=== PATIENT | male | born 1965 | race African-American/Black ===

== ENCOUNTER → 2016-12-05 | Outpatient (CLI) | payer SELFPAY ==
[2016-12-05 12:06] LABS: ALANINE AMINOTRANSFERASE 54 U/L (21-72); ALBUMIN 4.2 g/dL (3.5-5.0); ALKALINE PHOSPHATASE 104 U/L (38-126); ANION GAP 10 (5-19); ASPARTATE AMINO TRANSFERASE 28 U/L (17-59); BILIRUBIN,DIRECT 0.3 mg/dL (0.0-0.4); BILIRUBIN,TOTAL 1.6 mg/dL (0.2-1.3); BLOOD UREA NITROGEN 20 mg/dL (7-20); CALCIUM 9.5 mg/dL (8.4-10.2); CARBON DIOXIDE 25 mmol/L (22-30); CHLORIDE 103 mmol/L (98-107); CREATININE RESULT 0.97 mg/dL (0.52-1.25); GLUCOSE 170 mg/dL (75-110); POTASSIUM 4.6 mmol/L (3.6-5.0); SODIUM 138.4 mmol/L (137-145); TOTAL PROTEIN 7.2 g/dL (6.3-8.2)
== END ==
LOC: OD 10:39
PROVIDERS: ATTEND Internal Medicine
DX: E11.9 Type 2 diabetes mellitus without complications (principal)
CPT/HCPCS: 36415; 80053; 83036

== ENCOUNTER 2017-04-07 04:54 | Observation (INO) | payer SELFPAY ==
[2017-04-07] MEDS ORDERED: ASPIRIN 81 MG TABLET, CHEWABLE PO ONE ×2 (05:12→07:01)
--- NOTE | 2017-04-07 05:19 | ER Document Report ---
ED Medical Screen (RME) - General Chief Complaint: Shortness Of Breath Stated Complaint: SHORTNESS OF BREATH Notes: Patient is a 51-year-old male presents emergency department complaining of shortness of breath for the past 2-3 days. Admits to dyspnea on exertion and orthopnea. Patient does admit to a dry cough with occasional clear mucus. Admits to history of CHF. States that he does take spironolactone at home as well as potassium he also has Lasix at home to take as needed. Patient states that he took 2 tablets prior to arrival. He states that he feels his shortness of breath is related to his CHF. Denies any history of COPD, asthma. Denies any chest pain. PMH: HTN, HLD, DM, CHF PCP; [facility] TRAVEL OUTSIDE OF THE [place] IN LAST 30 DAYS: No - Related Data Allergies/Adverse Reactions: No Known Allergies Allergy (Verified 01/27/12 15:43) Past Medical History - Social History Chew tobacco use (# tins/day): No Frequency of alcohol use: None Drug Abuse: None - Past Medical History Cardiac Medical History: Reports: Hx Congestive Heart Failure, Hx Hypercholesterolemia, Hx Hypertension Endocrine Medical History: Reports: Hx Diabetes Mellitus Type 2 Renal/ Medical History: Denies: Hx Peritoneal Dialysis - Immunizations Hx Diphtheria, Pertussis, Tetanus Vaccination: No Physical Exam - Vital signs Vitals: Temp Pulse Resp BP Pulse Ox 98.4 F 128 H 26 H 149/97 H 88 L 04/07/17 04:59 04/07/17 04:59 04/07/17 04:59 04/07/17 04:59 04/07/17 04:59 - Notes Notes: PHYSICAL EXAM GENERAL: Alert, interacts well. NECK: Full range of motion. Supple. Trachea midline. LUNGS: Diminished at the bases bilaterally, no wheezes, rales, or rhonchi. No respiratory distress. HEART: Regular rate and rhythm. No murmurs, gallops, or rubs. ABDOMEN: Soft, nondistended, nontender. No guarding, rebound, or rigidity.. Bowel sounds present in all 4 quadrants. EXTREMITIES: Moves all 4 extremities spontaneously. No edema, radial and dorsalis pedis pulses 2/4 bilaterally. No cyanosis. NEUROLOGICAL: Alert and oriented x4. Normal speech. PSYCH: Normal affect, normal mood. SKIN: Warm, dry, normal turgor. No rashes or lesions noted. Course - Vital Signs Vital signs: Temp Pulse Resp BP Pulse Ox 98.4 F 128 H 26 H 149/97 H 88 L 04/07/17 04:59 04/07/17 04:59 04/07/17 04:59 04/07/17 04:59 04/07/17 04:59
--- NOTE | 2017-04-07 05:25 | EKG REPORT ---
SEVERITY:- ABNORMAL ECG - SINUS TACHYCARDIA LEFT ATRIAL ABNORMALITY LEFT BUNDLE BRANCH BLOCK : Confirmed by: Yahir Akbar 07-Apr-2017 05:24:18
[2017-04-07 05:46] LABS: ABSOLUTE BASOPHILS # (AUTO) 0.1 10^3/uL (0.0-0.2); ABSOLUTE EOSINOPHILS # (AUTO) 0.2 10^3/uL (0.0-0.6); ABSOLUTE LYMPHOCYTES (AUTO) 1.9 10^3/uL (0.5-4.7); ABSOLUTE MONOCYTES (AUTO) 0.9 10^3/uL (0.1-1.4); ABSOLUTE NEUT (AUTO) 7.7 10^3/uL (1.7-8.2); BASOPHILS % (AUTO) 0.8 % (0-2); EOSINOPHILS % (AUTO) 1.6 % (0-6); HEMATOCRIT 40.9 % (37.9-51.0); HEMOGLOBIN 13.6 g/dL (13.5-17.0); HGB HCT DIFFERENCE -0.1; LYMPHOCYTES % (AUTO) 17.8 % (13-45); MEAN CORPUSCULAR HEMOGLOBIN 30.8 pg (27.0-33.4); MEAN CORPUSCULAR HGB CONC 33.2 g/dL (32.0-36.0); MEAN CORPUSCULAR VOLUME 93 fl (80-97); RED BLOOD COUNT 4.42 10^6/uL (4.35-5.55); RED CELL DISTRIBUTION WIDTH 13.9 % (11.5-14.0); SEGMENTED NEUTROPHILS % (AUTO) 71.8 % (42-78); WHITE BLOOD COUNT 10.8 10^3/uL (4.0-10.5)
[2017-04-07 05:47] LABS: PROTHROMBIN TIME 13.6 SEC (11.4-15.4); VENOUS BLOOD BASE EXCESS -0.9 mmol/L; VENOUS BLOOD HCO3 23.4 mmol/L (20-32); VENOUS BLOOD PCO2 37.9 mmHg (35-63); VENOUS BLOOD PH 7.41 (7.30-7.42)
[2017-04-07 05:48] LABS: PARTIAL THROMBOPLASTIN TIME 30.2 SEC (23.5-35.8)
[2017-04-07 06:06] LABS: ALANINE AMINOTRANSFERASE 79 U/L (21-72); ALBUMIN 4.2 g/dL (3.5-5.0); ALKALINE PHOSPHATASE 102 U/L (38-126); ANION GAP 19 (5-19); ASPARTATE AMINO TRANSFERASE 36 U/L (17-59); BILIRUBIN,DIRECT 0.6 mg/dL (0.0-0.4); BILIRUBIN,TOTAL 2.2 mg/dL (0.2-1.3); BLOOD UREA NITROGEN 18 mg/dL (7-20); CALCIUM 9.5 mg/dL (8.4-10.2); CARBON DIOXIDE 18 mmol/L (22-30); CHLORIDE 106 mmol/L (98-107); CREATINE KINASE 751 U/L (55-170); CREATININE RESULT 1.02 mg/dL (0.52-1.25); GLUCOSE 321 mg/dL (75-110); MAGNESIUM 1.6 mg/dL (1.6-2.3); POTASSIUM 4.5 mmol/L (3.6-5.0); SODIUM 142.6 mmol/L (137-145); TOTAL PROTEIN 7.2 g/dL (6.3-8.2)
[2017-04-07 06:17] LABS: CREATINE KINASE MB 4.39 ng/mL (<4.55)
--- NOTE | 2017-04-07 06:19 | RADIOLOGY REPORT (SQ) ---
EXAM DESCRIPTION: CHEST SINGLE VIEW CLINICAL HISTORY: 51 years, Male, sob COMPARISON: None. FINDINGS: Small moderate patchiness of the right mid lung field associated with the right minor fissure. Adequate lung volumes. Normal cardiac silhouette size. Intact bony thorax. IMPRESSION: Small pneumonia pattern of the right mid hemithorax. 2011 [employer]- All Rights Reserved
[2017-04-07 06:23] LABS: TROPONIN I 0.067 ng/mL
[2017-04-07] MEDS ORDERED: METOPROLOL SUCCINATE 50 MG TAB.SR.24H PO ONE (07:02)
--- NOTE | 2017-04-07 07:03 | ER Document Report ---
ED General - General Chief Complaint: Shortness Of Breath Stated Complaint: SHORTNESS OF BREATH Time Seen by Provider: 04/07/17 06:19 TRAVEL OUTSIDE OF THE [place] 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 Last night he could not sleep lay down because of shortness of breath. He denies any chest pain left arm numbness tingling sensation nausea or vomiting. But felt like heart beating fast at times. Denies any fever chills or other constitutional symptoms. - Related Data Allergies/Adverse Reactions: No Known Allergies Allergy (Verified 01/27/12 15:43) Past Medical History - Social History Smoking Status: Never Smoker Chew tobacco use (# tins/day): No Frequency of alcohol use: None Drug Abuse: None Family History: Reviewed & Not Pertinent Patient has suicidal ideation: No Patient has homicidal ideation: No - Past Medical History Cardiac Medical History: Reports: Hx Congestive Heart Failure, Hx Hypercholesterolemia, Hx Hypertension Endocrine Medical History: Reports: Hx Diabetes Mellitus Type 2 Renal/ Medical History: Denies: Hx Peritoneal Dialysis - Immunizations Hx Diphtheria, Pertussis, Tetanus Vaccination: No Hx Pneumococcal Vaccination: 04/30/09 Review of Systems - Review of Systems Notes: REVIEW OF SYSTEMS: CONSTITUTIONAL : Denies fever, chills, or sweats. Denies recent illness. EENT: Denies eye, ear, throat, or mouth pain or symptoms. Denies nasal or sinus congestion or discharge. Denies throat, tongue, or mouth swelling or difficulty swallowing. CARDIOVASCULAR: Denies chest pain. Denies palpitations or racing or irregular heart beat. Denies ankle edema. RESPIRATORY: As per history of complaining GASTROINTESTINAL: Denies abdominal pain or distention. Denies nausea, vomiting , or diarrhea. Denies blood in vomitus, stools, or per rectum. Denies black, tarry stools. Denies constipation. GENITOURINARY: Denies difficulty urinating, painful urination, burning, frequency, blood in urine, or discharge. MUSCULOSKELETAL: Denies back or neck pain or stiffness. Denies joint pain or swelling. SKIN: Denies rash, lesions or sores. HEMATOLOGIC : Denies easy bruising or bleeding. LYMPHATIC: Denies swollen, enlarged glands. NEUROLOGICAL: Denies confusion or altered mental status. Denies passing out or loss of consciousness. Denies dizziness or lightheadedness. Denies headache. Denies weakness or paralysis or loss of use of either side. Denies problems with gait or speech. Denies sensory loss, numbness, or tingling. Denies seizures. PSYCHIATRIC: Denies anxiety or stress. Denies depression, suicidal ideation, or homicidal ideation. ALL OTHER SYSTEMS REVIEWED AND NEGATIVE. Dictation was performed using [employer] voice recognition software PHYSICAL EXAMINATION: GENERAL: Well-appearing, well-nourished and in no acute distress. Morbidly obese HEAD: Atraumatic, normocephalic. EYES: Pupils equal round and reactive to light, extraocular movements intact, sclera anicteric, conjunctiva are normal. ENT: Nares patent, oropharynx clear without exudates. Moist mucous membranes. NECK: Normal range of motion, supple without lymphadenopathy LUNGS: Bilaterally decreased breath sounds in the bases, and rales over the lower one third of the lung field. No other adventitial sounds heard. Percussion there is no dullness. HEART: Regular rate and rhythm without murmurs ABDOMEN: Soft, nontender, nondistended abdomen. No guarding, no rebound. No masses appreciated. Musculoskeletal: Normal range of motion, 1-2+ pitting or edema. No cyanosis. NEUROLOGICAL: Cranial nerves grossly intact. Normal speech, normal gait. Normal sensory, motor exams PSYCH: Normal mood, normal affect. SKIN: Warm, Dry, normal turgor, no rashes or lesions noted. Physical Exam - Vital signs Vitals: Temp Pulse Resp BP Pulse Ox 98.4 F 128 H 26 H 149/97 H 88 L 04/07/17 04:59 04/07/17 04:59 04/07/17 04:59 04/07/17 04:59 04/07/17 04:59 Course - Vital Signs Vital signs: Temp Pulse Resp BP Pulse Ox 98.4 F 128 H 20 149/97 H 95 04/07/17 04:59 04/07/17 04:59 04/07/17 06:00 04/07/17 04:59 04/07/17 06:00 - Laboratory Result Diagrams: 04/07/17 05:30 04/07/17 05:30 Laboratory results interpreted by me: 04/07/17 04/07/1704/07/17 05:30 05:30 05:30 WBC 10.8 H Carbon Dioxide 18 L Glucose 321 H Total Bilirubin 2.2 H Direct Bilirubin 0.6 H ALT 79 H Creatine Kinase 751 H NT-Pro-B Natriuret Pep 959 H - EKG Interpretation by Me EKG shows normal: Sinus rhythm - Sinus tach at rate of 117 bpm normal axis no acute ST elevation ST depression was noted. Nonspecific T-wave inversion in V6. Otherwise normal cardiogram
[2017-04-07] MEDS ORDERED: FUROSEMIDE INJ/PF 40 MG/4 ML SDV IV ONE (07:05)
[2017-04-07] MEDS ORDERED: ACETAMINOPHEN 325 MG TABLET PO PRN (12:27)
[2017-04-07] MEDS ORDERED: ENALAPRILAT DIHYDRATE INJ/PF 1.25 MG/1 ML SDV IV PRN (12:27)
[2017-04-07] MEDS ORDERED: MAGNESIUM HYDROXIDE SUSP 30 ML UDCUP PO PRN (12:27)
[2017-04-07] MEDS ORDERED: MAG HYDROX/AL HYDROX/SIMETH SUSP 30 ML UDCUP PO PRN (12:27)
[2017-04-07] MEDS ORDERED: ONDANSETRON 4 MG TAB.RAPDIS PO PRN (12:27)
[2017-04-07] MEDS ORDERED: DEXTROSE 50%-WATER 25 GM/50 ML DISP.SYRIN IV PRN ×2 (12:36)
[2017-04-07] MEDS ORDERED: GLUCAGON,HUMAN RECOMB 1 MG INJ IM PRN (12:36)
[2017-04-07] MEDS ORDERED: DEXTROSE 40% GEL 15 GM TUBE PO PRN ×2 (12:36)
[2017-04-07] MEDS ORDERED: AZITHROMYCIN 250 MG TABLET PO ONE (12:50)
[2017-04-07] MEDS ORDERED: IPRATROPIUM/ALBUTEROL 0.5-2.5 MG/3 ML AMPUL NEB PRN (12:53)
--- NOTE | 2017-04-07 12:59 | PDOC H&P ---
History of Present Illness Admission Date/PCP: 04/07/17 12:04 Patient complains of: Shortness of breath and productive cough History of Present Illness: JUANI PARTIDA is a 51 year old male with a past medical history significant for diabetes mellitus type 2, hypertension, hyperlipidemia, and congestive heart failure who presented to the emergency department today with a complaint of progressively worsening dyspnea. On arrival, the patient was found to be hypoxic at 85% on room air. Workup revealed leukocytosis at 10.8, a proBNP of 959, and a chest x-ray suggestive of mild pulmonary edema with possible right middle lobe developing pneumonia. He was provided IV Lasix and is now maintaining his oxygen saturations at greater than 92% while on room air and is comfortable lying supine and is fully conversational. The patient reports that his only blood pressure medication is spironolactone which he ran out of approximately 3 weeks ago. He is also admittedly noncompliant with his diabetic and cardiac diet. 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 He denies lower extremity edema or tenderness. He has noted worsening dyspnea and a productive cough for approximately 4-5 days. He denies fever, chills, body aches, chest pain, palpitations. He is referred to the hospitalist service for observational admission and management of his CHF exacerbation and pneumonia. Past Medical History Cardiac Medical History: Reports: Congestive Heart Failure, Hyperlipidema, Hypertension Pulmonary Medical History: Reports: None EENT Medical History: Reports: None Neurological Medical History: Reports: None Endocrine Medical History: Reports: Diabetes Mellitus Type 2 Renal/ Medical History: Reports: None Malignancy Medical History: Reports: None GI Medical History: Reports: None Musculoskeltal Medical History: Reports: None Skin Medical History: Reports: None Psychiatric Medical History: Reports: None Traumatic Medical History: Reports: None Hematology: Reports: None Infectious Medical History: Reports: None Past Surgical History Past Surgical History: Reports: None Social History Information Source: Patient, Relative Lives with: Spouse/Significant other Smoking Status: Never Smoker Frequency of Alcohol Use: None Hx Recreational Drug Use: No Hx Prescription Drug Abuse: No - Advance Directive Resuscitation Status: Full Code Family History Family History: Reviewed & Not Pertinent, DM, Hypertension Parental Family History Reviewed: Yes Children Family History Reviewed: Yes Sibling(s) Family History Reviewed.: Yes Medication/Allergy Allergies/Adverse Reactions: No Known Allergies Allergy (Verified 01/27/12 15:43) Review of Systems Constitutional: ABSENT: chills, fever(s), headache(s), weight gain, weight loss Eyes: ABSENT: visual disturbances Ears: ABSENT: hearing changes Nose, Mouth, and Throat: ABSENT: headache(s), sore throat Cardiovascular: PRESENT: dyspnea on exertion, orthropnea. ABSENT: chest pain, edema, palpitations Respiratory: PRESENT: cough, dyspnea, sputum. ABSENT: hemoptysis Gastrointestinal: ABSENT: abdominal pain, constipation, diarrhea, hematemesis, hematochezia, nausea, vomiting Genitourinary: ABSENT: dysuria, hematuria Musculoskeletal: ABSENT: joint swelling Integumentary: ABSENT: rash, wounds Neurological: ABSENT: abnormal gait, abnormal speech, confusion, dizziness, focal weakness, syncope Psychiatric: ABSENT: anxiety, depression, homidical ideation, suicidal ideation Endocrine: ABSENT: cold intolerance, heat intolerance, polydipsia, polyuria Hematologic/Lymphatic: ABSENT: easy bleeding, easy bruising Physical Exam Vital Signs: Temp Pulse Resp BP Pulse Ox 98.4 F 128 H 25 H 149/97 H 90 L 04/07/17 04:59 04/07/17 04:59 04/07/17 12:00 04/07/17 04:59 04/07/17 12:00 General appearance: PRESENT: no acute distress, obese, well-developed, well- nourished Head exam: PRESENT: atraumatic, normocephalic Eye exam: PRESENT: conjunctiva pink, EOMI, PERRLA. ABSENT: scleral icterus Ear exam: PRESENT: normal external ear exam Mouth exam: PRESENT: moist, tongue midline Neck exam: ABSENT: carotid bruit, JVD, lymphadenopathy, thyromegaly Respiratory exam: PRESENT: clear to auscultation eulalio, decreased breath sounds - Bibasilar, symmetrical, unlabored. ABSENT: rales, rhonchi, wheezes Cardiovascular exam: PRESENT: RRR, tachycardia. ABSENT: diastolic murmur, rubs , systolic murmur Pulses: PRESENT: normal dorsalis pedis pul Vascular exam: PRESENT: normal capillary refill GI/Abdominal exam: PRESENT: normal bowel sounds, soft. ABSENT: distended, guarding, mass, organolmegaly, rebound, tenderness Rectal exam: PRESENT: deferred Extremities exam: PRESENT: full ROM. ABSENT: calf tenderness, clubbing, pedal edema Neurological exam: PRESENT: alert, awake, oriented to person, oriented to place , oriented to time, oriented to situation, CN II-XII grossly intact. ABSENT: motor sensory deficit Psychiatric exam: PRESENT: appropriate affect, normal mood. ABSENT: homicidal ideation, suicidal ideation Skin exam: PRESENT: dry, intact, warm. ABSENT: cyanosis, rash Results Impressions: Chest X-Ray 04/07/17 05:12 IMPRESSION: Small pneumonia pattern of the right mid hemithorax. 2010 [employer] All Rights Reserved Assessment & Plan - Diagnosis (1) Pneumonia Qualifiers: Pneumonia type: due to unspecified organism Laterality: right Lung location: middle lobe of lung Qualified Code(s): J18.1 - Lobar pneumonia, unspecified organism Is this a current diagnosis for this admission?: Yes Plan: The patient presented with a complaint of dyspnea and a productive cough. He was initially found to be hypoxic at 85% on room air, which improved following Lasix and supplemental oxygen via nasal canula for a short period of time. He remains tachycardic in the low 100s. He is noted to have leukocytosis of 10.8. Chest xray reveals a small pneumonia pattern to the right mid hemithorax. He will be placed on Azithromycin. Blood cultures will be obtained for completeness, although, pt does not appear to be acutely ill. Duonebs as needed. Supplemental oxygen to keep O2 sats >92%. Incentive spirometry at bedside. (2) Congestive heart failure Qualifiers: Congestive heart failure type: systolic Congestive heart failure chronicity : acute Qualified Code(s): I50.21 - Acute systolic (congestive) heart failure Is this a current diagnosis for this admission?: Yes Plan: This is likely a result of having missed several weeks of his home diuretic. Further complicated by a developing pneumonia. The patient is improved following IV Lasix administered in the emergency department. We will continue gentle diuresis with daily furosemide. Continue metoprolol. Will obtain an echocardiogram. (3) Acute pulmonary edema Is this a current diagnosis for this admission?: Yes Plan: Secondary to acute CHF exacerbation. Plan as above. 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 His home medication regimen will be continued once reconciled. We will monitor her glucose with Accu-Cheks before meals at bedtime and provide Humalog for sliding scale coverage. Will ask the family educator and registered dietitian to meet with the patient. (5) HTN (hypertension) Is this a current diagnosis for this admission?: Yes Plan: Patient reports that he ran out of his heart medications proximally 3 weeks ago. He has been provided IV furosemide and metoprolol in the ED. We will continue metoprolol and continued diuresis with furosemide. We will resume his home medication regimen once reconciled. - Time Time Spent: 50 to 70 Minutes Anticipated discharge: Home Within: within 48 hours
[2017-04-07] MEDS ORDERED: ENOXAPARIN SODIUM INJ 40 MG/0.4 ML DISP.SYRIN SUBCUT ONE (14:00)
[2017-04-07] MEDS ORDERED: LEVOFLOXACIN 750 MG TABLET PO ONE (14:00)
[2017-04-07] MEDS ORDERED: INFLUENZA ADLT QUAD (36MOS+) 2017-18 VAC 0.5 ML SYR IM PRN (14:09)
[2017-04-07] MEDS ORDERED: INSULIN LISPRO 100 UNIT/ML 3 ML VIAL SUBCUT ONE (16:30)
[2017-04-07] MEDS: FUROSEMIDE INJ/PF 20 MG/2 ML SDV IV SCH (17:28)
[2017-04-07] MEDS ORDERED: FAMOTIDINE 20 MG TABLET PO SCH (22:00)
[2017-04-07] MEDS: INSULIN LISPRO 100 UNIT/ML 3 ML VIAL SUBCUT PRN (23:42)
[2017-04-08] MEDS: FUROSEMIDE INJ/PF 20 MG/2 ML SDV IV SCH (05:40)
[2017-04-08 06:31] LABS: ABSOLUTE BASOPHILS # (AUTO) 0.1 10^3/uL (0.0-0.2); ABSOLUTE EOSINOPHILS # (AUTO) 0.2 10^3/uL (0.0-0.6); ABSOLUTE LYMPHOCYTES (AUTO) 3.2 10^3/uL (0.5-4.7); ABSOLUTE MONOCYTES (AUTO) 1.2 10^3/uL (0.1-1.4); ABSOLUTE NEUT (AUTO) 6.6 10^3/uL (1.7-8.2); EOSINOPHILS % (AUTO) 1.7 % (0-6); HEMATOCRIT 39.4 % (37.9-51.0); HEMOGLOBIN 13.1 g/dL (13.5-17.0); HGB HCT DIFFERENCE -0.1; MEAN CORPUSCULAR HEMOGLOBIN 31.2 pg (27.0-33.4); MEAN CORPUSCULAR HGB CONC 33.2 g/dL (32.0-36.0); MEAN CORPUSCULAR VOLUME 94 fl (80-97); MONOCYTES % (AUTO) 10.7 % (3-13); RED CELL DISTRIBUTION WIDTH 13.8 % (11.5-14.0); SEGMENTED NEUTROPHILS % (AUTO) 58.6 % (42-78); WHITE BLOOD COUNT 11.3 10^3/uL (4.0-10.5)
[2017-04-08 06:56] LABS: ANION GAP 16 (5-19); BLOOD UREA NITROGEN 23 mg/dL (7-20); CALCIUM 9.6 mg/dL (8.4-10.2); CARBON DIOXIDE 22 mmol/L (22-30); CHLORIDE 100 mmol/L (98-107); CHOLESTEROL 194.53 mg/dL (0-200); CREATININE RESULT 1.05 mg/dL (0.52-1.25); Direct HDL 37 mg/dL (>40); GLUCOSE 316 mg/dL (75-110); POTASSIUM 4.4 mmol/L (3.6-5.0); SODIUM 137.9 mmol/L (137-145); TRIGLYCERIDES 136 mg/dL (<150)
[2017-04-08 07:06] LABS: DIRECT LDL 128 mg/dL (<100)
[2017-04-08] MEDS: INSULIN LISPRO 100 UNIT/ML 3 ML VIAL SUBCUT PRN (07:33)
[2017-04-08] MEDS ORDERED: AZITHROMYCIN 250 MG TABLET PO ONE (08:00)
[2017-04-08] MEDS ORDERED: METFORMIN HCL 500 MG TABLET PO SCH (08:00)
[2017-04-08 08:26] VITALS: BP 100/63
[2017-04-08] MEDS ORDERED: GLIMEPIRIDE 4 MG TABLET PO SCH (10:00)
[2017-04-08] MEDS ORDERED: LEVOFLOXACIN 750 MG TABLET PO SCH (10:00)
[2017-04-08] MEDS ORDERED: SPIRONOLACTONE 25 MG TABLET PO SCH (10:00)
[2017-04-08] MEDS ORDERED: ENOXAPARIN SODIUM INJ 40 MG/0.4 ML DISP.SYRIN SUBCUT SCH (10:00)
[2017-04-08] MEDS ORDERED: ASPIRIN 81 MG TABLET, ENT COATED PO SCH (10:00)
[2017-04-08] MEDS ORDERED: CARVEDILOL 3.125 MG TABLET PO SCH (10:00)
[2017-04-08] MEDS ORDERED: METOPROLOL SUCCINATE 50 MG TAB.SR.24H PO SCH (10:00)
[2017-04-08] MEDS ORDERED: OMEGA-3 ACID ETHYL ESTERS 1 GM CAPSULE PO SCH (10:00)
--- NOTE | 2017-04-08 14:12 | PDOC DISCHARGE SUMMARY ---
General - Admit/Disc Date/PCP Admission Date/Primary Care Provider: 04/07/17 12:04 Discharge Date: 04/08/17 - Discharge Diagnosis (1) Pneumonia Is this a current diagnosis for this admission?: Yes Summary: The patient presented with a complaint of dyspnea and a productive cough. He was initially found to be hypoxic at 85% on room air which improved following Lasix and supplemental oxygen. He was noted to have leukocytosis of 10.8 and a chest x-ray that revealed a small pneumonia pattern to the right mid hemothorax. Blood cultures were obtained and at time of dictation are still pending. He was placed on azithromycin and is provided a prescription to complete a 5 day course. On day of discharge, the patient is maintaining oxygen saturations on room air and while ambulatory. He continues to have a slightly productive cough but overall feels much improved and is stable for discharge to home. (2) Congestive heart failure Is this a current diagnosis for this admission?: Yes Summary: Acute CHF exacerbation secondary to having missed several weeks of his home medications and further complicated by developing pneumonia. His dyspnea, orthopnea and hypoxemia have all resolved following one administration of IV Lasix and reinitiating his home medication regimen. ProBNP is trending downward and the pt states he is ready to be discharged to home. He is strongly encouraged to continue all medications as ordered and is provided prescriptions for ASA, Coreg, Furosemide (prn), Lisinopril, and Aldactone. (3) Acute pulmonary edema Is this a current diagnosis for this admission?: Yes Summary: Resolved; secondary to acite CHF exacerbation as described above. (4) Uncontrolled diabetes mellitus Is this a current diagnosis for this admission?: Yes Summary: The patient is an uncontrolled diabetic with an A1c of 10.5, who is admittedly noncompliant with his diabetic diet medications. He is strongly encouraged to take his medications as prescribed and to eat a consistent carb diet. On discharge he is provided a prescription for metformin and Amaryl. Patient is to follow-up with his primary care provider within 1-2 weeks. (5) HTN (hypertension) Is this a current diagnosis for this admission?: Yes Summary: As above. - Additional Information Resuscitation Status: Full Code Discharge Diet: Cardiac, Diabetic Discharge Activity: Activity As Tolerated, Balance Activity w/Rest, Walk Frequently, Weigh Daily Home Medications: Aspirin [Ecotrin 81 mg EC Tablet] 81 mg PO DAILY 04/07/17 Cinnamon Bark [Cinnamon] 1,000 mg PO DAILY 04/07/17 Garlic [Garlic Oil] 1,000 mg PO DAILY 04/07/17 Aspirin [Ecotrin 81 mg EC Tablet] 81 mg PO DAILY #90 tabec 04/08/17 Azithromycin [Zithromax] 250 mg PO DAILY #4 tablet 04/08/17 Carvedilol [Coreg 3.125 mg Tablet] 3.125 mg PO Q12 #30 tablet 04/08/17 Furosemide [Lasix 20 mg Tablet] 20 mg PO DAILY #30 tablet 04/08/17 Glimepiride [Amaryl 4 mg Tablet] 4 mg PO DAILY #30 tablet 04/08/17 Lisinopril [Prinivil] 10 mg PO DAILY #30 tablet 04/08/17 Metformin HCl [Glucophage] 1,000 mg PO BIDACBS #60 tablet 04/08/17 Grant-3S/Dha/Epa/Fish Oil/D3 [Fish Hwj-Nzmfx-5-Vit D Softgel] 1 each PO DAILY # 30 capsule 04/08/17 Potassium Chloride 10 meq PO DAILY #30 tablet.er 04/08/17 Simvastatin [Zocor 40 mg Tablet] 40 mg PO QHS #30 tablet 04/08/17 Spironolactone [Aldactone 25 mg Tablet] 25 mg PO DAILY #30 tablet 04/08/17 History of Present Illness History of Present Illness: JUANI PARTIDA is a 51 year old male with a past medical history significant for diabetes mellitus type 2, hypertension, hyperlipidemia, and congestive heart failure who presented to the emergency department today with a complaint of progressively worsening dyspnea. On arrival, the patient was found to be hypoxic at 85% on room air. Workup revealed leukocytosis at 10.8, a proBNP of 959, and a chest x-ray suggestive of mild pulmonary edema with possible right middle lobe developing pneumonia. He was provided IV Lasix and is now maintaining his oxygen saturations at greater than 92% while on room air and is comfortable lying supine and is fully conversational. The patient reports that his only blood pressure medication is spironolactone which he ran out of approximately 3 weeks ago. He is also admittedly noncompliant with his diabetic and cardiac diet. 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 He denies lower extremity edema or tenderness. He has noted worsening dyspnea and a productive cough for approximately 4-5 days. He denies fever, chills, body aches, chest pain, palpitations. He is referred to the hospitalist service for observational admission and management of his CHF exacerbation and pneumonia. Physical Exam Vital Signs: Temp Pulse Resp BP Pulse Ox 97.9 F 103 H 18 100/63 93 04/08/17 08:10 04/08/17 08:10 04/08/17 08:10 04/08/17 08:10 04/08/17 08:10 Intake & Output 04/07/17 04/08/17 04/09/17 06:59 06:59 06:59 Intake Total 940 Output Total 0 Balance 940 Weight 117.7 kg General appearance: PRESENT: no acute distress, well-developed, well-nourished, other - Overweight Head exam: PRESENT: atraumatic, normocephalic Eye exam: PRESENT: conjunctiva pink, EOMI, PERRLA. ABSENT: scleral icterus Ear exam: PRESENT: normal external ear exam Mouth exam: PRESENT: moist, tongue midline Neck exam: ABSENT: carotid bruit, JVD, lymphadenopathy, thyromegaly Respiratory exam: PRESENT: clear to auscultation eulalio, symmetrical, unlabored. ABSENT: rales, rhonchi, wheezes Cardiovascular exam: PRESENT: RRR, +S1, +S2. ABSENT: diastolic murmur, rubs, systolic murmur Pulses: PRESENT: normal dorsalis pedis pul Vascular exam: PRESENT: normal capillary refill GI/Abdominal exam: PRESENT: normal bowel sounds, soft. ABSENT: distended, guarding, mass, organolmegaly, rebound, tenderness Rectal exam: PRESENT: deferred Extremities exam: PRESENT: full ROM. ABSENT: calf tenderness, clubbing, pedal edema Neurological exam: PRESENT: alert, awake, oriented to person, oriented to place , oriented to time, oriented to situation, CN II-XII grossly intact. ABSENT: motor sensory deficit Psychiatric exam: PRESENT: appropriate affect, normal mood. ABSENT: homicidal ideation, suicidal ideation Skin exam: PRESENT: dry, intact, warm. ABSENT: cyanosis, rash Results Laboratory Results: 04/08/17 05:30 04/08/17 05:30 04/08/17 04/08/17 05:30 05:30 WBC 11.3 H RBC 4.20 L Hgb 13.1 L Hct 39.4 MCV 94 MCH 31.2 MCHC 33.2 RDW 13.8 Plt Count 259 Seg Neutrophils % 58.6 Lymphocytes % 28.0 Monocytes % 10.7 Eosinophils % 1.7 Basophils % 1.0 Absolute Neutrophils 6.6 Absolute Lymphocytes 3.2 Absolute Monocytes 1.2 Absolute Eosinophils 0.2 Absolute Basophils 0.1 Sodium 137.9 Potassium 4.4 Chloride 100 Carbon Dioxide 22 Anion Gap 16 BUN 23 H Creatinine 1.05 Est GFR ( Amer) > 60 Est GFR (Non-Af Amer) > 60 Glucose 316 H Calcium 9.6 Triglycerides 136 Cholesterol 194.53 LDL Cholesterol Direct 128 H VLDL Cholesterol 27.0 HDL Cholesterol 37 L 04/07/17 04/08/17 16:27 05:30 Troponin I 0.068 NT-Pro-B Natriuret Pep 733 Impressions: Chest X-Ray 04/07/17 05:12 IMPRESSION: Small pneumonia pattern of the right mid hemithorax. 2010 [employer]- All Rights Reserved Qualifiers PATEINT BEING DISCHARGED WITH ANY OF THE FOLLOWING DIAGNOSIS?: Heart Failure Plan Discharge Plan: Discharge to home with self care. To follow up with primary care provided within 1-2 weeks.
[2017-04-08] MEDS ORDERED: SIMVASTATIN 40 MG TABLET PO SCH (22:00)
[2017-04-08] MEDS ORDERED: SIMVASTATIN 40 MG PO SCH (22:00)
== END 2017-04-08 09:15 | disposition home or self-care (01) ==
LOC: ER 04:54 → INTOOBSV 12:04 → EH 12:04 → 4S 13:20
PROVIDERS: ADMIT Internal Medicine; ATTEND Internal Medicine
PROC: 3E0F7GC Introduction of Other Therapeutic Substance into Respiratory Tract, Via Natural or Artificial Opening (ICD-10-PCS; principal; 2017-04-07)
PROC: 5A09357 Assistance with Respiratory Ventilation, Less than 24 Consecutive Hours, Continuous Positive Airway Pressure (ICD-10-PCS; 2017-04-07)
DX: J18.1 Lobar pneumonia, unspecified organism (principal); R09.02 Hypoxemia; E11.65 Type 2 diabetes mellitus with hyperglycemia; I11.0 Hypertensive heart disease with heart failure; I50.21 Acute systolic (congestive) heart failure; E78.5 Hyperlipidemia, unspecified; Z91.14 Patient's other noncompliance with medication regimen; Z79.899 Other long term (current) drug therapy; Z79.82 Long term (current) use of aspirin; Z91.11 Patient's noncompliance with dietary regimen; Z83.3 Family history of diabetes mellitus; Z82.49 Family history of ischemic heart disease and other diseases of the circulatory system
CPT/HCPCS: 93005; 99285; 96374; 36415 ×2; 87040; 82553; 82962 ×2; 82550; 83735; 85025 ×2; 85610; 85730; 80048; 80053; 84484; 83036; 82803; 80061; 83880 ×2; 71010; 93010; 94660; 94640; J1940 ×3; J1815 ×2; J3490 ×2; J7620

== ENCOUNTER → 2017-06-14 | Outpatient (CLI) | payer SELFPAY ==
[2017-06-14 17:44] LABS: ALANINE AMINOTRANSFERASE 64 U/L (21-72); ALBUMIN 4.1 g/dL (3.5-5.0); ALKALINE PHOSPHATASE 81 U/L (38-126); ANION GAP 11 (5-19); ASPARTATE AMINO TRANSFERASE 30 U/L (17-59); BILIRUBIN,DIRECT 0.2 mg/dL (0.0-0.4); BILIRUBIN,TOTAL 0.5 mg/dL (0.2-1.3); BLOOD UREA NITROGEN 15 mg/dL (7-20); CALCIUM 9.7 mg/dL (8.4-10.2); CARBON DIOXIDE 23 mmol/L (22-30); CHLORIDE 106 mmol/L (98-107); GLUCOSE 171 mg/dL (75-110); POTASSIUM 4.7 mmol/L (3.6-5.0); SODIUM 140.2 mmol/L (137-145); TOTAL PROTEIN 6.7 g/dL (6.3-8.2)
== END ==
LOC: OD 16:20
PROVIDERS: ATTEND Family Medicine
DX: I50.9 Heart failure, unspecified (principal)
CPT/HCPCS: 36415; 80053

== ENCOUNTER 2017-06-18 13:14 | Emergency (ER) | payer BC ==
--- NOTE | 2017-06-18 15:02 | ER Document Report ---
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 He became short of breath and went to the hospital. He states while there they told him that he had congestive heart failure, that his ejection fraction is 17%, and they placed a defibrillator. Patient states he just arrived home from [place] several days ago. Patient stated he started again today to feel short of breath and like his heart was racing. He states he did take an aspirin this morning. TRAVEL OUTSIDE OF THE [place] IN LAST 30 DAYS: No - Related Data Allergies/Adverse Reactions: No Known Allergies Allergy (Verified 06/18/17 13:17) Past Medical History - Past Medical History Cardiac Medical History: Reports: Hx Congestive Heart Failure, Hx Hypercholesterolemia, Hx Hypertension Endocrine Medical History: Reports: Hx Diabetes Mellitus Type 2 Renal/ Medical History: Denies: Hx Peritoneal Dialysis Psychiatric Medical History: Denies: Hx Depression - Immunizations Hx Diphtheria, Pertussis, Tetanus Vaccination: No History of Influenza Vaccine for 01/2017 - 06/2017 Season: No Physical Exam - Vital signs Vitals: Temp Pulse Resp BP Pulse Ox 97.7 F 109 H 20 112/82 96 06/18/17 13:35 06/18/17 13:35 06/18/17 13:35 06/18/17 13:35 06/18/17 13:35 Course - Vital Signs Vital signs: Temp Pulse Resp BP Pulse Ox 97.7 F 109 H 20 112/82 96 06/18/17 13:35 06/18/17 13:35 06/18/17 13:35 06/18/17 13:35 06/18/17 13:35
[2017-06-18 15:57] LABS: ABSOLUTE BASOPHILS # (AUTO) 0.1 10^3/uL (0.0-0.2); ABSOLUTE EOSINOPHILS # (AUTO) 0.2 10^3/uL (0.0-0.6); ABSOLUTE LYMPHOCYTES (AUTO) 2.6 10^3/uL (0.5-4.7); ABSOLUTE MONOCYTES (AUTO) 0.7 10^3/uL (0.1-1.4); ABSOLUTE NEUT (AUTO) 6.7 10^3/uL (1.7-8.2); BASOPHILS % (AUTO) 0.9 % (0-2); EOSINOPHILS % (AUTO) 1.5 % (0-6); HEMOGLOBIN 14.2 g/dL (13.5-17.0); LYMPHOCYTES % (AUTO) 25.5 % (13-45); MEAN CORPUSCULAR HEMOGLOBIN 30.6 pg (27.0-33.4); MEAN CORPUSCULAR HGB CONC 32.2 g/dL (32.0-36.0); MEAN CORPUSCULAR VOLUME 95 fl (80-97); PLATELET COUNT 379 10^3/uL (150-450); RED BLOOD COUNT 4.64 10^6/uL (4.35-5.55); RED CELL DISTRIBUTION WIDTH 13.6 % (11.5-14.0); SEGMENTED NEUTROPHILS % (AUTO) 65.1 % (42-78); TOTAL CELLS COUNTED % (AUTO) 100 %; WHITE BLOOD COUNT 10.3 10^3/uL (4.0-10.5)
--- NOTE | 2017-06-18 16:14 | ER Document Report ---
ED General - General Mode of Arrival: Ambulatory Information source: Patient TRAVEL OUTSIDE OF THE [place] IN LAST 30 DAYS: No <WARREN MUÑOZ - Last Filed: 06/18/17 16:15> <NORAHKACEY Queen - Last Filed: 06/19/17 09:33> - General Chief Complaint: Shortness Of Breath Stated Complaint: chest pain Time Seen by Provider: 06/18/17 15:00 Notes: Patient is a 52 year old male presenting to the emergency department complaining of a shortness of breath and heart palpitations. Patient states he had similar symptoms 1 week ago while in [place] and was told he had CHF and an ejection fraction of 17%. Patient states a scan of his chest was preformed then and it did not show any signs of a pulmonary embolism. Patient was then given a defibrillator. Patient also complains of an occasional cough with yellow sputum. Patient states his manager port is now Dr. Akbar and has an appointment scheduled for tomorrow. Patient states the appointment was originally scheduled for the first and would not have come to the emergency department if he had known. (WARREN MUÑOZ) - Related Data Allergies/Adverse Reactions: No Known Allergies Allergy (Verified 06/18/17 13:17) Past Medical History - General Information source: Patient - Social History Smoking Status: Unknown if Ever Smoked Frequency of alcohol use: None Drug Abuse: None Family History: Reviewed & Not Pertinent, DM, Hypertension Patient has suicidal ideation: No Patient has homicidal ideation: No - Past Medical History Cardiac Medical History: Reports: Hx Congestive Heart Failure, Hx Hypercholesterolemia, Hx Hypertension Endocrine Medical History: Reports: Hx Diabetes Mellitus Type 2 Past Surgical History: Reports: Hx Cardiac Surgery - Defib - Immunizations Hx Diphtheria, Pertussis, Tetanus Vaccination: No Hx Pneumococcal Vaccination: 04/30/09 <WARREN MUÑOZ - Last Filed: 06/18/17 16:15> Review of Systems - Review of Systems Constitutional: No symptoms reported EENT: No symptoms reported Cardiovascular: See HPI, Palpitations Respiratory: See HPI, Cough, Short of breath Gastrointestinal: No symptoms reported Genitourinary: No symptoms reported Male Genitourinary: No symptoms reported Musculoskeletal: No symptoms reported Skin: No symptoms reported Hematologic/Lymphatic: No symptoms reported Neurological/Psychological: No symptoms reported -: Yes All other systems reviewed and negative <WARREN MUÑOZ - Last Filed: 06/18/17 16:15> Physical Exam - General General appearance: Appears well, Alert In distress: None - HEENT Head: Normocephalic, Atraumatic Eyes: Normal Conjunctiva: Normal Pupils: PERRL - Respiratory Respiratory status: No respiratory distress Chest status: Nontender Breath sounds: Normal Chest palpation: Normal - Cardiovascular Rhythm: Regular Heart sounds: Normal auscultation Murmur: No Friction rub: No Gallop: None auscultated - Abdominal Inspection: Normal Distension: No distension Bowel sounds: Normal Tenderness: Nontender Organomegaly: No organomegaly - Back Back: Normal - Extremities General upper extremity: Normal inspection, Normal ROM General lower extremity: Normal inspection, Normal ROM. No: Edema - Neurological Neuro grossly intact: Yes Cognition: Normal Orientation: AAOx4 [place] Coma Scale Eye Opening: Spontaneous [place] Coma Scale Verbal: Oriented [place] Coma Scale Motor: Obeys Commands [place] Coma Scale Total: 15 Speech: Normal - Psychological Associated symptoms: Normal affect, Normal mood - Skin Skin Temperature: Warm Skin Moisture: Dry Skin Color: Normal <WARREN MUÑOZ - Last Filed: 06/18/17 16:15> - Vital signs Vitals: Temp Pulse Resp BP Pulse Ox 97.7 F 109 H 20 112/82 96 06/18/17 13:35 06/18/17 13:35 06/18/17 13:35 06/18/17 13:35 06/18/17 13:35 Course - Laboratory Result Diagrams: 06/18/17 15:40 06/18/17 15:40 <WARREN MUÑOZ - Last Filed: 06/18/17 16:15> - Laboratory Result Diagrams: 06/18/17 15:40 06/18/17 15:40 <KACEY ALMAZAN - Last Filed: 06/19/17 09:33> - Re-evaluation Re-evalutation: 06/18/17 17:13 Patient's labs within normal limits are trending within his baseline with troponin less than historical trend. He does have elevated BNP from his historical baselines but no congestive heart failure. Patient has appointment with his manager port tomorrow. I discussed with patient to strictly follow up with his manager port. He denies any chest pain or shortness of breath at this time is asymptomatic. Will be discharged home with return precautions (KACEY ALMAZAN) - Vital Signs Vital signs: Temp Pulse Resp BP Pulse Ox 98.0 F 109 H 18 126/94 H 100 06/18/17 17:30 06/18/17 13:35 06/18/17 17:30 06/18/17 17:30 06/18/17 17:30 - Laboratory Laboratory results interpreted by me: 06/18/17 06/18/17 15:40 15:40 BUN 21 H Creatinine 1.27 H Glucose 139 H Direct Bilirubin 0.5 H NT-Pro-B Natriuret Pep 3080 H Discharge <WARREN MUÑOZ - Last Filed: 06/18/17 16:15> <KACEY ALMAZAN - Last Filed: 06/19/17 09:33> - Discharge Clinical Impression: Congestive heart failure (CHF) Qualifiers: Heart failure type: unspecified Heart failure chronicity: unspecified Qualified Code(s): I50.9 - Heart failure, unspecified Condition: Good Disposition: HOME, SELF-CARE Instructions: Congestive Heart Failure ([facility]) Additional Instructions: Please follow-up with your manager port with your previously scheduled appointment for tomorrow regarding her congestive heart failure and optimizing your medical management. Scribe Attestation: 06/19/17 09:33 I personally performed the services described documentation, reviewed and edited the documentation which was dictated to describe my presence, and it accurately records my words and actions. (KACEY ALMAZAN) Scribe Documentation - Scribe Written by Chelae:: Myrna Amin, 06/18/2017, 16:26 acting as scribe for :: Norah <WARREN MUÑOZ - Last Filed: 06/18/17 16:15>
--- NOTE | 2017-06-18 16:18 | RADIOLOGY REPORT (SQ) ---
EXAM DESCRIPTION: CHEST PA/LAT COMPLETED DATE/TIME: 06/18/2017 3:56 pm REASON FOR STUDY: sob COMPARISON: Chest films 04/24/2010, 07/03/2010, 04/03/2013 EXAM PARAMETERS: NUMBER OF VIEWS: two views TECHNIQUE: Digital Frontal and Lateral radiographic views of the chest acquired. RADIATION DOSE: NA LIMITATIONS: none FINDINGS: LUNGS AND PLEURA: No opacities, masses or pneumothorax. No pleural effusion. MEDIASTINUM AND HILAR STRUCTURES: No masses or contour abnormalities. HEART AND VASCULAR STRUCTURES: Stable moderate cardiomegaly BONES: No acute findings. HARDWARE: Left-sided single lead pacemaker, new compared to 04/07/2017 OTHER: No other significant finding. IMPRESSION: Stable moderate cardiomegaly. Left-sided single lead pacemaker new compared to 7 TECHNICAL DOCUMENTATION: JOB ID: [id number]- All Rights Reserved
[2017-06-18 16:19] LABS: ALANINE AMINOTRANSFERASE 57 U/L (21-72); ALBUMIN 4.2 g/dL (3.5-5.0); ALKALINE PHOSPHATASE 86 U/L (38-126); ANION GAP 13 (5-19); ASPARTATE AMINO TRANSFERASE 30 U/L (17-59); BILIRUBIN,DIRECT 0.5 mg/dL (0.0-0.4); BILIRUBIN,TOTAL 1.1 mg/dL (0.2-1.3); BLOOD UREA NITROGEN 21 mg/dL (7-20); CALCIUM 9.5 mg/dL (8.4-10.2); CARBON DIOXIDE 23 mmol/L (22-30); CHLORIDE 107 mmol/L (98-107); GLUCOSE 139 mg/dL (75-110); POTASSIUM 4.7 mmol/L (3.6-5.0); SODIUM 143.2 mmol/L (137-145); TOTAL PROTEIN 7.5 g/dL (6.3-8.2)
[2017-06-18 16:35] LABS: TROPONIN I 0.04 ng/mL
[2017-06-18 17:39] VITALS: BP 126/94
--- NOTE | 2017-06-18 18:09 | EKG REPORT ---
SEVERITY:- ABNORMAL ECG - SINUS TACHYCARDIA PROBABLE LEFT ATRIAL ABNORMALITY IVCD NONSPECIFIC ST-T CHANGES LATERAL LEADS. : Confirmed by: Pablito Ramirez MD 18-Jun-2017 18:08:27
== END 2017-06-18 17:39 | disposition home or self-care (01) ==
LOC: ER 13:14
DX: I50.9 Heart failure, unspecified (principal); R06.02 Shortness of breath; R00.2 Palpitations; R05 Cough
CPT/HCPCS: 36415; 71046; 80053; 83735; 83880; 84484; 85025; 93005; 93010; 99285

== ENCOUNTER → 2017-06-28 | Outpatient (CLI) | payer BC ==
[2017-06-28 13:21] LABS: ALANINE AMINOTRANSFERASE 52 U/L (21-72); ALBUMIN 4.4 g/dL (3.5-5.0); ALKALINE PHOSPHATASE 72 U/L (38-126); ANION GAP 15 (5-19); ASPARTATE AMINO TRANSFERASE 35 U/L (17-59); BILIRUBIN,DIRECT 0.3 mg/dL (0.0-0.4); BILIRUBIN,TOTAL 1.7 mg/dL (0.2-1.3); BLOOD UREA NITROGEN 20 mg/dL (7-20); CALCIUM 9.8 mg/dL (8.4-10.2); CARBON DIOXIDE 22 mmol/L (22-30); CHLORIDE 106 mmol/L (98-107); GLUCOSE 139 mg/dL (75-110); POTASSIUM 4.8 mmol/L (3.6-5.0); SODIUM 142.9 mmol/L (137-145)
== END ==
LOC: OD 12:15
PROVIDERS: ATTEND Family Medicine
DX: E11.9 Type 2 diabetes mellitus without complications (principal); I50.9 Heart failure, unspecified
CPT/HCPCS: 36415; 80053

== ENCOUNTER 2017-07-23 08:30 | Observation (INO) | payer BC ==
--- NOTE | 2017-07-23 10:11 | ER Document Report ---
ED Respiratory Problem - General Chief Complaint: Shortness Of Breath Stated Complaint: SHORTNESS OF BREATH Time Seen by Provider: 07/23/17 10:01 Mode of Arrival: Ambulatory Information source: Patient Notes: HP 52 years old male with a history of CHF hypertension, presents today with progressive increasing shortness of breath over the last 3 days. He has been taking Lasix. But was drinking soda and consuming salty food. Denies any chest pain but had orthopnea. Denies any left arm numbness tingling sensation nausea vomiting palpitation or diaphoresis. Has been coughing on and off largely dry cough, no wheezing. No constitutional symptoms REVIEW OF SYSTEMS: CONSTITUTIONAL : Denies fever, chills, or sweats. Denies recent illness. EENT: Denies eye, ear, throat, or mouth pain or symptoms. Denies nasal or sinus congestion or discharge. Denies throat, tongue, or mouth swelling or difficulty swallowing. CARDIOVASCULAR: Denies chest pain. Denies palpitations or racing or irregular heart beat. Denies ankle edema. RESPIRATORY: Denies cough, cold, or chest congestion. Denies shortness of breath, difficulty breathing, or wheezing. GASTROINTESTINAL: Denies abdominal pain or distention. Denies nausea, vomiting , or diarrhea. Denies blood in vomitus, stools, or per rectum. Denies black, tarry stools. Denies constipation. GENITOURINARY: Denies difficulty urinating, painful urination, burning, frequency, blood in urine, or discharge. MUSCULOSKELETAL: Denies back or neck pain or stiffness. Denies joint pain or swelling. SKIN: Denies rash, lesions or sores. HEMATOLOGIC : Denies easy bruising or bleeding. LYMPHATIC: Denies swollen, enlarged glands. NEUROLOGICAL: Denies confusion or altered mental status. Denies passing out or loss of consciousness. Denies dizziness or lightheadedness. Denies headache. Denies weakness or paralysis or loss of use of either side. Denies problems with gait or speech. Denies sensory loss, numbness, or tingling. Denies seizures. PSYCHIATRIC: Denies anxiety or stress. Denies depression, suicidal ideation, or homicidal ideation. ALL OTHER SYSTEMS REVIEWED AND NEGATIVE. Dictation was performed using [employer] voice recognition software PHYSICAL EXAMINATION: GENERAL: Well-appearing, well-nourished and in no acute distress. HEAD: Atraumatic, normocephalic. EYES: Pupils equal round and reactive to light, extraocular movements intact, sclera anicteric, conjunctiva are normal. ENT: Nares patent, oropharynx clear without exudates. Moist mucous membranes. NECK: Normal range of motion, supple without lymphadenopathy LUNGS: Breath sounds clear to auscultation bilaterally and equal. No wheezes rales or rhonchi. HEART: Regular rate and rhythm without murmurs ABDOMEN: Soft, nontender, nondistended abdomen. No guarding, no rebound. No masses appreciated. Musculoskeletal: Normal range of motion, no pitting or edema. No cyanosis. NEUROLOGICAL: Cranial nerves grossly intact. Normal speech, normal gait. Normal sensory, motor exams PSYCH: Normal mood, normal affect. SKIN: Warm, Dry, normal turgor, no rashes or lesions noted. TRAVEL OUTSIDE OF THE [place] IN LAST 30 DAYS: No - Related Data Allergies/Adverse Reactions: No Known Allergies Allergy (Verified 07/23/17 08:30) Past Medical History - Social History Smoking Status: Never Smoker Frequency of alcohol use: None Drug Abuse: None Family History: Reviewed & Not Pertinent, DM, Hypertension Patient has suicidal ideation: No Patient has homicidal ideation: No - Past Medical History Cardiac Medical History: Reports: Hx Congestive Heart Failure, Hx Hypercholesterolemia, Hx Hypertension Endocrine Medical History: Reports: Hx Diabetes Mellitus Type 2 Renal/ Medical History: Denies: Hx Peritoneal Dialysis Psychiatric Medical History: Denies: Hx Depression Past Surgical History: Reports: Hx Cardiac Surgery - Defib - Immunizations Hx Diphtheria, Pertussis, Tetanus Vaccination: No Hx Pneumococcal Vaccination: 04/30/09 Physical Exam - Vital signs Vitals: Temp Pulse Resp BP Pulse Ox 98.0 F 106 H 18 138/93 H 97 07/23/17 08:37 07/23/17 08:37 07/23/17 08:37 07/23/17 08:37 07/23/17 08:37 Course - Vital Signs Vital signs: Temp Pulse Resp BP Pulse Ox 98.0 F 106 H 22 H 132/101 H 95 07/23/17 08:37 07/23/17 08:37 07/23/17 14:01 07/23/17 14:01 07/23/17 14:01 - Laboratory Result Diagrams: 07/23/17 10:05 07/23/17 10:05 Laboratory results interpreted by me: 07/23/17 07/23/17 10:05 10:05 RBC 4.20 L Hgb 13.1 L RDW 15.0 H Sodium 145.6 H Chloride 110 H Glucose 176 H Total Bilirubin 1.7 H Direct Bilirubin 0.6 H Creatine Kinase 460 H - Diagnostic Test Radiology reviewed: Reports reviewed - Mild congestive changes noted - EKG Interpretation by Me EKG shows normal: Sinus rhythm Rhythm: NSR - 99 bpm sinus rhythm normal axis no acute ST elevation ST depression noted T-wave inversion in lateral leads V5 and V6. Discharge - Discharge Clinical Impression: Chest pain, rule out acute myocardial infarction Congestive heart failure Qualifiers: Heart failure type: combined systolic and diastolic Heart failure chronicity: acute on chronic Qualified Code(s): I50.43 - Acute on chronic combined systolic (congestive) and diastolic (congestive) heart failure Condition: Fair Disposition: ADMITTED INPATIENT Admitting Provider: Hospitalist Unit Admitted: Telemetry Referrals: NORMA INTERIANO MD [Primary Care Provider] - Follow up as needed
--- NOTE | 2017-07-23 10:15 | RADIOLOGY REPORT (SQ) ---
EXAM DESCRIPTION: CHEST SINGLE VIEW COMPLETED DATE/TIME: 07/23/2017 9:59 am REASON FOR STUDY: sob COMPARISON: 06/18/2017 EXAM PARAMETERS: NUMBER OF VIEWS: One view. TECHNIQUE: Single frontal radiographic view of the chest acquired. RADIATION DOSE: NA LIMITATIONS: None. FINDINGS: LUNGS AND PLEURA: No opacities, masses or pneumothorax. No pleural effusion. MEDIASTINUM AND HILAR STRUCTURES: No masses. Contour normal. HEART AND VASCULAR STRUCTURES: Moderate cardiomegaly. Vasculature within normal limits. BONES: No acute findings. HARDWARE: Left subclavian defibrillator. OTHER: No other significant finding. IMPRESSION: Cardiomegaly without evidence of acute cardiopulmonary disease. TECHNICAL DOCUMENTATION: JOB ID: [id number] [employer]- All Rights Reserved Reading location - IP/workstation name: [email or web address]
[2017-07-23 10:29] LABS: ABSOLUTE BASOPHILS # (AUTO) 0.1 10^3/uL (0.0-0.2); ABSOLUTE EOSINOPHILS # (AUTO) 0.1 10^3/uL (0.0-0.6); ABSOLUTE LYMPHOCYTES (AUTO) 2.1 10^3/uL (0.5-4.7); ABSOLUTE MONOCYTES (AUTO) 0.8 10^3/uL (0.1-1.4); BASOPHILS % (AUTO) 0.8 % (0-2); EOSINOPHILS % (AUTO) 1.4 % (0-6); HEMATOCRIT 39.6 % (37.9-51.0); HEMOGLOBIN 13.1 g/dL (13.5-17.0); LYMPHOCYTES % (AUTO) 23.1 % (13-45); MEAN CORPUSCULAR HEMOGLOBIN 31.1 pg (27.0-33.4); MEAN CORPUSCULAR VOLUME 94 fl (80-97); MONOCYTES % (AUTO) 8.6 % (3-13); PLATELET COUNT 267 10^3/uL (150-450); SEGMENTED NEUTROPHILS % (AUTO) 66.1 % (42-78); TOTAL CELLS COUNTED % (AUTO) 100 %; WHITE BLOOD COUNT 9.1 10^3/uL (4.0-10.5)
[2017-07-23 10:41] LABS: ALANINE AMINOTRANSFERASE 57 U/L (21-72); ALKALINE PHOSPHATASE 63 U/L (38-126); ANION GAP 11 (5-19); ASPARTATE AMINO TRANSFERASE 33 U/L (17-59); BILIRUBIN,DIRECT 0.6 mg/dL (0.0-0.4); BILIRUBIN,TOTAL 1.7 mg/dL (0.2-1.3); BLOOD UREA NITROGEN 19 mg/dL (7-20); CALCIUM 9.3 mg/dL (8.4-10.2); CARBON DIOXIDE 25 mmol/L (22-30); CHLORIDE 110 mmol/L (98-107); CREATINE KINASE 460 U/L (55-170); GLUCOSE 176 mg/dL (75-110); SODIUM 145.6 mmol/L (137-145); TOTAL PROTEIN 7.1 g/dL (6.3-8.2)
[2017-07-23 11:07] LABS: CREATINE KINASE MB 2.35 ng/mL (<4.55)
[2017-07-23 11:09] LABS: TROPONIN I 0.05 ng/mL
--- NOTE | 2017-07-23 14:15 | EKG REPORT ---
SEVERITY:- ABNORMAL ECG - SINUS RHYTHM PROBABLE LEFT ATRIAL ABNORMALITY IVCD NONSPECIFIC LATERAL ST-T CHANGES : Confirmed by: Pablito Ramirez MD 23-Jul-2017 14:15:00
[2017-07-23] MEDS ORDERED: ZOLPIDEM TARTRATE 5 MG TABLET PO PRN (16:25)
[2017-07-23] MEDS ORDERED: OXYCODONE-ACETAMINOPHEN 5-325 MG TABLET PO PRN (16:25)
[2017-07-23] MEDS ORDERED: ACETAMINOPHEN 325 MG TABLET PO PRN (16:25)
[2017-07-23] MEDS ORDERED: DEXTROSE 50%-WATER 25 GM/50 ML DISP.SYRIN IV PRN ×2 (16:38)
[2017-07-23] MEDS ORDERED: DEXTROSE 40% GEL 15 GM TUBE PO PRN ×2 (16:38)
[2017-07-23] MEDS ORDERED: GLUCAGON,HUMAN RECOMB 1 MG INJ IM PRN (16:38)
--- NOTE | 2017-07-23 16:56 | PDOC H&P ---
History of Present Illness Admission Date/PCP: NORMA INTERIANO MD Patient complains of: Shortness of breath for the past 3 days History of Present Illness: JUANI PARTIDA is a 52 year old male Presents to emergency room via private vehicle and accompanied by his and complains of having shortness of breath for the past 3 days. Patient's states that patient indulges in drinking sodas. Patient states that he gets thirsty and he drinks sodas and water. Patient denies chest pain. He admits having a history of congestive heart failure and that he is EF is 15%. He sees Dr. Akbar for that purpose. Patient also admits as to snoring and stops breathing as per . He is supposed to be tested for sleep study this coming week. Patient was evaluated in emergency room and there was a concern of congestive heart failure and troponin was minimally elevated. After consulting with Dr. Akbar ED physician contacted our service and prompted to evaluate and will admit for further management Past Medical History Cardiac Medical History: Reports: Congestive Heart Failure, Hyperlipidema, Hypertension Pulmonary Medical History: Reports: None EENT Medical History: Reports: None Neurological Medical History: Reports: None Endocrine Medical History: Reports: Diabetes Mellitus Type 2 Renal/ Medical History: Reports: None Malignancy Medical History: Reports: None GI Medical History: Reports: None Musculoskeltal Medical History: Reports: None Skin Medical History: Reports: None Psychiatric Medical History: Reports: None Denies: Depression Traumatic Medical History: Reports: None Hematology: Reports: None Infectious Medical History: Reports: None Past Surgical History Past Surgical History: Reports: Cardiac Catheterization, Pacemaker Social History Information Source: Patient Lives with: Spouse/Significant other Smoking Status: Never Smoker Frequency of Alcohol Use: None Hx Recreational Drug Use: No Drugs: None Hx Prescription Drug Abuse: No - Advance Directive Resuscitation Status: Full Code Family History Family History: Reviewed & Not Pertinent, DM, Hypertension Parental Family History Reviewed: Yes Children Family History Reviewed: Yes Sibling(s) Family History Reviewed.: Yes Medication/Allergy Home Medications: Cinnamon Bark [Cinnamon] 1,000 mg PO DAILY 04/07/17 Garlic [Garlic Oil] 1,000 mg PO DAILY 04/07/17 Aspirin [Ecotrin 81 mg EC Tablet] 81 mg PO DAILY #90 tabec 04/08/17 Carvedilol [Coreg 3.125 mg Tablet] 3.125 mg PO Q12 #30 tablet 04/08/17 Lisinopril [Prinivil] 10 mg PO DAILY #30 tablet 04/08/17 Metformin HCl [Glucophage] 1,000 mg PO BIDACBS #60 tablet 04/08/17 [place]-3S/Dha/Epa/Fish Oil/D3 [Fish Rto-Hjqin-1-Vit D Softgel] 1 each PO DAILY # 30 capsule 04/08/17 Spironolactone [Aldactone 25 mg Tablet] 25 mg PO DAILY #30 tablet 04/08/17 Digoxin [Lanoxin 0.125 mg Tablet] 0.125 mg PO DAILY 07/23/17 Furosemide [Lasix 20 mg Tablet] 20 mg PO Q48H 07/23/17 Glimepiride [Amaryl 4 mg Tablet] 4 mg PO [id number] 07/23/17 Potassium Chloride [Klor-Con 10 Meq Tablet.sa] 10 meq PO DAILY 07/23/17 Sacubitril/Valsartan [Entresto 49 mg/51 mg Tablet] 1 tab PO Q12 07/23/17 Simvastatin [Zocor 20 mg Tablet] 20 mg PO QHS 07/23/17 Allergies/Adverse Reactions: No Known Allergies Allergy (Verified 07/23/17 08:30) Review of Systems Constitutional: PRESENT: fatigue. ABSENT: headache(s), night sweats Eyes: ABSENT: visual disturbances Ears: ABSENT: hearing changes Nose, Mouth, and Throat: ABSENT: mouth pain, sore throat Cardiovascular: PRESENT: dyspnea on exertion. ABSENT: chest pain, edema, orthropnea Respiratory: PRESENT: dyspnea Gastrointestinal: ABSENT: abdominal pain, nausea, vomiting Integumentary: ABSENT: diaphoresis Neurological: ABSENT: weakness Endocrine: ABSENT: polyphagia, polyuria Physical Exam Vital Signs: Temp Pulse Resp BP Pulse Ox 98.0 F 106 H 22 H 132/101 H 95 07/23/17 08:37 07/23/17 08:37 07/23/17 14:01 07/23/17 14:01 07/23/17 14:01 Intake & Output 07/22/17 07/23/17 07/24/17 06:59 06:59 06:59 Weight 120.6 kg General appearance: PRESENT: cooperative, morbidly obese Head exam: PRESENT: atraumatic, normocephalic Eye exam: PRESENT: conjunctiva pink, EOMI, PERRLA Neck exam: PRESENT: full ROM. ABSENT: JVD, lymphadenopathy, tenderness Respiratory exam: PRESENT: decreased breath sounds Cardiovascular exam: PRESENT: RRR. ABSENT: diastolic murmur, systolic murmur GI/Abdominal exam: PRESENT: normal bowel sounds, soft. ABSENT: tenderness Extremities exam: PRESENT: full ROM. ABSENT: pedal edema Musculoskeletal exam: PRESENT: ambulatory Neurological exam: PRESENT: alert, awake, oriented to person, oriented to place , oriented to time, oriented to situation, CN II-XII grossly intact Psychiatric exam: PRESENT: appropriate affect, normal mood Skin exam: PRESENT: intact, normal color Results Laboratory Results: 07/23/17 10:05 07/23/17 10:05 07/23/17 07/23/17 10:05 10:05 WBC 9.1 RBC 4.20 L Hgb 13.1 L Hct 39.6 MCV 94 MCH 31.1 MCHC 33.0 RDW 15.0 H Plt Count 267 Seg Neutrophils % 66.1 Lymphocytes % 23.1 Monocytes % 8.6 Eosinophils % 1.4 Basophils % 0.8 Absolute Neutrophils 6.0 Absolute Lymphocytes 2.1 Absolute Monocytes 0.8 Absolute Eosinophils 0.1 Absolute Basophils 0.1 Sodium 145.6 H Potassium 4.0 Chloride 110 H Carbon Dioxide 25 Anion Gap 11 BUN 19 Creatinine 1.08 Est GFR ( Amer) > 60 Est GFR (Non-Af Amer) > 60 Glucose 176 H Calcium 9.3 Total Bilirubin 1.7 H AST 33 ALT 57 Alkaline Phosphatase 63 Total Protein 7.1 Albumin 4.0 07/23/17 07/23/17 10:05 10:05 Creatine Kinase 460 H CK-MB (CK-2) 2.35 Troponin I 0.050 Impressions: Chest X-Ray 07/23/17 09:39 IMPRESSION: Cardiomegaly without evidence of acute cardiopulmonary disease. Assessment & Plan - Diagnosis (1) Diabetes Qualifiers: Diabetes mellitus type: type 2 Diabetes mellitus correction insulin use: without termite exterminator helper use Diabetes mellitus complication status: with circulatory complication Is this a current diagnosis for this admission?: Yes Plan: To place patient on Humalog sliding scale and bedside glucose before meals and at bedtime (2) Congestive heart failure Qualifiers: Heart failure type: combined systolic and diastolic Heart failure chronicity: acute on chronic Qualified Code(s): I50.43 - Acute on chronic combined systolic (congestive) and diastolic (congestive) heart failure Is this a current diagnosis for this admission?: Yes Plan: Patient has been having dietary indiscretion and had a lengthy conversation pertaining this issue. Patient will be placed on Lasix IV. Will increase Coreg dose and otherwise continue with Entresto. Will add Imdur and hydralazine to his regimen. Consult Dr. Akbar. To place patient on CPAP (3) HTN (hypertension) Qualifiers: Hypertension type: essential hypertension Qualified Code(s): I10 - Essential (primary) hypertension Is this a current diagnosis for this admission?: Yes Plan: We will add Imdur and hydralazine. To increase coreg. - Time Time Spent: 30 to 50 Minutes Medications reviewed and adjusted accordingly: Yes Anticipated discharge: Home Within: within 24 hours - Inpatient Certification Based on my medical assessment, after consideration of the patient's comorbidities, presenting symptoms, or acuity I expect that the services needed warrant INPATIENT care.: No I certify that my determination is in accordance with my understanding of Medicare's requirements for reasonable and necessary INPATIENT services [42 CFR 412.3e].: Yes Medical Necessity: Need Close Monitoring Due to Risk of Patient Decompensation, Need For Continuous Telemetry Monitoring
[2017-07-23] MEDS: HYDRALAZINE HCL 10 MG TABLET PO SCH (17:49)
[2017-07-23] MEDS ORDERED: ISOSORBIDE MONONITRATE 30 MG TAB.ER.24H PO SCH (18:00)
[2017-07-23 18:03] LABS: APPEARANCE,URINE SLIGHTLY-CLOUDY; BILIRUBIN,URINE NEGATIVE (NEGATIVE); COLOR,URINE YELLOW; GLUCOSE, URINE NEGATIVE (NEGATIVE); KETONES,URINE NEGATIVE (NEGATIVE); LEUKOCYTE ESTERASE,URINE NEGATIVE (NEGATIVE); NITRITE,URINE NEGATIVE (NEGATIVE); PROTEIN,URINE 100 mg/dL (NEGATIVE); URINE SPECIFIC GRAVITY 1.026
[2017-07-23] MEDS ORDERED: FUROSEMIDE INJ/PF 40 MG/4 ML SDV IV SCH (22:00)
[2017-07-23] MEDS ORDERED: CARVEDILOL 3.125 MG TABLET PO SCH (22:00)
[2017-07-23] MEDS: CARVEDILOL 3.125 MG TABLET PO SCH (22:43)
[2017-07-23] MEDS: HEPARIN SOD (PORCINE) 5,000 UNIT/ML 1 ML SYRINGE SUBCUT SCH (22:44)
[2017-07-23] MEDS: SACUBITRIL/VALSARTAN 49 MG/51 MG TABLET PO SCH (22:45)
[2017-07-23] MEDS: INSULIN LISPRO 100 UNIT/ML 3 ML VIAL SUBCUT PRN (22:47)
[2017-07-24] MEDS: HYDRALAZINE HCL 10 MG TABLET PO SCH (06:21)
[2017-07-24] MEDS: HEPARIN SOD (PORCINE) 5,000 UNIT/ML 1 ML SYRINGE SUBCUT SCH ×2 (06:21→13:15)
[2017-07-24 06:46] LABS: HEMATOCRIT 37.9 % (37.9-51.0); HEMOGLOBIN 12.5 g/dL (13.5-17.0); MEAN CORPUSCULAR HEMOGLOBIN 30.8 pg (27.0-33.4); MEAN CORPUSCULAR HGB CONC 32.9 g/dL (32.0-36.0); MEAN CORPUSCULAR VOLUME 94 fl (80-97); PLATELET COUNT 268 10^3/uL (150-450); RED BLOOD COUNT 4.04 10^6/uL (4.35-5.55); RED CELL DISTRIBUTION WIDTH 15.3 % (11.5-14.0); WHITE BLOOD COUNT 9.2 10^3/uL (4.0-10.5)
[2017-07-24 07:21] LABS: ANION GAP 11 (5-19); BLOOD UREA NITROGEN 18 mg/dL (7-20); CALCIUM 9.4 mg/dL (8.4-10.2); CARBON DIOXIDE 26 mmol/L (22-30); CHLORIDE 105 mmol/L (98-107); GLUCOSE 139 mg/dL (75-110); POTASSIUM 4.2 mmol/L (3.6-5.0); SODIUM 142.4 mmol/L (137-145)
--- NOTE | 2017-07-24 08:56 | Physician Advisory Note ---
Physician Advisor ProgressNote .: [facility] to the [facility], I have reviewed the medical record for this patient. Physician Advisor Statement: Please consider documenting, if you agree: 1. "Acute hypernatremia, suspect due to " 2. Any additional hx/findings supporting dx of Acute syst/diast CHF: " orthopnea" (ED dr stated it, H&P didn't), ?nocturnal cough?, ?rales?, SOB w/ ordinary exertion? S3 gallop? elevated JVP? hepatojugular reflux? BLE edema? - At present, the [place] criteria for dx Acute CHF documented by attending = "cardiomegaly on CXR" alone - payers will deny the dx was valid if insufficient criteria are documented. 3. Medical necessity: Is pt clinically improved enough for d/c after 1MN, or what are the clinical concerns still present? - "I AM CONCERNED ABOUT ": "mild hypoxemia continuing"? " persistent tachycardia, even in the face of increased beta yao dose"? "tachypnea as high as 42 on 07/23 PM, with recurrent tachypnea today"?, " persistent SOB/HENRIQUEZ significantly above baseline"?, ... 4. "suspected PRASANNA" Status: If pt is not safe for d/c today, please document reasons (see above), & may then be appropriate for change to Inpatient status. Thanks! CK
[2017-07-24] MEDS ORDERED: FUROSEMIDE INJ/PF 40 MG/4 ML SDV IV SCH (10:00)
[2017-07-24] MEDS ORDERED: DOCUSATE SODIUM 100 MG CAPSULE PO SCH (10:00)
[2017-07-24] MEDS ORDERED: DIGOXIN 0.125 MG TABLET PO SCH (10:00)
[2017-07-24] MEDS: SACUBITRIL/VALSARTAN 49 MG/51 MG TABLET PO SCH (10:33)
[2017-07-24] MEDS: CARVEDILOL 3.125 MG TABLET PO SCH (10:35)
--- NOTE | 2017-07-24 10:42 | PDOC CONSULTATION ---
Consultation Consult Date: 07/23/17 Attending physician:: CHELSI BABB Consult reason:: Shortness of breath History of Present Illness Admission Date/PCP: 07/23/17 16:09 NORMA INTERIANO MD Patient complains of: Shortness of breath History of Present Illness: JUANI PARTIDA is a 52 year old male Presents to emergency room via private vehicle and accompanied by his and complains of having shortness of breath for the past 3 days. Patient's states that patient indulges in drinking sodas. Patient states that he gets thirsty and he drinks sodas and water. Patient denies chest pain. He admits having a history of congestive heart failure and that he is EF is 15%. He sees Dr. Akbar for that purpose. Patient also admits as to snoring and stops breathing as per . He is supposed to be tested for sleep study this coming week. Patient was evaluated in emergency room and there was a concern of congestive heart failure and troponin was minimally elevated. After consulting with Dr. Akbar ED physician contacted our service and prompted to evaluate and will admit for further management This history was reviewed and confirmed. Patient had a recent hospitalization at the [facility] in [place] when he was noted to have nonobstructive coronary artery disease. He also had a defibrillator placed. Patient has history of severe LV systolic dysfunction. He was initially placed on diuretics, Lasix 20 mg p.o. daily but this dose was subsequently reduced as patient was noted to be dizzy. However patient increased fluid intake and came back with weight gain and CHF symptoms. Patient feels better after receiving IV Lasix. Past Medical History Cardiac Medical History: Reports: Congestive Heart Failure, Hyperlipidema, Hypertension Pulmonary Medical History: Reports: None EENT Medical History: Reports: None Neurological Medical History: Reports: None Endocrine Medical History: Reports: Diabetes Mellitus Type 2 Renal/ Medical History: Reports: None Malignancy Medical History: Reports: None GI Medical History: Reports: None Musculoskeltal Medical History: Reports: None Skin Medical History: Reports: None Psychiatric Medical History: Reports: None Denies: Depression Traumatic Medical History: Reports: None Hematology: Reports: None Infectious Medical History: Reports: None Past Surgical History Past Surgical History: Reports: Cardiac Catheterization, Pacemaker Social History Information Source: Patient Lives with: Spouse/Significant other Smoking Status: Never Smoker Frequency of Alcohol Use: None Hx Recreational Drug Use: No Drugs: None Hx Prescription Drug Abuse: No - Advance Directive Resuscitation Status: Full Code Surrogate healthcare decision maker:: Patient spouse is the surrogate decision-maker Family History Family History: DM, Hypertension Parental Family History Reviewed: Yes Children Family History Reviewed: Yes Sibling(s) Family History Reviewed.: Yes Medication/Allergy Home Medications: Cinnamon Bark [Cinnamon] 1,000 mg PO DAILY 04/07/17 Garlic [Garlic Oil] 1,000 mg PO DAILY 04/07/17 Aspirin [Ecotrin 81 mg EC Tablet] 81 mg PO DAILY #90 tabec 04/08/17 Metformin HCl [Glucophage] 1,000 mg PO BIDACBS #60 tablet 04/08/17 [place]-3S/Dha/Epa/Fish Oil/D3 [Fish Rze-Vjamz-8-Vit D Softgel] 1 each PO DAILY # 30 capsule 04/08/17 Spironolactone [Aldactone 25 mg Tablet] 25 mg PO DAILY #30 tablet 04/08/17 Digoxin [Lanoxin 0.125 mg Tablet] 0.125 mg PO DAILY 07/23/17 Glimepiride [Amaryl 4 mg Tablet] 4 mg PO WBRKFST 07/23/17 Potassium Chloride [Klor-Con 10 Meq Tablet.sa] 10 meq PO DAILY 07/23/17 Sacubitril/Valsartan [Entresto 49 mg/51 mg Tablet] 1 tab PO Q12 07/23/17 Simvastatin [Zocor 20 mg Tablet] 20 mg PO QHS 07/23/17 Carvedilol [Coreg 12.5 mg Tablet] 12.5 mg PO Q12 30 Days #60 tablet 07/24/17 Furosemide [Lasix 20 mg Tablet] 20 mg PO QAM #30 tablet 07/24/17 Isosorbide Mononitrate [Imdur 30 mg Tablet.er] 30 mg PO QPM #30 tab.er.24h 07/24 Magnesium Oxide 400 mg PO DAILY 30 Days #30 tablet 07/24/17 Sacubitril/Valsartan [Entresto 49 mg/51 mg Tablet] 1 tab PO Q12 tablet Allergies/Adverse Reactions: oxycodone [From Percocet] Adverse Reaction (Verified 07/23/17 19:47) Hallucinations Review of Systems Review of Systems: 0205 Please see history of present illness and past medical history as wall. Constitutional: No fever or chills reported. Head : No recent chronic headaches, recent head injury. Eyes: No recent eye pain, diplopia, redness, discharge, acute visual changes. Ears: No recent chronic ear pain, acute hearing loss, ear discharge. Oral cavity: No recent ulcerations, bleeding, oral cavity discomfort. Neck: No recent acute neck pain reported. Hematologic: No recent easy bruising or bleeding or hematologic malignancy reported. Lymphatic: No recent lymphatic malignancy, chronic lymphadenopathy reported yet Cardiovascular system review: See history of present illness. Respiratory system review: No recent chronic cough, hemoptysis, blood clots in the lungs reported. Shortness of breath on exertion Gastrointestinal system review: Negative for any recent acute or chronic abdominal pain, hematemesis, melena, recent change in bowel habits. Abdominal bloating noted Genitourinary system review: No recent acute or chronic hematuria, flank pain, UTI etc. reported. Skin system review: Negative for any recent abnormal bruising, no rash, no pruritus reported. Neurologic: No prior history of strokes, mini strokes, seizure disorder. Psychologic: No history of major psychosis or major depression reported. Musculoskeletal: Minor aches and pains reported. No acute joint swelling reported. Endocrine: No recent polyuria, polydipsia, recent heat or cold intolerance. Physical Exam Vital Signs: Temp Pulse Resp BP Pulse Ox 97.7 F 107 H 20 130/97 H 93 07/23/17 18:09 07/23/17 18:09 07/23/17 18:09 07/23/17 18:09 07/23/17 18:09 Intake & Output 07/22/17 07/23/17 07/24/17 06:59 06:59 06:59 Weight 120.6 kg Exam: GENERAL: well-nourished and in no acute distress. Alert and oriented x3 HEAD: Atraumatic, normocephalic. EYES: Pupils equal round and reactive to light, extraocular movements intact, sclera anicteric, conjunctiva are normal. ENT: TMs normal, nares patent, oropharynx clear without exudates. Moist mucous membranes. No oral ulcerations or bleeding gums noted NECK: supple without lymphadenopathy. Trachea is central. No cervical or axillary lymphadenopathy noted. Carotids are 2+, JVD 10 centimeters LUNGS: Respiration seems nonlabored, no significant accessory muscle action noted. Breath sounds clear to auscultation bilaterally and equal noted. No wheezes rales or rhonchi noted. No significant dullness noted on percussion. CHEST: Palpation of the chest wall shows no significant chest wall tenderness. No other significant abnormalities noted. 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 ABDOMEN: Soft, no significant tenderness appreciated, normoactive bowel sounds. No guarding, no rebound. No rigidity noted . No masses appreciated. EXTREMITIES: Pedal pulses are 1-2+, no calf tenderness noted. No clubbing or cyanosis.trace to 1+ pedal edema noted NEUROLOGICAL: Focused neurological exam showed no significant neurologic deficit. Normal speech, no focal weakness appreciated. PSYCH: Normal mood, normal affect. Judgment and insight within normal limits. SKIN: No significant ecchymosis, skin is noted to be warm. MUSCULOSKELETAL EXAM: No significant acute joint swelling noted. Results Laboratory Results: 07/23/17 17:27 Urine Color YELLOW Urine Appearance SLIGHTLY-CLOUDY Urine pH 5.0 Ur Specific [place] 1.026 Urine Protein 100 H Urine Glucose (UA) NEGATIVE Urine Ketones NEGATIVE Urine Blood NEGATIVE Urine Nitrite NEGATIVE Ur Leukocyte Esterase NEGATIVE Urine WBC (Auto) 6 Urine RBC (Auto) 1 07/23/17 17:00 Troponin I 0.057 EKG Comments: Sinus tachycardia with LVH and secondary ST-T wave changes Impressions: Chest X-Ray 07/23/17 09:39 IMPRESSION: Cardiomegaly without evidence of acute cardiopulmonary disease. Assessment & Plan - Diagnosis (1) Acute systolic (congestive) heart failure Is this a current diagnosis for this admission?: Yes (2) Sleep disorder breathing Is this a current diagnosis for this admission?: Yes (3) Obesity Is this a current diagnosis for this admission?: Yes (4) Diabetes Qualifiers: Diabetes mellitus type: type 2 Diabetes mellitus predatory animal exterminator insulin use: without predatory animal exterminator use Diabetes mellitus complication status: with circulatory complication Is this a current diagnosis for this admission?: Yes (5) HTN (hypertension) Qualifiers: Hypertension type: essential hypertension Qualified Code(s): I10 - Essential (primary) hypertension Is this a current diagnosis for this admission?: Yes (6) AICD (automatic cardioverter/defibrillator) present Is this a current diagnosis for this admission?: Yes - Notes Notes: Patient noted to have acute on chronic precipitation of systolic heart failure related to noncompliance with dietary restriction. Agree with IV Lasix therapy. In the meantime will try optimize medical management of his CHF. Patient's medical regimen was reviewed. This will be gradually optimized. Sleep disordered breathing: Patient has symptoms indicative of underlying sleep apnea syndrome. Patient tells me that he is already is scheduled for a sleep study. Obesity: Patient has been encouraged in weight loss. Diabetes: Patient encouraged in good control of blood sugar. Hypertension: Blood pressure goal is 135/85 or less in this young patient with diabetes and acute systolic heart failure. Presence of defibrillator in situ: Patient has single-chamber defibrillator in place. Patient to report any defibrillator discharges and follow-up in the defibrillator clinic. - Time Time Spent: 30 to 50 Minutes - CODE STATUS was discussed, patient remains full code. Surrogate decision-maker patient's spouse. Multiple medical problems were addressed. More than 50% of the time spent coordinating care, discussing management plans with involved caregivers. Management plans discussed with involved personnels. Medical decision making was of moderate to high complexity , patient's has multiple comorbidities. Medications reviewed and adjusted accordingly: Yes
[2017-07-24] MEDS: INSULIN LISPRO 100 UNIT/ML 3 ML VIAL SUBCUT PRN (11:50)
--- NOTE | 2017-07-24 13:45 | PDOC PROGRESS REPORT ---
Subjective Progress Note for:: 07/24/17 Subjective:: The patient is a 52-year-old gentleman with a history of systolic congestive heart failure, ejection fraction of 15%. He follows with Dr. Akbar as an outpatient. The patient was scheduled for a sleep study next week. He presented to the hospital on July 23 with shortness of breath for the past 3 days and he was admitted with concerns for acute CHF exacerbation and mildly elevated troponin. He was started on Lasix. Entrust O, Imdur, digoxin, Coreg were continued. Feels much better today. Ready for discharge home Reason For Visit: ACUTE ON CHRONIC SYSTOLIC CHF Physical Exam Vital Signs: Temp Pulse Resp BP Pulse Ox 98.2 F 100 16 126/87 H 97 07/24/17 07:15 07/24/17 07:15 07/24/17 07:15 07/24/17 07:15 07/24/17 07:15 Intake & Output 07/23/17 07/24/17 07/25/17 06:59 06:59 06:59 Intake Total 459 Balance 459 Weight 119.5 kg General appearance: PRESENT: no acute distress Eye exam: PRESENT: EOMI Respiratory exam: PRESENT: symmetrical, unlabored. ABSENT: accessory muscle use , rales Cardiovascular exam: PRESENT: RRR GI/Abdominal exam: PRESENT: soft. ABSENT: tenderness Rectal exam: PRESENT: deferred Results Laboratory Results: 07/24/17 05:59 07/24/17 05:59 07/23/17 07/24/17 07/24/17 17:27 05:59 05:59 WBC 9.2 RBC 4.04 L Hgb 12.5 L Hct 37.9 MCV 94 MCH 30.8 MCHC 32.9 RDW 15.3 H Plt Count 268 Sodium 142.4 Potassium 4.2 Chloride 105 Carbon Dioxide 26 Anion Gap 11 BUN 18 Creatinine 1.06 Est GFR ( Amer) > 60 Est GFR (Non-Af Amer) > 60 Glucose 139 H Calcium 9.4 Magnesium 1.4 L TSH Urine Color YELLOW Urine Appearance SLIGHTLY-CLOUDY Urine pH 5.0 Ur Specific [place] 1.026 Urine Protein 100 H Urine Glucose (UA) NEGATIVE Urine Ketones NEGATIVE Urine Blood NEGATIVE Urine Nitrite NEGATIVE Ur Leukocyte Esterase NEGATIVE Urine WBC (Auto) 6 Urine RBC (Auto) 1 07/24/17 05:59 WBC RBC Hgb Hct MCV MCH MCHC RDW Plt Count Sodium Potassium Chloride Carbon Dioxide Anion Gap BUN Creatinine Est GFR ( Amer) Est GFR (Non-Af Amer) Glucose Calcium Magnesium TSH 1.28 Urine Color Urine Appearance Urine pH Ur Specific [place] Urine Protein Urine Glucose (UA) Urine Ketones Urine Blood Urine Nitrite Ur Leukocyte Esterase Urine WBC (Auto) Urine RBC (Auto) 07/23/17 07/23/17 17:00 22:25 Troponin I 0.057 0.053 Impressions: Chest X-Ray 07/23/17 09:39 IMPRESSION: Cardiomegaly without evidence of acute cardiopulmonary disease. Assessment & Plan - Diagnosis (1) Acute systolic (congestive) heart failure Is this a current diagnosis for this admission?: Yes Plan: Likely secondary to dietary noncompliance. Continue IV diuretics. Continue outpatient medications as noted above. His post secondary professional is Dr. Akbar and he has been requested to help in his evaluation and management. (2) Diabetes Qualifiers: Diabetes mellitus type: type 2 Diabetes mellitus half-way insulin use: without half-way use Diabetes mellitus complication status: with circulatory complication Is this a current diagnosis for this admission?: Yes Plan: Oral hypoglycemic agents on hold. Continue adding scale insulin. (3) HTN (hypertension) Qualifiers: Hypertension type: essential hypertension Qualified Code(s): I10 - Essential (primary) hypertension Is this a current diagnosis for this admission?: Yes Plan: Currently within acceptable range. Continue to monitor. (4) Hypomagnesemia Is this a current diagnosis for this admission?: Yes Plan: replete and monitor - Time Time Spent with patient: 25-34 minutes
--- NOTE | 2017-07-24 13:54 | PDOC DISCHARGE SUMMARY ---
General - Admit/Disc Date/PCP Admission Date/Primary Care Provider: 07/23/17 16:09 NORMA INTERIANO MD Discharge Date: 07/24/17 - Discharge Diagnosis (1) Acute systolic (congestive) heart failure Is this a current diagnosis for this admission?: Yes (2) Diabetes Is this a current diagnosis for this admission?: Yes (3) HTN (hypertension) Is this a current diagnosis for this admission?: Yes (4) Hypomagnesemia Is this a current diagnosis for this admission?: Yes - Additional Information Resuscitation Status: Full Code Discharge Diet: Cardiac, Diabetic Discharge Activity: Activity As Tolerated, Balance Activity w/Rest, Weigh Daily Home Medications: Cinnamon Bark [Cinnamon] 1,000 mg PO DAILY 04/07/17 Garlic [Garlic Oil] 1,000 mg PO DAILY 04/07/17 Aspirin [Ecotrin 81 mg EC Tablet] 81 mg PO DAILY #90 tabec 04/08/17 Carvedilol [Coreg 3.125 mg Tablet] 3.125 mg PO Q12 #30 tablet 04/08/17 Metformin HCl [Glucophage] 1,000 mg PO BIDACBS #60 tablet 04/08/17 [place]-3S/Dha/Epa/Fish Oil/D3 [Fish Blz-Sfgug-4-Vit D Softgel] 1 each PO DAILY # 30 capsule 04/08/17 Spironolactone [Aldactone 25 mg Tablet] 25 mg PO DAILY #30 tablet 04/08/17 Digoxin [Lanoxin 0.125 mg Tablet] 0.125 mg PO DAILY 07/23/17 Furosemide [Lasix 20 mg Tablet] 20 mg PO Q48H 07/23/17 Glimepiride [Amaryl 4 mg Tablet] 4 mg PO WBRKFST 07/23/17 Potassium Chloride [Klor-Con 10 Meq Tablet.sa] 10 meq PO DAILY 07/23/17 Sacubitril/Valsartan [Entresto 49 mg/51 mg Tablet] 1 tab PO Q12 07/23/17 Simvastatin [Zocor 20 mg Tablet] 20 mg PO QHS 07/23/17 History of Present Illness History of Present Illness: The patient is a 52-year-old gentleman with a history of systolic congestive heart failure, ejection fraction of 15%. He follows with Dr. Akbar as an outpatient. The patient was scheduled for a sleep study next week. He presented to the hospital on July 23 with shortness of breath for the past 3 days and he was admitted with concerns for acute CHF exacerbation and mildly elevated troponin. He was started on Lasix. Entrust O, Imdur, digoxin, Coreg were continued. Feels much better today. Ready for discharge home Hospital Course Hospital Course: CHF instructions Low sodium diet Follow up cardiology in 1 week Sleep study in am Follow up PCP in 1 week lasix changed from 20 mg every other day to daily Prescription for 30 days given. Magnesium repleted Physical Exam Vital Signs: Temp Pulse Resp BP Pulse Ox 97.5 F 100 16 119/86 H 97 07/24/17 11:00 07/24/17 11:00 07/24/17 11:00 07/24/17 11:00 07/24/17 11:00 Intake & Output 07/23/17 07/24/17 07/25/17 06:59 06:59 06:59 Intake Total 459 Balance 459 Weight 119.5 kg General appearance: PRESENT: no acute distress Respiratory exam: PRESENT: clear to auscultation eulalio, symmetrical, unlabored Cardiovascular exam: PRESENT: RRR Results Laboratory Results: 07/24/17 05:59 07/24/17 05:59 07/23/17 07/24/17 07/24/17 17:27 05:59 05:59 WBC 9.2 RBC 4.04 L Hgb 12.5 L Hct 37.9 MCV 94 MCH 30.8 MCHC 32.9 RDW 15.3 H Plt Count 268 Sodium 142.4 Potassium 4.2 Chloride 105 Carbon Dioxide 26 Anion Gap 11 BUN 18 Creatinine 1.06 Est GFR ( Amer) > 60 Est GFR (Non-Af Amer) > 60 Glucose 139 H Calcium 9.4 Magnesium 1.4 L TSH Urine Color YELLOW Urine Appearance SLIGHTLY-CLOUDY Urine pH 5.0 Ur Specific [place] 1.026 Urine Protein 100 H Urine Glucose (UA) NEGATIVE Urine Ketones NEGATIVE Urine Blood NEGATIVE Urine Nitrite NEGATIVE Ur Leukocyte Esterase NEGATIVE Urine WBC (Auto) 6 Urine RBC (Auto) 1 07/24/17 05:59 WBC RBC Hgb Hct MCV MCH MCHC RDW Plt Count Sodium Potassium Chloride Carbon Dioxide Anion Gap BUN Creatinine Est GFR ( Amer) Est GFR (Non-Af Amer) Glucose Calcium Magnesium TSH 1.28 Urine Color Urine Appearance Urine pH Ur Specific [place] Urine Protein Urine Glucose (UA) Urine Ketones Urine Blood Urine Nitrite Ur Leukocyte Esterase Urine WBC (Auto) Urine RBC (Auto) 07/23/17 07/23/17 17:00 22:25 Troponin I 0.057 0.053 Impressions: Chest X-Ray 07/23/17 09:39 IMPRESSION: Cardiomegaly without evidence of acute cardiopulmonary disease. Qualifiers - * PATEINT BEING DISCHARGED WITH ANY OF THE FOLLOWING DIAGNOSIS?: No VTE patient discharged on overlapping Therapy?: No Plan Time Spent: Greater than 30 Minutes
[2017-07-24] MEDS: MAGNESIUM SULFATE/D5W 1 GM/100 ML RTUPB IV SCH ×2 (13:57→15:14)
[2017-07-24 15:25] VITALS: BP 117/84
[2017-07-24] MEDS ORDERED: MAGNESIUM OXIDE 400 MG TABLET PO SCH (18:00)
[2017-07-24] MEDS ORDERED: CARVEDILOL 12.5 MG TABLET PO SCH (22:00)
--- NOTE | 2017-07-25 19:12 | PDOC PROGRESS REPORT ---
Subjective Progress Note for:: 07/24/17 Subjective:: Patient was seen on morning rounds but somehow note got missed. Patient seems to be doing better with significant improvement. Pt is denying any chest arm or neck discomfort. Patient denying any PND, orthopnea. Patient denied any sustained palpitations, dizziness, syncope, near syncope. Patient denying any fever chills. Patient denying any other significant discomfort. Patient is maintaining sinus rhythm. Review of systems: Rest review of systems negative. Medications: Medications have been reviewed. Reason For Visit: ACUTE ON CHRONIC SYSTOLIC CHF Physical Exam Vital Signs: Temp Pulse Resp BP Pulse Ox 97.3 F 98 16 117/84 98 07/24/17 15:12 07/24/17 15:12 07/24/17 15:12 07/24/17 15:12 07/24/17 15:12 Intake & Output 07/24/17 07/25/17 07/26/17 06:59 06:59 06:59 Intake Total 459 1080 Output Total 1450 Balance 459 -370 Weight 119.5 kg Exam: GENERAL: well-nourished and in no acute distress. Alert and oriented x3 HEAD: Atraumatic, normocephalic. EYES: Pupils equal round and reactive to light, extraocular movements intact, sclera anicteric, conjunctiva are normal. ENT: TMs normal, nares patent, oropharynx clear without exudates. Moist mucous membranes. No oral ulcerations or bleeding gums noted NECK: supple without lymphadenopathy. Trachea is central. No cervical or axillary lymphadenopathy noted. Carotids are 2+, JVD WNL LUNGS: Respiration seems nonlabored, no significant accessory muscle action noted. Breath sounds clear to auscultation bilaterally and equal noted. No wheezes rales or rhonchi noted. No significant dullness noted on percussion. CHEST: Palpation of the chest wall shows no significant chest wall tenderness. No other significant abnormalities noted. 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 ABDOMEN: Soft, no significant tenderness appreciated, normoactive bowel sounds. No guarding, no rebound. No rigidity noted . No masses appreciated. EXTREMITIES: Pedal pulses are 1-2+, no calf tenderness noted. No clubbing or cyanosis.trace to 1+ pedal edema noted NEUROLOGICAL: Focused neurological exam showed no significant neurologic deficit. Normal speech, no focal weakness appreciated. PSYCH: Normal mood, normal affect. Judgment and insight within normal limits. SKIN: No significant ecchymosis, skin is noted to be warm. MUSCULOSKELETAL EXAM: No significant acute joint swelling noted. Results Laboratory Results: 07/24/17 05:59 07/24/17 05:59 07/23/17 07/23/17 17:00 22:25 Troponin I 0.057 0.053 EKG Comments: Telemetry strip shows sinus rhythm without any sustained tachy or bradycardia. Impressions: Chest X-Ray 07/23/17 09:39 IMPRESSION: Cardiomegaly without evidence of acute cardiopulmonary disease. Assessment & Plan - Diagnosis (1) Acute systolic (congestive) heart failure Is this a current diagnosis for this admission?: Yes (2) Sleep disorder breathing Is this a current diagnosis for this admission?: Yes (3) Obesity Is this a current diagnosis for this admission?: Yes (4) Diabetes Qualifiers: Diabetes mellitus type: type 2 Diabetes mellitus tool and die maker level five insulin use: without skilled nursing use Diabetes mellitus complication status: with circulatory complication Is this a current diagnosis for this admission?: Yes (5) HTN (hypertension) Qualifiers: Hypertension type: essential hypertension Qualified Code(s): I10 - Essential (primary) hypertension Is this a current diagnosis for this admission?: Yes (6) AICD (automatic cardioverter/defibrillator) present Is this a current diagnosis for this admission?: Yes - Notes Notes: Patient noted to have acute on chronic precipitation of systolic heart failure related to noncompliance with dietary restriction. Patient could be discharged on Lasix 40 mg p.o. daily. This can be further adjusted on follow-up. Patient does follow-up with me in the office. Sleep disordered breathing: Patient has symptoms indicative of underlying sleep apnea syndrome. Patient tells me that he is already is scheduled for a sleep study. Patient encouraged to keep the appointment with the sleep lab. Obesity: Patient has been encouraged in weight loss. Diabetes: Patient encouraged in good control of blood sugar. Hypertension: Blood pressure goal is 135/85 or less in this young patient with diabetes and acute systolic heart failure. Presence of defibrillator in situ: Patient has single-chamber defibrillator in place. Patient to report any defibrillator discharges and follow-up in the defibrillator clinic. - Time Time with patient: 15-25 minutes - CODE STATUS was discussed, patient remains full code. Surrogate decision-maker patient's spouse. Multiple medical problems were addressed. More than 50% of the time spent coordinating care, discussing management plans with involved caregivers. Management plans discussed with involved personnels. Medical decision making was of moderate to high complexity, patient's has multiple comorbidities. Medications reviewed and adjusted accordingly: Yes
== END 2017-07-24 17:00 | disposition home or self-care (01) ==
LOC: ER 08:30 → INTOOBSV 16:09 → EH 16:09 → 4S 18:06
PROVIDERS: ADMIT Emergency Medicine; ATTEND Emergency Medicine
DX: I11.0 Hypertensive heart disease with heart failure (principal); I50.21 Acute systolic (congestive) heart failure; E11.9 Type 2 diabetes mellitus without complications; E83.42 Hypomagnesemia; G47.30 Sleep apnea, unspecified; E66.9 Obesity, unspecified; Z95.810 Presence of automatic (implantable) cardiac defibrillator
CPT/HCPCS: 93005; 99285; 36415 ×2; 82553; 82962 ×2; 82550; 83735; 84443; 85025; 85027; 80048; 80053; 81001; 84484; 83880; 71045; 93010; 94660; G0378 ×3; J1644 ×2; J1940 ×2; J3490 ×4; J1815 ×2; J3475

== ENCOUNTER → 2017-07-31 | Outpatient (CLI) | payer BC ==
[2017-07-31 16:48] LABS: ALANINE AMINOTRANSFERASE 53 U/L (21-72); ALBUMIN 4.3 g/dL (3.5-5.0); ALKALINE PHOSPHATASE 67 U/L (38-126); ANION GAP 9 (5-19); ASPARTATE AMINO TRANSFERASE 29 U/L (17-59); BILIRUBIN,DIRECT 0.6 mg/dL (0.0-0.4); BILIRUBIN,TOTAL 2.2 mg/dL (0.2-1.3); BLOOD UREA NITROGEN 22 mg/dL (7-20); CALCIUM 9.8 mg/dL (8.4-10.2); CARBON DIOXIDE 26 mmol/L (22-30); CHLORIDE 108 mmol/L (98-107); GLUCOSE 154 mg/dL (75-110); POTASSIUM 4.5 mmol/L (3.6-5.0); SODIUM 142.9 mmol/L (137-145); TOTAL PROTEIN 7.2 g/dL (6.3-8.2)
== END ==
LOC: OD 15:51
PROVIDERS: ATTEND Family Medicine
DX: I50.9 Heart failure, unspecified (principal)
CPT/HCPCS: 36415; 80053; 83735

== ENCOUNTER 2018-03-31 18:01 | Emergency (ER) | payer BC ==
[2018-03-31] MEDS ORDERED: NORMAL SALINE 500 ML IV ONE (19:05)
--- NOTE | 2018-03-31 19:05 | ER Document Report ---
ED Medical Screen (RME) - General Chief Complaint: High Blood Sugar Stated Complaint: BLOOD SUGAR ISSUE Time Seen by Provider: 03/31/18 19:00 Notes: Patient is a 52-year-old male with diabetes mellitus on metformin that presents to the emergency department for chief complaint of high blood sugar, and lightheadedness. Patient reports having symptoms of lightheadedness for over a week, but notices sugars have been higher in the 300s, he was used to be running around 180, he is not seen his primary care physician in some time. ROS: Other than noted above, the 12 point review of systems was reviewed with the patient and were negative, all pertinent findings are included in the HPI. PHYSICAL EXAMINATION: Vital signs reviewed. GENERAL: Well-appearing, well-nourished and in no acute distress. HEAD: Atraumatic, normocephalic. EYES: Pupils equal round extraocular movements intact, conjunctiva are normal. ENT: Nares patent NECK: Normal range of motion CV: Heart regular rate and rhythm LUNGS: No respiratory distress Musculoskeletal: Normal range of motion NEUROLOGICAL: Normal speech PSYCH: Normal mood, normal affect. MDM: Patient seen and examined for rapid initial assessment. Vital signs reviewed. A comprehensive ED assessment and evaluation of the patient, analysis of test results and completion of the medical decision making process will be conducted by additional ED providers. *Note is created using voice recognition software and may contain spelling, syntax or grammatical errors. TRAVEL OUTSIDE OF THE [place] IN LAST 30 DAYS: No - Related Data Allergies/Adverse Reactions: oxycodone [From Percocet] Adverse Reaction (Verified 07/23/17 19:47) Hallucinations Past Medical History - Past Medical History Cardiac Medical History: Reports: Hx Congestive Heart Failure, Hx Hypercholesterolemia, Hx Hypertension Endocrine Medical History: Reports: Hx Diabetes Mellitus Type 2 Renal/ Medical History: Denies: Hx Peritoneal Dialysis Psychiatric Medical History: Denies: Hx Depression Past Surgical History: Reports: Hx Cardiac Catheterization, Hx Cardiac Surgery - Defib, Hx Pacemaker - Immunizations Hx Diphtheria, Pertussis, Tetanus Vaccination: No History of Influenza Vaccine for 01/2017 - 06/2017 Season: Yes Physical Exam - Vital signs Vitals: Temp Pulse Resp BP Pulse Ox 98.1 F 85 15 110/63 95 03/31/18 18:47 03/31/18 18:47 03/31/18 18:47 03/31/18 18:47 03/31/18 18:47 Course - Vital Signs Vital signs: Temp Pulse Resp BP Pulse Ox 98.1 F 85 15 110/63 95 03/31/18 18:47 03/31/18 18:47 03/31/18 18:47 03/31/18 18:47 03/31/18 18:47 Doctor's Discharge - Discharge Referrals: AYAKA HERNÁNDEZ MD [Primary Care Provider] - Follow up as needed
[2018-03-31 19:49] LABS: ABSOLUTE BASOPHILS # (AUTO) 0.1 10^3/uL (0.0-0.2); ABSOLUTE EOSINOPHILS # (AUTO) 0.6 10^3/uL (0.0-0.6); ABSOLUTE LYMPHOCYTES (AUTO) 2.7 10^3/uL (0.5-4.7); ABSOLUTE MONOCYTES (AUTO) 0.8 10^3/uL (0.1-1.4); ABSOLUTE NEUT (AUTO) 5.7 10^3/uL (1.7-8.2); BASOPHILS % (AUTO) 0.7 % (0-2); EOSINOPHILS % (AUTO) 6.3 % (0-6); HEMATOCRIT 40.6 % (37.9-51.0); HEMOGLOBIN 13.8 g/dL (13.5-17.0); LYMPHOCYTES % (AUTO) 27.5 % (13-45); MEAN CORPUSCULAR HEMOGLOBIN 32.2 pg (27.0-33.4); MEAN CORPUSCULAR HGB CONC 33.8 g/dL (32.0-36.0); MEAN CORPUSCULAR VOLUME 95 fl (80-97); MONOCYTES % (AUTO) 8.1 % (3-13); PLATELET COUNT 267 10^3/uL (150-450); RED BLOOD COUNT 4.28 10^6/uL (4.35-5.55); RED CELL DISTRIBUTION WIDTH 13.8 % (11.5-14.0); SEGMENTED NEUTROPHILS % (AUTO) 57.4 % (42-78); TOTAL CELLS COUNTED % (AUTO) 100 %; WHITE BLOOD COUNT 9.9 10^3/uL (4.0-10.5)
[2018-03-31 19:51] LABS: VENOUS BLOOD BASE EXCESS 1.7 mmol/L; VENOUS BLOOD HCO3 27.5 mmol/L (20-32); VENOUS BLOOD PCO2 47.4 mmHg (35-63); VENOUS BLOOD PH 7.38 (7.30-7.42)
[2018-03-31] MEDS ORDERED: INSULIN REG, HUMAN 100 UNIT/ML 3 ML VIAL (PYX) SUBCUT ONE (20:02)
--- NOTE | 2018-03-31 20:03 | ER Document Report ---
ED General - General Chief Complaint: High Blood Sugar Stated Complaint: BLOOD SUGAR ISSUE Time Seen by Provider: 03/31/18 19:00 Notes: Patient is a 52-year old male with a past medical history of hypertension, type 2 diabetes with a history of poor control, morbid obesity who presents with complaints of feeling generally weak and having hyperglycemia for the past several weeks. The patient denies any focal weakness stating it is more a global sensation of feeling somewhat tired or fatigued. Nothing seems to improve or worsen his symptoms. He has checked his blood sugars at home and found them to be in the 4-500s. He states that they are normally better controlled into the 160s range although of note patient has had a recorded history here of having poor glycemic control in the past. The patient has not followed with his primary care doctor regarding his diabetes. He takes metformin 1000 mg twice daily currently and no other medications to control his hyperglycemia. He denies any associated chest pain, shortness of breath, fever , abdominal pain. He does note polyuria and polydipsia. TRAVEL OUTSIDE OF THE [place] IN LAST 30 DAYS: No - Related Data Allergies/Adverse Reactions: oxycodone [From Percocet] Adverse Reaction (Verified 07/23/17 19:47) Hallucinations Past Medical History - General Information source: Patient - Social History Smoking Status: Never Smoker Chew tobacco use (# tins/day): No Frequency of alcohol use: None Drug Abuse: None Lives with: Spouse/Significant other Family History: DM, Hypertension Patient has suicidal ideation: No Patient has homicidal ideation: No - Past Medical History Cardiac Medical History: Reports: Hx Congestive Heart Failure, Hx Hypercholesterolemia, Hx Hypertension Endocrine Medical History: Reports: Hx Diabetes Mellitus Type 2 Renal/ Medical History: Denies: Hx Peritoneal Dialysis Psychiatric Medical History: Denies: Hx Depression Past Surgical History: Reports: Hx Cardiac Catheterization, Hx Cardiac Surgery - Defib, Hx Pacemaker - Immunizations Hx Diphtheria, Pertussis, Tetanus Vaccination: No Hx Pneumococcal Vaccination: 04/30/09 Review of Systems - Review of Systems Notes: Constitutional: Negative for fever. Positive for generalized fatigue HENT: Negative for sore throat. Eyes: Negative for visual changes. Cardiovascular: Negative for chest pain. Respiratory: Negative for shortness of breath. Gastrointestinal: Negative for abdominal pain, vomiting or diarrhea. Genitourinary: Negative for dysuria. Musculoskeletal: Negative for back pain. Skin: Negative for rash. Neurological: Negative for headaches, weakness or numbness. 10 point ROS negative except as marked above and in HPI. Physical Exam - Vital signs Vitals: Temp Pulse Resp BP Pulse Ox 98.1 F 85 15 110/63 95 03/31/18 18:47 12 18:47 12 18:47 03/31/18 18:47 03/31/18 18:47 Interpretation: Normal Notes: PHYSICAL EXAMINATION: GENERAL: Well-appearing, well-nourished and in no acute distress. HEAD: Atraumatic, normocephalic. EYES: Pupils equal round and reactive to light, extraocular movements intact, sclera anicteric, conjunctiva are normal. ENT: nares patent, oropharynx clear without exudates. Moderately dry mucous membranes. NECK: Normal range of motion, supple without lymphadenopathy LUNGS: Breath sounds clear to auscultation bilaterally and equal. No wheezes rales or rhonchi. HEART: Regular rate and rhythm without murmurs ABDOMEN: Soft, nontender, normoactive bowel sounds. No guarding, no rebound. No masses appreciated. EXTREMITIES: Normal range of motion, no pitting or edema. No cyanosis. NEUROLOGICAL: Face symmetric. Tongue protrudes midline. Extraocular motions intact. Pupils are 2 mm and equally reactive. Normal speech, normal gait. 5 out of 5 strength in both the distal and proximal upper and lower extremities bilaterally. Sensation is grossly intact throughout. Finger to nose testing normal. Pronator drift normal. PSYCH: Normal mood, normal affect. SKIN: Warm, Dry, normal turgor, no rashes or lesions noted. Course - Re-evaluation Re-evalutation: 03/31/18 21:14 Presentation of asymptomatic hyperglycemia beyond feeling generally fatigued. There is no evidence of HHS or diabetic ketoacidosis on laboratories or based on clinical history. Patient's vitals are within normal limits. They deny any acute focal complaints. Treatment with insulin and IV fluids given here in the emergency department with appropriate response of the blood sugar. Patient does have primary care follow-up. Patient was instructed to continue taking their metformin, has been started on glipizide, and advised they will likely need to increase dietary modification and may also need medication changes. Indications to return to emergency department as well as the importance of close outpatient follow-up were discussed at length. Patient verbalized understanding of the need for close follow-up and indications to return to the ED. - Vital Signs Vital signs: Temp Pulse Resp BP Pulse Ox 97.7 F 66 17 111/69 96 03/31/18 21:27 03/31/18 21:27 03/31/18 21:27 03/31/18 21:27 03/31/18 21:27 - Laboratory Result Diagrams: 03/31/18 19:24 03/31/18 19:24 Laboratory results interpreted by me: 03/31/18 03/31/18 19:24 19:24 RBC 4.28 L Eosinophils % 6.3 H Chloride 97 L BUN 21 H Glucose 398 H - Diagnostic Test Radiology reviewed: Image reviewed, Reports reviewed Radiology results interpreted by me: 04/01/18 01:35 Chest x-ray: No acute infiltrate or pneumothorax - EKG Interpretation by Me Additional EKG results interpreted by me: 04/01/18 01:36 Sinus rhythm. Rate 68. LVH. T wave inversions in the lateral leads. QTC 379. Discharge - Discharge Clinical Impression: Hyperglycemia due to type 2 diabetes mellitus Qualifiers: Diabetes mellitus oysterman insulin use: without mcc use Qualified Code(s ): E11.65 - Type 2 diabetes mellitus with hyperglycemia Uncontrolled diabetes mellitus Qualifiers: Diabetes mellitus type: type 2 Glycemic state: with hyperglycemia Qualified Code(s): E11.65 - Type 2 diabetes mellitus with hyperglycemia Obesity Qualifiers: Obesity type: due to excess calories Obesity classification: adult class 1 ( BMI 30 - 34.9) Serious obesity comorbidity presence: with serious comorbidity Body mass index: BMI 34.0-34.9 Qualified Code(s): E66.09 - Other obesity due to excess calories Condition: Good Disposition: HOME, SELF-CARE Additional Instructions: You need to followup urgently with your primary care doctor as your blood sugars were dangerously high today. You did not have any evidence of a dangerous condition associated with these blood sugars at this time. However, it is very important that you get your blood sugars under control. Please take all of your medications exactly as directed. Specifically continue to take metformin 1000 mg twice daily and now begin taking glipizide 10 mg daily. This may be insufficient to control your blood sugars and he may require insulin through your primary care doctor. You should avoid foods that are high in carbohydrates and sugary foods. Losing weight will also help to better control your blood sugars. Please return to emergency department immediately if you develop weakness, persistent vomiting, confusion, or any other symptoms that are concerning to you. As we discussed today, please strongly consider losing weight. Your obesity will result in a shorter life and serious diagnoses including heart attacks, stroke, diabetes, high blood pressure, high cholesterol, kidney failure, and will also result in a much less enjoyable life due to these chronic conditions. Focus on gradual life style changes including removing sugared beverages and processed foods from your diet and at least 30 minutes of moderate activity daily. Try to target 4-5lbs of weight loss per month. Prescriptions: Glipizide [Glipizide Xl] 10 mg PO DAILY #30 tab.er.24 Referrals: AYAKA HERNÁNDEZ MD [ACTIVE STAFF] - Follow up as needed
[2018-03-31 20:12] LABS: ALANINE AMINOTRANSFERASE 54 U/L (21-72); ALBUMIN 4.4 g/dL (3.5-5.0); ALKALINE PHOSPHATASE 123 U/L (38-126); ANION GAP 13 (5-19); ASPARTATE AMINO TRANSFERASE 34 U/L (17-59); BILIRUBIN,DIRECT 0.2 mg/dL (0.0-0.4); BILIRUBIN,TOTAL 0.7 mg/dL (0.2-1.3); BLOOD UREA NITROGEN 21 mg/dL (7-20); CALCIUM 9.8 mg/dL (8.4-10.2); CARBON DIOXIDE 29 mmol/L (22-30); CHLORIDE 97 mmol/L (98-107); GLUCOSE 398 mg/dL (75-110); LIPASE 269.1 U/L (23-300); SODIUM 138.8 mmol/L (137-145); TOTAL PROTEIN 7.6 g/dL (6.3-8.2)
--- NOTE | 2018-03-31 20:21 | RADIOLOGY REPORT (SQ) ---
EXAM DESCRIPTION: CHEST 2 VIEWS COMPLETED DATE/TIME: 03/31/2018 7:58 pm REASON FOR STUDY: near syncope COMPARISON: 06/18/2017 EXAM PARAMETERS: NUMBER OF VIEWS: two views TECHNIQUE: Digital Frontal and Lateral radiographic views of the chest acquired. RADIATION DOSE: NA LIMITATIONS: none FINDINGS: LUNGS AND PLEURA: No opacities, masses or pneumothorax. No pleural effusion. MEDIASTINUM AND HILAR STRUCTURES: No masses or contour abnormalities. HEART AND VASCULAR STRUCTURES: Heart normal size. No evidence for failure. BONES: No acute findings. HARDWARE: Pacemaker defibrillator unchanged. OTHER: No other significant finding. IMPRESSION: NO ACUTE RADIOGRAPHIC FINDING IN THE CHEST. TECHNICAL DOCUMENTATION: JOB ID: [id number] [employer]- All Rights Reserved Reading location - IP/workstation name: [email or web address]
--- NOTE | 2018-03-31 20:59 | EKG REPORT ---
SEVERITY:- ABNORMAL ECG - SINUS RHYTHM INCOMPLETE LEFT BUNDLE BRANCH BLOCK LVH WITH STRAIN. NONSPECIFIC ST-T CHANGES- INFERIOR LEADS : Confirmed by: Pablito Ramirez MD 31-Mar-2018 20:58:38
[2018-03-31 21:28] VITALS: BP 111/69
== END 2018-03-31 21:34 | disposition home or self-care (01) ==
LOC: ER 18:01
DX: E11.65 Type 2 diabetes mellitus with hyperglycemia (principal); E66.09 Other obesity due to excess calories; Z68.34 Body mass index [BMI] 34.0-34.9, adult; I50.9 Heart failure, unspecified; E78.00 Pure hypercholesterolemia, unspecified; Z95.810 Presence of automatic (implantable) cardiac defibrillator; Z88.6 Allergy status to analgesic agent
CPT/HCPCS: 93005; 99285; 96360; 96361; 36415; 82962; 83690; 85025; 80053; 84484; 82803; 71046; 93010; J1815; J7040

== ENCOUNTER 2018-08-15 23:31 | Emergency (ER) | payer BC ==
[2018-08-16 02:40] LABS: ABSOLUTE BASOPHILS # (AUTO) 0.1 10^3/uL (0.0-0.2); ABSOLUTE EOSINOPHILS # (AUTO) 0.3 10^3/uL (0.0-0.6); ABSOLUTE LYMPHOCYTES (AUTO) 2.5 10^3/uL (0.5-4.7); ABSOLUTE MONOCYTES (AUTO) 0.9 10^3/uL (0.1-1.4); ABSOLUTE NEUT (AUTO) 4.9 10^3/uL (1.7-8.2); BASOPHILS % (AUTO) 0.9 % (0-2); EOSINOPHILS % (AUTO) 3.4 % (0-6); HEMATOCRIT 42.8 % (37.9-51.0); HEMOGLOBIN 14.5 g/dL (13.5-17.0); LYMPHOCYTES % (AUTO) 28.8 % (13-45); MEAN CORPUSCULAR HEMOGLOBIN 31.5 pg (27.0-33.4); MEAN CORPUSCULAR VOLUME 93 fl (80-97); MONOCYTES % (AUTO) 9.9 % (3-13); PLATELET COUNT 260 10^3/uL (150-450); RED BLOOD COUNT 4.62 10^6/uL (4.35-5.55); RED CELL DISTRIBUTION WIDTH 13.1 % (11.5-14.0); TOTAL CELLS COUNTED % (AUTO) 100 %; WHITE BLOOD COUNT 8.6 10^3/uL (4.0-10.5)
[2018-08-16] MEDS ORDERED: KETOROLAC TROMETHAMINE INJ/PF 30 MG/1 ML SDV IV ONE (03:00)
[2018-08-16] MEDS ORDERED: BUTALB/ACETAMINOPHEN/CAFFEINE 1 TAB EACH PO ONE (03:01)
--- NOTE | 2018-08-16 03:07 | RADIOLOGY REPORT (SQ) ---
EXAM DESCRIPTION: CT HEAD WITHOUT IV CONTRAST COMPLETED DATE/TME: 08/16/2018 01:44 CLINICAL HISTORY: 53 years, Male, prakash COMPARISON: None. TECHNIQUE: 202 Images stored on PACS. All CT scanners at this facility use dose modulation, iterative reconstruction, and/or weight based dosing when appropriate to reduce radiation dose to as low as reasonably achievable (ALARA). [facility]: Dose Right [facility]: CareDose [facility]: Dose Right [facility]: Teradose 4D [facility]: TwitJump LIMITATIONS: None. FINDINGS: Globes are intact. Paranasal sinuses and mastoid air cells are unremarkable. No displaced or depressed skull fracture. No intra or extra-axial hemorrhage. CT is limited for evaluation of acute infarct. No CT evidence for large or territorial acute infarct. No mass. No midline shift. IMPRESSION: Negative for acute intracranial abnormality TECHNICAL DOCUMENTATION: Quality ID # [id number]: Final reports with documentation of one or more dose reduction techniques (e.g., Automated exposure control, adjustment of the mA and/or kV according to patient size, use of iterative reconstruction technique) copyright 2011 [employer]- All Rights Reserved
[2018-08-16 03:24] LABS: ALANINE AMINOTRANSFERASE 83 U/L (21-72); ALBUMIN 4.1 g/dL (3.5-5.0); ALKALINE PHOSPHATASE 125 U/L (38-126); ANION GAP 11 (5-19); ASPARTATE AMINO TRANSFERASE 39 U/L (17-59); BILIRUBIN,DIRECT 0.3 mg/dL (0.0-0.4); BILIRUBIN,TOTAL 0.8 mg/dL (0.2-1.3); BLOOD UREA NITROGEN 21 mg/dL (7-20); CALCIUM 9.4 mg/dL (8.4-10.2); CARBON DIOXIDE 26 mmol/L (22-30); CHLORIDE 96 mmol/L (98-107); POTASSIUM 4.2 mmol/L (3.6-5.0); SODIUM 133.4 mmol/L (137-145); TOTAL PROTEIN 7.6 g/dL (6.3-8.2)
[2018-08-16 03:32] LABS: GLUCOSE 493 mg/dL (75-110)
[2018-08-16] MEDS ORDERED: NORMAL SALINE 500 ML IV PRN (04:32)
--- NOTE | 2018-08-16 04:45 | ER Document Report ---
Addendum entered and electronically signed by CHI CRUZ PA-C 08/16/18 05:37: Discharge - Discharge Clinical Impression: Hyperglycemia, Generalized headaches Disposition: HOME, SELF-CARE Instructions: Headache ([facility]), Hyperglycemia ([facility]) Additional Instructions: Home and rest. Medication as prescribed. Highly recommend that you contact your primary care to go through your blood sugar and diabetes instructions with them. He also probably need to change her diabetic medications one time glyburide is definitely not holding you. You need to bring his up in front of your primary care provider as soon as possible. In the meantime you need to keep a log of all your blood sugars. But this take your blood sugars before each meal and at bedtime and write them down. Should you have any concerns or problems she can return to ER for a recheck. Prescriptions: Butalb/Acetaminophen/Caffeine [Fioricet (50-325-40 mg) Tablet] 1 tab PO Q4HP PRN #16 tab PRN Reason: Forms: Return to Work Referrals: SHERRI DELGADO MD [Primary Care Provider] - Follow up as needed Original Note: ED Headache - General Chief Complaint: Headache >24 hrs old Stated Complaint: HEAD PAIN Time Seen by Provider: 08/16/18 01:43 Primary Care Provider: SHERRI DELGADO MD [Primary Care Provider] - Follow up as needed Notes: Patient is a 53-year-old male who comes emergency room complaining of a headache. Patient states he said the headache off and on for 2 months now it is either at the top of the head or frontal or start frontal and goes to the top. Never in the back of the head he states when it hits he takes a [employer] powder to go away for 10 to 15 minutes and will come back again. He denies any nausea or vomiting he denies any eye complaints. He does state that he occasionally will get lightheaded. He states the headaches last approximately 5 minutes and then go away and will come back at a time for any reason. He denies being under any stress currently. Patient also states he has a past medical history of cardiac that he has a defibrillator in place he was seen his refrigerator repair technician a couple of days ago and was told him of the headaches and he is supposed to go back next month and they were going to work him up for the headaches but the headaches are getting worse. Patient did not tell me any other medical problems with the exception of his hypertension. Patient does not smoke drink or do drugs. TRAVEL OUTSIDE OF THE [place] IN LAST 30 DAYS: No - HPI Patient complains to provider of: Headache Onset: Other - Chronic Onset was: Abrupt Timing: Better Quality of pain: Sharp, Stabbing, Throbbing Severity: Moderate Pain Level: 3 Context: denies: Head injury, Insect bite, Meningitis exposure, Tick bite Preceding symptoms: denies: Typical of prior aura(s), Visual disturbance Associated symptoms: Lightheaded, Photophobia. denies: Nausea/vomiting, Neck p ain Exacerbated by: Light, Noise, Position Similar symptoms previously: Yes Recently seen / treated by doctor: No - Related Data Allergies/Adverse Reactions: oxycodone [From Percocet] Adverse Reaction (Verified 07/23/17 19:47) Hallucinations Past Medical History - General Information source: Patient, Relative - Social History Smoking Status: Never Smoker Chew tobacco use (# tins/day): No Frequency of alcohol use: None Drug Abuse: None Lives with: Family Family History: Reviewed & Not Pertinent, Arthritis, DM, Hypertension Patient has suicidal ideation: No Patient has homicidal ideation: No - Past Medical History Cardiac Medical History: Reports: Hx Congestive Heart Failure, Hx Hypercholesterolemia, Hx Hypertension Endocrine Medical History: Reports: Hx Diabetes Mellitus Type 2 Renal/ Medical History: Denies: Hx Peritoneal Dialysis Psychiatric Medical History: Denies: Hx Depression Past Surgical History: Reports: Hx Cardiac Catheterization, Hx Cardiac Surgery - Defib, Hx Pacemaker - Immunizations Hx Diphtheria, Pertussis, Tetanus Vaccination: No Hx Pneumococcal Vaccination: 04/30/09 Review of Systems - Review of Systems Constitutional: No symptoms reported EENT: No symptoms reported, Nose congestion Cardiovascular: No symptoms reported Respiratory: No symptoms reported Gastrointestinal: No symptoms reported Genitourinary: No symptoms reported Male Genitourinary: No symptoms reported Musculoskeletal: No symptoms reported Skin: No symptoms reported Hematologic/Lymphatic: No symptoms reported Neurological/Psychological: See HPI, Headaches Physical Exam - Vital signs Vitals: Temp Pulse Resp BP Pulse Ox 97 F L 75 16 129/77 H 95 08/15/18 23:41 08/15/18 23:41 08/15/18 23:41 08/15/18 23:41 08/15/18 23:41 Interpretation: Normal - Notes Notes: PHYSICAL EXAMINATION: GENERAL: Well-appearing, well-nourished and in no acute distress. Uncomfortable. HEAD: Atraumatic, normocephalic. EYES: Pupils equal round and reactive to light, extraocular movements intact, sclera anicteric, conjunctiva are normal. ENT: Nares patent, oropharynx clear without exudates. Moist mucous membranes. NECK: Normal range of motion, supple without lymphadenopathy LUNGS: Breath sounds clear to auscultation bilaterally and equal. No wheezes rales or rhonchi. HEART: Regular rate and rhythm without murmurs ABDOMEN: Soft, nontender, nondistended abdomen. No guarding, no rebound. No masses appreciated. Musculoskeletal: Normal range of motion, no pitting or edema. No cyanosis. NEUROLOGICAL Normal speech, normal gait. Normal sensory, motor exams PSYCH: Normal mood, normal affect. SKIN: Warm, Dry, normal turgor, no rashes or lesions noted. - HEENT Visual acuity- Right eye: 20/25 Visual acuity- Left eye: 20/25 Visual acuity- Both eyes: 20/20 Corrective lenses worn: No Course - Re-evaluation Re-evalutation: 08/16/18 05:29 Patient had forgotten to mention to me that he was diabetic. He states that he has been taken off of metformin and put on glyburide only one time a day. Patient sugar here was 500 and I believe that this may be part of where his headaches coming from. He had no clue that his sugar is running that high. Patient states that he has not a regular taker of his blood sugars has been several days since he is last checked. And he does not remember the last time he did check and how much his sugar was. He also has never had his eyes checked on a professional base of the. And he was unaware that diabetics are allowed to have or she did have her feet checked twice a year. So we have had a long talk about his vision and a long talk about his sugars. I have informed him he needs to keep taking his sugars at least before each meal and at bedtime and keeping a log of what they are. Should do this at the same time he does his blood pressure. Of also instructed patient needs to follow-up with an automatic nailing machine operator or automobile sales representative to have his eyes checked professionally and completely. Sherry juarez's headache did clear completely with the Fioricet so we will write him for a few Fioricet for home. His CT of his head was negative. He understands he can return to ER at any time if he has any concerns or problems. - Vital Signs Vital signs: Temp Pulse Resp BP Pulse Ox 97 F L 75 16 129/77 H 95 08/15/18 23:41 08/15/18 23:41 08/15/18 23:41 08/15/18 23:41 08/15/18 23:41 - Laboratory Result Diagrams: 08/16/18 02:07 08/16/18 03:00 Laboratory results interpreted by me: 08/16/18 03:00 Sodium 133.4 L Chloride 96 L BUN 21 H Glucose 493 H* ALT 83 H Discharge - Discharge Clinical Impression: Hyperglycemia, Generalized headaches Disposition: HOME, SELF-CARE Instructions: Hyperglycemia ([facility]), Headache ([facility]) Additional Instructions: Home and rest. Medication as prescribed. Highly recommend that you contact your primary care to go through your blood sugar and diabetes instructions with them. He also probably need to change her diabetic medications one time glyburide is definitely not holding you. You need to bring his up in front of your primary care provider as soon as possible. In the meantime you need to keep a log of all your blood sugars. But this take your blood sugars before each meal and at bedtime and write them down. Should you have any concerns or problems she can return to ER for a recheck. Prescriptions: Butalb/Acetaminophen/Caffeine [Fioricet (50-325-40 mg) Tablet] 1 tab PO Q4HP PRN #16 tab PRN Reason: Forms: Return to Work Referrals: SHERRI DELGADO MD [Primary Care Provider] - Follow up as needed
[2018-08-16] MEDS ORDERED: INSULIN REG, HUMAN 100 UNIT/ML 3 ML VIAL (PYX) SUBCUT STA (05:27)
[2018-08-16 05:47] VITALS: BP 139/82
== END 2018-08-16 05:47 | disposition home or self-care (01) ==
LOC: ER 23:31
DX: E11.65 Type 2 diabetes mellitus with hyperglycemia (principal); R51 Headache; I50.9 Heart failure, unspecified; I11.0 Hypertensive heart disease with heart failure
CPT/HCPCS: 99285; 96361; 96374; 36415; 82962; 85025; 80053; 70450; J3490; J1885; J1815; J7040

== ENCOUNTER 2018-08-18 20:33 | Emergency (ER) | payer BC ==
[2018-08-18 21:04] VITALS: BP 114/74
--- NOTE | 2018-08-18 22:09 | ER Document Report ---
ED General - General Chief Complaint: Headache Stated Complaint: HEAD PROBLEM Time Seen by Provider: 08/18/18 22:04 Primary Care Provider: SHERRI DELGADO MD [Primary Care Provider] - Follow up in 3-5 days Notes: Patient is a 53-year-old male with diabetes mellitus and hypertension that presents to the emergency department for chief complaint of headaches. Patient reports his been having on and off headaches, sporadically almost every day for the past 2 months, he was seen on , had a full workup for this including blood work and CT imaging, that demonstrated high blood sugar, negative CT. He was discharged home with medication for his headache. He states he still been having the headaches the medications not helping so he decided come back to the emergency department to have this evaluated. He states that they will come and go, he denies a headache at this time. Denies any associated nausea, vomiting, blurred vision, loss of vision, numbness, weakness or tingling. He denies having any neck pain associated or neck stiffness. Past Medical History: Diabetes mellitus, hypertension, CHF Past Surgical History: Pacemaker defibrillator Social History: Denies current tobacco, alcohol or drug use. Family History: Reviewed and noncontributory for presenting illness Allergies: Reviewed, see documented allergy list. REVIEW OF SYSTEMS: Other than noted above, the 12 point review of systems was reviewed with the patient and were negative, all pertinent findings are included in the HPI. PHYSICAL EXAMINATION: Vital signs reviewed, nursing noted reviewed. GENERAL: Well-appearing, well-nourished and in no acute distress. HEAD: Atraumatic, normocephalic. EYES: Eyes appear normal, extraocular movements intact, sclera anicteric, conjunctiva are normal. ENT: nares patent, oropharynx clear without exudates. Moist mucous membranes. TMs appear normal bilaterally, sinuses are nontender to palpate. NECK: Normal range of motion, supple without lymphadenopathy LUNGS: Breath sounds clear to auscultation bilaterally and equal. No wheezes rales or rhonchi. HEART: Regular rate and rhythm without murmurs ABDOMEN: Soft, nontender, normoactive bowel sounds. No rebound, guarding, or ri gidity. No masses appreciated. EXTREMITIES: Nontender, good range of motion, no pitting or edema. NEUROLOGICAL: No focal neurological deficits. Moves all extremities spontaneously Motor and sensory grossly intact on exam. PSYCH: Normal mood, normal affect. SKIN: Warm, Dry, normal turgor, no rashes or lesions noted on exposed skin TRAVEL OUTSIDE OF THE [place] IN LAST 30 DAYS: No - Related Data Allergies/Adverse Reactions: oxycodone [From Percocet] Adverse Reaction (Verified 07/23/17 19:47) Hallucinations Past Medical History - Social History Smoking Status: Never Smoker Chew tobacco use (# tins/day): No Frequency of alcohol use: None Drug Abuse: None Family History: Reviewed & Not Pertinent, Arthritis, DM, Hypertension Patient has suicidal ideation: No Patient has homicidal ideation: No - Past Medical History Cardiac Medical History: Reports: Hx Congestive Heart Failure, Hx Hypercholesterolemia, Hx Hypertension Endocrine Medical History: Reports: Hx Diabetes Mellitus Type 2 Renal/ Medical History: Denies: Hx Peritoneal Dialysis Psychiatric Medical History: Denies: Hx Depression Past Surgical History: Reports: Hx Cardiac Catheterization, Hx Cardiac Surgery - Defib, Hx Pacemaker - Immunizations Hx Diphtheria, Pertussis, Tetanus Vaccination: No Hx Pneumococcal Vaccination: 04/30/09 Physical Exam - Vital signs Vitals: Temp Pulse Resp BP Pulse Ox 97.9 F 87 22 H 114/74 96 08/18/18 21:03 08/18/18 21:03 08/18/18 21:03 08/18/18 21:03 08/18/18 21:03 Course - Re-evaluation Re-evalutation: Patient seen and examined vital signs reviewed. Patient was evaluated and treated as appropriate for the patient's presenting symptoms and complaint, with consideration of any critical or life threatening conditions that may be associated with their obtained history and exam as noted above. The patient was re-evaluated and was stable, after checking glucose was 385, patient's prior visit was reviewed, noted to have hyperglycemia in the 400s, without DKA, patient states that he was taken off of metformin, is not sure why, he is only taking glipizide, and he states that since the changes medications, that is when he thinks the headache started. I discussed with him that I believe he is having headaches secondary to his hyperglycemia, and likely dehydration as a result of increased urination, and that he should go back on metformin I do not see a contraindication for this, I recommend starting back up on 500 mg twice a day, then increasing to thousand milligrams twice a day on his previous dosing. I also advised him following up with his primary care physician, to discuss other modalities of treatment for his diabetes to get under better control. I advised that he drink plenty of fluids, and alter his diet to lower his blood sugar as well. Evaluation was most consistent with hyperglycemia, headaches Plan of care was discussed with the patient at this point, after careful consideration I feel that that patient can be discharged from the emergency department, the patient was educated treatments and reasons to return to the emergency department based on their presumed diagnosis as noted above, they were advised to followup with a primary care physician in 2-3 days. Patient was agreeable to plan of care. *Note is created using voice recognition software and may contain spelling, syntax or grammatical errors. 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 I recommend that you start retaking metformin, you can start taking 500 mg twice daily for the next 7 days and then increase to 1000 mg twice daily going forward until further directed by her primary care physician. Please try to stay hydrated as much as possible, drink plenty of fluids including water, and low sugar or no sugar drinks. I also recommend you follow a stricter diet, avoid carbs, high sugar content foods, particularly pastas, starches such as potatoes or Serbian fries. Referrals: ARCOT,SHERRI, MD [Primary Care Provider] - Follow up in 3-5 days
== END 2018-08-18 23:07 | disposition home or self-care (01) ==
LOC: ER 20:33
DX: R51 Headache (principal); E11.65 Type 2 diabetes mellitus with hyperglycemia; I50.9 Heart failure, unspecified; I11.0 Hypertensive heart disease with heart failure; Z95.810 Presence of automatic (implantable) cardiac defibrillator; Z88.6 Allergy status to analgesic agent
CPT/HCPCS: 82962; 99284

== ENCOUNTER → 2018-09-27 | Outpatient (CLI) | payer BC ==
[2018-09-27 12:26] LABS: ABSOLUTE BASOPHILS # (AUTO) 0.1 10^3/uL (0.0-0.2); ABSOLUTE EOSINOPHILS # (AUTO) 0.2 10^3/uL (0.0-0.6); ABSOLUTE LYMPHOCYTES (AUTO) 2.2 10^3/uL (0.5-4.7); ABSOLUTE MONOCYTES (AUTO) 0.7 10^3/uL (0.1-1.4); ABSOLUTE NEUT (AUTO) 5.6 10^3/uL (1.7-8.2); BASOPHILS % (AUTO) 0.8 % (0-2); EOSINOPHILS % (AUTO) 2.2 % (0-6); HEMATOCRIT 42.8 % (37.9-51.0); HEMOGLOBIN 14.2 g/dL (13.5-17.0); LYMPHOCYTES % (AUTO) 25.5 % (13-45); MEAN CORPUSCULAR HEMOGLOBIN 31.3 pg (27.0-33.4); MEAN CORPUSCULAR HGB CONC 33.2 g/dL (32.0-36.0); MEAN CORPUSCULAR VOLUME 94 fl (80-97); MONOCYTES % (AUTO) 7.5 % (3-13); PLATELET COUNT 287 10^3/uL (150-450); RED BLOOD COUNT 4.54 10^6/uL (4.35-5.55); RED CELL DISTRIBUTION WIDTH 13.6 % (11.5-14.0); TOTAL CELLS COUNTED % (AUTO) 100 %; WHITE BLOOD COUNT 8.8 10^3/uL (4.0-10.5)
[2018-09-27 12:44] LABS: ALANINE AMINOTRANSFERASE 69 U/L (21-72); ALBUMIN 4.4 g/dL (3.5-5.0); ALKALINE PHOSPHATASE 125 U/L (38-126); ANION GAP 12 (5-19); ASPARTATE AMINO TRANSFERASE 34 U/L (17-59); BILIRUBIN,DIRECT 0.4 mg/dL (0.0-0.4); BILIRUBIN,TOTAL 1.2 mg/dL (0.2-1.3); BLOOD UREA NITROGEN 16 mg/dL (7-20); CALCIUM 9.6 mg/dL (8.4-10.2); CARBON DIOXIDE 27 mmol/L (22-30); CHLORIDE 101 mmol/L (98-107); CHOLESTEROL 199.94 mg/dL (0-200); GLUCOSE 301 mg/dL (75-110); POTASSIUM 4.5 mmol/L (3.6-5.0); SODIUM 140.2 mmol/L (137-145); TOTAL PROTEIN 7.7 g/dL (6.3-8.2); TRIGLYCERIDES 257 mg/dL (<150)
[2018-09-27 12:53] LABS: DIRECT LDL 110 mg/dL (<100)
[2018-09-27 12:56] LABS: DIGOXIN < 0.40 ng/mL (0.8-2.0); VLDL CHOLESTEROL 51.4 mg/dL (10-31)
[2018-09-28 10:37] LABS: CREATININE URINE 115.4 mg/dL (Not Estab.); MICROALBUMIN URINE 76.3 ug/mL (Not Estab.)
[2018-09-28 18:03] LABS: TESTOSTERONE FREE (DIRECT) 6.6 pg/mL (7.2-24.0)
== END ==
LOC: OD 10:44
PROVIDERS: ATTEND Family Medicine Geriatric Medicine
DX: E11.9 Type 2 diabetes mellitus without complications (principal); I50.42 Chronic combined systolic (congestive) and diastolic (congestive) heart failure; I42.0 Dilated cardiomyopathy; E83.42 Hypomagnesemia; E29.1 Testicular hypofunction; Z79.899 Other long term (current) drug therapy
CPT/HCPCS: 36415; 80053; 80061; 80162; 82043; 82306; 82570; 83735; 84402; 84403; 84443; 85025

== ENCOUNTER → 2018-12-27 | Outpatient (CLI) | payer BC ==
[2018-12-27 10:42] LABS: CHOLESTEROL 204.28 mg/dL (0-200); TRIGLYCERIDES 222 mg/dL (<150)
[2018-12-27 10:53] LABS: DIRECT LDL 128 mg/dL (<100)
[2018-12-27 10:59] LABS: VLDL CHOLESTEROL 44.4 mg/dL (10-31)
== END ==
LOC: OD 09:40
PROVIDERS: ATTEND Family Medicine Geriatric Medicine
DX: E78.5 Hyperlipidemia, unspecified (principal); E11.9 Type 2 diabetes mellitus without complications; Z79.899 Other long term (current) drug therapy
CPT/HCPCS: 36415; 80061; 83036; 84460

== ENCOUNTER 2019-03-16 20:40 | Observation (INO) | payer BC, OTHER ==
--- NOTE | 2019-03-16 21:08 | ER Document Report ---
ED Medical Screen (RME) - General Chief Complaint: Breathing Difficulty Stated Complaint: SHORTNESS OF BREATH Time Seen by Provider: 03/16/19 20:55 Primary Care Provider: SHERRI DELGADO MD [Primary Care Provider] - Follow up as needed Notes: Patient is a 53-year-old male with a history of congestive heart failure, high cholesterol, hypertension who presents emergency department with a chief complaint of shortness of breath. Patient reports he does take a diuretic twice a day. Patient reports he had shortness of breath over the past week but has continued to feel worse. Patient reports today he slept in the bed most of the day as he did not feel well. Patient denies chest pain but does report feeling a heaviness across his chest. Patient reports his shortness of breath is worse when he ambulates. TRAVEL OUTSIDE OF THE [place] IN LAST 30 DAYS: No - Related Data Allergies/Adverse Reactions: oxycodone [From Percocet] Adverse Reaction (Verified 07/23/17 19:47) Hallucinations Home Medications: lasix 20mg bid. asa. metformin Past Medical History - Social History Chew tobacco use (# tins/day): No Frequency of alcohol use: None Drug Abuse: None - Past Medical History Cardiac Medical History: Reports: Hx Congestive Heart Failure, Hx Hypercholesterolemia, Hx Hypertension Endocrine Medical History: Reports: Hx Diabetes Mellitus Type 2 Renal/ Medical History: Denies: Hx Peritoneal Dialysis Psychiatric Medical History: Denies: Hx Depression Past Surgical History: Reports: Hx Cardiac Catheterization, Hx Cardiac Surgery - Defib, Hx Pacemaker - Immunizations Hx Diphtheria, Pertussis, Tetanus Vaccination: No Physical Exam - Vital signs Vitals: Temp Pulse Resp BP Pulse Ox 98.4 F 120 H 17 140/96 H 96 03/16/19 20:46 03/16/19 20:46 03/16/19 20:46 03/16/19 20:46 03/16/19 20:46 Course - Re-evaluation Re-evalutation: 03/16/19 21:07 Patient no acute distress in triage. Will obtain basic labs and a chest x-ray. I have greeted and performed a rapid initial assessment of this patient. A comprehensive ED assessment and evaluation of the patient, analysis of test results and completion of the medical decision making process will be conducted by additional ED providers. - Vital Signs Vital signs: Temp Pulse Resp BP Pulse Ox 98.4 F 120 H 17 140/96 H 96 03/16/19 20:46 03/16/19 20:46 03/16/19 20:46 03/16/19 20:46 03/16/19 20:46 Doctor's Discharge - Discharge Referrals: SHERRI DELGADO MD [Primary Care Provider] - Follow up as needed
[2019-03-16 21:33] LABS: ABSOLUTE BASOPHILS # (AUTO) 0.1 10^3/uL (0.0-0.2); ABSOLUTE LYMPHOCYTES (AUTO) 1.5 10^3/uL (0.5-4.7); ABSOLUTE MONOCYTES (AUTO) 0.9 10^3/uL (0.1-1.4); ABSOLUTE NEUT (AUTO) 9.1 10^3/uL (1.7-8.2); BASOPHILS % (AUTO) 0.6 % (0-2); EOSINOPHILS % (AUTO) 0.4 % (0-6); HEMATOCRIT 43.9 % (37.9-51.0); HEMOGLOBIN 14.5 g/dL (13.5-17.0); LYMPHOCYTES % (AUTO) 13.2 % (13-45); MEAN CORPUSCULAR HEMOGLOBIN 30.9 pg (27.0-33.4); MEAN CORPUSCULAR HGB CONC 32.9 g/dL (32.0-36.0); MEAN CORPUSCULAR VOLUME 94 fl (80-97); MONOCYTES % (AUTO) 7.9 % (3-13); PLATELET COUNT 268 10^3/uL (150-450); RED BLOOD COUNT 4.68 10^6/uL (4.35-5.55); RED CELL DISTRIBUTION WIDTH 13.8 % (11.5-14.0); SEGMENTED NEUTROPHILS % (AUTO) 77.9 % (42-78); TOTAL CELLS COUNTED % (AUTO) 100 %; WHITE BLOOD COUNT 11.7 10^3/uL (4.0-10.5)
[2019-03-16] MEDS ORDERED: FUROSEMIDE INJ/PF 20 MG/2 ML SDV IV ONE (22:03)
--- NOTE | 2019-03-16 22:10 | ER Document Report ---
ED General - General Chief Complaint: Breathing Difficulty Stated Complaint: SHORTNESS OF BREATH Time Seen by Provider: 03/16/19 20:55 Primary Care Provider: SHERRI DELGADO MD [Primary Care Provider] - Follow up as needed TRAVEL OUTSIDE OF THE [place] IN LAST 30 DAYS: No - HPI Notes: Chidi Glasgow is a 53-year-old male presenting with a chief complaint of increasing shortness of breath. This man has a history of diabetes mellitus and CHF. He says he has been compliant with his Lasix 20 mg twice daily but has missed "some of the other medicine" although he is not able to tell me specifically what he is supposed to be taking or what it is that he may have actually missed. He complains of vague tightness in his chest intermittently but denies any overt chest pain. He denies fever, chills or sputum production. He is a very poor historian. Patient denies any known history of thromboembolic disease. He denies any recent travel or trauma. Patient has a history of obstructive sleep apnea syndrome and says he is compliant with nocturnal CPAP. Patient has a known prior history of left bundle branch block. Patient says he supposed to be on metformin and has been out of this for several days. Patient did not bring in his current medications or list of these today. Meds listed at last D/C from this hospital 07/24/2018 include: Cinnamon Bark [Cinnamon] 1,000 mg PO DAILY 04/07/17 Garlic [Garlic Oil] 1,000 mg PO DAILY 04/07/17 Aspirin [Ecotrin 81 mg EC Tablet] 81 mg PO DAILY #90 tabec 04/08/17 Carvedilol [Coreg 3.125 mg Tablet] 3.125 mg PO Q12 #30 tablet 04/08/17 Metformin HCl [Glucophage] 1,000 mg PO BIDACBS #60 tablet 04/08/17 [place]-3S/Dha/Epa/Fish Oil/D3 [Fish Brr-Ryqhp-8-Vit D Softgel] 1 each PO DAILY #30 capsule 04/08/17 Spironolactone [Aldactone 25 mg Tablet] 25 mg PO DAILY #30 tablet 04/08/17 Digoxin [Lanoxin 0.125 mg Tablet] 0.125 mg PO DAILY 07/23/17 Furosemide [Lasix 20 mg Tablet] 20 mg PO Q48H 07/23/17 Glimepiride [Amaryl 4 mg Tablet] 4 mg PO [id number] 07/23/17 Potassium Chloride [Klor-Con 10 Meq Tablet.sa] 10 meq PO DAILY 07/23/17 Sacubitril/Valsartan [Entresto 49 mg/51 mg Tablet] 1 tab PO Q12 07/23/17 Simvastatin [Zocor 20 mg Tablet] 20 mg PO QHS 07/23/17 - Related Data Allergies/Adverse Reactions: oxycodone [From Percocet] Adverse Reaction (Verified 07/23/17 19:47) Hallucinations Home Medications: lasix 20mg bid. asa. metformin Past Medical History - General Information source: Patient - Social History Smoking Status: Never Smoker Chew tobacco use (# tins/day): No Frequency of alcohol use: None Drug Abuse: None Family History: Reviewed & Not Pertinent, Arthritis, DM, Hypertension Patient has suicidal ideation: No Patient has homicidal ideation: No - Past Medical History Cardiac Medical History: Reports: Hx Congestive Heart Failure, Hx Hyperc holesterolemia, Hx Hypertension Endocrine Medical History: Reports: Hx Diabetes Mellitus Type 2 Renal/ Medical History: Denies: Hx Peritoneal Dialysis Psychiatric Medical History: Denies: Hx Depression Past Surgical History: Reports: Hx Cardiac Catheterization, Hx Cardiac Surgery - Defib, Hx Pacemaker - Immunizations Hx Diphtheria, Pertussis, Tetanus Vaccination: No Hx Pneumococcal Vaccination: 04/30/09 Review of Systems - Review of Systems Notes: Constitutional: Negative for fever. HENT: Negative for sore throat. Eyes: Negative for visual changes. Cardiovascular: As per HPI. Respiratory: As per HPI. Gastrointestinal: Negative for abdominal pain, vomiting or diarrhea. Genitourinary: Negative for dysuria. Musculoskeletal: Negative for back pain. Skin: Negative for rash. Neurological: Negative for headaches, weakness or numbness. 10 point ROS negative except as marked above and in HPI. Physical Exam - Vital signs Vitals: Temp Pulse Resp BP Pulse Ox 98.4 F 120 H 17 140/96 H 96 03/16/19 20:46 03/16/19 20:46 03/16/19 20:46 03/16/19 20:46 03/16/19 20:46 - Notes Notes: GENERAL: Well-developed well-nourished appearing in no acute distress. SKIN: Good turgor no rashes. HEAD: Normocephalic atraumatic. EYES: PERRLA. Conjunctivae and sclerae clear. EARS: CANALS AND TMS CLEAR. NOSE: CLEAR. MOUTH: Moist mucosa. Good dentition. No stridor or edema. No drooling. NECK: Supple. No masses or thyromegaly. No adenopathy. Carotids 2+ without bruits. No JVD. Throat: Clear. BACK: Symmetrical without tenderness. CHEST: Respirations unlabored. Breath sounds symmetrically diminished both bases. HEART: Regular rhythm. No murmur gallop or rub. ABDOMEN: Soft nontender without masses, organomegaly or rebound. Bowel sounds normally active. No bruits. GENITALIA: Deferred. EXTREMITIES: 1+ pretibial edema bilaterally.. No calf tenderness. Cap refill less than 1.5 seconds. Dorsalis pedis and posterior tibial pulses 3+ and symmetrical. NEUROLOGICAL: GCS 15. Alert and oriented x3. Normal gait. Fluent speech. Cranial nerves II through XII intact. Sensorimotor and cerebellar normal. Normal tone. Psychiatric: Appropriate affect. Course - Re-evaluation Re-evalutation: 03/16/19 22:11 Differential diagnosis: Decompensated heart failure, PE, bronchitis, pneumonia, medical noncompliance. Pending studies at this time include chest x-ray, troponin, CBC, comprehensive metabolic profile, serum magnesium and d-dimer. Patient is to receive low-flow nasal O2 and IV Lasix at this time pending ordered studies. 03/16/19 23:13 This gentleman has a tiny bump in his troponin with no acute ST changes on his EKG. This suggests a non-STEMI. I have given him Nitropaste aspirin and Plavix and I am also going to put him on 1 mg/kg subcu Lovenox. Case has been discussed with the on-call hospitalist, Dr. Coe, who wants to admit him to telemetry observation status and trend the troponin. Also his blood sugar is up in the mid 400s with a normal bicarb. We note that he has been noncompliant with his metformin. He appears to have poorly controlled diabetes mellitus type 2 at this time. He does not appear to be in DKA. - Vital Signs Vital signs: Temp Pulse Resp BP Pulse Ox 98.4 F 120 H 18 111/84 93 03/16/19 20:46 03/16/19 20:46 03/16/19 22:08 03/16/19 22:08 03/16/19 22:08 - Laboratory Result Diagrams: 03/16/19 21:15 03/16/19 21:15 Laboratory results interpreted by me: 03/16/19 03/16/19 03/16/19 21:15 21:15 21:15 WBC 11.7 H Absolute Neuts (auto) 9.1 H Sodium 135.9 L Glucose 465 H* Total Bilirubin 2.2 H NT-Pro-B Natriuret Pep 2040 H - EKG Interpretation by Me EKG shows normal: Sinus rhythm Rate: Tachycardia [place]/QRS: LBBB Additional EKG results interpreted by me: 03/16/19 22:10 Pre-existing left bundle branch block. Patient's right is increased however compared with prior tracing and is currently 115. Discharge - Discharge Clinical Impression: Non-ST elevation OR (NSTEMI), Acute decompensated heart failure, Noncompliance Diabetes mellitus type 2, uncontrolled Qualifiers: Glycemic state: with hyperglycemia Qualified Code(s): E11.65 - Type 2 diabetes mellitus with hyperglycemia Condition: Serious Disposition: ADMITTED OBSERVATION Admitting Provider: Carolin (Hospitalist) Unit Admitted: Telemetry Referrals: SHERRI DELGADO MD [Primary Care Provider] - Follow up as needed
[2019-03-16 22:13] LABS: ALBUMIN 4.5 g/dL (3.5-5.0); ALKALINE PHOSPHATASE 116 U/L (38-126); ANION GAP 16 (5-19); ASPARTATE AMINO TRANSFERASE 18 U/L (17-59); BILIRUBIN,DIRECT 0.3 mg/dL (0.0-0.4); BILIRUBIN,TOTAL 2.2 mg/dL (0.2-1.3); BLOOD UREA NITROGEN 18 mg/dL (7-20); CALCIUM 9.9 mg/dL (8.4-10.2); CARBON DIOXIDE 22 mmol/L (22-30); CHLORIDE 98 mmol/L (98-107); POTASSIUM 4.2 mmol/L (3.6-5.0); TOTAL PROTEIN 7.8 g/dL (6.3-8.2)
--- NOTE | 2019-03-16 22:13 | RADIOLOGY REPORT (SQ) ---
EXAM DESCRIPTION: XR CHEST 2 VIEWS COMPLETED DATE/TME: 03/16/2019 21:06 CLINICAL HISTORY: 53 years, Male, shortness of breath COMPARISON: 12-18 chest NUMBER OF VIEWS: 2 TECHNIQUE: Frontal and lateral views of the chest LIMITATIONS: None. FINDINGS: The heart size is normal. Left-sided pacing device. Mild elevation of the right hemidiaphragm. Lungs are clear. No pneumothorax IMPRESSION: No acute cardiopulmonary process copyright 2010 [employer]- All Rights Reserved
[2019-03-16 22:19] LABS: GLUCOSE 465 mg/dL (75-110)
[2019-03-16 22:27] LABS: TROPONIN I 0.068 ng/mL
[2019-03-16 22:43] LABS: INTERNATIONAL RATION (INR) 1.06; PROTHROMBIN TIME 13.8 SEC (11.4-15.4)
[2019-03-16 22:44] LABS: PARTIAL THROMBOPLASTIN TIME 27.2 SEC (23.5-35.8)
[2019-03-16] MEDS ORDERED: ASPIRIN 81 MG TABLET, CHEWABLE PO ONE (22:46)
[2019-03-16] MEDS ORDERED: NITROGLYCERIN 2% OINTMENT 1 GM PACKET TP ONE (22:46)
[2019-03-16] MEDS ORDERED: INSULIN REG, HUMAN 100 UNIT/ML 3 ML VIAL (PYX) SUBCUT ONE (23:04)
[2019-03-16] MEDS ORDERED: ENOXAPARIN SODIUM INJ 120 MG/0.8 ML DISP.SYRIN SUBCUT ONE (23:10)
[2019-03-17] MEDS ORDERED: ENOXAPARIN SODIUM INJ 120 MG/0.8 ML DISP.SYRIN SUBCUT ONE (00:30)
[2019-03-17 00:51] LABS: APPEARANCE,URINE CLEAR; BILIRUBIN,URINE NEGATIVE (NEGATIVE); COLOR,URINE STRAW; GLUCOSE, URINE >=500 mg/dL (NEGATIVE); KETONES,URINE 20 mg/dL (NEGATIVE); LEUKOCYTE ESTERASE,URINE NEGATIVE (NEGATIVE); NITRITE,URINE NEGATIVE (NEGATIVE); PROTEIN,URINE NEGATIVE (NEGATIVE); URINE SPECIFIC GRAVITY 1.013; UROBILINOGEN,URINE NEGATIVE mg/dL (<2.0)
[2019-03-17] MEDS ORDERED: ONDANSETRON HCL INJ/PF 4 MG/2 ML SDV IV PRN (01:04)
[2019-03-17] MEDS ORDERED: DEXTROSE 50%-WATER 25 GM/50 ML DISP.SYRIN IV PRN ×2 (01:32)
[2019-03-17] MEDS ORDERED: DEXTROSE 40% GEL 15 GM TUBE PO PRN ×2 (01:32)
[2019-03-17] MEDS ORDERED: GLUCAGON,HUMAN RECOMB 1 MG INJ IM PRN (01:32)
--- NOTE | 2019-03-17 05:34 | PDOC H&P ---
History of Present Illness Admission Date/PCP: 03/16/2019 23:43 SHERRI DELGADO MD Patient complains of: Chest pain History of Present Illness: JUANI PARTIDA is a 53 year old male who presented to the emergency room with acute dyspnea. He admits the development of dyspnea earlier in the day and that has progressively worsened and has been accompanied by mild to moderate heaviness in his chest without localization or radiation. His dyspnea and chest heaviness are worsened by exertion. He denies other accompanying or associated signs and symptoms. He admits prior similar episodes with heart failure related problems in the past. He has not identified any additional aggravating or ameliorating factors for his dyspnea or chest heaviness. In the emergency room he was found to have a minimally elevated troponin at 0.06 with an EKG that showed no evidence of acute myocardial ischemia or injury. He was subsequently admitted to the hospital for further evaluation and treatment. Past Medical History Cardiac Medical History: Reports: Congestive Heart Failure, Coronary Artery Disease, Hyperlipidema, Hypertension Pulmonary Medical History: Denies: Asthma, Chronic Obstructive Pulmonary Disease (COPD) EENT Medical History: Denies: Cataracts, Ears - Hearing aids Neurological Medical History: Denies: Hemorrhagic CVA, Ischemic CVA, Seizures Endocrine Medical History: Reports: Diabetes Mellitus Type 2, Obesity Denies: Diabetes Mellitus Type 1, Hyperthyroidism, Hypothyroidism Renal/ Medical History: Reports: Nephrolithiasis Denies: Chronic Kidney Disease Malignancy Medical History: Reports: None GI Medical History: Denies: Cirrhosis, Crohn's Disease, Hepatitis, Peptic Ulcer Disease, Ulcerative Colitis Musculoskeltal Medical History: Denies: Arthritis, Gout Skin Medical History: Denies: Eczema, Psoriasis Psychiatric Medical History: Denies: Alcohol Dependency, Depression, Substance Abuse, Tobacco Dependency Traumatic Medical History: Reports: None Hematology: Denies: Anemia, Bleeding Tendencies Infectious Medical History: Reports: None Past Surgical History Past Surgical History: Reports: Cardiac Catheterization, Pacemaker Social History Information Source: Patient Lives with: Alone Smoking Status: Never Smoker Electronic Cigarette use?: No Frequency of Alcohol Use: None Hx Recreational Drug Use: No Drugs: None Hx Prescription Drug Abuse: No - Advance Directive Resuscitation Status: Full Code Surrogate healthcare decision maker:: Josefa Myah Family History Family History: Arthritis, DM, Hypertension Parental Family History Reviewed: Yes Children Family History Reviewed: No Sibling(s) Family History Reviewed.: Yes Medication/Allergy Home Medications: Cinnamon Bark [Cinnamon] 1,000 mg PO DAILY 04/07/17 Garlic [Garlic Oil] 1,000 mg PO DAILY 04/07/17 Aspirin [Ecotrin 81 mg EC Tablet] 81 mg PO DAILY #90 tabec 04/08/17 Metformin HCl [Glucophage] 1,000 mg PO BIDACBS #60 tablet 04/08/17 [place]-3S/Dha/Epa/Fish Oil/D3 [Fish Izc-Hnzod-0-Vit D Softgel] 1 each PO DAILY #30 capsule 04/08/17 Spironolactone [Aldactone 25 mg Tablet] 25 mg PO DAILY #30 tablet 04/08/17 Digoxin [Lanoxin 0.125 mg Tablet] 0.125 mg PO DAILY 07/23/17 Glimepiride [Amaryl 4 mg Tablet] 4 mg PO [id number] 07/23/17 Potassium Chloride [Klor-Con 10 Meq Capsule ER] 10 meq PO DAILY 07/23/17 Sacubitril/Valsartan [Entresto 49 mg/51 mg Tablet] 1 tab PO Q12 07/23/17 Simvastatin [Zocor 20 mg Tablet] 20 mg PO QHS 07/23/17 Carvedilol [Coreg 12.5 mg Tablet] 12.5 mg PO Q12 30 Days #60 tablet 07/24/17 Furosemide [Lasix 20 mg Tablet] 20 mg PO QAM #30 tablet 07/24/17 Isosorbide Mononitrate [Imdur 30 mg Tablet.er] 30 mg PO QPM #30 tab.er.24h 07/24/17 Magnesium Oxide 400 mg PO DAILY 30 Days #30 tablet 07/24/17 Sacubitril/Valsartan [Entresto 49 mg/51 mg Tablet] 1 tab PO Q12 tablet 07/24/17 Glipizide [Glipizide Xl] 10 mg PO DAILY #30 tab.er.24 03/31/18 Butalb/Acetaminophen/Caffeine [Fioricet (50-325-40 mg) Tablet] 1 tab PO Q4HP PRN #16 tab 08/16/18 Allergies/Adverse Reactions: oxycodone [From Percocet] Adverse Reaction (Verified 07/23/17 19:47) Hallucinations Review of Systems Constitutional: ABSENT: chills, fever(s) Eyes: ABSENT: visual disturbances, other - Eye pain Ears: ABSENT: hearing changes, other - Ear pain Nose, Mouth, and Throat: ABSENT: headache(s), mouth pain, sore throat Cardiovascular: PRESENT: as per HPI, chest pain - Chest heaviness, dyspnea on exertion. ABSENT: edema, orthropnea, palpitations Respiratory: PRESENT: dyspnea. ABSENT: cough Gastrointestinal: ABSENT: abdominal pain, constipation, diarrhea, nausea, vomiting Genitourinary: ABSENT: dysuria, hematuria Musculoskeletal: ABSENT: back pain, joint swelling, muscle weakness Integumentary: ABSENT: pruritus, rash Neurological: ABSENT: confusion, convulsions, focal weakness, memory loss, syncope Psychiatric: ABSENT: anxiety, depression Endocrine: ABSENT: cold intolerance, heat intolerance Hematologic/Lymphatic: ABSENT: easy bleeding, easy bruising Allergic/Immunologic: ABSENT: seasonal rhinorrhea Physical Exam Vital Signs: Temp Pulse Resp BP Pulse Ox 98.4 F 120 H 18 111/84 93 03/16/19 20:46 03/16/19 20:46 03/16/19 22:08 03/16/19 22:08 03/16/19 22:08 Intake & Output 03/14/19 03/15/19 03/16/19 23:59 23:59 23:59 Weight 111.7 kg General appearance: PRESENT: no acute distress, cooperative, obese Head exam: PRESENT: atraumatic, normocephalic Eye exam: PRESENT: conjunctiva pink. ABSENT: conjunctival injection, scleral icterus Ear exam: PRESENT: normal external ear exam. ABSENT: bleeding, drainage Mouth exam: PRESENT: dry mucosa, neck supple Neck exam: ABSENT: thyromegaly, tracheal deviation Respiratory exam: PRESENT: clear to auscultation eulalio, symmetrical, unlabored Cardiovascular exam: PRESENT: RRR. ABSENT: clicks, gallop, rubs Pulses: PRESENT: normal radial pulses, normal dorsalis pedis pul Vascular exam: PRESENT: normal capillary refill. ABSENT: pallor GI/Abdominal exam: PRESENT: normal bowel sounds, soft Rectal exam: PRESENT: deferred Extremities exam: ABSENT: joint swelling, pedal edema Musculoskeletal exam: ABSENT: deformity, dislocation Neurological exam: PRESENT: alert, oriented to person, oriented to place, oriented to time, oriented to situation, CN II-XII grossly intact. ABSENT: motor sensory deficit Psychiatric exam: PRESENT: appropriate affect, normal mood Skin exam: PRESENT: dry, intact, warm. ABSENT: jaundice, rash, urticaria Results Laboratory Results: 03/16/19 21:15 03/16/19 21:15 03/16/19 03/16/19 03/16/19 21:15 21:15 21:15 WBC 11.7 H RBC 4.68 Hgb 14.5 Hct 43.9 MCV 94 MCH 30.9 MCHC 32.9 RDW 13.8 Plt Count 268 Seg Neutrophils % 77.9 Sodium 135.9 L Potassium 4.2 Chloride 98 Carbon Dioxide 22 Anion Gap 16 BUN 18 Creatinine 1.17 Est GFR ( Amer) > 60 Glucose 465 H* Calcium 9.9 Magnesium 1.9 Total Bilirubin 2.2 H AST 18 Alkaline Phosphatase 116 Total Protein 7.8 Albumin 4.5 03/16/19 21:15 Troponin I 0.068 NT-Pro-B Natriuret Pep 2040 H Impressions: Chest X-Ray 03/16/19 21:06 IMPRESSION: No acute cardiopulmonary process copyright 2011 [employer]- All Rights Reserved Assessment and Plan - Diagnosis (1) Chest heaviness Is this a current diagnosis for this admission?: Yes (2) Elevated troponin I level Is this a current diagnosis for this admission?: Yes (3) Diabetes mellitus type 2 in obese Is this a current diagnosis for this admission?: Yes (4) Chronic systolic congestive heart failure Is this a current diagnosis for this admission?: Yes (5) Sleep disorder breathing Is this a current diagnosis for this admission?: Yes (6) AICD (automatic cardioverter/defibrillator) present Is this a current diagnosis for this admission?: Yes - Plan Summary Summary: Patient is admitted, on observation status, to the medical floor with telemetry monitoring for routine supportive and symptomatic cares. Serial cardiac enzymes will be obtained. Patient will use morphine sulfate 2 to 4 mg IV every 2 hours on an as-needed basis for chest pain using a sliding scale for dosage administration. He will be continued on his usual medications as appropriate for treatment of his chronic medical problems. He will be maintained on a cardiac and diabetic diet. Before meals and at bedtime Accu-Cheks will be performed and sliding scale insulin will be administered for hyperglycemia with a hypoglycemic protocol in place. Further evaluation and treatment will be based upon results of his initial studies. - Time Time Spent with patient: 25-34 minutes Medications reviewed and adjusted accordingly: Yes Anticipated discharge: Home - Inpatient Certification Based on my medical assessment, after consideration of the patient's comorbidities, presenting symptoms, or acuity I expect that the services needed warrant INPATIENT care.: No I certify that my determination is in accordance with my understanding of Medicare's requirements for reasonable and necessary INPATIENT services [42 CFR 412.3e].: No
[2019-03-17 05:49] LABS: HEMATOCRIT 41.7 % (37.9-51.0); HEMOGLOBIN 13.9 g/dL (13.5-17.0); MEAN CORPUSCULAR HEMOGLOBIN 31.3 pg (27.0-33.4); MEAN CORPUSCULAR HGB CONC 33.2 g/dL (32.0-36.0); MEAN CORPUSCULAR VOLUME 94 fl (80-97); PLATELET COUNT 237 10^3/uL (150-450); RED BLOOD COUNT 4.42 10^6/uL (4.35-5.55); RED CELL DISTRIBUTION WIDTH 13.5 % (11.5-14.0); WHITE BLOOD COUNT 10.5 10^3/uL (4.0-10.5)
[2019-03-17] MEDS: NITROGLYCERIN 2% OINTMENT 1 GM PACKET TP SCH ×4 (06:47→23:09)
[2019-03-17] MEDS: ACETAMINOPHEN 325 MG TABLET PO PRN ×2 (08:28→14:56)
[2019-03-17] MEDS: INSULIN LISPRO 100 UNIT/ML 3 ML VIAL SUBCUT SCH ×4 (08:30→22:21)
[2019-03-17] MEDS ORDERED: CLOPIDOGREL BISULFATE 75 MG TABLET PO SCH (10:00)
[2019-03-17] MEDS: FAMOTIDINE 20 MG TABLET PO SCH ×2 (10:28→17:28)
[2019-03-17] MEDS: FUROSEMIDE 20 MG TABLET PO SCH (10:28)
[2019-03-17] MEDS: ASPIRIN 81 MG TABLET, ENT COATED PO SCH (10:29)
[2019-03-17] MEDS: CARVEDILOL 12.5 MG TABLET PO SCH ×2 (10:29→22:24)
[2019-03-17] MEDS: POTASSIUM CHLORIDE 10 MEQ CAPSULE.ER PO SCH (10:29)
[2019-03-17] MEDS: DIGOXIN 0.125 MG TABLET PO SCH (10:29)
[2019-03-17] MEDS: SACUBITRIL/VALSARTAN 49 MG/51 MG TABLET PO SCH ×2 (10:30→22:24)
[2019-03-17] MEDS: SPIRONOLACTONE 25 MG TABLET PO SCH (10:30)
[2019-03-17] MEDS: ENOXAPARIN SODIUM INJ 120 MG/0.8 ML DISP.SYRIN SUBCUT SCH ×2 (10:30→22:22)
[2019-03-17] MEDS ORDERED: ALBUTEROL SULFATE HFA (90 MCG/PUFF) 200 PUFF/8.5 GM MDI IH PRN (12:13)
[2019-03-17] MEDS ORDERED: DIGOXIN 0.125 MG TABLET PO SCH (13:30)
--- NOTE | 2019-03-17 14:23 | PDOC PROGRESS REPORT ---
Subjective Progress Note for:: 03/17/19 Reason For Visit: ELEVATED SERUM TROPONIN 03/17/2019 Shortness of breath. Patient has had no chest pain in over a week. Patient does have a history of congestive heart failure. he is noncompliant with medications. Patient has a slightly elevated troponin, therefore he is admitted to rule out Physical Exam Vital Signs: Temp Pulse Resp BP Pulse Ox 97.3 F 94 22 H 93/64 L 97 03/17/19 11:09 03/17/19 12:56 03/17/19 11:09 03/17/19 12:56 03/17/19 11:09 Intake & Output 03/16/19 03/17/19 03/18/19 06:59 06:59 06:59 Intake Total 968 Output Total 700 Balance 268 Weight 112.037 kg General appearance: PRESENT: no acute distress, other - No chest pain in over a week Respiratory exam: PRESENT: clear to auscultation eulalio. ABSENT: rales, rhonchi, wheezes Cardiovascular exam: PRESENT: RRR. ABSENT: diastolic murmur, rubs, systolic murmur Neurological exam: PRESENT: alert, awake, oriented to person, oriented to place, oriented to time, oriented to situation, CN II-XII grossly intact. ABSENT: motor sensory deficit Psychiatric exam: PRESENT: appropriate affect, normal mood. ABSENT: homicidal ideation, suicidal ideation Results Laboratory Results: 03/17/19 05:03 03/16/19 21:15 03/16/19 03/16/19 03/16/19 21:15 21:15 21:15 WBC 11.7 H RBC 4.68 Hgb 14.5 Hct 43.9 MCV 94 MCH 30.9 MCHC 32.9 RDW 13.8 Plt Count 268 Seg Neutrophils % 77.9 Sodium 135.9 L Potassium 4.2 Chloride 98 Carbon Dioxide 22 Anion Gap 16 BUN 18 Creatinine 1.17 Est GFR ( Amer) > 60 Glucose 465 H* Calcium 9.9 Magnesium 1.9 Total Bilirubin 2.2 H AST 18 Alkaline Phosphatase 116 Total Protein 7.8 Albumin 4.5 Urine Color Urine Appearance Urine pH Ur Specific [place] Urine Protein Urine Glucose (UA) Urine Ketones Urine Blood Urine Nitrite Ur Leukocyte Esterase Urine WBC (Auto) 03/17/19 03/17/19 00:35 05:03 WBC 10.5 RBC 4.42 Hgb 13.9 Hct 41.7 MCV 94 MCH 31.3 MCHC 33.2 RDW 13.5 Plt Count 237 Seg Neutrophils % Sodium Potassium Chloride Carbon Dioxide Anion Gap BUN Creatinine Est GFR ( Amer) Glucose Calcium Magnesium Total Bilirubin AST Alkaline Phosphatase Total Protein Albumin Urine Color STRAW Urine Appearance CLEAR Urine pH 5.0 Ur Specific [place] 1.013 Urine Protein NEGATIVE Urine Glucose (UA) >=500 H Urine Ketones 20 H Urine Blood NEGATIVE Urine Nitrite NEGATIVE Ur Leukocyte Esterase NEGATIVE Urine WBC (Auto) 0 03/16/19 21:15 Troponin I 0.068 NT-Pro-B Natriuret Pep 2040 H Impressions: Chest X-Ray 03/16/19 21:06 IMPRESSION: No acute cardiopulmonary process copyright 2011 [employer]- All Rights Reserved Assessment and Plan - Diagnosis (1) Chest heaviness Is this a current diagnosis for this admission?: Yes (2) Chronic systolic congestive heart failure Is this a current diagnosis for this admission?: Yes (3) Diabetes mellitus type 2, uncontrolled Qualifiers: Glycemic state: with hyperglycemia Qualified Code(s): E11.65 - Type 2 diabetes mellitus with hyperglycemia Is this a current diagnosis for this admission?: Yes (4) Elevated troponin I level Is this a current diagnosis for this admission?: Yes (5) Noncompliance Is this a current diagnosis for this admission?: Yes (6) AICD (automatic cardioverter/defibrillator) present Is this a current diagnosis for this admission?: Yes (7) HTN (hypertension) Qualifiers: Hypertension type: essential hypertension Qualified Code(s): I10 - Essential (primary) hypertension Is this a current diagnosis for this admission?: Yes - Plan Summary Summary: Patient is admitted, on observation status, to the medical floor with telemetry monitoring for routine supportive and symptomatic cares. Serial cardiac enzymes will be obtained. Patient will use morphine sulfate 2 to 4 mg IV every 2 hours on an as-needed basis for chest pain using a sliding scale for dosage administration. He will be continued on his usual medications as appropriate for treatment of his chronic medical problems. He will be maintained on a ca rdiac and diabetic diet. Before meals and at bedtime Accu-Cheks will be performed and sliding scale insulin will be administered for hyperglycemia with a hypoglycemic protocol in place. Further evaluation and treatment will be based upon results of his initial studies.
[2019-03-17] MEDS: GLIPIZIDE XL 5 MG TAB.ER.24 PO SCH (14:54)
[2019-03-17 15:34] LABS: CREATINE KINASE MB 1.89 ng/mL (<4.55); TROPONIN I 0.056 ng/mL
[2019-03-17] MEDS ORDERED: SACUBITRIL/VALSARTAN 49 MG/51 MG TABLET PO SCH (18:00)
[2019-03-17 19:41] LABS: CREATINE KINASE MB 2.18 ng/mL (<4.55); TROPONIN I 0.048 ng/mL
[2019-03-17] MEDS: SIMVASTATIN 10 MG TABLET PO SCH (22:20)
[2019-03-18 00:54] LABS: APPEARANCE,URINE CLEAR; BILIRUBIN,URINE NEGATIVE (NEGATIVE); COLOR,URINE YELLOW; GLUCOSE, URINE >=500 mg/dL (NEGATIVE); KETONES,URINE TRACE mg/dL (NEGATIVE); LEUKOCYTE ESTERASE,URINE NEGATIVE (NEGATIVE); NITRITE,URINE NEGATIVE (NEGATIVE); PROTEIN,URINE NEGATIVE (NEGATIVE); URINE SPECIFIC GRAVITY 1.032; UROBILINOGEN,URINE NEGATIVE mg/dL (<2.0)
[2019-03-18] MEDS: NITROGLYCERIN 2% OINTMENT 1 GM PACKET TP SCH ×3 (05:51→11:16)
[2019-03-18] MEDS: INSULIN LISPRO 100 UNIT/ML 3 ML VIAL SUBCUT SCH ×4 (07:19→21:53)
--- NOTE | 2019-03-18 07:33 | EKG REPORT ---
SEVERITY:- ABNORMAL ECG - SINUS TACHYCARDIA LEFT ATRIAL ABNORMALITY LEFT BUNDLE BRANCH BLOCK : Confirmed by: Pablito Ramirez MD 18-Mar-2019 07:32:44
[2019-03-18] MEDS ORDERED: ASPIRIN 81 MG TABLET, ENT COATED PO SCH (10:00)
[2019-03-18] MEDS: SPIRONOLACTONE 25 MG TABLET PO SCH (10:12)
[2019-03-18] MEDS: CARVEDILOL 12.5 MG TABLET PO SCH ×2 (10:12→21:49)
[2019-03-18] MEDS: FAMOTIDINE 20 MG TABLET PO SCH ×2 (10:12→17:29)
[2019-03-18] MEDS: ASPIRIN 81 MG TABLET, ENT COATED PO SCH (10:13)
[2019-03-18] MEDS: FUROSEMIDE 20 MG TABLET PO SCH (10:13)
[2019-03-18] MEDS: DIGOXIN 0.125 MG TABLET PO SCH (10:13)
[2019-03-18] MEDS: GLIPIZIDE XL 5 MG TAB.ER.24 PO SCH (10:13)
[2019-03-18] MEDS: SACUBITRIL/VALSARTAN 49 MG/51 MG TABLET PO SCH ×2 (10:15→21:49)
[2019-03-18] MEDS: ENOXAPARIN SODIUM INJ 120 MG/0.8 ML DISP.SYRIN SUBCUT SCH (10:15)
[2019-03-18] MEDS: POTASSIUM CHLORIDE 10 MEQ CAPSULE.ER PO SCH (10:15)
[2019-03-18] MEDS ORDERED: DEXTROSE 50%-WATER 25 GM/50 ML DISP.SYRIN IV PRN ×2 (17:58)
[2019-03-18] MEDS ORDERED: GLUCAGON,HUMAN RECOMB 1 MG INJ SUBCUT PRN (17:58)
[2019-03-18] MEDS ORDERED: DEXTROSE 40% GEL 15 GM TUBE PO PRN ×2 (17:58)
--- NOTE | 2019-03-18 18:04 | PDOC PROGRESS REPORT ---
Subjective Progress Note for:: 03/18/19 Subjective:: Patient still having some dyspnea. Mainly on exertion. Denies any current chest pain. Denies fever chills. Reason For Visit: ELEVATED SERUM TROPONIN Physical Exam Vital Signs: Temp Pulse Resp BP Pulse Ox 98.2 F 97 20 98/70 L 98 03/18/19 15:10 03/18/19 15:10 03/18/19 15:10 03/18/19 16:42 03/18/19 15:10 Intake & Output 03/17/19 03/18/19 03/19/19 06:59 06:59 06:59 Intake Total 1088 630 Output Total 1300 Balance -212 630 Weight 112.037 kg General appearance: PRESENT: no acute distress, cooperative Respiratory exam: PRESENT: clear to auscultation eulalio, unlabored. ABSENT: rales, tachypnea, wheezes Cardiovascular exam: PRESENT: RRR, +S1, +S2. ABSENT: gallop GI/Abdominal exam: PRESENT: normal bowel sounds, soft. ABSENT: guarding, rebound, rigid, tenderness Neurological exam: PRESENT: alert, awake, oriented to person, oriented to place, oriented to time Results Laboratory Results: 03/17/19 05:03 03/16/19 21:15 03/17/19 03/18/19 20:20 00:04 Urine Color YELLOW Urine Appearance CLEAR Urine pH 5.0 Ur Specific [place] 1.032 Urine Protein NEGATIVE Urine Glucose (UA) >=500 H Urine Ketones TRACE H Urine Blood NEGATIVE Urine Nitrite NEGATIVE Ur Leukocyte Esterase NEGATIVE Urine WBC (Auto) 1 Urine RBC (Auto) 1 Stool Occult Blood NEGATIVE 03/16/19 03/17/19 03/17/19 21:15 14:36 19:00 CK-MB (CK-2) 1.89 2.18 Troponin I 0.068 0.056 0.048 NT-Pro-B Natriuret Pep 2040 H Impressions: Chest X-Ray 03/16/19 21:06 IMPRESSION: No acute cardiopulmonary process copyright 2011 [employer].- All Rights Reserved Assessment and Plan - Diagnosis (1) Chest heaviness Is this a current diagnosis for this admission?: Yes Plan: Patient is scheduled for Lexiscan stress test for tomorrow morning with Dr. Akbar No caffeine (2) Chronic systolic congestive heart failure Is this a current diagnosis for this admission?: Yes Plan: Stable no evidence of pulmonary edema on chest x-ray. Continue with Entresto. Patient has soft blood pressures on Entresto but asymptomatic. Will monitor and adjust Entresto dose if needed. (3) Diabetes mellitus type 2, uncontrolled Qualifiers: Glycemic state: with hyperglycemia Qualified Code(s): E11.65 - Type 2 diabetes mellitus with hyperglycemia Is this a current diagnosis for this admission?: Yes Plan: Poorly controlled A1c is 13.3 Patient currently only takes glipizide 10 mg daily. Clearly this is insufficient to control patient's blood glucose as patient is requiring over 25 units of insulin via sliding scale daily with blood sugar still being in the 300s. I will start patient on NovoLog 70/30 10 units with supper starting tonight and 18 units with breakfast starting tomorrow. Will uptitrate as needed. Continue with sliding scale insulin. (4) Elevated troponin I level Is this a current diagnosis for this admission?: Yes Plan: See #1 (5) HTN (hypertension) Qualifiers: Hypertension type: essential hypertension Qualified Code(s): I10 - Essential (primary) hypertension Is this a current diagnosis for this admission?: Yes Plan: Continue current regimen - Plan Summary Summary: Patient is admitted, on observation status, to the medical floor with telemetry monitoring for routine supportive and symptomatic cares. Serial cardiac enzymes will be obtained. Patient will use morphine sulfate 2 to 4 mg IV every 2 hours on an as-needed basis for chest pain using a sliding scale for dosage administration. He will be continued on his usual medications as appropriate for treatment of his chronic medical problems. He will be maintained on a cardiac and diabetic diet. Before meals and at bedtime Accu-Cheks will be performed and sliding scale insulin will be administered for hyperglycemia with a hypoglycemic protocol in place. Further evaluation and treatment will be based upon results of his initial studies. 03/17/2019 unfortunately patient only had one cardiac enzyme drawn last night. Other enzyme was drawn now and another one 6 [address] now[address] I did place patient back on his home meds, patient was evidently very noncompliant with his medications. Patient's d-dimer was negative BNP on admission was 2039 Also going to check a hemoglobin A1c I am not sure why he did not have serial enzymes. I am Going to go ahead and and schedule stress test and echo for tomorrow since the last troponin will be done until 2100 hrs. tonight. She states the last time he any chest pain was a week ago when his main complaint when he came in with shortness of breath - Time Time Spent with patient: 15-24 minutes
[2019-03-18] MEDS: HUM INSULIN NPH/REG INSULIN HM 100 UNIT/1 ML 3 ML SUBCUT SCH (18:39)
--- NOTE | 2019-03-18 19:00 | XCELERA REPORT ---
[address] [address] Transthoracic Echocardiogram Report Name: JUANI PARTIDA Age: 53 yrs Gender: Male : 1965 Patient Status: Inpatient Patient Location: [address] [place], [place] [id number] Study Date: 03/17/2019 08:53 PM Height: 72 in Weight: 247 lb BSA: 2.3 m2 Procedure: A complete two-dimensional transthoracic echocardiogram was performed (2D, M-mode, spectral and color flow Doppler). The study was technically adequate with some images being suboptimal in quality. Reason For Study: SOB, chest pain Ordering Physician: MONICA CRENSHAW Performed By: Tara Trinidad Interpretation Summary The Ejection Fraction estimate is 25-30% Left ventricular systolic function is severely reduced. Doppler measurements suggest pseudonormalized left ventricular relaxation, which is associated with grade II/IV or mild to moderate diastolic dysfunction There is severe global hypokinesis of the left ventricle. The left ventricle is moderately dilated. There is mild concentric left ventricular hypertrophy. The right ventricular systolic function is normal. The left atrium is moderately dilated. The right atrium is normal in size There is a mild amount of mitral regurgitation There is no mitral valve stenosis. No aortic regurgitation is present. There is no aortic valve stenosis There is a trace or physiologic amount of tricuspid regurgitation Tricuspid regurgitation jet envelope not well defined to measure RV systolic pressure accurately. The pulmonic valve is not well visualized. The aortic root is not well visualized but is probably normal size. The inferior vena cava was not well visualized There is no pericardial effusion. MMode/2D Measurements & Calculations RVDd: 2.9 cm LVIDd: 7.5 cm FS: 10.1 % Ao root diam: IVSd: 1.2 cm LVIDs: 6.8 cm EDV(Teich): 3.4 cm 300.8 ml Ao root area: LVPWd: 1.2 cm ESV(Teich): 9.3 cm2 236.8 ml LA dimension: EF(Teich): 21.3 % 4.2 cm LVLd ap4: 8.9 cm SV(MOD-sp4): EDV(MOD-sp4): 49.0 ml 195.0 ml LVLs ap4: 8.3 cm ESV(MOD-sp4): 146.0 ml EF(MOD-sp4): 25.1 % Doppler Measurements & Calculations MV E max kaylee: MV P1/2t max kaylee: Ao V2 max: LV V1 max P.6 cm/sec 94.5 cm/sec 83.6 cm/sec 2.2 mmHg MV A max kaylee: MV P1/2t: 30.3 msec Ao max PG: LV V1 max: 77.9 cm/sec MVA(P1/2t): 7.3 cm2 2.8 mmHg 74.8 cm/sec MV E/A: 0.84 MV dec slope: 914.6 cm/sec2 MV dec time: 0.15 sec PA V2 max: PI end-d kaylee: TR max kaylee: MV P1/2t-pr_phl: 62.4 cm/sec 126.9 cm/sec 179.4 cm/sec 30.3 msec PA max PG: TR max P.6 mmHg 12.9 mmHg Left Ventricle The left ventricle is moderately dilated. There is mild concentric left ventricular hypertrophy. Left ventricular systolic function is severely reduced. The Ejection Fraction estimate is 25-30%. Doppler measurements suggest pseudonormalized left ventricular relaxation, which is associated with grade II/IV or mild to moderate diastolic dysfunction. There is severe global hypokinesis of the left ventricle. Right Ventricle The right ventricle is grossly normal size. There is normal right ventricular wall thickness. The right ventricular systolic function is normal. Atria The right atrium is normal in size. The left atrium is moderately dilated. Interarterial septum not well visualized and not well dopplered. Cannot comment on ASD/PFO presence. Mitral Valve The mitral valve is grossly normal. There is no mitral valve stenosis. There is a mild amount of mitral regurgitation. Aortic Valve The aortic valve is grossly normal. There is no aortic valve stenosis. No aortic regurgitation is present. Tricuspid Valve The tricuspid valve is not well visualized, but is grossly normal. There is no tricuspid stenosis. There is a trace or physiologic amount of tricuspid regurgitation. Tricuspid regurgitation jet envelope not well defined to measure RV systolic pressure accurately. Pulmonic Valve The pulmonic valve is not well visualized. Great Vessels The aortic root is not well visualized but is probably normal size. The inferior vena cava was not well visualized. Effusions There is no pericardial effusion. Incidental Findings Pacemaker wire noted. : MONICA CRENSHAW Shyamal
--- NOTE | 2019-03-18 19:34 | PDOC PROGRESS REPORT ---
Subjective Progress Note for:: 03/18/19 Subjective:: Patient was seen at the request of the hospitalist. Patient has known history of cardiomyopathy with severely depressed LVEF. Patient has a defibrillator in situ. Patient presents with severe shortness of breath. He does claim of some chest tightness with exertion. He did have a heart catheterization within the last 12 months as per his record, which he said had no significant blockages. Patient currently chest pain-free. Troponin I noted to be minimally elevated. Patient denies any recent defibrillator shocks. Patient had followed with me in the past but is noncompliant with medical management and also with CPAP therapy. Reason For Visit: ELEVATED SERUM TROPONIN Physical Exam Vital Signs: Temp Pulse Resp BP Pulse Ox 98.2 F 97 20 98/70 L 98 03/18/19 15:10 03/18/19 15:10 03/18/19 15:10 03/18/19 16:42 03/18/19 15:10 Intake & Output 03/17/19 03/18/19 03/19/19 06:59 06:59 06:59 Intake Total 1088 630 Output Total 1300 600 Balance -212 30 Weight 112.037 kg Exam: GENERAL: well-nourished and in no acute distress. Alert and oriented x3 HEAD: Atraumatic, normocephalic. EYES: EMANI, sclera anicteric, conjunctiva are normal. ENT: Moist mucous membranes. No oral ulcerations or bleeding gums noted. No obvious ear, nose or throat abnormalities noted. NECK: supple without lymphadenopathy. Trachea is central. No cervical or axillary lymphadenopathy noted. Carotids are 2+, JVD WNL LUNGS: Breath sounds clear bilaterally. No wheezes rales or rhonchi noted. No significant dullness noted on percussion. CHEST: Palpation of the chest wall shows no significant chest wall tenderness. Defibrillator noted left-sided chest HEART: [place] ROUGH ROUNDER MACHINE, No PSH, 1/6 DORON aortic area, 1/6 hernández systolic murmur mitral area, no rubs, no gallops. ABDOMEN: Soft, no significant tenderness appreciated, normoactive bowel sounds. No guarding, no rebound. No rigidity noted . No masses appreciated. EXTREMITIES: Pedal pulses are 1-2+, no calf tenderness noted. No clubbing or cyanosis. negative pedal edema noted NEUROLOGICAL: Focused neurological exam showed no significant neurologic deficit. Normal speech, no focal weakness appreciated. PSYCH: Normal mood, normal affect. Judgment and insight within normal limits. SKIN: No significant ecchymosis, skin is noted to be warm. MUSCULOSKELETAL EXAM: No significant acute joint swelling noted. Results Laboratory Results: 03/17/19 05:03 03/16/19 21:15 03/17/19 03/18/19 20:20 00:04 Urine Color YELLOW Urine Appearance CLEAR Urine pH 5.0 Ur Specific [place] 1.032 Urine Protein NEGATIVE Urine Glucose (UA) >=500 H Urine Ketones TRACE H Urine Blood NEGATIVE Urine Nitrite NEGATIVE Ur Leukocyte Esterase NEGATIVE Urine WBC (Auto) 1 Urine RBC (Auto) 1 Stool Occult Blood NEGATIVE 03/16/19 03/17/19 03/17/19 21:15 14:36 19:00 CK-MB (CK-2) 1.89 2.18 Troponin I 0.068 0.056 0.048 NT-Pro-B Natriuret Pep 2040 H EKG Comments: Sinus tachycardia with left bundle branch block Impressions: Chest X-Ray 03/16/19 21:06 IMPRESSION: No acute cardiopulmonary process copyright 2011 [employer]- All Rights Reserved Assessment & Plan - Diagnosis (3) Diabetes mellitus type 2, uncontrolled Qualifiers: Glycemic state: with hyperglycemia Qualified Code(s): E11.65 - Type 2 diabetes mellitus with hyperglycemia Is this a current diagnosis for this admission?: Yes (4) Elevated troponin I level Is this a current diagnosis for this admission?: Yes (5) Noncompliance Is this a current diagnosis for this admission?: Yes - Notes Notes: Troponin I elevation could be related to CHF. Patient has known left bundle branch block pattern. Agree with nuclear stress test as scheduled by the hospitalist. 2D echo results reviewed with the patient it does show severely depressed LVEF. Patient medical management would need to be optimized. Recommend CHF coordinator consultation, manager social responsibility consultation as patient has difficulty affording medications. Patient would also benefit from regular medical follow-up. During this hospitalization we will try optimize medical ma nagement. - Time Time with patient: Greater than 35 minutes Medications reviewed and adjusted accordingly: Yes
[2019-03-18] MEDS: SIMVASTATIN 10 MG TABLET PO SCH (21:53)
[2019-03-19 06:00] LABS: HEMATOCRIT 42.7 % (37.9-51.0); HEMOGLOBIN 14.5 g/dL (13.5-17.0); MEAN CORPUSCULAR HEMOGLOBIN 31.3 pg (27.0-33.4); MEAN CORPUSCULAR HGB CONC 33.9 g/dL (32.0-36.0); MEAN CORPUSCULAR VOLUME 92 fl (80-97); PLATELET COUNT 278 10^3/uL (150-450); RED BLOOD COUNT 4.62 10^6/uL (4.35-5.55); RED CELL DISTRIBUTION WIDTH 13.1 % (11.5-14.0); WHITE BLOOD COUNT 8.9 10^3/uL (4.0-10.5)
[2019-03-19 06:34] LABS: APPEARANCE,URINE CLEAR; BILIRUBIN,URINE NEGATIVE (NEGATIVE); COLOR,URINE YELLOW; GLUCOSE, URINE >=500 mg/dL (NEGATIVE); KETONES,URINE NEGATIVE (NEGATIVE); LEUKOCYTE ESTERASE,URINE NEGATIVE (NEGATIVE); NITRITE,URINE NEGATIVE (NEGATIVE); PROTEIN,URINE NEGATIVE (NEGATIVE); URINE SPECIFIC GRAVITY 1.025; UROBILINOGEN,URINE NEGATIVE mg/dL (<2.0)
[2019-03-19] MEDS: INSULIN LISPRO 100 UNIT/ML 3 ML VIAL SUBCUT SCH ×3 (07:23→16:28)
[2019-03-19] MEDS ORDERED: HUM INSULIN NPH/REG INSULIN HM 100 UNIT/1 ML 3 ML SUBCUT SCH (08:00)
[2019-03-19] MEDS: SACUBITRIL/VALSARTAN 49 MG/51 MG TABLET PO SCH (09:11)
[2019-03-19] MEDS: SPIRONOLACTONE 25 MG TABLET PO SCH (09:11)
[2019-03-19] MEDS: ASPIRIN 81 MG TABLET, ENT COATED PO SCH (09:11)
[2019-03-19] MEDS: GLIPIZIDE XL 5 MG TAB.ER.24 PO SCH (09:11)
[2019-03-19] MEDS: CARVEDILOL 12.5 MG TABLET PO SCH (09:11)
[2019-03-19] MEDS: POTASSIUM CHLORIDE 10 MEQ CAPSULE.ER PO SCH (09:12)
[2019-03-19] MEDS: DIGOXIN 0.125 MG TABLET PO SCH (09:12)
[2019-03-19] MEDS: FAMOTIDINE 20 MG TABLET PO SCH ×2 (09:12→17:25)
[2019-03-19] MEDS: FUROSEMIDE 20 MG TABLET PO SCH (09:12)
--- NOTE | 2019-03-19 12:50 | DRAGON STRESS TEST REPORT ---
INTRAVENOUS LEXISCAN CARDIOLITE STRESS TEST USING SINGLE PHOTON EMMISION COMPUTERIZED TOMOGRAPHIC. DATE OF PROCEDURE: March 19, 2019, INDICATION : Abnormal troponin I elevation and dyspnea CARDIAC RISK FACTORS: Myopathy RESTING EKG: Sinus rhythm with left bundle branch block secondary ST-T wave changes STRESS EKG: No significant additional ST segment changes noted with LexiScan bolus REASON FOR TERMINATION: Protocol. PROCEDURE REPORT: Baseline heart rate 97 beats per minute with blood pressure of 99/79. Patient had no significant complaints. Patient was bolused with Lexiscan 0.4 mg intravenously followed by saline bolus. Heart rate at 2 minutes post bolus 108 with a blood pressure of 86/63. 3 minutes post bolus heart rate 105 with blood pressure of 90/64. No significant EKG changes were noted. Patient had no significant complaints during the procedure or postprocedure. CONCLUSIONS: Normal EKG and hemodynamic response to IV LexiScan. NUCLEAR DATA: At rest the patient was given 14.82 millicuries of technetium 99 sestamibi injected intravenously. As per protocol rest gated SPECT images were obtained. On day of stress test, the patient was given intravenous LexiScan at a dose of 0.4 mg in 5 mL intravenously, followed by flush with normal saline. Subsequently the stress dose of 46.6 millicuries of technetium 99 sestamibi was injected intravenously. As per protocol stress gated images were obtained. NUCLEAR INTERPRETATION: Both raw and processed data were used for interpretation. Visual, qualitative, computer-generated quantitative data was used. There was good myocardial uptake of technetium compound. Motion artifact and soft tissue attenuations were noted. Increased visceral uptake was noted. No definitive areas of transient perfusion defect noted, mild to moderate decreased uptake noted in the inferior wall of the left ventricle, most likely related to attenuation artifact but cannot entirely rule out an area of mild scar. EKG gated imaging showed LV EF at 15 %, rest and stress gated EF similar visually with severe diffuse hypokinesia. T. I D. ratio was 1.14. Lung heart ratio noted to be within normal limits at 0.40. No significant extracardiac and abnormal radiotracer activities were noted. RV free wall uptake was noted to be WNL. IMPRESSION: Also refer to comments under nuclear interpretation. Also test results needs to be interpreted in the context of pretest probability. 1. No definitive areas of transient perfusion defect noted. 2. There is no definitive scintigraphic evidence of myocardial infarction/scar except for mild to moderate decreased uptake noted in the inferior wall felt mostly related to attenuation artifact but cannot entirely ruled out an area of prior infarction. Clinical correlation is requested.. 3. EKG gated imaging shows left ventricular ejection fraction of approx. 15 %. Severe diffuse hypokinesia noted. 4. Clinical correlation requested as worse disease and or balanced ischemia could be missed. In approximately 10% of the cases Lexiscan may not cause adequate vasodilatory stress. RECOMMENDATIONS: Aggressive risk factor modification and medical management. Further evaluation may be needed if continued symptoms or other high risk indicators are noted on clinical evaluation. Low threshold for her to tertiary care for heart catheterization if significant symptoms persist. Close cardiology follow-up is also recommended. Clinical correlation with echocardiogram derived ejection fraction. Inability to exercise by itself can lead to increased cardiovascular event risks. Consider cardiology consultation and or follow-up if clinically indicated. I am available for cardiology evaluation and consultation if requested by the title investigator, unless patient already has a single needle operator. Dr. Irina Akbar. MRCP Board certified in cardiology and sleep medicine. Board certified in nuclear cardiology, adult echocardiography. AXEL
[2019-03-19] MEDS ORDERED: REGADENOSON INJ 0.4 MG/5 ML DISP.SYRIN IV ONE (13:15)
[2019-03-19] MEDS: HUM INSULIN NPH/REG INSULIN HM 100 UNIT/1 ML 3 ML SUBCUT SCH (16:28)
--- NOTE | 2019-03-19 16:48 | PDOC DISCHARGE SUMMARY ---
Impression - Admit/DC Date/PCP Admission Date/Primary Care Provider: 03/16/19 23:46 SHERRI DELGADO MD Discharge Date: 03/19/19 - Discharge Diagnosis (1) Chest heaviness Is this a current diagnosis for this admission?: Yes (2) Chronic systolic congestive heart failure Is this a current diagnosis for this admission?: Yes (3) Diabetes mellitus type 2, uncontrolled Is this a current diagnosis for this admission?: Yes (4) Elevated troponin I level Is this a current diagnosis for this admission?: Yes (5) HTN (hypertension) Is this a current diagnosis for this admission?: Yes (6) AICD (automatic cardioverter/defibrillator) present Is this a current diagnosis for this admission?: Yes (7) Sleep disorder breathing Is this a current diagnosis for this admission?: Yes - Assessment Summary: Patient was admitted for evaluation of chest pain and dyspnea. Upon presentation chest x-ray was performed which showed no acute pulmonary disease. Patient was hemodynamically stable at the time. Troponin levels were measured which revealed mild elevated troponin of 0.056 which trended down subsequently. EKG no showed no ST elevation or ST depressions. Patient was scheduled for a stress test. Given patient has left bundle branch block, patient had to be rescheduled to have a Lexiscan stress test done instead. The stress test was performed today which showed no clear evidence of coronary artery disease though some attenuation present. Results was reviewed with spring repairer helper hand Dr. Hernández. Patient will be following up as outpatient with Dr. Hernández for continued care. Of note patient had run out of his Entresto and several other medications. I worked with the egg caser to get a 30-day coupon for patient's Entresto and I have refilled his other heart failure medications. I have also started patient on spironolactone and a small dose of Lasix to keep him euvolemic. During patient stay his blood sugar was also very uncontrolled often in the 300s and Accu-Cheks. At home patient was taking only glipizide 10 mg daily which was insufficient clearly. Hemoglobin A1c was measured which was 13.3. I have star jean pierre patient on insulin 70/30 18 units before breakfast and 10 units before dinner to be taken along with glipizide. Patient has received diabetic education on how to use insulin and how to administer it. I have also personally counseled patient on what things to look out for. Patient expresses understanding and willingness to start using insulin. I have given patient scripts handwritten for strips for his glucometer as well as insulin needles/syringes. Patient states he has a glucometer with lancet device at home. Patient has been given clear instructions to follow-up with his primary care provider for continued management of his diabetes. - Additional Information Resuscitation Status: Full Code Discharge Diet: Diabetic Discharge Activity: Activity As Tolerated Referrals: SHERRI DELGADO MD [Primary Care Provider] - AYAKA HERNÁNDEZ MD [ACTIVE STAFF] - (Please call to set up appointment within 7 days) Prescriptions: Spironolactone [Aldactone 25 mg Tablet] 25 mg PO DAILY #30 tablet Sacubitril/Valsartan [Entresto 49 mg/51 mg Tablet] 1 tab PO BID 30 Days Glipizide [Glipizide Xl] 10 mg PO DAILY #30 Hum Insulin NPH/Reg Insulin Hm [Insulin 70-30 (NPH/Reg) 100 unit/mL] 18 unit SUBCUT ACBRKFST #10 ml Digoxin [Lanoxin 0.125 mg Tablet] 0.125 mg PO DAILY 15 Days Furosemide [Lasix 20 mg Tablet] 20 mg PO DAILY #14 tablet Home Medications: Albuterol Sulfate [Proair HFA Inhalation Aerosol 8.5 gm MDI] 2 puff IH Q6HP PRN 03/17/19 Aspirin [Adult Low Dose Aspirin EC] 81 mg PO DAILY 03/17/19 Cinnamon Bark [Cinnamon Bark 500 mg Capsule] 500 mg PO DAILY 03/17/19 Garlic 1,000 mg PO DAILY 03/17/19 [place]-3 Fatty Acids/Fish Oil [Fish Oil 1,000 mg Capsule] 1 cap PO DAILY 03/17/19 Simvastatin [Zocor 20 mg Tablet] 20 mg PO QHS 03/17/19 Digoxin [Lanoxin 0.125 mg Tablet] 0.125 mg PO DAILY 15 Days 03/19/19 Furosemide [Lasix 20 mg Tablet] 20 mg PO DAILY #14 tablet 03/19/19 Glipizide [Glipizide Xl] 10 mg PO DAILY #30 03/19/19 Hum Insulin NPH/Reg Insulin Hm [Insulin 70-30 (NPH/Reg) 100 unit/mL] 10 unit SUBCUT ACSUPPER unit 03/19/19 Hum Insulin NPH/Reg Insulin Hm [Insulin 70-30 (NPH/Reg) 100 unit/mL] 18 unit SUBCUT ACBRKFST #10 ml 03/19/19 Sacubitril/Valsartan [Entresto 49 mg/51 mg Tablet] 1 tab PO BID 30 Days 03/19/19 Spironolactone [Aldactone 25 mg Tablet] 25 mg PO DAILY #30 tablet 03/19/19 History of Present Illiness History of Present Illness: JUANI PARTIDA is a 53 year old male who presented to the emergency room with acute dyspnea. He admits the development of dyspnea earlier in the day and that has progressively worsened and has been accompanied by mild to moderate heaviness in his chest without localization or radiation. His dyspnea and chest heaviness are worsened by exertion. He denies other accompanying or associated signs and symptoms. He admits prior similar episodes with heart failure related problems in the past. He has not identified any additional aggravating or ameliorating factors for his dyspnea or chest heaviness. In the emergency room he was found to have a minimally elevated troponin at 0.06 with an EKG that showed no evidence of acute myocardial ischemia or injury. He was subsequently admitted to the hospital for further evaluation and treatment. Physical Exam Vital Signs: Temp Pulse Resp BP Pulse Ox 97.6 F 102 H 16 102/65 98 03/19/19 16:16 03/19/19 16:16 03/19/19 16:16 03/19/19 16:16 03/19/19 16:16 Intake & Output 03/18/19 03/19/19 03/20/19 06:59 06:59 06:59 Intake Total 1088 630 750 Output Total 1300 975 Balance -212 -345 750 Weight 112.3 kg General appearance: PRESENT: no acute distress, cooperative Head exam: PRESENT: normocephalic Respiratory exam: PRESENT: clear to auscultation eulalio, symmetrical, unlabored. ABSENT: tachypnea, wheezes Cardiovascular exam: PRESENT: +S1, +S2. ABSENT: diastolic murmur, systolic murmur, tachycardia GI/Abdominal exam: PRESENT: normal bowel sounds, soft. ABSENT: rigid, tenderness Extremities exam: ABSENT: pedal edema Musculoskeletal exam: PRESENT: ambulatory Neurological exam: PRESENT: alert, awake, oriented to person, oriented to place, oriented to time, oriented to situation Results Laboratory Results: WBC 8.9 10^3/uL (4.0-10.5) 03/19/19 05:20 RBC 4.62 10^6/uL (4.35-5.55) 03/19/19 05:20 Hgb 14.5 g/dL (13.5-17.0) 03/19/19 05:20 Hct 42.7 % (37.9-51.0) 03/19/19 05:20 MCV 92 fl (80-97) 03/19/19 05:20 MCH 31.3 pg (27.0-33.4) 03/19/19 05:20 MCHC 33.9 g/dL (32.0-36.0) 03/19/19 05:20 RDW 13.1 % (11.5-14.0) 03/19/19 05:20 Plt Count 278 10^3/uL (150-450) 03/19/19 05:20 Lymph % (Auto) 13.2 % (13-45) 03/16/19 21:15 [place] % (Auto) 7.9 % (3-13) 03/16/19 21:15 Eos % (Auto) 0.4 % (0-6) 03/16/19 21:15 Baso % (Auto) 0.6 % (0-2) 03/16/19 21:15 Absolute Neuts (auto) 9.1 10^3/uL (1.7-8.2) H 03/16/19 21:15 Absolute Lymphs (auto) 1.5 10^3/uL (0.5-4.7) 03/16/19 21:15 Absolute Monos (auto) 0.9 10^3/uL (0.1-1.4) 03/16/19 21:15 Absolute Eos (auto) 0.0 10^3/uL (0.0-0.6) 03/16/19 21:15 Absolute Basos (auto) 0.1 10^3/uL (0.0-0.2) 03/16/19 21:15 Seg Neutrophils % 77.9 % (42-78) 03/16/19 21:15 PT 13.8 SEC (11.4-15.4) 03/16/19 21:15 INR 1.06 03/16/19 21:15 APTT 27.2 SEC (23.5-35.8) 03/16/19 21:15 D-Dimer 0.42 ug/mL (0.00-0.50) 03/16/19 21:15 Sodium 135.9 mmol/L (137-145) L 03/16/19 21:15 Potassium 4.2 mmol/L (3.6-5.0) 03/16/19 21:15 Chloride 98 mmol/L (98-107) 03/16/19 21:15 Carbon Dioxide 22 mmol/L (22-30) 03/16/19 21:15 Anion Gap 16 (5-19) 03/16/19 21:15 BUN 18 mg/dL (7-20) 03/16/19 21:15 Creatinine 1.17 mg/dL (0.52-1.25) 03/16/19 21:15 Est GFR ( Amer) > 60 (>60) 03/16/19 21:15 Est GFR (MDRD) Non-Af > 60 (>60) 03/16/19 21:15 Glucose 465 mg/dL (75-110) H* 03/16/19 21:15 POC Glucose 318 mg/dL (70-110) H 03/19/19 16:17 Hemoglobin A1c % 13.3 % (4.7-6.0) H 03/17/19 05:03 Calcium 9.9 mg/dL (8.4-10.2) 03/16/19 21:15 Magnesium 1.9 mg/dL (1.6-2.3) 03/16/19 21:15 Total Bilirubin 2.2 mg/dL (0.2-1.3) H 03/16/19 21:15 Direct Bilirubin 0.3 mg/dL (0.0-0.4) 03/16/19 21:15 Neonat Total Bilirubin Not Reportable 03/16/19 21:15 Neonat Direct Bilirubin Not Reportable 03/16/19 21:15 Neonat Indirect Bili Not Reportable 03/16/19 21:15 AST 18 U/L (17-59) 03/16/19 21:15 ALT 27 U/L (<50) 03/16/19 21:15 Alkaline Phosphatase 116 U/L (38-126) 03/16/19 21:15 CK-MB (CK-2) 2.18 ng/mL (<4.55) 03/17/19 19:00 Troponin I 0.048 ng/mL 03/17/19 19:00 NT-Pro-B Natriuret Pep 2040 pg/mL (<125) H 03/16/19 21:15 Total Protein 7.8 g/dL (6.3-8.2) 03/16/19 21:15 Albumin 4.5 g/dL (3.5-5.0) 03/16/19 21:15 Urine Color YELLOW 03/19/19 06:15 Urine Appearance CLEAR 03/19/19 06:15 Urine pH 5.0 (5.0-9.0) 03/19/19 06:15 Ur Specific [place] 1.025 03/19/19 06:15 Urine Protein NEGATIVE mg/dL (NEGATIVE) 03/19/19 06:15 Urine Glucose (UA) >=500 mg/dL (NEGATIVE) H 03/19/19 06:15 Urine Ketones NEGATIVE mg/dL (NEGATIVE) 03/19/19 06:15 Urine Blood NEGATIVE (NEGATIVE) 03/19/19 06:15 Urine Nitrite NEGATIVE (NEGATIVE) 03/19/19 06:15 Urine Bilirubin NEGATIVE (NEGATIVE) 03/19/19 06:15 Urine Urobilinogen NEGATIVE mg/dL (<2.0) 03/19/19 06:15 Ur Leukocyte Esterase NEGATIVE (NEGATIVE) 03/19/19 06:15 Urine WBC (Auto) 0 /HPF 03/19/19 06:15 Urine RBC (Auto) 1 /HPF 03/18/19 00:04 U Hyaline Cast (Auto) 1 /LPF 03/19/19 06:15 Squamous Epi Cells Auto <1 /HPF 03/19/19 06:15 Urine Mucus (Auto) RARE /LPF 03/19/19 06:15 Urine Ascorbic Acid NEGATIVE (NEGATIVE) 03/19/19 06:15 Stool Occult Blood NEGATIVE (NEGATIVE) 03/17/19 20:20 03/16/19 03/17/19 03/17/19 21:15 14:36 19:00 CK-MB (CK-2) 1.89 2.18 Troponin I 0.068 0.056 0.048 NT-Pro-B Natriuret Pep 2040 H Impressions: Chest X-Ray 03/16/19 21:06 IMPRESSION: No acute cardiopulmonary process copyright 2010 [employer]- All Rights Reserved Plan Time Spent: Greater than 30 Minutes Stroke Is this a Stroke Patient?: No Acute Heart Failure - Is this a Heart Failure Patient?: Yes Documentation of LVEF assessment?: Yes LVEF < 40%?: Yes-if yes answer questions a through e a) Discharged on ACEI?: N/A Discharged on ARNI b) Discharges on ARB?: N/A-Discharged on ARNI c) Discharged on ARNI?: Yes d) Discharged on evidence-based Beta yao(carvedilol, sustained release metoprolol succinate, or bisoprolol)?: Yes e) For LVEF <35%, discharged on Aldosterone antagonist?: Yes 3. Anticoagulant therapy for permanect/persistent/paraoxysmal Afib or Aflutter: N/A
[2019-03-19 17:04] VITALS: BP 100/66
--- NOTE | 2019-03-19 19:31 | PDOC PROGRESS REPORT ---
Subjective Progress Note for:: 03/19/19 Subjective:: Patient was seen at the request of the hospitalist. Patient has known history of cardiomyopathy with severely depressed LVEF. Patient has a defibrillator in situ. Patient presents with severe shortness of breath. He does claim of some chest tightness with exertion. He did have a heart catheterization within the last 12 months as per his record, which he said had no significant blockages. Patient currently chest pain-free. Troponin I noted to be minimally elevated. Patient denies any recent defibrillator shocks. Patient had followed with me in the past but is noncompliant with medical management and also with CPAP therapy. 03/19/19: Patient seen in the morning. Also seen at lunchtime. Patient underwent nuclear stress test with pharmacologic stress agent without any complications. 2D echo results reviewed. No definite ischemia noted but the study quality was somewhat suboptimal. Patient does have severely depressed LVEF. Patient chest x-ray showed single lead defibrillator. Patient would benefit from optimization by placing a LV lead. However this could be performed as an outpatient tertiary care setting. Reason For Visit: ELEVATED SERUM TROPONIN Physical Exam Vital Signs: Temp Pulse Resp BP Pulse Ox 97.5 F 73 17 90/67 L 98 03/19/19 07:22 03/19/19 07:22 03/19/19 07:22 03/19/19 07:22 03/19/19 07:22 Intake & Output 03/18/19 03/19/19 03/20/19 06:59 06:59 06:59 Intake Total 1088 630 Output Total 1300 975 Balance -212 -345 Weight 112.3 kg Exam: GENERAL: well-nourished and in no acute distress. Alert and oriented x3 HEAD: Atraumatic, normocephalic. EYES: EMANI, sclera anicteric, conjunctiva are normal. ENT: Moist mucous membranes. No oral ulcerations or bleeding gums noted. No obvious ear, nose or throat abnormalities noted. NECK: supple without lymphadenopathy. Trachea is central. No cervical or axillary lymphadenopathy noted. Carotids are 2+, JVD WNL LUNGS: Breath sounds clear bilaterally. No wheezes rales or rhonchi noted. No significant dullness noted on percussion. CHEST: Palpation of the chest wall shows no significant chest wall tenderness. 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 ABDOMEN: Soft, no significant tenderness appreciated, normoactive bowel sounds. No guarding, no rebound. No rigidity noted . No masses appreciated. EXTREMITIES: Pedal pulses are 1-2+, no calf tenderness noted. No clubbing or cyanosis. tr to 1+ pedal edema noted NEUROLOGICAL: Focused neurological exam showed no significant neurologic deficit. Normal speech, no focal weakness appreciated. PSYCH: Normal mood, normal affect. Judgment and insight within normal limits. SKIN: No significant ecchymosis, skin is noted to be warm. MUSCULOSKELETAL EXAM: No significant acute joint swelling noted. Results Laboratory Results: 03/19/19 05:20 03/16/19 21:15 03/19/19 03/19/19 05:20 06:15 WBC 8.9 RBC 4.62 Hgb 14.5 Hct 42.7 MCV 92 MCH 31.3 MCHC 33.9 RDW 13.1 Plt Count 278 Urine Color YELLOW Urine Appearance CLEAR Urine pH 5.0 Ur Specific [place] 1.025 Urine Protein NEGATIVE Urine Glucose (UA) >=500 H Urine Ketones NEGATIVE Urine Blood NEGATIVE Urine Nitrite NEGATIVE Ur Leukocyte Esterase NEGATIVE Urine WBC (Auto) 0 03/16/19 03/17/19 03/17/19 21:15 14:36 19:00 CK-MB (CK-2) 1.89 2.18 Troponin I 0.068 0.056 0.048 NT-Pro-B Natriuret Pep 2040 H EKG Comments: Sinus rhythm with left bundle branch block. Impressions: Chest X-Ray 03/16/19 21:06 IMPRESSION: No acute cardiopulmonary process copyright 2011 [employer]- All Rights Reserved Assessment & Plan - Diagnosis (3) Diabetes mellitus type 2, uncontrolled Qualifiers: Glycemic state: with hyperglycemia Qualified Code(s): E11.65 - Type 2 diabetes mellitus with hyperglycemia Is this a current diagnosis for this admission?: Yes (4) Elevated troponin I level Is this a current diagnosis for this admission?: Yes (5) Noncompliance Is this a current diagnosis for this admission?: Yes - Notes Notes: 2D echo and nuclear stress test results reviewed. Patient does have severely depressed LVEF. Troponin I elevation in the low indeterminate range is probably related to CHF. At this point if patient remains stable, he could be discharged. I could possibly add Ranexa as it can help to some extent with microvascular angina which is common in cardiac myopathy Patient. However if patient has recurrent chest pain, would recommend tertiary care transfer. Due to patient's severely depressed LVEF, patient will benefit from upgrade to his current defibrillator to a biventricular defibrillator. Discussed with the hospitalist. - Time Time with patient: Greater than 35 minutes
== END 2019-03-19 18:00 | disposition home or self-care (01) ==
LOC: ER 20:40 → EH 23:46 → 4N 03-17 04:14
PROVIDERS: ADMIT Emergency Medicine; ATTEND Emergency Medicine
DX: R29.898 Other symptoms and signs involving the musculoskeletal system (principal); I11.0 Hypertensive heart disease with heart failure; I50.22 Chronic systolic (congestive) heart failure; E11.65 Type 2 diabetes mellitus with hyperglycemia; R79.89 Other specified abnormal findings of blood chemistry; I44.7 Left bundle-branch block, unspecified; I25.10 Atherosclerotic heart disease of native coronary artery without angina pectoris; E66.9 Obesity, unspecified; E78.5 Hyperlipidemia, unspecified; I42.9 Cardiomyopathy, unspecified; R00.0 Tachycardia, unspecified; G47.33 Obstructive sleep apnea (adult) (pediatric); Z95.810 Presence of automatic (implantable) cardiac defibrillator; Z82.49 Family history of ischemic heart disease and other diseases of the circulatory system; Z83.3 Family history of diabetes mellitus; Z91.14 Patient's other noncompliance with medication regimen; Z59.8 Other problems related to housing and economic circumstances
CPT/HCPCS: 93005; 99285; 96372; 96374; 36415 ×3; 82553; 82962 ×3; 83735; 85025; 85027 ×2; 85610; 85730; 82272; 80053; 81001 ×3; 84484 ×2; 83036; 85379; 83880; 93306; 93017; 71046; 78452; 93010; G0378 ×4; A9500; J2785; J1940; J1815 ×6; J1650 ×2; J3490 ×2; Q9969

== ENCOUNTER 2019-03-29 19:38 | Emergency (ER) | payer BC, OTHER ==
[2019-03-29] MEDS ORDERED: NORMAL SALINE 1000 ML 1,000 ML IV ONE (20:29)
--- NOTE | 2019-03-29 20:32 | ER Document Report ---
ED Medical Screen (RME) - General Stated Complaint: SUGAR ISSUES/SHORTNESS OF BREATH Time Seen by Provider: 03/29/19 20:28 Primary Care Provider: SHERRI DELGADO MD [Primary Care Provider] - Follow up as needed Mode of Arrival: Ambulatory Information source: Patient Notes: Patient has a history of diabetes and reports blood sugar readings over 500. Patient complains of generalized weakness and shortness of breath. No chest pain abdominal pain nausea or vomiting. hx: HI, diabetes, CAD, hyperlipidemia I have greeted and performed a rapid initial assessment of this patient. A comprehensive ED assessment and evaluation of the patient, analysis of test results and completion of the medical decision making process will be conducted by additional ED providers. TRAVEL OUTSIDE OF THE [place] IN LAST 30 DAYS: No - Related Data Allergies/Adverse Reactions: oxycodone [From Percocet] Adverse Reaction (Verified 07/23/17 19:47) Hallucinations Past Medical History - Past Medical History Cardiac Medical History: Reports: Hx Congestive Heart Failure, Hx Coronary Artery Disease, Hx Hypercholesterolemia, Hx Hypertension Pulmonary Medical History: Denies: Hx Asthma, Hx COPD Neurological Medical History: Denies: Hx Seizures Endocrine Medical History: Reports: Hx Diabetes Mellitus Type 2. Denies: Hx Diabetes Mellitus Type 1, Hx Hyperthyroidism, Hx Hypothyroidism Renal/ Medical History: Denies: Hx Peritoneal Dialysis GI Medical History: Denies: Hx Cirrhosis, Hx Crohn's Disease, Hx Hepatitis, Hx Ulcerative Colitis Musculoskeltal Medical History: Denies Hx Arthritis, Denies Hx Gout Skin Medical History: Denies Hx Eczema, Denies Hx Psoriasis Psychiatric Medical History: Denies: Hx Depression Infectious Medical History: Denies: Hx Hepatitis Past Surgical History: Reports: Hx Cardiac Catheterization, Hx Cardiac Surgery - Defib, Hx Pacemaker - Immunizations Hx Diphtheria, Pertussis, Tetanus Vaccination: No Physical Exam - General General appearance: Alert - Cardiovascular Rhythm: Regular Heart sounds: S1 appreciated, S2 appreciated - Abdominal Inspection: Morbidly Obese Distension: No distension Tenderness: Nontender Doctor's Discharge - Discharge Referrals: SHERRI DELGADO MD [Primary Care Provider] - Follow up as needed
[2019-03-29 21:14] LABS: VENOUS BLOOD BASE EXCESS -0.8 mmol/L; VENOUS BLOOD HCO3 24.6 mmol/L (20-32); VENOUS BLOOD PCO2 43.3 mmHg (35-63); VENOUS BLOOD PH 7.37 (7.30-7.42)
[2019-03-29 21:21] LABS: ABSOLUTE BASOPHILS # (AUTO) 0.1 10^3/uL (0.0-0.2); ABSOLUTE EOSINOPHILS # (AUTO) 0.1 10^3/uL (0.0-0.6); ABSOLUTE LYMPHOCYTES (AUTO) 2.8 10^3/uL (0.5-4.7); ABSOLUTE MONOCYTES (AUTO) 0.8 10^3/uL (0.1-1.4); ABSOLUTE NEUT (AUTO) 6.6 10^3/uL (1.7-8.2); BASOPHILS % (AUTO) 0.8 % (0-2); EOSINOPHILS % (AUTO) 1.4 % (0-6); HEMATOCRIT 36.7 % (37.9-51.0); HEMOGLOBIN 12.2 g/dL (13.5-17.0); LYMPHOCYTES % (AUTO) 27.4 % (13-45); MEAN CORPUSCULAR HEMOGLOBIN 31.5 pg (27.0-33.4); MEAN CORPUSCULAR HGB CONC 33.1 g/dL (32.0-36.0); MEAN CORPUSCULAR VOLUME 95 fl (80-97); MONOCYTES % (AUTO) 7.5 % (3-13); PLATELET COUNT 329 10^3/uL (150-450); RED BLOOD COUNT 3.86 10^6/uL (4.35-5.55); RED CELL DISTRIBUTION WIDTH 13.9 % (11.5-14.0); SEGMENTED NEUTROPHILS % (AUTO) 62.9 % (42-78); TOTAL CELLS COUNTED % (AUTO) 100 %; WHITE BLOOD COUNT 10.4 10^3/uL (4.0-10.5)
[2019-03-29 21:40] LABS: APPEARANCE,URINE CLEAR; BILIRUBIN,URINE NEGATIVE (NEGATIVE); COLOR,URINE YELLOW; GLUCOSE, URINE >=500 mg/dL (NEGATIVE); KETONES,URINE NEGATIVE (NEGATIVE); LEUKOCYTE ESTERASE,URINE NEGATIVE (NEGATIVE); NITRITE,URINE NEGATIVE (NEGATIVE); PROTEIN,URINE NEGATIVE (NEGATIVE); URINE SPECIFIC GRAVITY 1.022; UROBILINOGEN,URINE NEGATIVE mg/dL (<2.0)
[2019-03-29 22:04] LABS: ALBUMIN 4.2 g/dL (3.5-5.0); ALKALINE PHOSPHATASE 99 U/L (38-126); ANION GAP 11 (5-19); ASPARTATE AMINO TRANSFERASE 35 U/L (17-59); BILIRUBIN,DIRECT 0.3 mg/dL (0.0-0.4); BILIRUBIN,TOTAL 1.4 mg/dL (0.2-1.3); BLOOD UREA NITROGEN 19 mg/dL (7-20); CALCIUM 9.2 mg/dL (8.4-10.2); CARBON DIOXIDE 24 mmol/L (22-30); CHLORIDE 102 mmol/L (98-107); GLUCOSE 397 mg/dL (75-110); POTASSIUM 4.5 mmol/L (3.6-5.0); TOTAL PROTEIN 7.3 g/dL (6.3-8.2)
--- NOTE | 2019-03-29 22:10 | RADIOLOGY REPORT (SQ) ---
EXAM DESCRIPTION: XR CHEST 2 VIEWS COMPLETED DATE/TME: 03/29/2019 20:29 CLINICAL HISTORY: 53 years Male sob COMPARISON: 03/16/2019. FINDINGS: Mild cardiac enlargement. Pacemaker in place. No pneumothorax. Mild prominence of the central pulmonary vasculature. There is a small effusion on the left. Suspect small amount of pleural fluid may also be present in the right lung base with right basilar atelectasis. IMPRESSION: Cardiac enlargement Small left effusion with possible trace right effusion and right basilar atelectasis
[2019-03-29] MEDS ORDERED: ENOXAPARIN SODIUM INJ 120 MG/0.8 ML DISP.SYRIN SUBCUT SCH (23:30)
--- NOTE | 2019-03-30 00:14 | ER Document Report ---
Entered by CHI VASQUES SCRIBE 03/29/19 [id number] Acting as scribe for:JESSY COLON IV, MD ED General - General Chief Complaint: High Blood Sugar Stated Complaint: SUGAR ISSUES/SHORTNESS OF BREATH Time Seen by Provider: 03/29/19 20:28 Primary Care Provider: SHERRI DELGADO MD [Primary Care Provider] - Follow up as needed Mode of Arrival: Ambulatory Information source: Patient, [facility] Records Notes: Patient is a 53-year-old male presenting to the emergency department concerned with his blood glucose level recorded at over 500 today. Patient states that he has been having shortness of breath, and hot sweats. He denies taking aspirin, or having recent nausea, vomiting. Patient had a cardiac catheterization in March 2018 at [facility]. Upon reviewing records patient was seen for elevated Troponin levels on 03/16/19. Patient states that he saw Dr. Akbar, had a positive nuclear stress test, and was told he may need a cardiac catheteriz ation. Consulted with Dr. Green out of [facility], [place] doesn't feel he needs cardiac catheterization due to negative stress test. Pertinent PMHx/PSHx: CHF, CAD, Hypertension, Hyperlipedemia, Cardiac Cath done in March 2018. PCP: Vessel Specialist - Dr. Akbar TRAVEL OUTSIDE OF THE [place] IN LAST 30 DAYS: No - Related Data Allergies/Adverse Reactions: oxycodone [From Percocet] Adverse Reaction (Verified 07/23/17 19:47) Hallucinations Past Medical History - General Information source: Patient - Social History Smoking Status: Unknown if Ever Smoked Cigarette use (# per day): No Chew tobacco use (# tins/day): No Smoking Education Provided: No Frequency of alcohol use: None Drug Abuse: None Family History: Arthritis, DM, Hypertension Patient has suicidal ideation: No Patient has homicidal ideation: No - Past Medical History Cardiac Medical History: Reports: Hx Congestive Heart Failure, Hx Coronary Artery Disease, Hx Hypercholesterolemia, Hx Hypertension Endocrine Medical History: Reports: Hx Diabetes Mellitus Type 2 Past Surgical History: Reports: Hx Cardiac Catheterization, Hx Cardiac Surgery - Defib, Hx Pacemaker - Immunizations Hx Diphtheria, Pertussis, Tetanus Vaccination: No Hx Pneumococcal Vaccination: 04/30/09 Review of Systems - Review of Systems Notes: Patient is here for a blood glucose level recorded a higher than 500. Constitutional: No symptoms reported EENT: No symptoms reported Cardiovascular: No symptoms reported Respiratory: See HPI, Short of breath Gastrointestinal: No symptoms reported. denies: Nausea, Vomiting Genitourinary: No symptoms reported Male Genitourinary: No symptoms reported Musculoskeletal: No symptoms reported Skin: No symptoms reported Hematologic/Lymphatic: No symptoms reported Neurological/Psychological: No symptoms reported -: Yes All other systems reviewed and negative Physical Exam - Vital signs Vitals: Temp Pulse Resp BP Pulse Ox 97.9 F 117 H 18 110/84 97 03/29/19 20:28 03/29/19 20:28 03/29/19 20:28 03/29/19 20:28 03/29/19 20:28 - Notes Notes: Physical Exam: General: Alert, appears well. HEENT: Normocephalic. Atraumatic. PERRL. Extraocular movements intact. Oropharynx clear. Neck: Supple. Non-tender. Respiratory: No respiratory distress. Clear and equal breath sounds bilaterally. Cardiovascular: Regular rate and rhythm. Abdominal: Normal Inspection. Non-tender. No distension. Normal Bowel Sounds. Back: No gross abnormalities. Extremities: Moves all four extremities. Upper extremities: Normal inspection. Normal ROM. Lower extremities: Normal inspection. No edema. Normal ROM. Neurological: Normal cognition. AAOx4. Normal speech. Psychological: Normal affect. Normal Mood. Skin: Warm. Dry. Normal color. Course - Re-evaluation Re-evalutation: 03/30/19 04:09 Results of ED MSE discussed with patient and patient's family. All questions were answered prior to discharge. 03/30/19 04:10 Patient had a negative nuclear stress test done on 03/19/2019. These results were discussed with with [facility]iology. Patient's initial troponin was also discussed with Dr. Green. Dr. Green does not feel that the patient is in need of any acute cardiac intervention given his negative stress test. - Vital Signs Vital signs: Temp Pulse Resp BP Pulse Ox 97.9 F 117 H 24 H 89/67 L 97 03/29/19 20:28 03/29/19 20:28 03/30/19 03:01 03/30/19 03:01 03/30/19 03:01 - Laboratory Result Diagrams: 03/29/19 20:05 03/29/19 20:05 Laboratory results interpreted by me: 03/29/19 03/29/19 03/29/19 20:05 20:05 20:05 RBC 3.86 L Hgb 12.2 L Hct 36.7 L Sodium 136.6 L Glucose 397 H POC Glucose Total Bilirubin 1.4 H NT-Pro-B Natriuret Pep 2050 H Urine Glucose (UA) 03/29/19 03/30/19 03/30/19 21:23 00:41 03:53 RBC Hgb Hct Sodium Glucose POC Glucose 318 H 262 H Total Bilirubin NT-Pro-B Natriuret Pep Urine Glucose (UA) >=500 H - EKG Interpretation by Me Additional EKG results interpreted by me: 03/30/19 04:08 EKG performed on 03/29/2019 at 2037 hrs. was interpreted by this MD. Findings: Sinus tachycardia with a rate of 109, normal axis, P waves proceed QRS complexes, left bundle branch block is present, this was present on patient's prior EKG done on 03/16/2019. Impression sinus tachycardia with left bundle branch block that is pre-existing. Discharge - Discharge Clinical Impression: Hyperglycemia Condition: Good Disposition: HOME, SELF-CARE Additional Instructions: Return to the Emergency Department without delay if any worse. HOME CARE INSTRUCTIONS & INFORMATION: Thank you for choosing us for your medical needs. We hope you're satisfied with the care you received. After you leave, you must properly care for your problem and, at the same time, observe its progress. Any condition can change. Some illnesses can change rapidly over hours or days. If your condition worsens, return to the Emergency Department or see your physician promptly. ABOUT YOUR X-RAYS AND EKG'S: If you had an EKG or X-rays taken, they have been read by the Emergency Physician. The X-rays and EKG's will also be read by a Radiologist or Vessel Specialist within 24 hours. If discrepancies are noted, you will be notified by telephone. Please be certain the ED has a correct telephone number & address where you can be reached. Also, realize that some fractures or abnormalities do not show up on initial X-rays. If your symptoms continue, see your physician. ABOUT YOUR LABORATORY TEST: If you had laboratory tests, the results have been reviewed by the Emergency Physician. Some test results (for example cultures) may not be available for several days. You will be contacted if any test result shows you need additional treatment. Please be certain the ED has a correct t elephone number and address where you can be reached. ABOUT YOUR MEDICATIONS: You will receive instructions on how to take your medicine on the prescription label you receive. Additional information may be provided by the Pharmacy. If you have questions afterwards, call the ED for clarification or further instructions. Some prescribed medications may cause drowsiness. Do not perform tasks such as driving a car or operating machinery without consulting your Pharmacist. If you feel you need a refill of pain medication, your condition will need re-evaluation. Please do not call for a refill of any medication. ABOUT YOUR SIGNATURE: Signature of this document acknowledges to followin. Understanding that you received emergency treatment and that you may be released before al medical problems are known or treated. Please be certain the ED has a correct phone number & address where you can be reached. 2. Acknowledgement that you will arrange for follow-up care as recommended. 3. Authorization for the Emergency Physician to provide information to your follow-up Physician in order to maximize your care. AT ANY TIME, IF YOUR SYMPTOMS CHANGE SIGNIFICANTLY OR WORSEN OR YOU DEVELOP NEW SYMPTOMS, RETURN TO THE EMERGENCY DEPARTMENT IMMEDIATELY FOR RE-EVALUATION. OUR GOAL IS TO PROVIDE EXCELLENT MEDICAL CARE! WE HOPE THAT WE HAVE MET YOUR EXPECTATIONS DURING YOUR EMERGENCY DEPARTMENT VISIT AND THAT YOU FEEL YOU HAVE RECEIVED EXCELLENT CARE! Referrals: SHERRI DELGADO MD [Primary Care Provider] - 03/31/19 I personally performed the services described in the documentation, reviewed and edited the documentation which was dictated to the scribe in my presence, and it accurately records my words and actions.
[2019-03-30] MEDS ORDERED: INSULIN REG, HUMAN 100 UNIT/ML 3 ML VIAL (PYX) SUBCUT ONE (01:08)
[2019-03-30] MEDS ORDERED: NORMAL SALINE 500 ML IV ONE (01:09)
--- NOTE | 2019-03-30 01:38 | RADIOLOGY REPORT (SQ) ---
EXAM DESCRIPTION: CT CHEST ANGIOGRAPHY WITHOUT THEN WITH IV CONTRAST COMPLETED DATE/TME: 03/29/2019 23:53 CLINICAL HISTORY: 53 years, Male, dyspnea, tachycardia COMPARISON: None. TECHNIQUE: 595 Images stored on PACS. All CT scanners at this facility use dose modulation, iterative reconstruction, and/or weight based dosing when appropriate to reduce radiation dose to as low as reasonably achievable (ALARA). Axial images with coronal and sagittal MIPS [facility]: Dose Right [facility]: CareDose [facility]: Dose Right [facility]: Teradose 4D [facility]: [employer] Technologies LIMITATIONS: None. FINDINGS: The mediastinal vasculature enhances normally. No filling defect to suggest pulmonary embolus. Negative for thoracic aortic aneurysm or dissection. Cardiomegaly. Trace of pericardial fluid. Small bilateral pleural effusions. Limited evaluation of the upper abdomen shows fatty infiltrative change to the liver. There is a left adrenal nodule measuring 1.8 x 1.7 cm. This likely reflects adenoma. No pneumothorax. Minor consolidative changes in each lung base. IMPRESSION: Negative for pulmonary embolus. Cardiomegaly. Small bilateral pleural effusions with adjacent consolidative change. Left adrenal nodule, likely adenoma TECHNICAL DOCUMENTATION: Quality ID # [id number]: Final reports with documentation of one or more dose reduction techniques (e.g., Automated exposure control, adjustment of the mA and/or kV according to patient size, use of iterative reconstruction technique) copyright 2011 [employer]- All Rights Reserved
[2019-03-30 01:39] LABS: URINE AMPHETAMINES SCREEN NEGATIVE; URINE BARBITURATES SCREEN NEGATIVE; URINE BENZODIAZEPINES SCREEN NEGATIVE; URINE COCAINE SCREEN NEGATIVE; URINE MARIJUANA (THC) SCREEN NEGATIVE; URINE METHADONE SCREEN NEGATIVE; URINE PHENCYCLIDINE SCREEN NEGATIVE
[2019-03-30 04:14] VITALS: BP 106/76
--- NOTE | 2019-03-30 12:08 | EKG REPORT ---
SEVERITY:- ABNORMAL ECG - SINUS TACHYCARDIA LEFT BUNDLE BRANCH BLOCK : Confirmed by: Yahir Akbar 30-Mar-2019 12:07:15
== END 2019-03-30 04:28 | disposition home or self-care (01) ==
LOC: ER 19:38
DX: E11.65 Type 2 diabetes mellitus with hyperglycemia (principal); R06.02 Shortness of breath; I50.9 Heart failure, unspecified; I11.0 Hypertensive heart disease with heart failure; E78.00 Pure hypercholesterolemia, unspecified; Z95.0 Presence of cardiac pacemaker
CPT/HCPCS: 93005; 99285; 96360; 96361; 36415; 82962; 85025; 80053; 81001; 84484; 80307; 82803; 83880; 71046; 71275; 93010; J1815; J7030; J7040

== ENCOUNTER 2019-04-04 09:46 | Emergency (ER) | payer BC, OTHER ==
--- NOTE | 2019-04-04 10:15 | ER Document Report ---
ED Medical Screen (RME) - General Chief Complaint: Shortness Of Breath Stated Complaint: CHEST PAIN Time Seen by Provider: 04/04/19 10:10 Primary Care Provider: SHERRI DELGADO MD [Primary Care Provider] - Follow up as needed Notes: Patient is a 53-year-old male who presents emergency department with a chief complaint of chest pain shortness of breath. Patient reports is been present since Sunday. Patient reports he did go to his lay out former on Sunday and was told that if it was not better by Sunday he needed to seek medical attention. Patient reports he has had a dry cough and was recently treated for bronchitis but does not feel any relief. Patient denies fever. Patient reports chest pain is located on the left side of his chest that is nonradiating. Patient does have a history of congestive heart failure. Patient denies nausea, vomiting or diarrhea. Patient reports the shortness of breath and chest pain is worse when ambulating. TRAVEL OUTSIDE OF THE [place] IN LAST 30 DAYS: No - Related Data Allergies/Adverse Reactions: oxycodone [From Percocet] Adverse Reaction (Verified 07/23/17 19:47) Hallucinations Past Medical History - Social History Chew tobacco use (# tins/day): No Frequency of alcohol use: None Drug Abuse: None - Past Medical History Cardiac Medical History: Reports: Hx Congestive Heart Failure, Hx Coronary Artery Disease, Hx Hypercholesterolemia, Hx Hypertension Pulmonary Medical History: Denies: Hx Asthma, Hx COPD Neurological Medical History: Denies: Hx Seizures Endocrine Medical History: Reports: Hx Diabetes Mellitus Type 2. Denies: Hx Diabetes Mellitus Type 1, Hx Hyperthyroidism, Hx Hypothyroidism Renal/ Medical History: Denies: Hx Peritoneal Dialysis GI Medical History: Denies: Hx Cirrhosis, Hx Crohn's Disease, Hx Hepatitis, Hx Ulcerative Colitis Musculoskeltal Medical History: Denies Hx Arthritis, Denies Hx Gout Skin Medical History: Denies Hx Eczema, Denies Hx Psoriasis Psychiatric Medical History: Denies: Hx Depression Infectious Medical History: Denies: Hx Hepatitis Past Surgical History: Reports: Hx Cardiac Catheterization, Hx Cardiac Surgery - Defib, Hx Pacemaker - Immunizations Hx Diphtheria, Pertussis, Tetanus Vaccination: No Physical Exam - Vital signs Vitals: Temp Pulse BP Pulse Ox 97.5 F 103 H 101/84 97 04/04/19 09:59 04/04/19 09:59 04/04/19 09:59 04/04/19 09:59 - Respiratory Respiratory status: No respiratory distress Chest status: Nontender Breath sounds: Normal Chest palpation: Normal Course - Re-evaluation Re-evalutation: 04/04/19 10:15 I have greeted and performed a rapid initial assessment of this patient. A comprehensive ED assessment and evaluation of the patient, analysis of test results and completion of the medical decision making process will be conducted by additional ED providers. - Vital Signs Vital signs: Temp Pulse Resp BP Pulse Ox 97.5 F 103 H 101/84 97 04/04/19 10:08 04/04/19 09:59 04/04/19 09:59 04/04/19 10:08 Doctor's Discharge - Discharge Referrals: SHERRI DELGADO MD [Primary Care Provider] - Follow up as needed
[2019-04-04 10:46] LABS: ABSOLUTE BASOPHILS # (AUTO) 0.1 10^3/uL (0.0-0.2); ABSOLUTE EOSINOPHILS # (AUTO) 0.1 10^3/uL (0.0-0.6); ABSOLUTE LYMPHOCYTES (AUTO) 1.9 10^3/uL (0.5-4.7); ABSOLUTE MONOCYTES (AUTO) 0.7 10^3/uL (0.1-1.4); ABSOLUTE NEUT (AUTO) 6.2 10^3/uL (1.7-8.2); EOSINOPHILS % (AUTO) 1.3 % (0-6); HEMATOCRIT 38.3 % (37.9-51.0); HEMOGLOBIN 12.8 g/dL (13.5-17.0); LYMPHOCYTES % (AUTO) 21.2 % (13-45); MEAN CORPUSCULAR HGB CONC 33.4 g/dL (32.0-36.0); MEAN CORPUSCULAR VOLUME 96 fl (80-97); MONOCYTES % (AUTO) 7.3 % (3-13); PLATELET COUNT 360 10^3/uL (150-450); RED CELL DISTRIBUTION WIDTH 14.4 % (11.5-14.0); SEGMENTED NEUTROPHILS % (AUTO) 69.2 % (42-78); TOTAL CELLS COUNTED % (AUTO) 100 %
[2019-04-04 10:53] LABS: ALBUMIN 4.1 g/dL (3.5-5.0); ALKALINE PHOSPHATASE 96 U/L (38-126); ANION GAP 14 (5-19); ASPARTATE AMINO TRANSFERASE 49 U/L (17-59); BILIRUBIN,DIRECT 0.3 mg/dL (0.0-0.4); BILIRUBIN,TOTAL 2.6 mg/dL (0.2-1.3); BLOOD UREA NITROGEN 19 mg/dL (7-20); CALCIUM 9.7 mg/dL (8.4-10.2); CARBON DIOXIDE 22 mmol/L (22-30); CHLORIDE 104 mmol/L (98-107); GLUCOSE 202 mg/dL (75-110); POTASSIUM 4.4 mmol/L (3.6-5.0); TOTAL PROTEIN 7.2 g/dL (6.3-8.2)
--- NOTE | 2019-04-04 10:54 | RADIOLOGY REPORT (SQ) ---
EXAM DESCRIPTION: CHEST 2 VIEWS COMPLETED DATE/TIME: 04/04/2019 10:44 am REASON FOR STUDY: shortness of breath/chest pain COMPARISON: 03/29/2019 EXAM PARAMETERS: NUMBER OF VIEWS: two views TECHNIQUE: Digital Frontal and Lateral radiographic views of the chest acquired. RADIATION DOSE: NA LIMITATIONS: none FINDINGS: LUNGS AND PLEURA: Ill-defined left basilar retrocardiac opacity with small left effusion. Trace right effusion. Otherwise, unremarkable right hemithorax. No pneumothorax. MEDIASTINUM AND HILAR STRUCTURES: No masses or contour abnormalities. HEART AND VASCULAR STRUCTURES: Enlarged cardiac silhouette, stable. BONES: No acute findings. HARDWARE: Single lead cardiac defibrillator with tip overlying the right ventricle. OTHER: No other significant finding. IMPRESSION: Small effusions and patchy left basilar opacity, possibly atelectasis or infection. Fin dings similar to prior exams. TECHNICAL DOCUMENTATION: JOB ID: [id number] [employer]- All Rights Reserved Reading location - IP/workstation name: [email or web address]
--- NOTE | 2019-04-04 13:42 | ER Document Report ---
ED General - General Chief Complaint: Shortness Of Breath Stated Complaint: CHEST PAIN Time Seen by Provider: 04/04/19 10:10 Primary Care Provider: SHERRI DELGADO MD [Primary Care Provider] - Follow up as needed TRAVEL OUTSIDE OF THE [place] IN LAST 30 DAYS: No - HPI Notes: Patient is a 53-year-old male with a history of congestive heart failure, hypertension, CAD, diabetes, negative cardiac catheterization in March 2018 at [place] [facility], negative stress test/CTA/echocardiogram showing 25 to 30% ejection fraction performed less than a month ago presents complaining of pretty consistent dry cough over the past 6 days with left-sided chest discomfort mostly with a cough, otherwise intermittent, and feeling of some shortness of breath. He has not noticed anymore swelling than normal. He is able to eat and drink without difficulties. He is urinating normally and having normal bowel movements. At his most recent visit they did consult cardiology out of [facility] and they did not feel that a cardiac catheterization was warranted at that time. Denies any headache, fever, URI, sore throat, palpitations, syncope, wheeze, dyspnea, abdominal pain, nausea/vomiting/diarrhea, urinary retention, dysuria, hematuria, or rash. - Related Data Allergies/Adverse Reactions: oxycodone [From Percocet] Adverse Reaction (Verified 07/23/17 19:47) Hallucinations Past Medical History - Social History Smoking Status: Never Smoker Chew tobacco use (# tins/day): No Frequency of alcohol use: None Drug Abuse: None Family History: Arthritis, DM, Hypertension Patient has suicidal ideation: No Patient has homicidal ideation: No - Past Medical History Cardiac Medical History: Reports: Hx Congestive Heart Failure, Hx Coronary Artery Disease, Hx Hypercholesterolemia, Hx Hypertension Pulmonary Medical History: Denies: Hx Asthma, Hx COPD Neurological Medical History: Denies: Hx Seizures Endocrine Medical History: Reports: Hx Diabetes Mellitus Type 2. Denies: Hx Diabetes Mellitus Type 1, Hx Hyperthyroidism, Hx Hypothyroidism Renal/ Medical History: Denies: Hx Peritoneal Dialysis GI Medical History: Denies: Hx Cirrhosis, Hx Crohn's Disease, Hx Hepatitis, Hx Ulcerative Colitis Musculoskeletal Medical History: Denies Hx Arthritis, Denies Hx Gout Skin Medical History: Denies Hx Eczema, Denies Hx Psoriasis Psychiatric Medical History: Denies: Hx Depression Infectious Medical History: Denies: Hx Hepatitis Past Surgical History: Reports: Hx Cardiac Catheterization, Hx Cardiac Surgery - Defib, Hx Pacemaker - Immunizations Hx Diphtheria, Pertussis, Tetanus Vaccination: No Hx Pneumococcal Vaccination: 04/30/09 Review of Systems - Review of Systems -: Yes All other systems reviewed and negative Physical Exam - Vital signs Vitals: Temp Pulse BP Pulse Ox 97.5 F 103 H 101/84 97 04/04/19 09:59 04/04/19 09:59 04/04/19 09:59 04/04/19 09:59 - Notes Notes: PHYSICAL EXAMINATION: GENERAL: Well-appearing, well-nourished and in no acute distress. HEAD: Atraumatic, normocephalic. EYES: Pupils equal round and reactive to light, extraocular movements intact, sclera anicteric, conjunctiva are normal. ENT: Nares patent and without discharge. oropharynx clear without exudates. No tonsilar hypertrophy or erythema. Moist mucous membranes. NECK: Normal range of motion, supple without lymphadenopathy LUNGS: Crackles LLL > RLL. no retractions. No wheezes. HEART: Regular rate and rhythm without murmurs, rubs, gallops. ABDOMEN: Soft, nontender, nondistended abdomen. No guarding, no rebound. Normal bowel sounds present. No CVA tenderness bilaterally. Musculoskeletal: FROM to passive/active. Strength 5+/5. Priyanka neg. No asymmetry to LE's. Extremities: No cyanosis, clubbing, or edema b/l. Peripheral pulses 2+. Capillary refill less than 3 seconds. NEUROLOGICAL: Normal speech, normal gait. PSYCH: Normal mood, normal affect. SKIN: Warm, Dry, normal turgor, no rashes or lesions noted. Course - Re-evaluation Re-evalutation: 04/04/19 16:58 I reviewed case with Dr. Houser who remembers him from his visit last week and is in agreement with dispo/plan: Patient is an afebrile, well-hydrated 53-year-old male who presents to the ED with suspected LLL pneumonia. Vitals are acceptable without any significant tachycardia, tachypnea, or hypoxia. Patient is nontoxic-appearing and is tolerating p.o. without any difficulties. CBC, CMP, EKG/cardiac enzymes 2, BNP are all unremarkable for any acute pathology. See CXR. Patient has a heart score of <=3. Patient does not have any current chest pain, dyspnea, or shortness of breath. He had negative recent CTA, nuclear stress test, cardiac work ups, and negative catheter 1 year ago. Echo (25-30%) performed a few weeks ago as well. Patient's presentation and symptomatology creates low suspicion for ACS, PE, pneumothorax, pericarditis, dissection, respiratory compromise, severe dehydration, sepsis, meningitis, or other systemic emergent condition at this time. Patient is aware that his condition can change from initial presentation and he needs to monitor symptoms closely and seek medical attention for any acute changes. Recommend conservative measures for symptoms. Recheck with your PCM in 2-3 days. Consider consult with Cardiology. Return to the ED with any worsening/concerning symptoms otherwise as reviewed in discharge. Patient is in agreement. - Vital Signs Vital signs: Temp Pulse Resp BP Pulse Ox 97.5 F 102 H 16 108/82 96 04/04/19 10:08 04/04/19 13:31 04/04/19 13:31 04/04/19 13:31 04/04/19 13:31 - Laboratory Result Diagrams: 04/04/19 10:21 04/04/19 10:21 Laboratory results interpreted by me: 04/04/19 04/04/19 04/04/19 10:21 10:21 14:03 RBC 4.00 L Hgb 12.8 L RDW 14.4 H Creatinine 1.26 H Glucose 202 H Total Bilirubin 2.6 H NT-Pro-B Natriuret Pep 2840 H Discharge - Discharge Clinical Impression: Left lower lobe pneumonia Qualifiers: Pneumonia type: due to unspecified organism Qualified Code(s): J18.9 - Pneumonia, unspecified organism Condition: Stable Disposition: HOME, SELF-CARE Additional Instructions: Maintain adequate fluid and food intake Take home medications as directed Monitor blood pressure daily and keep a log Monitor symptoms for any acute changes Recheck with your PCM in 2-3 days Consider a follow-up with cardiology Return to the ED with any worsening symptoms and/or development of fever, headache, chest pain, palpitations, syncope, shortness of breath, trouble breathing, abdominal pain, n/v/d, blood in stool/urine, loss of control of bowel/bladder, urinary retention, muscle weakness/paralysis, numbness/tingling, or other worsening symptoms that are concerning to you. Prescriptions: Levofloxacin [Levaquin 750 mg Tablet] 750 mg PO DAILY #4 tablet Referrals: SHERRI DELGADO MD [Primary Care Provider] - 04/07/19
[2019-04-04] MEDS ORDERED: ALBUTEROL SULFATE HFA (90 MCG/PUFF) 8 GM MDI (1 MDI/ER DISP) IH ONE (16:58)
[2019-04-04] MEDS ORDERED: LEVOFLOXACIN 750 MG TABLET PO ONE (16:58)
[2019-04-04 17:10] VITALS: BP 102/79
--- NOTE | 2019-04-05 20:02 | EKG REPORT ---
SEVERITY:- ABNORMAL ECG - SINUS TACHYCARDIA MULTIFORM VENTRICULAR PREMATURE COMPLEXES LEFT ATRIAL ABNORMALITY IVCD, CONSIDER ATYPICAL LBBB : Confirmed by: Brenda Koenig MD 05-Apr-2019 20:02:09
== END 2019-04-04 17:19 | disposition home or self-care (01) ==
LOC: ER 09:46
DX: J18.9 Pneumonia, unspecified organism (principal); R06.02 Shortness of breath; R07.9 Chest pain, unspecified; I50.9 Heart failure, unspecified; I11.0 Hypertensive heart disease with heart failure; E11.9 Type 2 diabetes mellitus without complications; Z88.6 Allergy status to analgesic agent
CPT/HCPCS: 93005; 99285; 36415; 85025; 80053; 84484; 83880; 71046; 93010; J3490

== ENCOUNTER 2019-04-05 18:01 | Inpatient (IN) | payer BC, OTHER ==
--- NOTE | 2019-04-05 18:51 | ER Document Report ---
ED Medical Screen (RME) - General Chief Complaint: Shortness Of Breath Stated Complaint: SHORTNESS OF BREATH Time Seen by Provider: 04/05/19 18:47 Primary Care Provider: SHERRI DELGADO MD [Primary Care Provider] - Follow up as needed Mode of Arrival: Ambulatory Information source: Patient Notes: 53-year-old male presented to ED for complaint of shortness of breath and chest pain. He states he was here yesterday and they told him he had some pneumonia and pleural effusion. He states that they prescribe some antibiotics and they were too expensive for him to get the call over here got a different antibiotic. He states the shortness of breath and pain has gotten worse since yesterday and would like to be reevaluated. Patient is alert oriented respirations regular nonlabored answer questions appropriately. I have greeted and performed a rapid initial assessment of this patient. A comprehensive ED assessment and evaluation of the patient, analysis of test results and completion of medical decision making process will be conducted by an additional ED providers. TRAVEL OUTSIDE OF THE [place] IN LAST 30 DAYS: No - Related Data Allergies/Adverse Reactions: oxycodone [From Percocet] Adverse Reaction (Verified 07/23/17 19:47) Hallucinations Past Medical History - Past Medical History Cardiac Medical History: Reports: Hx Congestive Heart Failure, Hx Coronary Artery Disease, Hx Hypercholesterolemia, Hx Hypertension Pulmonary Medical History: Denies: Hx Asthma, Hx COPD Neurological Medical History: Denies: Hx Seizures Endocrine Medical History: Reports: Hx Diabetes Mellitus Type 2. Denies: Hx Diabetes Mellitus Type 1, Hx Hyperthyroidism, Hx Hypothyroidism Renal/ Medical History: Denies: Hx Peritoneal Dialysis GI Medical History: Denies: Hx Cirrhosis, Hx Crohn's Disease, Hx Hepatitis, Hx Ulcerative Colitis Musculoskeltal Medical History: Denies Hx Arthritis, Denies Hx Gout Skin Medical History: Denies Hx Eczema, Denies Hx Psoriasis Psychiatric Medical History: Denies: Hx Depression Infectious Medical History: Denies: Hx Hepatitis Past Surgical History: Reports: Hx Cardiac Catheterization, Hx Cardiac Surgery - Defib, Hx Pacemaker - Immunizations Hx Diphtheria, Pertussis, Tetanus Vaccination: No Physical Exam - Vital signs Vitals: Pulse BP 87 114/74 08/18/18 21:03 08/18/18 21:03 Course - Vital Signs Vital signs: Temp Pulse Resp BP Pulse Ox 98.1 F 109 H 20 118/82 97 04/05/19 18:34 04/05/19 18:34 04/04/19 17:19 04/05/19 18:34 04/05/19 18:34 Doctor's Discharge - Discharge Referrals: SHERRI DELGADO MD [Primary Care Provider] - Follow up as needed
--- NOTE | 2019-04-05 20:03 | EKG REPORT ---
SEVERITY:- ABNORMAL ECG - SINUS TACHYCARDIA VENTRICULAR PREMATURE COMPLEX PROBABLE LEFT ATRIAL ABNORMALITY IVCD, CONSIDER ATYPICAL LBBB : Confirmed by: Brneda Koenig MD 05-Apr-2019 20:02:02
--- NOTE | 2019-04-05 20:05 | RADIOLOGY REPORT (SQ) ---
EXAM DESCRIPTION: CHEST 2 VIEWS COMPLETED DATE/TIME: 04/05/2019 7:49 pm REASON FOR STUDY: chest pain and short of breath COMPARISON: 04/04/2019 TECHNIQUE: Frontal and lateral radiographic views of the chest acquired. NUMBER OF VIEWS: Two view. LIMITATIONS: None. FINDINGS: LUNGS AND PLEURA: No pneumothorax. Similar left basilar airspace opacities and small bila teral pleural effusions. MEDIASTINUM AND HILAR STRUCTURES: Stable. HEART AND VASCULAR STRUCTURES: Stable. BONES: No acute findings. HARDWARE: Cardiac defibrillator. OTHER: No other significant finding. IMPRESSION: Similar left basilar airspace opacities and small bilateral pleural effusions. TECHNICAL DOCUMENTATION: JOB ID: [id number] [id number] 2010 [employer]- All Rights Reserved Reading location - IP/workstation name: [employer]
[2019-04-05 20:38] LABS: ABSOLUTE BASOPHILS # (AUTO) 0.1 10^3/uL (0.0-0.2); ABSOLUTE EOSINOPHILS # (AUTO) 0.1 10^3/uL (0.0-0.6); ABSOLUTE LYMPHOCYTES (AUTO) 2.5 10^3/uL (0.5-4.7); ABSOLUTE MONOCYTES (AUTO) 0.7 10^3/uL (0.1-1.4); ABSOLUTE NEUT (AUTO) 6.5 10^3/uL (1.7-8.2); BASOPHILS % (AUTO) 0.8 % (0-2); HEMATOCRIT 38.4 % (37.9-51.0); HEMOGLOBIN 12.5 g/dL (13.5-17.0); MEAN CORPUSCULAR HEMOGLOBIN 31.5 pg (27.0-33.4); MEAN CORPUSCULAR HGB CONC 32.5 g/dL (32.0-36.0); MEAN CORPUSCULAR VOLUME 97 fl (80-97); MONOCYTES % (AUTO) 7.3 % (3-13); PLATELET COUNT 348 10^3/uL (150-450); RED BLOOD COUNT 3.96 10^6/uL (4.35-5.55); RED CELL DISTRIBUTION WIDTH 14.7 % (11.5-14.0); SEGMENTED NEUTROPHILS % (AUTO) 65.9 % (42-78); TOTAL CELLS COUNTED % (AUTO) 100 %; WHITE BLOOD COUNT 9.8 10^3/uL (4.0-10.5)
--- NOTE | 2019-04-05 20:38 | ER Document Report ---
ED Respiratory Problem - General Chief Complaint: Shortness Of Breath Stated Complaint: SHORTNESS OF BREATH Time Seen by Provider: 04/05/19 18:47 Mode of Arrival: Ambulatory Notes: Patient is a 53-year-old male that comes to the emergency department for chief complaint of worsening shortness of breath, and intermittent pains across his chest, intermittent coughing episodes, and worsening shortness of breath on exertion. He states he was seen yesterday, diagnosed with pneumonia, states he was prescribed Levaquin but could not fill it, filled azithromycin and took a dose earlier this morning. Patient denies swelling in his legs, denies fever, denies nausea or vomiting, abdominal pain, headache, or any other symptoms at this time. Patient states he was admitted to the hospital on 03/16/2019 for chest pain/shortness of breath. He states he has a history of congestive heart failure on Lasix and digoxin, and has a history of type 2 diabetes, CAD, hypertension. He had a negative heart catheterization March 2018 in [place]. He denies history of DVT/PE. TRAVEL OUTSIDE OF THE [place] IN LAST 30 DAYS: No - Related Data Allergies/Adverse Reactions: oxycodone [From Percocet] Adverse Reaction (Verified 04/05/19 18:52) Hallucinations Past Medical History - General Information source: Patient - Social History Smoking Status: Never Smoker Chew tobacco use (# tins/day): No Frequency of alcohol use: None Drug Abuse: None Lives with: Family Family History: Arthritis, DM, Hypertension Patient has suicidal ideation: No Patient has homicidal ideation: No - Past Medical History Cardiac Medical History: Reports: Hx Congestive Heart Failure, Hx Coronary Artery Disease, Hx Hypercholesterolemia, Hx Hypertension Pulmonary Medical History: Denies: Hx Asthma, Hx COPD Neurological Medical History: Denies: Hx Seizures Endocrine Medical History: Reports: Hx Diabetes Mellitus Type 2. Denies: Hx Diabetes Mellitus Type 1, Hx Hyperthyroidism, Hx Hypothyroidism Renal/ Medical History: Denies: Hx Peritoneal Dialysis GI Medical History: Denies: Hx Cirrhosis, Hx Crohn's Disease, Hx Hepatitis, Hx Ulcerative Colitis Musculoskeletal Medical History: Denies Hx Arthritis, Denies Hx Gout Skin Medical History: Denies Hx Eczema, Denies Hx Psoriasis Psychiatric Medical History: Denies: Hx Depression Infectious Medical History: Denies: Hx Hepatitis Past Surgical History: Reports: Hx Cardiac Catheterization, Hx Cardiac Surgery - Defib, Hx Pacemaker - Immunizations Hx Diphtheria, Pertussis, Tetanus Vaccination: No Hx Pneumococcal Vaccination: 04/30/09 Review of Systems - Review of Systems Constitutional: No symptoms reported EENT: No symptoms reported Cardiovascular: See HPI Respiratory: See HPI Gastrointestinal: No symptoms reported Genitourinary: No symptoms reported Male Genitourinary: No symptoms reported Musculoskeletal: No symptoms reported Skin: No symptoms reported Hematologic/Lymphatic: No symptoms reported Neurological/Psychological: No symptoms reported Physical Exam - Vital signs Vitals: Pulse BP 87 114/74 08/18/18 21:03 08/18/18 21:03 - Notes Notes: GENERAL: Alert, interacts well. No acute distress. HEAD: Normocephalic, atraumatic. EYES: Pupils equal, round, and reactive to light. Extraocular movements intact. ENT: Oral mucosa moist, tongue midline. Oropharynx unremarkable. Airway patent. NECK: Full range of motion. Supple. Trachea midline. LUNGS: Mild tachypnea, no distress, no overt rales, rhonchi, or wheezing HEART: Borderline tachycardia, normal rhythm ABDOMEN: Soft, non-tender. Non-distended. EXTREMITIES: Moves all 4 extremities spontaneously. Borderline approximately 1+ edema bilaterally, normal radial and dorsalis pedis pulses bilaterally. No cyanosis. BACK: no cervical, thoracic, lumbar midline tenderness. No saddle anesthesia, normal distal neurovascular exam. Moves all extremities in full range of motion. NEUROLOGICAL: Alert and oriented x3. Normal speech. Cranial nerves II through XII grossly intact. PSYCH: Normal affect, normal mood. SKIN: Warm, dry, normal turgor. No rashes or lesions noted. Course - Re-evaluation Re-evalutation: Patient does not appear to be in distress, borderline lower extremity edema, no overt rales on exam. He is tachycardic however, reports dyspnea on exertion, has some shortness of breath lying down. Chest x-ray without significant change from prior, CBC nonspecific without leukocytosis, troponin is indeterminate and slightly lower than yesterday as well, BNP is increased to approximately 3500 which is the highest patient has had at this facility. Discussed with patient. Clinical picture is uncertain at this time without overt pneumonia, probably CHF exacerbation, however because of dyspnea on exertion and tachycardia I discussed with patient and decision was made to proceed with CTA. Discussed with Dr. Ortega. CTA showing pleural effusions but no PE or pneumonia. Dr. Ortega's recommendation is to ambulate patient and if he does not tolerate this well admitted to the hospital for CHF exacerbation. I am adding digoxin levels. Patient was ambulated and did very poorly, oxygen saturation dropped to 88%, he had very bad dyspnea on exertion and could only ambulate a very small amount of distance before becoming tachycardic and hypoxic. Discussed with Dr. Roldan, patient accepted to telemetry full admission. Patient states appreciation and agreement. - Vital Signs Vital signs: Temp Pulse Resp BP Pulse Ox 97.3 F 112 H 23 H 108/78 98 04/06/19 01:45 04/06/19 01:45 04/06/19 02:16 04/06/19 01:45 04/06/19 03:31 - Laboratory Result Diagrams: 04/05/19 20:05 04/05/19 20:05 Laboratory results interpreted by me: 04/05/19 04/05/19 04/05/19 20:05 20:05 20:05 RBC 3.96 L Hgb 12.5 L RDW 14.7 H Carbon Dioxide 21 L BUN 23 H Creatinine 1.27 H Est GFR (MDRD) Non-Af 59 L Glucose 202 H Total Bilirubin 3.3 H AST 62 H NT-Pro-B Natriuret Pep 3440 H Digoxin 04/05/19 20:05 RBC Hgb RDW Carbon Dioxide BUN Creatinine Est GFR (MDRD) Non-Af Glucose Total Bilirubin AST NT-Pro-B Natriuret Pep Digoxin < 0.40 L - EKG Interpretation by Me Additional EKG results interpreted by me: EKG shows sinus tachycardia at a rate of 109, there are some PVCs, intraventricular conduction delay present. Left axis deviation. No overt T wave inversions or ST segment changes. No significant change from prior. Discharge - Discharge Clinical Impression: Dyspnea on exertion CHF exacerbation Qualifiers: Heart failure type: unspecified Qualified Code(s): I50.9 - Heart failure, u nspecified Condition: Stable Disposition: ADMITTED INPATIENT Admitting Provider: Jamar (Hospitalist) Unit Admitted: Telemetry
[2019-04-05 20:56] LABS: ALKALINE PHOSPHATASE 95 U/L (38-126); ANION GAP 13 (5-19); ASPARTATE AMINO TRANSFERASE 62 U/L (17-59); BILIRUBIN,DIRECT 0.2 mg/dL (0.0-0.4); BILIRUBIN,TOTAL 3.3 mg/dL (0.2-1.3); BLOOD UREA NITROGEN 23 mg/dL (7-20); CALCIUM 9.4 mg/dL (8.4-10.2); CARBON DIOXIDE 21 mmol/L (22-30); CHLORIDE 105 mmol/L (98-107); GLUCOSE 202 mg/dL (75-110); POTASSIUM 4.4 mmol/L (3.6-5.0)
--- NOTE | 2019-04-05 23:50 | RADIOLOGY REPORT (SQ) ---
CT CHEST ANGIOGRAPHY WITHOUT THEN WITH IV CONTRAST EXAM DATE: 04/05/2019 9:23 PM PT SITTER HISTORY: Shortness of breath. COMPARISON: 03/29/2019 TECHNIQUE: CT angiogram of the chest with IV contrast. 3-D MIP images were obtained in coronal and sagittal reconstructions. This exam was performed according to our departmental dose-optimization program, which includes automated exposure control, adjustment of the mA and/or kV according to patient size and/or use of iterative reconstruction technique. FINDINGS: No filling defects are identified in the pulmonary trunk, main left and right pulmonary arteries, or the segmental branches. The thyroid gland is normal. No mediastinal or hilar adenopathy. The heart size is enlarged without pericardial effusion. The thoracic aorta is normal caliber. There are small bilateral pleural effusions with adjacent atelectasis. No pneumothorax. The visualized upper abdomen demonstrates no acute findings. No acute osseous findings are seen. IMPRESSION: No acute pulmonary embolism. Small bilateral pleural effusions.
[2019-04-06] MEDS ORDERED: FUROSEMIDE INJ/PF 40 MG/4 ML SDV IV ONE (00:09)
[2019-04-06] MEDS ORDERED: DEXTROSE 50%-WATER 25 GM/50 ML DISP.SYRIN IV PRN ×2 (00:54)
[2019-04-06] MEDS ORDERED: DEXTROSE 40% GEL 15 GM TUBE PO PRN ×2 (00:54)
[2019-04-06] MEDS ORDERED: GLUCAGON,HUMAN RECOMB 1 MG INJ IM PRN (00:54)
[2019-04-06] MEDS ORDERED: DILTIAZEM HCL 60 MG TABLET PO ONE (01:00)
[2019-04-06] MEDS ORDERED: INFLUENZA QUAD (6MOS+) 2019-20 VAC 0.5 ML SYR IM ONE (02:29)
[2019-04-06] MEDS: HEPARIN SOD (PORCINE) 5,000 UNIT/ML 1 ML VIAL SUBCUT SCH ×3 (06:13→21:58)
[2019-04-06] MEDS: DILTIAZEM HCL 60 MG TABLET PO SCH ×4 (06:13→23:37)
[2019-04-06] MEDS ORDERED: DIGOXIN INJ 0.5 MG/2 ML AMPULE IV ONE (06:15)
--- NOTE | 2019-04-06 06:24 | PDOC H&P ---
History of Present Illness Admission Date/PCP: 04/06/19 00:54 SHERRI DELGADO MD Patient complains of: Shortness of breath History of Present Illness: JUANI PARTIDA is a 53 year old male with a past medical history of diabetes, recent A1c of 13, obstructive sleep apnea, congestive heart failure with an ejection fraction of 25%. Presents with 3 days of shortness of breath developing orthopnea and a nonproductive cough prompting evaluation emergency room where he is found to have tachycardia, tachypnea, retractions, crackles on lung exam, BNP of 3400 and a chest x-ray with pulmonary vascular congestion. Patient admits noncompliance with BiPAP. He agrees to medication compliance however is unable to recall the names of his meds and digoxin level is und etected. He is unaware of a diet restriction. Past Medical History Cardiac Medical History: Reports: Congestive Heart Failure, Coronary Artery Disease, Hyperlipidema, Hypertension Pulmonary Medical History: Denies: Asthma, Chronic Obstructive Pulmonary Disease (COPD) Neurological Medical History: Denies: Seizures Endocrine Medical History: Reports: Diabetes Mellitus Type 2 Denies: Diabetes Mellitus Type 1, Hyperthyroidism, Hypothyroidism GI Medical History: Denies: Cirrhosis, Crohn's Disease, Hepatitis, Ulcerative Colitis Musculoskeltal Medical History: Denies: Arthritis, Gout Skin Medical History: Denies: Eczema, Psoriasis Psychiatric Medical History: Denies: Depression Hematology: Denies: Anemia, Bleeding Tendencies Past Surgical History Past Surgical History: Reports: Cardiac Catheterization, Pacemaker Social History Information Source: Patient, [facility] Records Lives with: Family Smoking Status: Never Smoker Electronic Cigarette use?: No Frequency of Alcohol Use: None Hx Recreational Drug Use: No Drugs: None Hx Prescription Drug Abuse: No - Advance Directive Resuscitation Status: Full Code Family History Family History: Arthritis, DM, Hypertension Parental Family History Reviewed: Yes Children Family History Reviewed: Yes Sibling(s) Family History Reviewed.: Yes Medication/Allergy Home Medications: Albuterol Sulfate [Proair HFA Inhalation Aerosol 8.5 gm MDI] 2 puff IH Q6HP PRN 03/17/19 Aspirin [Adult Low Dose Aspirin EC] 81 mg PO DAILY 03/17/19 Cinnamon Bark [Cinnamon Bark 500 mg Capsule] 500 mg PO DAILY 03/17/19 Garlic 1,000 mg PO DAILY 03/17/19 [place]-3 Fatty Acids/Fish Oil [Fish Oil 1,000 mg Capsule] 1 cap PO DAILY 03/17/19 Simvastatin [Zocor 20 mg Tablet] 20 mg PO QHS 03/17/19 Digoxin [Lanoxin 0.125 mg Tablet] 0.125 mg PO DAILY 15 Days 03/19/19 Furosemide [Lasix 20 mg Tablet] 20 mg PO DAILY #14 tablet 03/19/19 Glipizide [Glipizide Xl] 10 mg PO DAILY #30 03/19/19 Hum Insulin NPH/Reg Insulin Hm [Insulin 70-30 (NPH/Reg) 100 unit/mL] 10 unit SUBCUT ACSUPPER unit 03/19/19 Hum Insulin NPH/Reg Insulin Hm [Insulin 70-30 (NPH/Reg) 100 unit/mL] 18 unit SUBCUT ACBRKFST #10 ml 03/19/19 Sacubitril/Valsartan [Entresto 49 mg/51 mg Tablet] 1 tab PO BID 30 Days 03/19/19 Spironolactone [Aldactone 25 mg Tablet] 25 mg PO DAILY #30 tablet 03/19/19 Levofloxacin [Levaquin 750 mg Tablet] 750 mg PO DAILY #4 tablet 04/04/19 Allergies/Adverse Reactions: oxycodone [From Percocet] Adverse Reaction (Verified 04/05/19 18:52) Hallucinations Review of Systems Constitutional: PRESENT: as per HPI, fatigue, weakness, weight gain. ABSENT: fever(s) Eyes: ABSENT: visual disturbances Ears: ABSENT: hearing changes Cardiovascular: PRESENT: dyspnea on exertion, edema, orthropnea, palpitations. ABSENT: chest pain Respiratory: PRESENT: as per HPI, cough, dyspnea. ABSENT: hemoptysis Gastrointestinal: PRESENT: bloating. ABSENT: constipation, diarrhea, dysphagia, heartburn, hematemesis, hematochezia Genitourinary: ABSENT: dysuria, hematuria Musculoskeletal: ABSENT: joint swelling Integumentary: ABSENT: rash, wounds Neurological: ABSENT: abnormal gait, abnormal speech, confusion, dizziness, focal weakness, syncope Psychiatric: ABSENT: anxiety, depression, homidical ideation, suicidal ideation Endocrine: ABSENT: cold intolerance, heat intolerance, polydipsia, polyuria Hematologic/Lymphatic: ABSENT: easy bleeding, easy bruising Physical Exam Vital Signs: Temp Pulse Resp BP Pulse Ox 97.3 F 112 H 23 H 108/78 98 04/06/19 01:45 04/06/19 01:45 04/06/19 02:16 04/06/19 01:45 04/06/19 03:31 Intake & Output 04/04/19 04/05/19 04/06/19 11:59 11:59 11:59 Weight 113.1 kg General appearance: PRESENT: cooperative, severe distress, well-developed, well- nourished. ABSENT: disheveled Head exam: PRESENT: atraumatic, normocephalic Eye exam: PRESENT: conjunctiva pink, EOMI, PERRLA. ABSENT: scleral icterus Ear exam: PRESENT: normal external ear exam Mouth exam: PRESENT: moist, tongue midline Neck exam: PRESENT: full ROM, JVD. ABSENT: carotid bruit, thyromegaly Respiratory exam: PRESENT: accessory muscle use, crackles, retraction, symmetrical, tachypnea Cardiovascular exam: PRESENT: +S1, +S2, systolic murmur, tachycardia Vascular exam: PRESENT: normal capillary refill GI/Abdominal exam: PRESENT: normal bowel sounds, soft. ABSENT: distended, guarding, mass, organolmegaly, rebound, tenderness Rectal exam: PRESENT: deferred Extremities exam: PRESENT: full ROM. ABSENT: calf tenderness, clubbing, pedal edema Neurological exam: PRESENT: alert, awake, oriented to person, oriented to place, oriented to time, oriented to situation, CN II-XII grossly intact. ABSENT: motor sensory deficit Skin exam: PRESENT: dry, intact, warm. ABSENT: cyanosis, rash Results Laboratory Results: 04/05/19 20:05 04/05/19 20:05 04/05/19 04/05/19 04/05/19 20:05 20:05 20:05 WBC 9.8 RBC 3.96 L Hgb 12.5 L Hct 38.4 MCV 97 MCH 31.5 MCHC 32.5 RDW 14.7 H Plt Count 348 Seg Neutrophils % 65.9 Sodium 139.0 Potassium 4.4 Chloride 105 Carbon Dioxide 21 L Anion Gap 13 BUN 23 H Creatinine 1.27 H Est GFR ( Amer) > 60 Glucose 202 H Calcium 9.4 Magnesium 1.9 Total Bilirubin 3.3 H AST 62 H Alkaline Phosphatase 95 Total Protein 7.0 Albumin 4.0 TSH 04/05/19 20:05 WBC RBC Hgb Hct MCV MCH MCHC RDW Plt Count Seg Neutrophils % Sodium Potassium Chloride Carbon Dioxide Anion Gap BUN Creatinine Est GFR ( Amer) Glucose Calcium Magnesium Total Bilirubin AST Alkaline Phosphatase Total Protein Albumin TSH 2.19 04/05/19 04/05/19 04/06/19 20:05 20:05 02:18 Troponin I 0.052 0.066 NT-Pro-B Natriuret Pep 3440 H Impressions: Chest X-Ray 04/05/19 18:51 IMPRESSION: Similar left basilar airspace opacities and small bilateral pleural effusions. Chest/Abdomen CTA 04/05/19 21:23 IMPRESSION: No acute pulmonary embolism. Small bilateral pleural effusions. Assessment and Plan - Diagnosis (1) CHF exacerbation Qualifiers: Heart failure type: unspecified Qualified Code(s): I50.9 - Heart failure, unspecified Is this a current diagnosis for this admission?: Yes Plan: Secondary to noncompliance resulting in tachycardia, CHF care set and education (2) Dyspnea on exertion Is this a current diagnosis for this admission?: Yes Plan: Secondary to #1, BiPAP and Lasix (3) Diabetes Qualifiers: Diabetes mellitus type: type 2 Diabetes mellitus fpc insulin use: without head up operator helper use Diabetes mellitus complication status: with circulatory complication Is this a current diagnosis for this admission?: Yes Plan: Humalog sliding scale, follow-up medication reconciliation and education (4) Noncompliance Is this a current diagnosis for this admission?: Yes Plan: Education (5) Obstructive sleep apnea Is this a current diagnosis for this admission?: Yes Plan: BiPAP - Time Time Spent with patient: 25-34 minutes - Inpatient Certification Medical Necessity: Need Close Monitoring Due to Risk of Patient Decompensation
[2019-04-06] MEDS: HUM INSULIN NPH/REG INSULIN HM 100 UNIT/1 ML 3 ML SUBCUT SCH ×2 (09:43→17:16)
[2019-04-06] MEDS: FUROSEMIDE INJ/PF 40 MG/4 ML SDV IV SCH ×2 (09:45→21:58)
[2019-04-06] MEDS: ASPIRIN 81 MG TABLET, ENT COATED PO SCH (09:51)
[2019-04-06] MEDS: POTASSIUM CHLORIDE 10 MEQ TABLET.ER PO SCH ×2 (09:51→21:58)
[2019-04-06] MEDS: DOCUSATE SODIUM 100 MG CAPSULE PO SCH (09:51)
[2019-04-06] MEDS ORDERED: NITROGLYCERIN 5 MG (0.2 MG/HR) PATCH.TD24 TD SCH (10:00)
[2019-04-06] MEDS ORDERED: DIGOXIN 0.25 MG TABLET PO SCH (10:00)
[2019-04-06] MEDS: INSULIN LISPRO 100 UNIT/ML 3 ML VIAL SUBCUT SCH ×3 (10:45→17:17)
[2019-04-06] MEDS: ACETAMINOPHEN 325 MG TABLET PO PRN (15:56)
[2019-04-06] MEDS ORDERED: NITROGLYCERIN 5 MG (0.2 MG/HR) PATCH.TD24 TD PRN (20:29)
[2019-04-07 05:41] LABS: ANION GAP 14 (5-19); BLOOD UREA NITROGEN 27 mg/dL (7-20); CALCIUM 9.5 mg/dL (8.4-10.2); CARBON DIOXIDE 22 mmol/L (22-30); CHLORIDE 105 mmol/L (98-107); GLUCOSE 158 mg/dL (75-110); POTASSIUM 4.3 mmol/L (3.6-5.0)
[2019-04-07] MEDS: DILTIAZEM HCL 60 MG TABLET PO SCH ×3 (06:03→17:30)
[2019-04-07] MEDS: HEPARIN SOD (PORCINE) 5,000 UNIT/ML 1 ML VIAL SUBCUT SCH ×3 (06:03→21:58)
[2019-04-07] MEDS ORDERED: DIGOXIN 0.25 MG TABLET PO SCH (10:00)
[2019-04-07] MEDS: INSULIN LISPRO 100 UNIT/ML 3 ML VIAL SUBCUT SCH ×3 (10:12→17:30)
[2019-04-07] MEDS: FUROSEMIDE INJ/PF 40 MG/4 ML SDV IV SCH ×2 (10:13→22:00)
[2019-04-07] MEDS: HUM INSULIN NPH/REG INSULIN HM 100 UNIT/1 ML 3 ML SUBCUT SCH ×2 (10:13→17:29)
[2019-04-07] MEDS: DIGOXIN 0.125 MG TABLET PO SCH (10:14)
[2019-04-07] MEDS: ASPIRIN 81 MG TABLET, ENT COATED PO SCH (10:14)
[2019-04-07] MEDS: DOCUSATE SODIUM 100 MG CAPSULE PO SCH (10:14)
[2019-04-07] MEDS: POTASSIUM CHLORIDE 10 MEQ TABLET.ER PO SCH (10:14)
--- NOTE | 2019-04-07 13:41 | PDOC PROGRESS REPORT ---
Subjective Progress Note for:: 04/07/19 Subjective:: Patient states that his breathing is still about the same. Denies any current chest pain. Notes his dyspnea mostly on ambulation. Reason For Visit: HEART FAILURE Physical Exam Vital Signs: Temp Pulse Resp BP Pulse Ox 97.5 F 98 12 123/86 H 95 04/07/19 08:00 04/07/19 12:00 04/07/19 12:00 04/07/19 12:00 04/07/19 12:00 Intake & Output 04/06/19 04/07/19 04/08/19 06:59 06:59 06:59 Intake Total 1740 Output Total 400 Balance 1340 Weight 113.1 kg 114.6 kg General appearance: PRESENT: cooperative Neck exam: PRESENT: other - Negative hepatojugular reflux Respiratory exam: PRESENT: clear to auscultation eulalio, symmetrical, unlabored. ABSENT: tachypnea, wheezes Cardiovascular exam: PRESENT: RRR, +S1, +S2. ABSENT: tachycardia GI/Abdominal exam: PRESENT: normal bowel sounds, soft. ABSENT: rebound, rigid, tenderness Extremities exam: ABSENT: pedal edema Neurological exam: PRESENT: alert, awake, oriented to person, oriented to place, oriented to time, oriented to situation Results Laboratory Results: 04/05/19 20:05 04/07/19 03:53 04/07/19 03:53 Sodium 140.6 Potassium 4.3 Chloride 105 Carbon Dioxide 22 Anion Gap 14 BUN 27 H Creatinine 1.20 Est GFR ( Amer) > 60 Glucose 158 H Calcium 9.5 04/05/19 04/05/19 04/06/19 20:05 20:05 02:18 Troponin I 0.052 0.066 NT-Pro-B Natriuret Pep 3440 H 04/06/19 04/06/19 07:59 14:10 Troponin I 0.054 0.051 NT-Pro-B Natriuret Pep Impressions: Chest X-Ray 04/05/19 18:51 IMPRESSION: Similar left basilar airspace opacities and small bilateral pleural effusions. Chest/Abdomen CTA 04/05/19 21:23 IMPRESSION: No acute pulmonary embolism. Small bilateral pleural effusions. Assessment and Plan - Diagnosis (1) Dyspnea on exertion Is this a current diagnosis for this admission?: Yes Plan: CTA shows no PE but shows mild bilateral pleural effusions which are not significant enough to cause patient's shortness of breath. No pulmonary edema seen though BNP is elevated. Likely secondary to patient's chronic cardiomyopathy. We will try to optimize patient's medications for discharge. He was evaluated for CAD via Lexiscan on recent admission which showed no clear ischemia with Lexiscan but some obscurity with attenuation I will consult patient's primary armored machine operator Dr. Akbar (2) Acute on chronic systolic heart failure Is this a current diagnosis for this admission?: Yes Plan: Patient was discharged last time with Entresto and spironolactone in addition to his Lasix. However there is concern for noncompliance as patient has not been taking the Entresto and never picked up his spironolactone prescription. Patient is receiving IV Lasix today as well while monitoring output. I will start patient on beta-yao and losartan today while monitoring blood pressure response. Financial difficulties been expressed by Patient limit his ability to afford and comply with entresto at this point. If Bp tolerates, will add spironolactone tomorrow. Consult Dr Akbar Check digoxin level (3) Diabetes mellitus type 2, uncontrolled Qualifiers: Glycemic state: with hyperglycemia Qualified Code(s): E11.65 - Type 2 diabetes mellitus with hyperglycemia Is this a current diagnosis for this admission?: Yes Plan: Resume glipizide for better control Continue insulin regimen (4) Obstructive sleep apnea Is this a current diagnosis for this admission?: Yes Plan: BiPAP nocturnally - Time Time Spent with patient: 15-24 minutes
[2019-04-07] MEDS: ACETAMINOPHEN 325 MG TABLET PO PRN (15:53)
[2019-04-07] MEDS: METOPROLOL SUCCINATE 25 MG TAB.SR.24H PO SCH (15:54)
[2019-04-07] MEDS: GLIPIZIDE 10 MG TABLET PO SCH (15:55)
[2019-04-08 00:49] LABS: ANION GAP 16 (5-19); BLOOD UREA NITROGEN 30 mg/dL (7-20); CALCIUM 9.5 mg/dL (8.4-10.2); CARBON DIOXIDE 21 mmol/L (22-30); CHLORIDE 100 mmol/L (98-107); GLUCOSE 285 mg/dL (75-110); POTASSIUM 4.6 mmol/L (3.6-5.0)
[2019-04-08] MEDS: DILTIAZEM HCL 60 MG TABLET PO SCH ×2 (01:15→06:09)
[2019-04-08] MEDS: HEPARIN SOD (PORCINE) 5,000 UNIT/ML 1 ML VIAL SUBCUT SCH ×3 (06:07→21:00)
[2019-04-08] MEDS: ACETAMINOPHEN 325 MG TABLET PO PRN ×2 (06:08→13:44)
[2019-04-08] MEDS: MAG HYDROX/AL HYDROX/SIMETH SUSP 30 ML UDCUP PO PRN (06:15)
[2019-04-08] MEDS: INSULIN LISPRO 100 UNIT/ML 3 ML VIAL SUBCUT SCH ×3 (09:04→17:38)
[2019-04-08] MEDS: GLIPIZIDE 10 MG TABLET PO SCH (09:04)
[2019-04-08] MEDS: METOPROLOL SUCCINATE 25 MG TAB.SR.24H PO SCH (09:05)
[2019-04-08] MEDS: LOSARTAN POTASSIUM 25 MG TABLET PO SCH (09:05)
[2019-04-08] MEDS: DOCUSATE SODIUM 100 MG CAPSULE PO SCH (09:05)
[2019-04-08] MEDS: DIGOXIN 0.125 MG TABLET PO SCH (09:06)
[2019-04-08] MEDS: ASPIRIN 81 MG TABLET, ENT COATED PO SCH (09:06)
[2019-04-08] MEDS: HUM INSULIN NPH/REG INSULIN HM 100 UNIT/1 ML 3 ML SUBCUT SCH ×2 (10:10→17:37)
--- NOTE | 2019-04-08 11:02 | PDOC PROGRESS REPORT ---
Subjective Progress Note for:: 04/08/19 Subjective:: Patient still endorses dyspnea on exertion. Denies any Tory improvement to his breathing so far. Denies chest pain. Reason For Visit: HEART FAILURE Physical Exam Vital Signs: Temp Pulse Resp BP Pulse Ox 97.7 F 71 34 H 99/73 L 98 04/08/19 04:00 04/08/19 04:00 04/08/19 07:50 04/08/19 04:00 04/08/19 07:50 Intake & Output 04/07/19 04/08/19 04/09/19 06:59 06:59 06:59 Intake Total 1740 1405 Output Total 400 1400 Balance 1340 5 Weight 114.6 kg 111.8 kg General appearance: PRESENT: no acute distress, cooperative Neck exam: ABSENT: JVD Respiratory exam: PRESENT: clear to auscultation eulalio, symmetrical, unlabored. ABSENT: tachypnea, wheezes Cardiovascular exam: PRESENT: RRR, +S1, +S2. ABSENT: tachycardia GI/Abdominal exam: PRESENT: normal bowel sounds, soft. ABSENT: rebound, rigid, tenderness Musculoskeletal exam: PRESENT: ambulatory Neurological exam: PRESENT: alert, awake, oriented to person, oriented to place, oriented to time, oriented to situation Results Laboratory Results: 04/05/19 20:05 04/07/19 23:12 04/07/19 23:12 Sodium 137.3 Potassium 4.6 Chloride 100 Carbon Dioxide 21 L Anion Gap 16 BUN 30 H Creatinine 1.30 H Est GFR ( Amer) > 60 Glucose 285 H Calcium 9.5 04/05/19 04/05/19 04/06/19 20:05 20:05 02:18 Troponin I 0.052 0.066 NT-Pro-B Natriuret Pep 3440 H 04/06/19 04/06/19 07:59 14:10 Troponin I 0.054 0.051 NT-Pro-B Natriuret Pep Impressions: Chest X-Ray 04/05/19 18:51 IMPRESSION: Similar left basilar airspace opacities and small bilateral pleural effusions. Chest/Abdomen CTA 04/05/19 21:23 IMPRESSION: No acute pulmonary embolism. Small bilateral pleural effusions. Assessment and Plan - Diagnosis (1) Dyspnea on exertion Is this a current diagnosis for this admission?: Yes Plan: CTA shows no PE but shows small bilateral pleural effusions which are not significant enough to cause patient's shortness of breath. No pulmonary edema seen though BNP is elevated. Likely secondary to patient's chronic cardiomyopathy. We will try to optimize patient's medications for discharge. He was evaluated for CAD via Lexiscan on recent admission which showed no clear ischemia with Lexiscan but some obscurity with attenuation I will consult patient's primary ship unloader Dr. Akbar 04/08/2019 Will work on optimizing patient's medications to address his cardiomyopathy (2) Acute on chronic systolic heart failure Is this a current diagnosis for this admission?: Yes Plan: Patient was discharged last time with Entresto and spironolactone in addition to his Lasix. However there is concern for noncompliance as patient has not been taking the Entresto and never picked up his spironolactone prescription. Patient is receiving IV Lasix today as well while monitoring output. I will start patient on beta-yao and losartan today while monitoring blood pressure response. Financial difficulties been expressed by Patient limit his ability to afford and comply with entresto at this point. If Bp tolerates, will add spironolactone tomorrow. Consult Dr Akbar 04/08/2019 I will focus more on optimizing patient's afterload reduction and getting him on the right regimen for his systolic cardiomyopathy rather than aggressively diuresing as he does not seem to have any rails on exam no pulmonary edema on CT of the chest that was done on admission. I have discontinued his Lasix and will resume Lasix if BP holds after getting him on adequate beta-yao, ARB and spironolactone. Currently on Toprol-XL and losartan (I have discontinued Entresto as patient cannot afford this) His blood pressure tolerates, I will add spironolactone later today. Dr. Akbar will see patient. (3) Diabetes mellitus type 2, uncontrolled Qualifiers: Glycemic state: with hyperglycemia Qualified Code(s): E11.65 - Type 2 diabetes mellitus with hyperglycemia Is this a current diagnosis for this admission?: Yes Plan: Resume glipizide for better control Continue insulin regimen 04/08/2019 DM still uncontrolled. I have increased a.m. dose of 70/30 to 24 units from 18. We will continue to monitor I will blood sugar response with Accu-Cheks. (4) Obstructive sleep apnea Is this a current diagnosis for this admission?: Yes Plan: CPAP nocturnally - Time Time Spent with patient: 15-24 minutes
[2019-04-08] MEDS ORDERED: LIDOCAINE 2% JELLY 5 ML TUBE TOP ONE (17:15)
[2019-04-08] MEDS: METHYL SALICYLATE/MENTHOL BALM 29 GM TP SCH (20:59)
--- NOTE | 2019-04-08 23:55 | Progress Note ---
Provider Note Provider Note: Patient was seen on evening rounds. Patient is well known to me from previous admissions and also few previous office visits. Patient has had numerous admissions with congestive heart failure. Patient has limited economic means and has lost insurance. His not been able to take his medications on a regular basis. Patient claims his compliant on CPAP therapy but this has not been recently checked. Patient does have a defibrillator however it is single chamber. Patient seems to have wide complex QRS. Patient LVEF is severely depressed. Last echocardiogram suggested around 25%. It is felt that patient will benefit from a upgrade to biventricular pacemaker. Patient prefers transfer to [facility] very had his heart catheterization. Patient may also benefit from consideration for being placed on cardiac transplant/LVAD list. Patient will also benefit from CHF clinic. In the meantime I have asked the nurses to arrange for professor of social work and personal financial planner to see the patient to help patient made his medical expenditure. Overall prognosis is guarded.
[2019-04-09] MEDS: HEPARIN SOD (PORCINE) 5,000 UNIT/ML 1 ML VIAL SUBCUT SCH ×3 (05:32→21:22)
[2019-04-09 05:42] LABS: ANION GAP 15 (5-19); BLOOD UREA NITROGEN 35 mg/dL (7-20); CALCIUM 9.6 mg/dL (8.4-10.2); CARBON DIOXIDE 24 mmol/L (22-30); CHLORIDE 102 mmol/L (98-107); GLUCOSE 163 mg/dL (75-110); POTASSIUM 4.2 mmol/L (3.6-5.0)
[2019-04-09] MEDS: INSULIN LISPRO 100 UNIT/ML 3 ML VIAL SUBCUT SCH ×3 (08:49→16:15)
[2019-04-09] MEDS: GLIPIZIDE 10 MG TABLET PO SCH (08:53)
[2019-04-09] MEDS: HUM INSULIN NPH/REG INSULIN HM 100 UNIT/1 ML 3 ML SUBCUT SCH ×2 (08:54→16:15)
[2019-04-09] MEDS: LOSARTAN POTASSIUM 25 MG TABLET PO SCH (10:01)
[2019-04-09] MEDS: DIGOXIN 0.125 MG TABLET PO SCH (10:01)
[2019-04-09] MEDS: METHYL SALICYLATE/MENTHOL BALM 29 GM TP SCH ×2 (10:02→17:30)
[2019-04-09] MEDS: DOCUSATE SODIUM 100 MG CAPSULE PO SCH ×2 (10:02→10:08)
[2019-04-09] MEDS: ASPIRIN 81 MG TABLET, ENT COATED PO SCH (10:02)
[2019-04-09] MEDS: METOPROLOL SUCCINATE 25 MG TAB.SR.24H PO SCH (10:02)
[2019-04-09] MEDS: ACETAMINOPHEN 325 MG TABLET PO PRN ×2 (13:33→21:25)
--- NOTE | 2019-04-09 16:22 | PDOC PROGRESS REPORT ---
Subjective Progress Note for:: 04/09/19 Subjective:: The patient's breathing seems to be reasonably comfortable. His biggest complaint is back pain this morning. Reason For Visit: HEART FAILURE Physical Exam Vital Signs: Temp Pulse Resp BP Pulse Ox 98.2 F 92 21 H 103/76 94 04/09/19 11:47 04/09/19 11:47 04/09/19 11:47 04/09/19 11:47 04/09/19 11:47 Intake & Output 04/08/19 04/09/19 04/10/19 06:59 06:59 06:59 Intake Total 1405 1330 Output Total 1400 860 Balance 5 470 Weight 111.8 kg 112 kg General appearance: PRESENT: cooperative, mild distress, well-developed Head exam: PRESENT: atraumatic, normocephalic Respiratory exam: PRESENT: rales, symmetrical. ABSENT: rhonchi, tachypnea, wheezes Cardiovascular exam: PRESENT: RRR, +S1, +S2, other - Diminished heart sounds GI/Abdominal exam: PRESENT: normal bowel sounds, soft, tenderness - Left lower quadrant. ABSENT: distended Rectal exam: PRESENT: deferred Neurological exam: PRESENT: alert, awake, oriented to person, oriented to place, oriented to time, oriented to situation, CN II-XII grossly intact Psychiatric exam: PRESENT: flat affect. ABSENT: agitated, anxious Results Laboratory Results: 04/05/19 20:05 04/09/19 04:14 04/09/19 04:14 Sodium 141.2 Potassium 4.2 Chloride 102 Carbon Dioxide 24 Anion Gap 15 BUN 35 H Creatinine 1.42 H Est GFR ( Amer) > 60 Glucose 163 H Calcium 9.6 Magnesium 2.5 H 04/05/19 04/05/19 04/06/19 20:05 20:05 02:18 Troponin I 0.052 0.066 NT-Pro-B Natriuret Pep 3440 H 04/06/19 04/06/19 07:59 14:10 Troponin I 0.054 0.051 NT-Pro-B Natriuret Pep Impressions: Chest X-Ray 04/05/19 18:51 IMPRESSION: Similar left basilar airspace opacities and small bilateral pleural effusions. Chest/Abdomen CTA 04/05/19 21:23 IMPRESSION: No acute pulmonary embolism. Small bilateral pleural effusions. Assessment and Plan - Diagnosis (1) Dyspnea on exertion Is this a current diagnosis for this admission?: Yes Plan: 04/09/2019-patient's dyspnea has been significant. He has increased difficulty breathing just walking to the bathroom (approximately 10 feet away). History of significant heart disease is the cause. See discussion below. (2) Acute on chronic systolic heart failure Is this a current diagnosis for this admission?: Yes Plan: 04/09/2019-patient had a recent echocardiogram last month. Severely depressed ejection fraction at approximately 25%. Global hypokinesis of the left ventricle. Cardiology will be seeing the patient as well. (3) Diabetes mellitus type 2, uncontrolled Qualifiers: Glycemic state: with hyperglycemia Qualified Code(s): E11.65 - Type 2 diabetes mellitus with hyperglycemia Is this a current diagnosis for this admission?: Yes Plan: 04/09/2019-he is currently on 24 units of 70/30 in the morning and 10 units in the evening. Is also on sliding scale coverage. He continues his glipizide daily as well. Continue Accu-Cheks and adjust medications based on sliding scale requirements. (4) Obstructive sleep apnea Is this a current diagnosis for this admission?: Yes Plan: 04/09/2019-history of obstructive sleep apnea. Noncompliant with CPAP at home. We will utilize CPAP nightly. Echocardiogram in February unable to comment on the presence of any pulmonary hypertension. - Plan Summary Summary: We will try and optimize medications. Blood pressure has been the limiting factor. - Time Time Spent with patient: 15-24 minutes Medications reviewed and adjusted accordingly: Yes
[2019-04-09] MEDS: MAG HYDROX/AL HYDROX/SIMETH SUSP 30 ML UDCUP PO PRN (21:22)
[2019-04-10] MEDS ORDERED: TEMAZEPAM 15 MG CAPSULE PO ONE (02:00)
[2019-04-10 02:44] LABS: ANION GAP 12 (5-19); BLOOD UREA NITROGEN 37 mg/dL (7-20); CALCIUM 9.3 mg/dL (8.4-10.2); CARBON DIOXIDE 21 mmol/L (22-30); CHLORIDE 104 mmol/L (98-107); GLUCOSE 204 mg/dL (75-110); POTASSIUM 4.6 mmol/L (3.6-5.0)
[2019-04-10] MEDS: HEPARIN SOD (PORCINE) 5,000 UNIT/ML 1 ML VIAL SUBCUT SCH ×3 (06:21→21:12)
[2019-04-10] MEDS: INSULIN LISPRO 100 UNIT/ML 3 ML VIAL SUBCUT SCH ×3 (08:06→18:31)
[2019-04-10] MEDS: GLIPIZIDE 10 MG TABLET PO SCH (09:47)
[2019-04-10] MEDS: METOPROLOL SUCCINATE 25 MG TAB.SR.24H PO SCH (09:47)
[2019-04-10] MEDS: LOSARTAN POTASSIUM 25 MG TABLET PO SCH (09:47)
[2019-04-10] MEDS: ASPIRIN 81 MG TABLET, ENT COATED PO SCH (09:47)
[2019-04-10] MEDS: DIGOXIN 0.125 MG TABLET PO SCH (09:47)
[2019-04-10] MEDS: DOCUSATE SODIUM 100 MG CAPSULE PO SCH (09:47)
[2019-04-10] MEDS: METHYL SALICYLATE/MENTHOL BALM 29 GM TP SCH ×2 (09:48→18:31)
[2019-04-10] MEDS: HUM INSULIN NPH/REG INSULIN HM 100 UNIT/1 ML 3 ML SUBCUT SCH ×2 (09:48→18:31)
[2019-04-10] MEDS: ACETAMINOPHEN 325 MG TABLET PO PRN ×2 (14:18→21:12)
[2019-04-10] MEDS ORDERED: FUROSEMIDE INJ/PF 20 MG/2 ML SDV ONE (18:29)
--- NOTE | 2019-04-10 18:30 | PDOC PROGRESS REPORT ---
Subjective Progress Note for:: 04/10/19 Subjective:: Patient is resting in bed. Slightly improved back pain. Still reports significant difficulty breathing with limited exertion. Reason For Visit: HEART FAILURE Physical Exam Vital Signs: Temp Pulse Resp BP Pulse Ox 97.3 F 87 32 H 94/70 L 99 04/10/19 15:52 04/10/19 15:52 04/10/19 15:52 04/10/19 15:52 04/10/19 15:52 Intake & Output 04/09/19 04/10/19 04/11/19 06:59 06:59 06:59 Intake Total 1330 1020 120 Output Total 860 350 Balance 470 670 120 Weight 112 kg 110.3 kg General appearance: PRESENT: cooperative, mild distress, well-developed Head exam: PRESENT: atraumatic, normocephalic Respiratory exam: PRESENT: rales, symmetrical. ABSENT: rhonchi, tachypnea, wheezes Cardiovascular exam: PRESENT: RRR, +S1, +S2 GI/Abdominal exam: PRESENT: normal bowel sounds, soft. ABSENT: distended, guarding, tenderness Extremities exam: PRESENT: pedal edema Neurological exam: PRESENT: alert, awake, oriented to person, oriented to place, oriented to time, oriented to situation, CN II-XII grossly intact Psychiatric exam: PRESENT: flat affect. ABSENT: agitated, anxious Results Laboratory Results: 04/05/19 20:05 04/10/19 02:05 04/10/19 04/10/19 01:17 02:05 Sodium Cancelled 137.3 Potassium Cancelled 4.6 Chloride Cancelled 104 Carbon Dioxide Cancelled 21 L Anion Gap Cancelled 12 BUN Cancelled 37 H Creatinine Cancelled 1.35 H Est GFR ( Amer) Cancelled > 60 Est GFR (Non-Af Amer) Cancelled Glucose Cancelled 204 H Calcium Cancelled 9.3 04/05/19 04/05/19 04/06/19 20:05 20:05 02:18 Troponin I 0.052 0.066 NT-Pro-B Natriuret Pep 3440 H 04/06/19 04/06/19 07:59 14:10 Troponin I 0.054 0.051 NT-Pro-B Natriuret Pep Impressions: Chest X-Ray 04/05/19 18:51 IMPRESSION: Similar left basilar airspace opacities and small bilateral pleural effusions. Chest/Abdomen CTA 04/05/19 21:23 IMPRESSION: No acute pulmonary embolism. Small bilateral pleural effusions. Assessment and Plan - Diagnosis (1) Dyspnea on exertion Is this a current diagnosis for this admission?: Yes Plan: 04/09/2019-patient's dyspnea has been significant. He has increased difficulty breathing just walking to the bathroom (approximately 10 feet away). History of significant heart disease is the cause. See discussion below. 04/10/2019-the patient reports intermittent difficulty breathing but also intermittent chest discomfort. He remains on oxygen. Review of cardiology note strongly suggest transfer to higher level of care for underlying heart disease. (2) Acute on chronic systolic heart failure Is this a current diagnosis for this admission?: Yes Plan: 04/09/2019-patient had a recent echocardiogram last month. Severely depressed ejection fraction at approximately 25%. Global hypokinesis of the left ventricle. Cardiology will be seeing the patient as well. 04/10/2019-we will use low-dose Lasix in addition to the patient's digoxin, losartan and metoprolol. Trying to add low-dose Aldactone but blood pressure is marginal. Patient has had a cardiac catheterization at [facility] and so will reach out to their transfer center to try and arrange for higher level of care. (3) Diabetes mellitus type 2, uncontrolled Qualifiers: Glycemic state: with hyperglycemia Qualified Code(s): E11.65 - Type 2 diabetes mellitus with hyperglycemia Is this a current diagnosis for this admission?: Yes Plan: 04/09/2019-he is currently on 24 units of 70/30 in the morning and 10 units in the evening. Is also on sliding scale coverage. He continues his glipizide daily as well. Continue Accu-Cheks and adjust medications based on sliding scale requirements. 04/10/2019-glucose tends to be slightly higher towards the evening. I will increase his morning 70/30 to 26 units and decrease the evening dose to 8 units as morning control is reasonable. (4) Obstructive sleep apnea Is this a current diagnosis for this admission?: Yes Plan: 04/09/2019-history of obstructive sleep apnea. Noncompliant with CPAP at home. We will utilize CPAP nightly. Echocardiogram in February unable to comment on the presence of any pulmonary hypertension. 04/10/2019-continue CPAP (5) Acute kidney injury Is this a current diagnosis for this admission?: Yes Plan: 04/10/2019-the patient serum creatinine has been elevated. The acute kidney injury is secondary to his heart failure. Creatinine seems to have peaked at 1.41 and is now down to 1.33. We will continue to monitor. - Plan Summary Summary: We will try and optimize medications. Blood pressure has been the limiting factor. - Time Time Spent with patient: 15-24 minutes Medications reviewed and adjusted accordingly: Yes Anticipated discharge: [facility]
[2019-04-10] MEDS ORDERED: ISOSORBIDE MONONITRATE 20 MG TABLET PO ONE (19:30)
[2019-04-10] MEDS: FUROSEMIDE INJ/PF 20 MG/2 ML SDV IV SCH (21:12)
[2019-04-11 01:02] LABS: ANION GAP 13 (5-19); BLOOD UREA NITROGEN 38 mg/dL (7-20); CALCIUM 9.3 mg/dL (8.4-10.2); CARBON DIOXIDE 22 mmol/L (22-30); CHLORIDE 105 mmol/L (98-107); GLUCOSE 103 mg/dL (75-110); POTASSIUM 4.4 mmol/L (3.6-5.0)
[2019-04-11 04:42] LABS: ABSOLUTE BASOPHILS # (AUTO) 0.1 10^3/uL (0.0-0.2); ABSOLUTE EOSINOPHILS # (AUTO) 0.1 10^3/uL (0.0-0.6); ABSOLUTE MONOCYTES (AUTO) 1.1 10^3/uL (0.1-1.4); ABSOLUTE NEUT (AUTO) 6.5 10^3/uL (1.7-8.2); EOSINOPHILS % (AUTO) 1.3 % (0-6); HEMATOCRIT 35.5 % (37.9-51.0); HEMOGLOBIN 11.6 g/dL (13.5-17.0); LYMPHOCYTES % (AUTO) 27.5 % (13-45); MEAN CORPUSCULAR HEMOGLOBIN 31.7 pg (27.0-33.4); MEAN CORPUSCULAR HGB CONC 32.6 g/dL (32.0-36.0); MEAN CORPUSCULAR VOLUME 97 fl (80-97); MONOCYTES % (AUTO) 10.3 % (3-13); PLATELET COUNT 317 10^3/uL (150-450); RED BLOOD COUNT 3.64 10^6/uL (4.35-5.55); RED CELL DISTRIBUTION WIDTH 14.9 % (11.5-14.0); SEGMENTED NEUTROPHILS % (AUTO) 59.9 % (42-78); TOTAL CELLS COUNTED % (AUTO) 100 %; WHITE BLOOD COUNT 10.9 10^3/uL (4.0-10.5)
[2019-04-11 04:50] LABS: ALBUMIN 3.3 g/dL (3.5-5.0); ANION GAP 10 (5-19); BLOOD UREA NITROGEN 37 mg/dL (7-20); CALCIUM 9.1 mg/dL (8.4-10.2); CARBON DIOXIDE 24 mmol/L (22-30); CHLORIDE 106 mmol/L (98-107); PHOSPHORUS 4.8 mg/dL (2.5-4.5); POTASSIUM 4.4 mmol/L (3.6-5.0)
[2019-04-11 04:53] LABS: GLUCOSE 69 mg/dL (75-110)
[2019-04-11] MEDS: HEPARIN SOD (PORCINE) 5,000 UNIT/ML 1 ML VIAL SUBCUT SCH ×2 (06:22→13:35)
[2019-04-11] MEDS: ISOSORBIDE MONONITRATE 20 MG TABLET PO SCH ×2 (06:23→13:34)
--- NOTE | 2019-04-11 06:59 | PDOC TRANSFER SUMMARY ---
General Admission Date/PCP: 04/06/19 00:54 SHERRI DELGADO MD Resuscitation Status: Full Code - Transfer Diagnosis (1) Dyspnea on exertion Is this a current diagnosis for this admission?: Yes Diagnosis Summary: This was the patient's primary complaint. CT angiogram ruled out pulmonary embolus. Chest x-ray revealed bilateral small pleural effusions. Congestive heart failure is felt to be the primary cause and was the focus of therapy. Oxygen supplementation was provided. (2) Acute on chronic systolic heart failure Is this a current diagnosis for this admission?: Yes Diagnosis Summary: The patient's decreased blood pressure did provide some limits on pharmacologic therapy. He was placed on losartan 25 mg and metoprolol 25 mg. He had reasonable heart rate control. Blood pressures typically exhibited a map of 70% or higher. Systolic pressures would mostly remain in the high 90s. Small doses of furosemide were also utilized. He remained on his digoxin. Because of some chest discomfort isosorbide mononitrate was also introduced. After discussion with [facility] the patient is being transferred for higher level of care. (3) Cardiomyopathy, dilated Is this a current diagnosis for this admission?: Yes Diagnosis Summary: The patient had an echocardiogram several weeks ago. It revealed a dilated left ventricle with a depressed ejection fraction of approximately 25%. Slightly dilated left atrium. The view was inadequate for right ventricular systolic pressure and there did not appear to be any critical valvular disease. 2/4 diastolic failure was also noted. There has been some limitation on medications due to blood pressure. See discussion below. The patient has a single-chamber AICD and cardiology, and the recommendation of transfer to higher level of care, commented on possible change to a dual- chamber. Also benefits include being evaluated by a dedicated heart failure team. (4) Diabetes mellitus type 2, uncontrolled Is this a current diagnosis for this admission?: Yes Diagnosis Summary: The patient's sugar was elevated on admission. His last hemoglobin A1c was 13. On a regimen of 24 units of 70/30 insulin in the morning and 10 units at night he has achieved better Leukos control. We are also utilizing a sliding scale. He does take glipizide 10 mg every morning. Sugars have been mostly under 200 for the last several days. (5) Obstructive sleep apnea Is this a current diagnosis for this admission?: Yes Diagnosis Summary: The patient has history of obstructive sleep apnea. He does admit to noncompliance at home with CPAP. We are utilizing CPAP at night during this hospitalization. (6) Acute kidney injury Is this a current diagnosis for this admission?: Yes Diagnosis Summary: The patient did experience a bump in his creatinine. This could be from his CT angiogram or more likely related to his heart failure. His serum creatinine is down to 1.33 with reasonable urine output. - Transfer Medications Home Medications: Aspirin [Ecotrin 81 mg EC Tablet] 81 mg PO DAILY 04/06/19 Cinnamon Bark [Cinnamon Bark 500 mg Capsule] 1 cap PO DAILY 04/06/19 Digoxin 125 mcg PO DAILY 04/06/19 Furosemide [Lasix 40 mg Tablet] 40 mg PO BID 04/06/19 Glipizide [Glipizide Xl] 10 mg PO DAILY 04/06/19 Townsend-3/Dha/Epa/Fish Oil [Fish Oil 1,000 mg Softgel] 1,000 mg PO DAILY 04/06/19 Simvastatin 20 mg PO QHS 04/06/19 Transfer Medications: Current Medications Acetaminophen (Tylenol 325 Mg Tablet) 650 mg PO Q4HP PRN PRN Reason: pain or temp greater than 101F Stop: 05/06/19 00:53 Last Admin: 04/10/19 21:12 Dose: 650 mg Documented by: Al Hydrox/Mg Hydrox/Simethicone (Maalox Plus Susp 30 Udcup) 30 ml PO Q4HP PRN PRN Reason: HEARTBURN Stop: 05/06/19 00:53 Last Admin: 04/09/19 21:22 Dose: 30 ml Documented by: Aspirin (Ecotrin 81 Mg Ec Tablet) 81 mg PO DAILY [facility] Stop: 05/06/19 09:59 Last Admin: 04/10/19 09:47 Dose: 81 mg Documented by: Dextrose (Dextrose Inj 50% Syringe (25 Gm/50 Ml)) 12.5 gm IV PRN PRN; Protocol PRN Reason: FOR BG 50-69 IN ALERT PATIENT Stop: 05/06/19 00:53 Dextrose (Dextrose Inj 50% Syringe (25 Gm/50 Ml)) 25 gm IV PRN PRN; Protocol PRN Reason: PER PROTOCOL Stop: 05/06/19 00:53 Digoxin (Lanoxin 0.125 Mg Tablet) 0.125 mg PO DAILY [facility] Stop: 05/07/19 09:59 Last Admin: 04/10/19 09:47 Dose: 0.125 mg Documented by: Docusate Sodium (Colace 100 Mg Capsule) 100 mg PO DAILY [facility] Stop: 05/06/19 09:59 Last Admin: 04/10/19 09:47 Dose: 100 mg Documented by: Furosemide (Lasix Inj/Pf 20 Mg/2 Ml Sdv) 10 mg IV Q12 [facility] Stop: 05/10/19 21:59 Last Admin: 04/10/19 21:12 Dose: 10 mg Documented by: Glipizide (Glucotrol 10 Mg Tablet) 10 mg PO QAM [facility] Stop: 05/07/19 15:59 Last Admin: 04/10/19 09:47 Dose: 10 mg Documented by: Glucagon (Glucagen Inj 1 Mg Vial) 1 mg IM PRN PRN; Protocol PRN Reason: Evaluate for BG < 70 Stop: 05/06/19 00:53 Glucose (Glutose 40% Gel 15 Gm Tube) 15 gm PO PRN PRN; Protocol PRN Reason: FOR BG 50-69 IN ALERT PATIENT Stop: 05/06/19 00:53 Glucose (Glutose 40% Gel 15 Gm Tube) 30 gm PO PRN PRN; Protocol PRN Reason: FOR BG < 50 IN ALERT PATIENT Stop: 05/06/19 00:53 Heparin Sodium (Porcine) (Heparin Inj 5,000 Units/Ml 1 Ml Vial) 5,000 unit SUBCUT Q8 [facility] Stop: 05/06/19 05:59 Last Admin: 04/11/19 06:22 Dose: 5,000 unit Documented by: Insulin Human Isoph/Insulin Regular (Insulin Inj 70-30 (100 Unit/1 Ml) 3 Ml Vial) 26 unit SUBCUT ACBRKFST [facility] Stop: 05/11/19 07:59 Insulin Human Isoph/Insulin Regular (Insulin Inj 70-30 (100 Unit/1 Ml) 3 Ml Vial) 8 unit SUBCUT ACSUPPER [facility] Stop: 05/11/19 15:59 Insulin Human Lispro (Humalog Insulin 100 Unit/1 Ml 3 Ml Vial) 0 - 12 unit SUBCUT AC [facility]; Protocol Stop: 05/06/19 07:59 Last Admin: 04/10/19 18:31 Dose: 2 unit Documented by: Isosorbide Mononitrate (Ismo 20 Mg Tablet) 10 mg PO 0700,1400 [facility] Stop: 05/11/19 06:59 Last Admin: 04/11/19 06:23 Dose: 10 mg Documented by: Losartan Potassium (Cozaar 25 Mg Tablet) 25 mg PO DAILY [facility] Stop: 05/08/19 09:59 Last Admin: 04/10/19 09:47 Dose: 25 mg Documented by: Menthol/Methyl Salicylate (Tab-Hankins Analgesic [place] 29 Gm) 1 applic TP BID [facility] Stop: 05/08/19 18:59 Last Admin: 04/10/19 18:31 Dose: 1 applic Documented by: Metoprolol Succinate (Toprol Xl 25 Mg Tab.Sr) 25 mg PO DAILY [facility] Stop: 05/07/19 15:29 Last Admin: 04/10/19 09:47 Dose: 25 mg Documented by: Sodium Chloride (Saline Flush 2.5 Ml Monoject Prefil Syrin) 2.5 ml IV Q8 [facility] Stop: 05/06/19 05:59 Last Admin: 04/11/19 06:23 Dose: 2.5 ml Documented by: Spironolactone (Aldactone 25 Mg Tablet) 12.5 mg PO DAILY [facility] Stop: 05/11/19 09:59 - Allergies Allergies/Adverse Reactions: oxycodone [From Percocet] Adverse Reaction (Verified 04/05/19 18:52) Hallucinations - Diet/Activity Discharge Diet: Cardiac, Diabetic Discharge Activity: Activity As Tolerated, Energy Conservation Hospital Course Hospital Course: The patient has had a difficult hospital course. With adjustments in medications he is not experienced any significant relief from his heart failure. He is at times short of breath at rest and he has significant decreased exercise capacity. He will occasionally have fleeting discomfort in his chest. Troponins have been slightly elevated but not inconsistent with his current heart disease. With stricter diet and the use of glipizide, Humulin 70/30 and a sliding scale his sugars are much better controlled. As noted above his blood pressure has been marginal and we have had to cut back on some of his medications. He was seen by his principal security architect. With his lack of improvement and severity of underlying disease it was decided to transfer the patient to a higher level of care. I did speak to Dr. Green at [facility] and he has accepted the patient in transfer. Physical Exam Vital Signs: Temp Pulse Resp BP Pulse Ox 97.4 F 80 22 H 97/70 L 100 04/11/19 00:00 04/11/19 02:00 04/11/19 00:00 04/11/19 00:00 04/11/19 00:00 Intake & Output 04/09/19 04/10/19 04/11/19 06:59 06:59 06:59 Intake Total 1330 1020 790 Output Total 860 350 250 Balance 470 670 540 Weight 112 kg 110.3 kg 110.3 kg General appearance: PRESENT: no acute distress, cooperative, well-developed Head exam: PRESENT: atraumatic, normocephalic Eye exam: PRESENT: conjunctiva pink. ABSENT: scleral icterus Ear exam: PRESENT: normal external ear exam. ABSENT: bleeding, drainage Mouth exam: PRESENT: neck supple Respiratory exam: PRESENT: decreased breath sounds - Bilateral bases, rales, symmetrical. ABSENT: accessory muscle use, rhonchi, tachypnea, wheezes Cardiovascular exam: PRESENT: RRR, +S1, +S2, other - Distant heart sounds. Probable murmur difficult to auscultate GI/Abdominal exam: PRESENT: normal bowel sounds, soft. ABSENT: distended, tenderness Rectal exam: PRESENT: deferred Gentrourinary exam: ABSENT: indwelling catheter Extremities exam: ABSENT: pedal edema Musculoskeletal exam: PRESENT: ambulatory, normal inspection Neurological exam: PRESENT: alert, awake, oriented to person, oriented to place, oriented to time, oriented to situation, CN II-XII grossly intact Psychiatric exam: PRESENT: flat affect. ABSENT: agitated, anxious Results Laboratory Results: 04/11/19 03:32 04/11/19 03:32 04/11/19 04/11/19 04/11/19 00:38 03:32 03:32 WBC 10.9 H RBC 3.64 L Hgb 11.6 L Hct 35.5 L MCV 97 MCH 31.7 MCHC 32.6 RDW 14.9 H Plt Count 317 Seg Neutrophils % 59.9 Sodium 140.1 139.8 Potassium 4.4 4.4 Chloride 105 106 Carbon Dioxide 22 24 Anion Gap 13 10 BUN 38 H 37 H Creatinine 1.41 H 1.33 H Est GFR ( Amer) > 60 > 60 Glucose 103 69 L Calcium 9.3 9.1 Phosphorus 4.8 H Magnesium 2.2 Albumin 3.3 L 04/05/19 04/05/19 04/06/19 20:05 20:05 02:18 Troponin I 0.052 0.066 NT-Pro-B Natriuret Pep 3440 H 04/06/19 04/06/19 07:59 14:10 Troponin I 0.054 0.051 NT-Pro-B Natriuret Pep Impressions: Chest X-Ray 04/05/19 18:51 IMPRESSION: Similar left basilar airspace opacities and small bilateral pleural effusions. Chest/Abdomen CTA 04/05/19 21:23 IMPRESSION: No acute pulmonary embolism. Small bilateral pleural effusions. Plan Discharge Plan: I discussed the case with [facility]. Dr. Green has graciously accepted the patient to a higher level of care with specialized heart failure services. The facility will be contacting [facility] for signout and details of transfer. Time Spent: Greater than 30 Minutes
[2019-04-11] MEDS ORDERED: HUM INSULIN NPH/REG INSULIN HM 100 UNIT/1 ML 3 ML SUBCUT SCH ×2 (08:00→16:00)
[2019-04-11] MEDS: FUROSEMIDE INJ/PF 20 MG/2 ML SDV IV SCH (09:58)
[2019-04-11] MEDS: GLIPIZIDE 10 MG TABLET PO SCH (09:58)
[2019-04-11] MEDS: DIGOXIN 0.125 MG TABLET PO SCH (09:59)
[2019-04-11] MEDS: METOPROLOL SUCCINATE 25 MG TAB.SR.24H PO SCH (09:59)
[2019-04-11] MEDS: DOCUSATE SODIUM 100 MG CAPSULE PO SCH (09:59)
[2019-04-11] MEDS: LOSARTAN POTASSIUM 25 MG TABLET PO SCH (09:59)
[2019-04-11] MEDS: ASPIRIN 81 MG TABLET, ENT COATED PO SCH (09:59)
[2019-04-11] MEDS ORDERED: SPIRONOLACTONE 25 MG TABLET PO SCH (10:00)
[2019-04-11] MEDS: METHYL SALICYLATE/MENTHOL BALM 29 GM TP SCH ×2 (10:00→18:36)
[2019-04-11] MEDS: INSULIN LISPRO 100 UNIT/ML 3 ML VIAL SUBCUT SCH ×3 (10:00→17:03)
[2019-04-11] MEDS: ACETAMINOPHEN 325 MG TABLET PO PRN (17:08)
[2019-04-11 20:26] VITALS: BP 97/63
== END 2019-04-11 20:00 | disposition short-term general hospital (02) | DRG 292 ==
LOC: ER 18:01 → EH 04-06 00:54 → 5 04-06 01:44
PROVIDERS: ADMIT Internal Medicine; ATTEND Internal Medicine
DX: I11.0 Hypertensive heart disease with heart failure (principal); N17.9 Acute kidney failure, unspecified; I50.23 Acute on chronic systolic (congestive) heart failure; I42.9 Cardiomyopathy, unspecified; T50.0X6A Underdosing of mineralocorticoids and their antagonists, initial encounter; G47.33 Obstructive sleep apnea (adult) (pediatric); E11.65 Type 2 diabetes mellitus with hyperglycemia; I25.10 Atherosclerotic heart disease of native coronary artery without angina pectoris; Z91.19 Patient's noncompliance with other medical treatment and regimen; Z59.7 Insufficient social insurance and welfare support; Z88.5 Allergy status to narcotic agent; Z95.810 Presence of automatic (implantable) cardiac defibrillator; Z79.899 Other long term (current) drug therapy; Z79.84 Long term (current) use of oral hypoglycemic drugs
CPT/HCPCS: 36415; 71046; 71275; 80048; 80053; 80069; 80162; 82962; 83605; 83735; 83880; 84443; 84484; 85025; 93005; 93010; 94660; 96374; 99285; J1160; J1644; J1815; J1940; J3490

== ENCOUNTER 2019-04-25 21:36 | Emergency (ER) | payer OTHER, MEDICAID ==
--- NOTE | 2019-04-25 22:25 | ER Document Report ---
ED Medical Screen (RME) - General Chief Complaint: Post Surgical Bleeding Stated Complaint: POST SURGICAL ISSUE Time Seen by Provider: 04/25/19 22:07 Primary Care Provider: SHERRI DELGADO MD [Primary Care Provider] - Follow up as needed Notes: Patient is a 54-year-old male who presents emergency department with a chief complaint of postop bleeding. Patient reports 9 days ago he had a pacemaker placed to the left chest wall. Patient reports he has had a pressure dressing to this area and was best to follow-up with his surgeon on Sunday and have the dressing removed. Patient reports the dressing kept falling off and that he started to ooze from the surgical site. Patient reports he did not did put multiple Band-Aids on there but he continues to bleed. Patient denies use of blood thinners. Patient denies pain to the site. Patient reports there are dissolvable sutures at the site. TRAVEL OUTSIDE OF THE [place] IN LAST 30 DAYS: No - Related Data Allergies/Adverse Reactions: oxycodone [From Percocet] Adverse Reaction (Verified 04/05/19 18:52) Hallucinations Past Medical History - Past Medical History Cardiac Medical History: Reports: Hx Congestive Heart Failure, Hx Coronary Artery Disease, Hx Hypercholesterolemia, Hx Hypertension Pulmonary Medical History: Denies: Hx Asthma, Hx COPD Neurological Medical History: Denies: Hx Seizures Endocrine Medical History: Reports: Hx Diabetes Mellitus Type 2. Denies: Hx Diabetes Mellitus Type 1, Hx Hyperthyroidism, Hx Hypothyroidism Renal/ Medical History: Denies: Hx Peritoneal Dialysis GI Medical History: Denies: Hx Cirrhosis, Hx Crohn's Disease, Hx Hepatitis, Hx Ulcerative Colitis Musculoskeltal Medical History: Denies Hx Arthritis, Denies Hx Gout Skin Medical History: Denies Hx Eczema, Denies Hx Psoriasis Psychiatric Medical History: Denies: Hx Depression Infectious Medical History: Denies: Hx Hepatitis Past Surgical History: Reports: Hx Cardiac Catheterization, Hx Cardiac Surgery - Defib, Hx Pacemaker - Immunizations Hx Diphtheria, Pertussis, Tetanus Vaccination: No Physical Exam - Vital signs Vitals: Temp Pulse Resp BP Pulse Ox 98.1 F 114 H 20 126/84 H 97 04/25/19 21:45 04/25/19 21:45 04/25/19 21:45 04/25/19 21:45 04/25/19 21:45 Course - Re-evaluation Re-evalutation: 04/25/19 22:32 A small constant ooze was noted at the surgical site. We did remove the Band- Aids and applied a pressure dressing in triage. Bleeding controlled at this time. Will obtain a chest x-ray. Patient no acute distress and denies any other complaints at this time. Patient denies pain. I have greeted and performed a rapid initial assessment of this patient. A c omprehensive ED assessment and evaluation of the patient, analysis of test results and completion of the medical decision making process will be conducted by additional ED providers. - Vital Signs Vital signs: Temp Pulse Resp BP Pulse Ox 98.1 F 114 H 20 126/84 H 97 04/25/19 21:45 04/25/19 21:45 04/25/19 21:45 04/25/19 21:45 04/25/19 21:45 Doctor's Discharge - Discharge Referrals: SHERRI DELGADO MD [Primary Care Provider] - Follow up as needed
--- NOTE | 2019-04-25 22:57 | RADIOLOGY REPORT (SQ) ---
EXAM DESCRIPTION: XR CHEST 2 VIEWS COMPLETED DATE/TME: 04/25/2019 22:13 CLINICAL HISTORY: 54 years, Male, pacemaker placed 9 days ago, bleeding from site COMPARISON: 04/05/2019 chest NUMBER OF VIEWS: 2 TECHNIQUE: 2 views of the chest LIMITATIONS: None. FINDINGS: Cardiomegaly. Left-sided pacing device. Mild elevation of the right hemidiaphragm. Interstitial edema. Small bibasilar effusions. No pneumothorax IMPRESSION: Cardiomegaly with interstitial edema and small bibasilar effusions copyright 2010 [employer]- All Rights Reserved
--- NOTE | 2019-04-26 03:55 | ER Document Report ---
ED Wound - General Chief Complaint: Incision Problem Stated Complaint: POST SURGICAL ISSUE Time Seen by Provider: 04/25/19 22:07 Primary Care Provider: SHERRI DELGADO MD [Primary Care Provider] - Follow up as needed Information source: Patient TRAVEL OUTSIDE OF THE [place] IN LAST 30 DAYS: No - HPI Patient complains to provider of: Post surgical bleeding, Other - Patient had a defibrillator placed in his left upper chest 2 weeks ago at [facility]. Patient is due to follow-up in 3 days, however noted there is been some leakage of blood in the surgical wound site. Denies any pain exudate infection or warmth in the area of this wound site and defibrillator. Denies any chest pain. So far there is been no defibrillation of his heart since the defibrillator has been placed. Occurred: Yesterday Onset/Duration: Gradual Quality of pain: No pain Severity: Mild Pain Level: 0 Context: Spontaneous - Related Data Allergies/Adverse Reactions: oxycodone [From Percocet] Adverse Reaction (Verified 04/05/19 18:52) Hallucinations Past Medical History - Social History Smoking Status: Unknown if Ever Smoked Family History: Arthritis, DM, Hypertension Patient has suicidal ideation: No Patient has homicidal ideation: No - Past Medical History Cardiac Medical History: Reports: Hx Congestive Heart Failure, Hx Coronary Artery Disease, Hx Hypercholesterolemia, Hx Hypertension Pulmonary Medical History: Denies: Hx Asthma, Hx COPD Neurological Medical History: Denies: Hx Seizures Endocrine Medical History: Reports: Hx Diabetes Mellitus Type 2. Denies: Hx Diabetes Mellitus Type 1, Hx Hyperthyroidism, Hx Hypothyroidism Renal/ Medical History: Denies: Hx Peritoneal Dialysis GI Medical History: Denies: Hx Cirrhosis, Hx Crohn's Disease, Hx Hepatitis, Hx Ulcerative Colitis Musculoskeletal Medical History: Denies Hx Arthritis, Denies Hx Gout Skin Medical History: Denies Hx Eczema, Denies Hx Psoriasis Psychiatric Medical History: Denies: Hx Depression Infectious Medical History: Denies: Hx Hepatitis Past Surgical History: Reports: Hx Cardiac Catheterization, Hx Cardiac Surgery - Defib, Hx Pacemaker - Immunizations Hx Diphtheria, Pertussis, Tetanus Vaccination: No Hx Pneumococcal Vaccination: 04/30/09 Review of Systems - Review of Systems Constitutional: No symptoms reported Cardiovascular: See HPI Respiratory: No symptoms reported Gastrointestinal: No symptoms reported Genitourinary: No symptoms reported Male Genitourinary: No symptoms reported Musculoskeletal: No symptoms reported Skin: No symptoms reported Hematologic/Lymphatic: No symptoms reported Physical Exam - Vital signs Vitals: Temp Pulse Resp BP Pulse Ox 98.1 F 114 H 20 126/84 H 97 04/25/19 21:45 04/25/19 21:45 04/25/19 21:45 04/25/19 21:45 04/25/19 21:45 Interpretation: Normal - General General appearance: Appears well, Alert - HEENT Head: Normocephalic, Atraumatic Eyes: Normal Pupils: PERRL - Respiratory Respiratory status: No respiratory distress Chest status: Nontender Breath sounds: Normal Chest palpation: Normal - Cardiovascular Rhythm: Regular Heart sounds: Normal auscultation Murmur: No - Abdominal Inspection: Normal Distension: No distension Bowel sounds: Normal Tenderness: Nontender Organomegaly: No organomegaly - Back Back: Normal, Nontender - Extremities General upper extremity: Normal inspection, Nontender, Normal color, Normal ROM, Normal temperature General lower extremity: Normal inspection, Nontender, Normal color, Normal ROM, Normal temperature, Normal weight bearing. No: Priyanka's sign - Neurological Neuro grossly intact: Yes Cognition: Normal Orientation: AAOx4 Ray Coma Scale Eye Opening: Spontaneous Zhane Coma Scale Verbal: Oriented Zhane Coma Scale Motor: Obeys Commands Ray Coma Scale Total: 15 Speech: Normal Motor strength normal: LUE, RUE, LLE, RLE Sensory: Normal - Psychological Associated symptoms: Normal affect, Normal mood - Skin Skin Temperature: Warm Skin Moisture: Dry Skin Color: Normal Notes: A surgical wound linear incision healing and I left upper chest wall. Area appears minimally swollen. No erythema no heat no wound dehiscence no active bleeding noted at this time and area is nontender. Course - Vital Signs Vital signs: Temp Pulse Resp BP Pulse Ox 97.8 F 108 H 20 121/87 H 93 04/26/19 03:21 04/26/19 03:21 04/26/19 03:21 04/26/19 03:21 04/26/19 03:21 - Diagnostic Test Radiology reviewed: Image reviewed, Reports reviewed Discharge - Discharge Clinical Impression: Encounter for post surgical wound check, Cardiomyopathy, dilated Condition: Stable Disposition: HOME, SELF-CARE Additional Instructions: Laceration Care Your laceration has been sutured to keep the skin edges aligned during healing. The time of suture removal depends on the nature and location of your cut. Please follow the care instructions the doctor has outlined for you and return for further care, according to the schedule you've been given. Keep the wound and dressing clean. Unless you were told otherwise, you may shower daily, blotting the wound dry with a clean, unused towel. At other times, If the dressing gets wet or blood soaked, remove it and blot the wound dry, then reapply a new dressing. Unless you were instructed otherwise, dressings should be changed at least daily. If any signs of infection occur (swelling, redness, increasing tenderness, red streaks, tender lumps in the armpit or groin above the laceration, or fever), see the doctor immediately. Patient is advised to continue to wear a pressure dressing over the wound site. Return to the emergency department if there is any complication of bleeding or infection. Maintain and keep your appointment in 3 days with your chip bin conveyor tender who placed the defibrillator Referrals: SHERRI DELGADO MD [Primary Care Provider] - Follow up as needed
[2019-04-26 04:24] VITALS: BP 121/86
== END 2019-04-26 04:15 | disposition home or self-care (01) ==
LOC: ER 21:36
DX: Z48.812 Encounter for surgical aftercare following surgery on the circulatory system (principal); I42.0 Dilated cardiomyopathy; Z95.810 Presence of automatic (implantable) cardiac defibrillator; I25.10 Atherosclerotic heart disease of native coronary artery without angina pectoris; I10 Essential (primary) hypertension; E11.9 Type 2 diabetes mellitus without complications
CPT/HCPCS: 71046; 99283

== ENCOUNTER 2019-05-08 15:08 | Emergency (ER) | payer MEDICAID, OTHER ==
[2019-05-08 15:28] LABS: ABSOLUTE BASOPHILS # (AUTO) 0.1 10^3/uL (0.0-0.2); ABSOLUTE EOSINOPHILS # (AUTO) 0.3 10^3/uL (0.0-0.6); ABSOLUTE LYMPHOCYTES (AUTO) 2.1 10^3/uL (0.5-4.7); ABSOLUTE MONOCYTES (AUTO) 0.9 10^3/uL (0.1-1.4); ABSOLUTE NEUT (AUTO) 4.5 10^3/uL (1.7-8.2); BASOPHILS % (AUTO) 1.2 % (0-2); EOSINOPHILS % (AUTO) 3.5 % (0-6); HEMATOCRIT 39.8 % (37.9-51.0); LYMPHOCYTES % (AUTO) 26.9 % (13-45); MEAN CORPUSCULAR HEMOGLOBIN 31.2 pg (27.0-33.4); MEAN CORPUSCULAR HGB CONC 32.7 g/dL (32.0-36.0); MEAN CORPUSCULAR VOLUME 95 fl (80-97); MONOCYTES % (AUTO) 10.9 % (3-13); PLATELET COUNT 384 10^3/uL (150-450); RED BLOOD COUNT 4.17 10^6/uL (4.35-5.55); RED CELL DISTRIBUTION WIDTH 15.1 % (11.5-14.0); SEGMENTED NEUTROPHILS % (AUTO) 57.5 % (42-78); TOTAL CELLS COUNTED % (AUTO) 100 %; WHITE BLOOD COUNT 7.9 10^3/uL (4.0-10.5)
[2019-05-08 15:52] LABS: ALBUMIN 4.4 g/dL (3.5-5.0); ALKALINE PHOSPHATASE 118 U/L (38-126); ANION GAP 12 (5-19); ASPARTATE AMINO TRANSFERASE 37 U/L (17-59); BILIRUBIN,DIRECT 0.2 mg/dL (0.0-0.4); BILIRUBIN,TOTAL 1.2 mg/dL (0.2-1.3); BLOOD UREA NITROGEN 13 mg/dL (7-20); CALCIUM 9.9 mg/dL (8.4-10.2); CARBON DIOXIDE 28 mmol/L (22-30); CHLORIDE 99 mmol/L (98-107); CREATINE KINASE 153 U/L (55-170); GLUCOSE 242 mg/dL (75-110); POTASSIUM 4.5 mmol/L (3.6-5.0); TOTAL PROTEIN 8.1 g/dL (6.3-8.2)
[2019-05-08 16:03] LABS: CREATINE KINASE MB 1.38 ng/mL (<4.55); TROPONIN I 0.024 ng/mL
--- NOTE | 2019-05-08 20:12 | ER Document Report ---
ED Dizziness/Weakness - General Chief Complaint: General Weakness Stated Complaint: GENERAL WEAKNESS Time Seen by Provider: 05/08/19 20:10 Primary Care Provider: SHERRI DELGADO MD [Primary Care Provider] - Follow up in 3-5 days TRAVEL OUTSIDE OF THE U.S. IN LAST 30 DAYS: No - HPI Notes: 54-year-old male with history of hypertension, CHF, pacemaker with dual-chamber AICD to the emergency department by EMS with complaints of near syncope that occurred just prior to arrival. Patient states that he was shaving when he became globally weak, diaphoretic and slightly short of breath. He states that he felt like he was going to pass out. He states that he lowered himself down onto the commode and then called EMS. EMS found that he was slightly hypotensive with low 90 systolic. They gave him 300 mL of normal saline. Patient states that he is feeling better after fluids. He has a pertinent past medical history of having a single chamber AICD placed in [place] approximately 2 to 3 years ago. He had an episode of congestive heart failure in early March that had him admitted here at [facility] but he was proving to be very difficult to manage. He was transferred to [facility] where a new AICD was placed that was dual chambered. He states that he had that new AICD placed April 16. On his [employer] card Dr. Hawkins is below listed physician. He states that about 1 week ago he started to have discomfort and pain to his incision site. He was admitted again to [facility] on May 02. He was placed on Zyvox. He was discharged 2 days ago. He states that he supposed to see cardiology on 13 May. He denies any chest pain today. He states that he has not had any leg swelling. He states that his shortness of breath that he experienced was because he was feeling so badly and felt like he was in a pass out. This is not the typical shortness of breath that he feels when he has a congestive heart failure episode. He states that he did have an increase in his Lasix on his last admission. He was started on 60 mg which is an increase from 40. He does not know what his dry weight is and has not been monitoring his weight. Patient denies his AICD firing. - Related Data Allergies/Adverse Reactions: oxycodone [From Percocet] Adverse Reaction (Verified 04/05/19 18:52) Hallucinations Past Medical History - General Information source: Patient - Social History Smoking Status: Never Smoker Frequency of alcohol use: None Drug Abuse: None Lives with: Family Family History: Arthritis, DM, Hypertension Patient has suicidal ideation: No Patient has homicidal ideation: No - Past Medical History Cardiac Medical History: Reports: Hx Congestive Heart Failure, Hx Coronary Artery Disease, Hx Hypercholesterolemia, Hx Hypertension Pulmonary Medical History: Denies: Hx Asthma, Hx COPD Neurological Medical History: Denies: Hx Seizures Endocrine Medical History: Reports: Hx Diabetes Mellitus Type 2. Denies: Hx Diabetes Mellitus Type 1, Hx Hyperthyroidism, Hx Hypothyroidism Renal/ Medical History: Denies: Hx Peritoneal Dialysis GI Medical History: Denies: Hx Cirrhosis, Hx Crohn's Disease, Hx Hepatitis, Hx Ulcerative Colitis Musculoskeletal Medical History: Denies Hx Arthritis, Denies Hx Gout Skin Medical History: Denies Hx Eczema, Denies Hx Psoriasis Psychiatric Medical History: Denies: Hx Depression Infectious Medical History: Denies: Hx Hepatitis Past Surgical History: Reports: Hx Cardiac Catheterization, Hx Cardiac Surgery - pacemaker, Hx Pacemaker - Immunizations Hx Diphtheria, Pertussis, Tetanus Vaccination: No Hx Pneumococcal Vaccination: 04/30/09 Review of Systems - Review of Systems Constitutional: Diaphoresis. denies: Chills, Fever EENT: No symptoms reported Cardiovascular: See HPI, Lightheaded. denies: Chest pain, Palpitations, Heart racing, Syncope, Edema Respiratory: See HPI, Cough, Short of breath Gastrointestinal: denies: Abdominal pain, Diarrhea, Nausea, Vomiting Genitourinary: denies: Dysuria, Discharge, Frequency, Flank pain Musculoskeletal: No symptoms reported Skin: No symptoms reported Hematologic/Lymphatic: No symptoms reported Neurological/Psychological: No symptoms reported -: Yes All other systems reviewed and negative Physical Exam - Vital signs Vitals: Resp Pulse Ox 14 98 05/08/19 15:28 05/08/19 15:28 Interpretation: Normal - General General appearance: Appears well, Alert In distress: None - HEENT Head: Normocephalic, Atraumatic Eyes: Normal Pupils: PERRL Ears: Normal External canal: Normal Tympanic membrane: Normal Sinus: Normal Nasal: Normal Mouth/Lips: Normal Mucous membranes: Normal Pharynx: Normal Neck: Normal - Respiratory Respiratory status: No respiratory distress. No: Tachypnea Chest status: Nontender. No: Accessory muscle use Breath sounds: Normal. No: Rales, Rhonchi, Stridor, Wheezing Chest palpation: Normal - Cardiovascular Rhythm: Regular Heart sounds: Normal auscultation Murmur: No - Abdominal Inspection: Normal Distension: No distension Bowel sounds: Normal Tenderness: Nontender Organomegaly: No organomegaly - Back Back: Normal, Nontender - Extremities General upper extremity: Normal inspection, Nontender, Normal color, Normal ROM, Normal temperature General lower extremity: Normal inspection, Nontender, Normal color, Normal ROM, Normal temperature, Normal weight bearing. No: Priyanka's sign - Neurological Neuro grossly intact: Yes Cognition: Normal Orientation: AAOx4 Davin Coma Scale Eye Opening: Spontaneous Zhane Coma Scale Verbal: Oriented Davin Coma Scale Motor: Obeys Commands Zhane Coma Scale Total: 15 Speech: Normal Cranial nerves: Normal Cerebellar coordination: Normal Motor strength normal: LUE, RUE, LLE, RLE Additional motor exam normals: Equal linux consultant. No: Pronator drift Sensory: Normal - Psychological Associated symptoms: Normal affect, Normal mood - Skin Skin Temperature: Warm Skin Moisture: Dry Skin Color: Normal Course - Re-evaluation Re-evalutation: 05/09/19 Noted EKG which is in a paced rhythm and not considerably changed from last EKG. He has 2- troponins. His chest x-ray is improved since his last one here. He states he feels better after 300 mL's of fluid. He is not short of breath. He is not orthostatic. I discussed the patient with Dr. Shafer. He agrees that we should speak with cardiology at [facility] since patient just recently got discharged from the hospital and recently had this new AICD placed. Spoke with Dr. Mcclendon cigar patcher at [facility]. We discussed the patient's presenting symptoms as well as his lab work and his EKG. Also discussed that he recently had an increase on his Lasix. He would like for the patient to follow closely in the office. He would like to decrease the Lasix back down to 40 mg. He does not feel like the patient needs to be transferred to [facility]. Discussed with patient and mother conversation with cardiology. We will decrea se his Lasix as directed and have him follow-up closely in the office. I have encouraged him to call them first thing in the morning. I have also encouraged the patient to return if he has any chest pain, worsening shortness of breath, passing out. I updated Dr. Shafer, ER attending, about the plan and he agrees. - Vital Signs Vital signs: Temp Pulse Resp BP Pulse Ox 97.9 F 88 22 H 99/66 L 100 05/08/19 23:27 05/08/19 20:43 05/08/19 19:01 05/08/19 20:43 05/08/19 19:01 - Laboratory Result Diagrams: 05/08/19 14:42 05/08/19 14:42 Laboratory results interpreted by me: 05/08/19 05/08/19 05/08/19 14:42 14:42 21:33 RBC 4.17 L Hgb 13.0 L RDW 15.1 H Glucose 242 H Urine Protein 30 H - Diagnostic Test Radiology reviewed: Image reviewed, Reports reviewed - EKG Interpretation by Me Additional EKG results interpreted by me: 05/09/19 rate 90, rhythm: atrial paced ventricular rhythm. no STEMI, no significant change from prior on 04/05/2019 Discharge - Discharge Clinical Impression: Near syncope, AICD (automatic cardioverter/defibrillator) present Condition: Stable Disposition: HOME, SELF-CARE Additional Instructions: Feeling of faintness (presyncope) "Presyncope" is the medical term for feeling faint and lightheaded without losing consciousness. Sometimes nausea, pale skin and a sense of dizziness accompany a feeling of faintness. Causes of presyncope include: Drop in blood pressure (orthostatic hypotension). A dramatic drop in your systolic blood pressure - the higher number in your blood pressure reading - may result in lightheadedness or a feeling of faintness. It can occur after sitting up or standing too quickly. Inadequate output of blood from the heart. Conditions such as partially blocked arteries (atherosclerosis), disease of the heart muscle (card iomyopathy), abnormal heart rhythm (arrhythmia) or a decrease in blood volume may cause inadequate blood flow from your heart. Loss of balance (disequilibrium) Disequilibrium is the loss of balance or the feeling of unsteadiness when you walk. Causes may include: Inner ear (vestibular) problems. Abnormalities with your inner ear can cause you to feel like you are floating, have a heavy head or are unsteady in the dark. Sensory disorders. Failing vision and nerve damage in your legs (peripheral neuropathy) are common in older adultsand may result in difficulty maintaining your balance. Joint and muscle problems. Muscle weakness and osteoarthritis - the type of arthritis that involves wear and tear of your joints - can contribute to loss of balance when it involves your weight-bearing joints. Medications. Loss of balance can be a side effect of certain medications, such as anti-seizure drugs, sedatives and tranquilizers. Lightheadedness and other kinds of dizziness Feeling lightheaded is the feeling of being "spaced out" or having the sensation of spinning inside your head. It can also give you the sensation that if your lightheadedness worsens, you might lose consciousness. Causes may include: Inner ear disorders. These abnormalities of your inner ear can lead to illusions of motion and make you feel like you're floating. Anxiety disorders. Certain anxiety disorders, such as panic attacks and a fear of leaving home or being in large, open spaces (agoraphobia), may cause lightheadedness. Hyperventilation. Abnormally rapid breathing that often accompanies anxiety disorders may make you feel lightheaded. NORMAL EXAM AND WORKUP: At this time, your examination and workup show no significant abnormality. No significant abnormal physical findings were noted. All laboratory, EKG, and imaging (x-ray, CT scans, ultrasound) studies that were ordered show no significant abnormality. Although your examination and all studies that were ordered showed no significant abnormal finding, there are no examinations and no studies that are 100% accurate. There is always the possibility that some abnormality could exist and not be detected with physical examination or within the limits and capabilities of laboratory and other studies. You should return or follow up as you were instructed on your visit today for further evaluation if your symptoms do not resolve. FOLLOW-UP CARE: Cardiology at [facility] was spoken to and they would like for you to decrease your Lasix down to 40 mg. They would like you to call the office tomorrow and get an appointment scheduled as soon as possible. Return immediately if your AICD fires, you pass out, or have chest pain or worsening SOB. [facility] [phone] Referrals: SHERRI DELGADO MD [Primary Care Provider] - Follow up in 3-5 days
--- NOTE | 2019-05-08 21:03 | RADIOLOGY REPORT (SQ) ---
EXAM DESCRIPTION: CLINICAL HISTORY: 54 years Male, weakness, dizziness COMPARISON: Chest x-ray 04/25/2019. CT chest 04/05/2019. FINDINGS: Defibrillator leads in good position. Moderate cardiomegaly questionably decreased since previous studies. No suspicious mediastinal widening. Previous CT demonstrated dilated 31 mm main pulmonary artery and this is not appreciated on plain films. No acute lung or pleural abnormalities. IMPRESSION: Moderate cardiomegaly questionably improved since previous studies. No acute findings.
[2019-05-08 21:57] LABS: APPEARANCE,URINE CLEAR; BILIRUBIN,URINE NEGATIVE (NEGATIVE); COLOR,URINE YELLOW; GLUCOSE, URINE NEGATIVE (NEGATIVE); KETONES,URINE NEGATIVE (NEGATIVE); LEUKOCYTE ESTERASE,URINE NEGATIVE (NEGATIVE); NITRITE,URINE NEGATIVE (NEGATIVE); PROTEIN,URINE 30 mg/dL (NEGATIVE); URINE SPECIFIC GRAVITY 1.017; UROBILINOGEN,URINE NEGATIVE mg/dL (<2.0)
--- NOTE | 2019-05-08 21:59 | EKG REPORT ---
SEVERITY:- ABNORMAL ECG - ATRIAL-SENSED VENTRICULAR-PACED RHYTHM : Confirmed by: Yahir Akbar 08-May-2019 21:57:39
[2019-05-08] MEDS ORDERED: LINEZOLID 600 MG TABLET PO ONE (23:47)
[2019-05-09] MEDS ORDERED: LINEZOLID 600 MG TABLET ONE (01:33)
[2019-05-09 02:39] VITALS: BP 106/76
== END 2019-05-09 01:57 | disposition home or self-care (01) ==
LOC: ER 15:08
DX: R53.1 Weakness (principal); R55 Syncope and collapse; R61 Generalized hyperhidrosis; I50.9 Heart failure, unspecified; I11.0 Hypertensive heart disease with heart failure; Z95.810 Presence of automatic (implantable) cardiac defibrillator; Z88.6 Allergy status to analgesic agent
CPT/HCPCS: 93005; 99284; 36415; 87040; 82553; 82550; 85025; 80053; 81001; 84484; 71045; 93010; J3490

== ENCOUNTER 2019-06-06 08:55 | Emergency (ER) | payer MEDICAID, OTHER ==
--- NOTE | 2019-06-06 09:31 | ER Document Report ---
ED Medical Screen (RME) - General Chief Complaint: Chest Pain Stated Complaint: CHEST PAIN Time Seen by Provider: 06/06/19 09:30 Primary Care Provider: SHERRI DELGADO MD [Primary Care Provider] - Follow up as needed TRAVEL OUTSIDE OF THE [place]. IN LAST 30 DAYS: No - HPI Notes: 06/06/19 09:31 Patient is a 54-year-old male with a history of congestive heart failure, hypertension, CAD, diabetes, negative cardiac catheterization in March 2018 at [place], negative stress test/CTA/echocardiogram showing 25 to 30% ejection fraction performed Feb presents complaining of left-sided sharp chest pain that began a couple days ago, but resolved and returned this morning. Patient states that he does have some shortness of breath on occasion with exertion. No fever. No abdominal pain or back pain. I have treated and performed a rapid initial assessment of this patient. A comprehensive ED assessment and evaluation of the patient, analysis of test results and completion of medical decision making process will be conducted by additional ED providers. PHYSICAL EXAMINATION: GENERAL: Well-appearing, well-nourished and in no acute distress. A&Ox4. Answers questions appropriately. LUNGS: Breath sounds clear to auscultation bilaterally and equal. No wheezes rales or rhonchi. HEART: Regular rate and rhythm Extremities: No cyanosis, clubbing, or edema b/l. Priyanka negative bilaterally. No lower extremity asymmetry. NEUROLOGICAL: Normal speech, normal gait. PSYCH: Normal mood, normal affect. - Related Data Allergies/Adverse Reactions: oxycodone [From Percocet] Adverse Reaction (Verified 04/05/19 18:52) Hallucinations Past Medical History - Past Medical History Cardiac Medical History: Reports: Hx Congestive Heart Failure, Hx Coronary Artery Disease, Hx Hypercholesterolemia, Hx Hypertension Pulmonary Medical History: Denies: Hx Asthma, Hx COPD Neurological Medical History: Denies: Hx Seizures Endocrine Medical History: Reports: Hx Diabetes Mellitus Type 2. Denies: Hx Diabetes Mellitus Type 1, Hx Hyperthyroidism, Hx Hypothyroidism Renal/ Medical History: Denies: Hx Peritoneal Dialysis GI Medical History: Denies: Hx Cirrhosis, Hx Crohn's Disease, Hx Hepatitis, Hx Ulcerative Colitis Musculoskeltal Medical History: Denies Hx Arthritis, Denies Hx Gout Skin Medical History: Denies Hx Eczema, Denies Hx Psoriasis Psychiatric Medical History: Denies: Hx Depression Infectious Medical History: Denies: Hx Hepatitis Past Surgical History: Reports: Hx Cardiac Catheterization, Hx Cardiac Surgery - pacemaker, Hx Pacemaker - Immunizations Hx Diphtheria, Pertussis, Tetanus Vaccination: No Physical Exam - Vital signs Vitals: Temp Pulse Resp BP Pulse Ox 97.9 F 103 H 16 130/82 H 95 06/06/19 09:27 06/06/19 09:27 06/06/19 09:27 06/06/19 09:27 06/06/19 09:27 Course - Vital Signs Vital signs: Temp Pulse Resp BP Pulse Ox 97.9 F 103 H 16 130/82 H 95 06/06/19 09:27 06/06/19 09:27 06/06/19 09:27 06/06/19 09:27 06/06/19 09:27 Doctor's Discharge - Discharge Referrals: SHERRI DELGADO MD [Primary Care Provider] - Follow up as needed
[2019-06-06 09:52] LABS: ABSOLUTE BASOPHILS # (AUTO) 0.1 10^3/uL (0.0-0.2); ABSOLUTE EOSINOPHILS # (AUTO) 0.2 10^3/uL (0.0-0.6); ABSOLUTE LYMPHOCYTES (AUTO) 1.3 10^3/uL (0.5-4.7); ABSOLUTE MONOCYTES (AUTO) 0.5 10^3/uL (0.1-1.4); ABSOLUTE NEUT (AUTO) 4.6 10^3/uL (1.7-8.2); BASOPHILS % (AUTO) 0.9 % (0-2); EOSINOPHILS % (AUTO) 2.4 % (0-6); HEMATOCRIT 38.9 % (37.9-51.0); HEMOGLOBIN 12.7 g/dL (13.5-17.0); LYMPHOCYTES % (AUTO) 19.3 % (13-45); MEAN CORPUSCULAR HEMOGLOBIN 30.3 pg (27.0-33.4); MEAN CORPUSCULAR HGB CONC 32.6 g/dL (32.0-36.0); MEAN CORPUSCULAR VOLUME 93 fl (80-97); MONOCYTES % (AUTO) 6.9 % (3-13); PLATELET COUNT 322 10^3/uL (150-450); RED BLOOD COUNT 4.18 10^6/uL (4.35-5.55); SEGMENTED NEUTROPHILS % (AUTO) 70.5 % (42-78); TOTAL CELLS COUNTED % (AUTO) 100 %; WHITE BLOOD COUNT 6.5 10^3/uL (4.0-10.5)
[2019-06-06 10:10] LABS: ALKALINE PHOSPHATASE 117 U/L (38-126); ANION GAP 12 (5-19); ASPARTATE AMINO TRANSFERASE 44 U/L (17-59); BILIRUBIN,DIRECT 0.2 mg/dL (0.0-0.4); BILIRUBIN,TOTAL 1.5 mg/dL (0.2-1.3); BLOOD UREA NITROGEN 16 mg/dL (7-20); CALCIUM 9.2 mg/dL (8.4-10.2); CARBON DIOXIDE 25 mmol/L (22-30); CHLORIDE 103 mmol/L (98-107); GLUCOSE 248 mg/dL (75-110); TOTAL PROTEIN 7.3 g/dL (6.3-8.2)
--- NOTE | 2019-06-06 10:13 | RADIOLOGY REPORT (SQ) ---
EXAM DESCRIPTION: CHEST 2 VIEWS COMPLETED DATE/TIME: 06/06/2019 9:50 am REASON FOR STUDY: CP COMPARISON: 05/08/2019 EXAM PARAMETERS: NUMBER OF VIEWS: two views TECHNIQUE: Digital Frontal and Lateral radiographic views of the chest acquired. RADIATION DOSE: NA LIMITATIONS: none FINDINGS: LUNGS AND PLEURA: No opacities, masses or pneumothorax. No pleural effusion. MEDIASTINUM AND HILAR STRUCTURES: No masses or contour abnormalities. HEART AND VASCULAR STRUCTURES: Enlarged cardiac silhouette with central vascular congestion. No over t edema. BONES: No acute findings. HARDWARE: Left-sided cardiac pacer/defibrillator with unchanged lead position. OTHER: No other significant finding. IMPRESSION: Enlarged cardiac silhouette with central vascular congestion. No overt edema. TECHNICAL DOCUMENTATION: JOB ID: [id number] [employer]- All Rights Reserved Reading location - IP/workstation name: [email or web address]
[2019-06-06 10:26] LABS: TROPONIN I 1.83 ng/mL
[2019-06-06] MEDS ORDERED: ASPIRIN 81 MG TABLET, CHEWABLE PO ONE (10:53)
[2019-06-06] MEDS ORDERED: FENTANYL CITRATE INJ/PF 100 MCG/2 ML AMPUL IV ONE (10:53)
[2019-06-06] MEDS ORDERED: NITROGLYCERIN/D5W 50 MG/250 ML RTUINJ IV PRN (10:54)
[2019-06-06] MEDS ORDERED: ONDANSETRON HCL INJ/PF 4 MG/2 ML SDV IV ONE (10:54)
[2019-06-06] MEDS ORDERED: HEPARIN SOD (PORCINE) 1,000 UNIT/ML 10 ML VIAL IV ONE (10:56)
[2019-06-06] MEDS ORDERED: HEPARIN SODIUM,PORCINE/D5W 25,000 UNIT/250 ML RTUINJ IV PRN (10:56)
[2019-06-06] MEDS ORDERED: FUROSEMIDE INJ/PF 20 MG/2 ML SDV IV ONE (10:59)
[2019-06-06 11:05] LABS: INTERNATIONAL RATION (INR) 1.21; PROTHROMBIN TIME 15.4 SEC (11.4-15.4)
[2019-06-06 11:06] LABS: PARTIAL THROMBOPLASTIN TIME 28.5 SEC (23.5-35.8)
--- NOTE | 2019-06-06 11:06 | ER Document Report ---
ED Cardiac - General Chief Complaint: Chest Pain Stated Complaint: CHEST PAIN Time Seen by Provider: 06/06/19 09:30 Primary Care Provider: SHERRI DELGADO MD [Primary Care Provider] - Follow up as needed TRAVEL OUTSIDE OF THE [place] IN LAST 30 DAYS: No - HPI Notes: Patient is a 54-year-old male with a history of congestive heart failure, hypertension, CAD, diabetes, negative cardiac catheterization in March 2018 at [place], negative stress test/CTA/echocardiogram showing 25 to 30% ejection fraction performed Feb presents complaining of left-sided sharp chest pain that began a couple days ago, but resolved and returned this morning. Patient states that he does have some shortness of breath on occasion with exertion. No fever. No abdominal pain or back pain. Pain is located primarily left precordial area with some radiation into the back and left shoulder. Pain was described as 5/10 intensity at its maximum and is currently about 3/10. No associated vomiting or diaphoresis. Patient says he is fully compliant with prescribed medications as a routine but has not taken any of his medicines this morning. He is currently on aspirin but not on any other kind of blood thinner. He denies any history of bleeding problems. - Related Data Allergies/Adverse Reactions: oxycodone [From Percocet] Adverse Reaction (Verified 04/05/19 18:52) Hallucinations Home Medications: Torsemide, Humalin, Simvastatin Past Medical History - General Information source: Patient - Social History Smoking Status: Never Smoker Lives with: Family Family History: Arthritis, DM, Hypertension Patient has suicidal ideation: No Patient has homicidal ideation: No - Past Medical History Cardiac Medical History: Reports: Hx Congestive Heart Failure, Hx Coronary Artery Disease, Hx Hypercholesterolemia, Hx Hypertension Pulmonary Medical History: Denies: Hx Asthma, Hx COPD Neurological Medical History: Denies: Hx Seizures Endocrine Medical History: Reports: Hx Diabetes Mellitus Type 2. Denies: Hx Diabetes Mellitus Type 1, Hx Hyperthyroidism, Hx Hypothyroidism Renal/ Medical History: Denies: Hx Peritoneal Dialysis GI Medical History: Denies: Hx Cirrhosis, Hx Crohn's Disease, Hx Hepatitis, Hx Ulcerative Colitis Musculoskeletal Medical History: Denies Hx Arthritis, Denies Hx Gout Skin Medical History: Denies Hx Eczema, Denies Hx Psoriasis Psychiatric Medical History: Denies: Hx Depression Infectious Medical History: Denies: Hx Hepatitis Past Surgical History: Reports: Hx Cardiac Catheterization, Hx Cardiac Surgery - pacemaker, Hx Pacemaker - Immunizations Hx Diphtheria, Pertussis, Tetanus Vaccination: No Hx Pneumococcal Vaccination: 04/30/09 Review of Systems - Review of Systems Notes: Constitutional: Negative for fever. HENT: Negative for sore throat. Eyes: Negative for visual changes. Cardiovascular: As per HPI. Respiratory: As per HPI. Gastrointestinal: Negative for abdominal pain, vomiting or diarrhea. Genitourinary: Negative for dysuria. Musculoskeletal: As per HPI. Skin: Negative for rash. Neurological: Negative for headaches, weakness or numbness. 10 point ROS negative except as marked above and in HPI. Physical Exam - Vital signs Vitals: Temp Pulse Resp BP Pulse Ox 97.9 F 103 H 16 130/82 H 95 06/06/19 09:27 06/06/19 09:27 06/06/19 09:27 06/06/19 09:27 06/06/19 09:27 - Notes Notes: GENERAL: Well-developed well-nourished appearing in no acute distress. SKIN: Good turgor no rashes. HEAD: Normocephalic atraumatic. EYES: PERRLA. EOMI. Conjunctivae and sclerae clear. EARS: CANALS AND TMS CLEAR. NOSE: CLEAR. MOUTH: Moist mucosa. Good dentition. No stridor or edema. No drooling. NECK: Supple. No masses or thyromegaly. No adenopathy. Carotids 2+ without bruits. No JVD. BACK: Symmetrical without tenderness. CHEST: Pacemaker/defibrillator present over left anterior chest area with some associated mild tenderness to palpation. There is no redness or swelling appreciated. Appears mildly dyspneic. Breath sounds clear and symmetrical. HEART: Regular rhythm. No murmur gallop or rub. ABDOMEN: Soft nontender without masses, organomegaly or rebound. Bowel sounds normally active. No bruits. GENITALIA: Deferred. EXTREMITIES: No edema. No calf tenderness. Cap refill less than 1.5 seconds. Dorsalis pedis and posterior tibial pulses 3+ and symmetrical. NEUROLOGICAL: GCS 15. Alert and oriented x3. Normal gait. Fluent speech. Cranial nerves II through XII intact. Sensorimotor and cerebellar normal. Normal tone. PSYCHIATRIC: Appropriate affect. Course - Re-evaluation Re-evalutation: 06/06/19 11:05 Troponin is elevated 1.85. BNP is also elevated. Vascular congestion and cardiomegaly noted on chest x-ray. No acute ST changes on EKG. Patient appears to meet criteria for acute coronary syndrome with non-STEMI. I will place him on IV heparin and IV nitroglycerin and I have given a dose of IV Lasix 1 dose of IV fentanyl and Zofran and patient has received aspirin. I will contact patient's local industrial rehabilitation consultant Dr. Akbar and anticipate the patient will need transfer back to [facility]. 06/06/19 11:[address] Akbar has recommended transfer the patient back to [facility]. I have completed [facility]well form and spoken with cardiac connection. Patient has been accepted by Dr. Duffy. - Vital Signs Vital signs: Temp Pulse Resp BP Pulse Ox 98.9 F 103 H 23 H 93/82 L 90 L 06/06/19 15:10 06/06/19 09:27 06/06/19 17:00 06/06/19 16:56 06/06/19 17:00 - Laboratory Result Diagrams: 06/06/19 09:40 06/06/19 09:40 Laboratory results interpreted by me: 06/06/19 06/06/19 06/06/19 09:40 09:40 09:40 RBC 4.18 L Hgb 12.7 L RDW 17.0 H D-Dimer Glucose 248 H Total Bilirubin 1.5 H NT-Pro-B Natriuret Pep 2310 H Urine Protein 06/06/19 06/06/19 09:40 16:44 RBC Hgb RDW D-Dimer 1.21 H Glucose Total Bilirubin NT-Pro-B Natriuret Pep Urine Protein 100 H - Diagnostic Test Radiology reviewed: Reports reviewed Radiology results interpreted by me: 06/06/19 11:22 Cardiomegaly mild vascular congestion - EKG Interpretation by Me Additional EKG results interpreted by me: 06/06/19 11:22 Twelve-lead EKG obtained at 0907 hrs. reviewed by me contemporaneously showing a paced rhythm with no acute ST changes Critical Care Note - Critical Care Note Total time excluding time spent on procedures (mins): 65 Comments: Patient has received oral aspirin will be started on IV nitroglycerin and low- dose IV heparin infusion. We will also administer 1 dose of fentanyl here. Discharge - Discharge Clinical Impression: Acute non-ST elevation myocardial infarction (NSTEMI) Congestive heart failure Qualifiers: Heart failure type: unspecified Heart failure chronicity: acute on chronic Qualified Code(s): I50.9 - Heart failure, unspecified Condition: Stable Disposition: [facility] Referrals: SHERRI DELGADO MD [Primary Care Provider] - Follow up as needed
[2019-06-06 11:08] LABS: D-DIMER 1.21 ug/mL (0.00-0.50)
[2019-06-06] MEDS ORDERED: METOPROLOL TARTRATE PF/INJ 5 MG/5 ML SDV IV ONE (11:19)
[2019-06-06] MEDS ORDERED: HEPARIN SOD (PORCINE) 1,000 UNIT/ML 10 ML VIAL IV PRN (13:57)
--- NOTE | 2019-06-06 14:50 | EKG REPORT ---
SEVERITY:- ABNORMAL ECG - ATRIAL-SENSED VENTRICULAR-PACED RHYTHM : Confirmed by: Brenda Koenig MD 06-Jun-2019 14:49:34
[2019-06-06 17:21] LABS: APPEARANCE,URINE CLEAR; BILIRUBIN,URINE NEGATIVE (NEGATIVE); COLOR,URINE YELLOW; GLUCOSE, URINE NEGATIVE (NEGATIVE); KETONES,URINE NEGATIVE (NEGATIVE); LEUKOCYTE ESTERASE,URINE NEGATIVE (NEGATIVE); NITRITE,URINE NEGATIVE (NEGATIVE); PROTEIN,URINE 100 mg/dL (NEGATIVE); URINE SPECIFIC GRAVITY 1.012; UROBILINOGEN,URINE NEGATIVE mg/dL (<2.0)
[2019-06-06 17:34] VITALS: BP 93/82
== END 2019-06-06 17:15 | disposition short-term general hospital (02) ==
LOC: ER 08:55
DX: I21.4 Non-ST elevation (NSTEMI) myocardial infarction (principal); I50.9 Heart failure, unspecified; I11.0 Hypertensive heart disease with heart failure; I25.10 Atherosclerotic heart disease of native coronary artery without angina pectoris; E11.9 Type 2 diabetes mellitus without complications; Z88.6 Allergy status to analgesic agent; Z95.0 Presence of cardiac pacemaker
CPT/HCPCS: 93005; 36415; 85025; 85610; 85730; 80053; 81001; 84484; 85379; 83880; 71046; 93010; J1644 ×2; J3010; J1940; J3490 ×2; J2405; 96365; 96366; 96368; 96375; 96376; 99291

== ENCOUNTER → 2019-06-30 | Outpatient (CLI) | payer MEDICAID, OTHER ==
[2019-06-30 11:36] LABS: ABSOLUTE BASOPHILS # (AUTO) 0.1 10^3/uL (0.0-0.2); ABSOLUTE EOSINOPHILS # (AUTO) 0.3 10^3/uL (0.0-0.6); ABSOLUTE LYMPHOCYTES (AUTO) 1.4 10^3/uL (0.5-4.7); ABSOLUTE MONOCYTES (AUTO) 0.6 10^3/uL (0.1-1.4); ABSOLUTE NEUT (AUTO) 5.4 10^3/uL (1.7-8.2); EOSINOPHILS % (AUTO) 3.8 % (0-6); HEMATOCRIT 41.9 % (37.9-51.0); HEMOGLOBIN 13.9 g/dL (13.5-17.0); LYMPHOCYTES % (AUTO) 18.7 % (13-45); MEAN CORPUSCULAR HEMOGLOBIN 29.9 pg (27.0-33.4); MEAN CORPUSCULAR HGB CONC 33.2 g/dL (32.0-36.0); MEAN CORPUSCULAR VOLUME 90 fl (80-97); MONOCYTES % (AUTO) 7.3 % (3-13); PLATELET COUNT 268 10^3/uL (150-450); RED BLOOD COUNT 4.65 10^6/uL (4.35-5.55); RED CELL DISTRIBUTION WIDTH 16.6 % (11.5-14.0); SEGMENTED NEUTROPHILS % (AUTO) 69.2 % (42-78); TOTAL CELLS COUNTED % (AUTO) 100 %; WHITE BLOOD COUNT 7.7 10^3/uL (4.0-10.5)
[2019-06-30 11:56] LABS: ALBUMIN 4.5 g/dL (3.5-5.0); ALKALINE PHOSPHATASE 105 U/L (38-126); ANION GAP 11 (5-19); ASPARTATE AMINO TRANSFERASE 29 U/L (17-59); BILIRUBIN,TOTAL 1.3 mg/dL (0.2-1.3); BLOOD UREA NITROGEN 23 mg/dL (7-20); CALCIUM 9.6 mg/dL (8.4-10.2); CARBON DIOXIDE 27 mmol/L (22-30); CHLORIDE 102 mmol/L (98-107); CHOLESTEROL 136.49 mg/dL (0-200); GLUCOSE 297 mg/dL (75-110); POTASSIUM 4.8 mmol/L (3.6-5.0); TRIGLYCERIDES 106 mg/dL (<150)
[2019-06-30 12:06] LABS: DIRECT LDL 80 mg/dL (<100)
== END ==
LOC: OD 11:07
PROVIDERS: ATTEND Family Medicine Geriatric Medicine
DX: E11.21 Type 2 diabetes mellitus with diabetic nephropathy (principal); I11.0 Hypertensive heart disease with heart failure; I50.9 Heart failure, unspecified; E78.5 Hyperlipidemia, unspecified; Z79.899 Other long term (current) drug therapy
CPT/HCPCS: 36415; 80053; 80061; 82043; 82570; 83036; 85025

== ENCOUNTER 2020-04-18 10:37 | Emergency (ER) | payer MEDICAID, OTHER ==
--- NOTE | 2020-04-18 11:04 | ER Document Report ---
ED Medical Screen (RME) - General Chief Complaint: Abdominal Pain Stated Complaint: ABDOMINAL PAIN Time Seen by Provider: 04/18/20 10:59 Primary Care Provider: SHERRI DELGADO MD [Primary Care Provider] - Follow up as needed Notes: Patient presents complaining of lower abdominal pain and headache off and on for the past 2 weeks. Patient reports occasionally feeling lightheaded. Patient complains of some numbness to the bilateral hands and feet. Patient reports some diarrhea. Patient denies any nausea vomiting or fever. Patient reports some dysuria symptoms as well. Patient does report underlying history of diabetes. I have greeted and performed a rapid initial assessment of this patient. A comprehensive ED assessment and evaluation of the patient, analysis of test results and completion of the medical decision making process will be conducted by additional ED providers. TRAVEL OUTSIDE OF THE [place] IN LAST 30 DAYS: No - Related Data Allergies/Adverse Reactions: oxycodone [From Percocet] Adverse Reaction (Verified 04/18/20 11:00) Hallucinations Past Medical History - Past Medical History Cardiac Medical History: Reports: Hx Congestive Heart Failure, Hx Coronary Artery Disease, Hx Hypercholesterolemia, Hx Hypertension Pulmonary Medical History: Denies: Hx Asthma, Hx COPD Neurological Medical History: Denies: Hx Seizures Endocrine Medical History: Reports: Hx Diabetes Mellitus Type 2. Denies: Hx Diabetes Mellitus Type 1, Hx Hyperthyroidism, Hx Hypothyroidism Renal/ Medical History: Denies: Hx Peritoneal Dialysis GI Medical History: Denies: Hx Cirrhosis, Hx Crohn's Disease, Hx Hepatitis, Hx Ulcerative Colitis Musculoskeltal Medical History: Denies Hx Arthritis, Denies Hx Gout Skin Medical History: Denies Hx Eczema, Denies Hx Psoriasis Psychiatric Medical History: Denies: Hx Depression Infectious Medical History: Denies: Hx Hepatitis Past Surgical History: Reports: Hx Cardiac Catheterization, Hx Cardiac Surgery - pacemaker, Hx Pacemaker - Immunizations Hx Diphtheria, Pertussis, Tetanus Vaccination: No Physical Exam - Vital signs Vitals: Temp Pulse Resp BP Pulse Ox 98.3 F 93 20 125/76 100 04/18/20 10:53 04/18/20 10:53 04/18/20 10:53 04/18/20 10:53 04/18/20 10:53 - Abdominal Tenderness: Tender - Lower abdomen, exam limited as patient is in chair Course - Vital Signs Vital signs: Temp Pulse Resp BP Pulse Ox 98.3 F 93 20 125/76 100 12/20/20 10:53 04/18/20 10:53 04/18/20 10:53 04/18/20 10:53 04/18/20 10:53 Doctor's Discharge - Discharge Referrals: SHERRI DELGADO MD [Primary Care Provider] - Follow up as needed
--- NOTE | 2020-04-18 12:13 | EKG REPORT ---
SEVERITY:- ABNORMAL ECG - ATRIAL-SENSED VENTRICULAR-PACED RHYTHM : Confirmed by: Brenda Koenig MD 18-Apr-2020 12:12:13
[2020-04-18 13:15] LABS: ABSOLUTE BASOPHILS # (AUTO) 0.1 10^3/uL (0.0-0.2); ABSOLUTE EOSINOPHILS # (AUTO) 0.2 10^3/uL (0.0-0.6); ABSOLUTE LYMPHOCYTES (AUTO) 1.7 10^3/uL (0.5-4.7); ABSOLUTE MONOCYTES (AUTO) 0.8 10^3/uL (0.1-1.4); ABSOLUTE NEUT (AUTO) 5.8 10^3/uL (1.7-8.2); BASOPHILS % (AUTO) 0.9 % (0-2); EOSINOPHILS % (AUTO) 2.7 % (0-6); HEMATOCRIT 38.8 % (37.9-51.0); LYMPHOCYTES % (AUTO) 19.6 % (13-45); MEAN CORPUSCULAR HEMOGLOBIN 32.5 pg (27.0-33.4); MEAN CORPUSCULAR HGB CONC 33.5 g/dL (32.0-36.0); MEAN CORPUSCULAR VOLUME 97 fl (80-97); MONOCYTES % (AUTO) 9.2 % (3-13); PLATELET COUNT 262 10^3/uL (150-450); RED BLOOD COUNT 4.01 10^6/uL (4.35-5.55); RED CELL DISTRIBUTION WIDTH 13.7 % (11.5-14.0); SEGMENTED NEUTROPHILS % (AUTO) 67.6 % (42-78); TOTAL CELLS COUNTED % (AUTO) 100 %; WHITE BLOOD COUNT 8.6 10^3/uL (4.0-10.5)
[2020-04-18 13:32] LABS: ALBUMIN 4.1 g/dL (3.5-5.0); ALKALINE PHOSPHATASE 100 U/L (38-126); ANION GAP 8 (5-19); ASPARTATE AMINO TRANSFERASE 40 U/L (17-59); BILIRUBIN,DIRECT 0.2 mg/dL (0.0-0.4); BILIRUBIN,TOTAL 1.4 mg/dL (0.2-1.3); BLOOD UREA NITROGEN 17 mg/dL (7-20); CALCIUM 9.1 mg/dL (8.4-10.2); CARBON DIOXIDE 27 mmol/L (22-30); CHLORIDE 104 mmol/L (98-107); GLUCOSE 198 mg/dL (75-110); POTASSIUM 4.2 mmol/L (3.6-5.0); TOTAL PROTEIN 7.7 g/dL (6.3-8.2)
--- NOTE | 2020-04-18 13:54 | ER Document Report ---
ED General - General Chief Complaint: Lower Abdominal Pain Stated Complaint: ABDOMINAL PAIN Time Seen by Provider: 04/18/20 10:59 Primary Care Provider: SHERRI DELGADO MD [Primary Care Provider] - Follow up in 1 week TRAVEL OUTSIDE OF THE [place] IN LAST 30 DAYS: No - HPI Notes: 55-year-old male to the emergency department with plaints of lower abdominal pain that is been going on for 1 month. He admits to associated headaches. Denies any chest pain, shortness of breath, loss of smell or taste, cough, fevers, ear pain, back pain. He is not gotten a colonoscopy. He denies any bloody stool. He denies any constipation. - Related Data Allergies/Adverse Reactions: oxycodone [From Percocet] Adverse Reaction (Verified 04/18/20 11:00) Hallucinations Home Medications: mag oxide. simvastatin. metoprolol. entresto. digoxin. humulin. victoza. carvedilol Past Medical History - General Information source: Patient - Social History Smoking Status: Current Every Day Smoker Chew tobacco use (# tins/day): No Frequency of alcohol use: None Drug Abuse: None Family History: Arthritis, DM, Hypertension Patient has homicidal ideation: No - Past Medical History Cardiac Medical History: Reports: Hx Congestive Heart Failure, Hx Coronary Artery Disease, Hx Hypercholesterolemia, Hx Hypertension Pulmonary Medical History: Denies: Hx Asthma, Hx COPD Neurological Medical History: Denies: Hx Seizures Endocrine Medical History: Reports: Hx Diabetes Mellitus Type 2. Denies: Hx Diabetes Mellitus Type 1, Hx Hyperthyroidism, Hx Hypothyroidism Renal/ Medical History: Denies: Hx Peritoneal Dialysis GI Medical History: Denies: Hx Cirrhosis, Hx Crohn's Disease, Hx Hepatitis, Hx Ulcerative Colitis Musculoskeletal Medical History: Denies Hx Arthritis, Denies Hx Gout Skin Medical History: Denies Hx Eczema, Denies Hx Psoriasis Psychiatric Medical History: Denies: Hx Depression Infectious Medical History: Denies: Hx Hepatitis Past Surgical History: Reports: Hx Cardiac Catheterization, Hx Cardiac Surgery - pacemaker, Hx Pacemaker - Immunizations Hx Diphtheria, Pertussis, Tetanus Vaccination: No Hx Pneumococcal Vaccination: 04/30/09 Review of Systems - Review of Systems Constitutional: denies: Chills, Fever EENT: No symptoms reported Cardiovascular: denies: Chest pain, Palpitations, Heart racing, Dizziness, Lightheaded Respiratory: denies: Cough, Short of breath Gastrointestinal: Abdominal pain. denies: Diarrhea, Nausea, Vomiting Genitourinary: No symptoms reported Musculoskeletal: No symptoms reported Skin: No symptoms reported Hematologic/Lymphatic: No symptoms reported Neurological/Psychological: No symptoms reported -: Yes All other systems reviewed and negative Physical Exam - Vital signs Vitals: Temp Pulse Resp BP Pulse Ox 98.3 F 93 20 125/76 100 04/18/20 10:53 04/18/20 10:53 04/18/20 10:53 04/18/20 10:53 04/18/20 10:53 Interpretation: Normal - Notes Notes: PHYSICAL EXAMINATION: GENERAL: Well-appearing, well-nourished and in no acute distress. HEAD: Atraumatic, normocephalic. EYES: Pupils equal round and reactive to light, extraocular movements intact, sclera anicteric, conjunctiva are normal. ENT: nares patent, oropharynx clear without exudates. Moist mucous membranes. NECK: Normal range of motion, supple without lymphadenopathy LUNGS: Breath sounds clear to auscultation bilaterally and equal. No wheezes rales or rhonchi. HEART: Regular rate and rhythm without murmurs ABDOMEN: Soft, obese, mildly tender to the lower abdomen., normoactive bowel sounds. No guarding, no rebound. No masses appreciated. No CVA tenderness EXTREMITIES: Normal range of motion, no pitting or edema. No cyanosis. NEUROLOGICAL: No focal neurological deficits. Moves all extremities spontaneously and on command. PSYCH: Normal mood, normal affect. SKIN: Warm, Dry, normal turgor, no rashes or lesions noted. Course - Re-evaluation Re-evalutation: 04/20/20 Impression: Lower abdominal pain. Patient with no acute findings on CT and no concerning lab work. We will have him follow-up with GI specialist since it has been going on for so long. Have him return if he is worse. Will discharge home. Right before discharge the patient asked if he could be tested for Covid. He states that he does not really feel like he has any symptoms but his mom is told him that he needed to get tested for Covid before he can come see her. We will perform Covid swab. Patient was provided with discharge information including: As a person under investigation for COVID-19, [facility], division of public health advises you to adhere to the following guidance until your test results are reported to you. If your test result is positive, you will receive additional information from your provider and your local health department at that time. Remain at home until you are cleared by the healthcare provider public health authorities. Keep a log of visitors to your home and notify any visitors to your home of your isolation status. If you plan to move to a new address or leave the country, notify the local health department and your County. Call your doctor or seek care if you have an urgent medical need. Before seeking medical care, call ahead to get instructions from the provider before arriving at the medical office, clinic, or hospital. Notify them that you are being tested for the virus that causes COVID-19 so that arrangements can be made, as necessary, to prevent transmission to others in the healthcare setting. Next, notify the local health department and your County. If a medical emergency arises and you need to call 911, informed the first responders that you are being tested for the virus that causes COVID-19. Next, notified the local health department and your County. - Vital Signs Vital signs: Temp Pulse Resp BP Pulse Ox 98.0 F 80 16 126/74 H 100 04/18/20 18:15 04/18/20 18:15 04/18/20 18:15 04/18/20 18:15 04/18/20 18:15 - Laboratory Results Result Diagrams: 04/18/20 12:56 04/18/20 12:56 Laboratory Results Interpreted: 04/18/20 04/18/20 04/18/20 12:56 12:56 13:29 RBC 4.01 L Hgb 13.0 L Glucose 198 H Total Bilirubin 1.4 H Urine Glucose (UA) 50 H Urine Urobilinogen 2.0 H Critical Laboratory Results Reviewed: No Critical Results - Radiology Results Critical Radiology Results Reviewed: No Critical Results Discharge - Discharge Clinical Impression: Gallstones, Adrenal nodule, Encounter for laboratory testing for COVID-19 virus Abdominal pain Qualifiers: Abdominal location: periumbilical Qualified Code(s): R10.33 - Periumbilical pain Condition: Stable Disposition: HOME, SELF-CARE Instructions: Gallbladder Disease ([facility]), Low-Fat Diet ([facility]) Additional Instructions: Please follow-up outpatient with both the GI specialist and surgeon about the gallstones. Follow-up with your primary care physician about further monitoring of the adrenal nodule. Please return immediately if you have worsening symptoms such as increased pain, fever, yellowing of the skin, intractable vomiting. Today he requested to be tested for Covid because you had a possible exposure. Covid results do not return for about 3 days. Please quarantine until that time. You need to wear a mask and stay 6 feet away from others. As a person under investigation for COVID-19, [facility], division of public health advises you to adhere to the following guidance until your test results are reported to you. If your test result is positive, you will receive additional information from your provider and your local health department at that time. Remain at home until you are cleared by the healthcare provider public health authorities. Keep a log of visitors to your home and notify any visitors to your home of your isolation status. If you plan to move to a new address or leave the country, notify the local health department and your County. Call your doctor or seek care if you have an urgent medical need. Before seeking medical care, call ahead to get instructions from the provider before arriving at the medical office, clinic, or hospital. Notify them that you are being tested for the virus that causes COVID-19 so that arrangements can be made, as necessary, to prevent transmission to others in the healthcare setting. Next, notify the local health department and your County. If a medical emergency arises and you need to call 911, informed the first responders that you are being tested for the virus that causes COVID-19. Next, notified the local health department and your County. Prescriptions: Etodolac 200 mg PO BID #10 capsule Referrals: SHERRI DELGADO MD [Primary Care Provider] - Follow up in 1 week
[2020-04-18 14:00] LABS: APPEARANCE,URINE CLEAR; BILIRUBIN,URINE NEGATIVE (NEGATIVE); COLOR,URINE YELLOW; GLUCOSE, URINE 50 mg/dL (NEGATIVE); KETONES,URINE NEGATIVE (NEGATIVE); LEUKOCYTE ESTERASE,URINE NEGATIVE (NEGATIVE); NITRITE,URINE NEGATIVE (NEGATIVE); PROTEIN,URINE NEGATIVE (NEGATIVE); URINE SPECIFIC GRAVITY 1.018
[2020-04-18 15:31] LABS: CHLAM PCR NOT DETECTED (NOT DETECT)
--- NOTE | 2020-04-18 16:16 | RADIOLOGY REPORT (SQ) ---
EXAM DESCRIPTION: CT ABD/PELVIS WITH IV ONLY<Procedure Description>CT ABD/PELVIS WITH IV ONLY IMAGES COMPLETED DATE/TIME: 04/18/2020 3:48 pm<Completed Time>04/18/2020 3:48 pm REASON FOR STUDY: abdominal pain for one month<Reason For Exam>abdominal pain for one month <ICD10 C ode1> <ICD10 Code2> <ICD10 Code3> <ADM DX> COMPARISON: 04/05/2019 TECHNIQUE: CT scan of the abdomen and pelvis performed using helical scanning technique with dynamic intravenous contrast injection. No oral contrast. Images reviewed with lung, soft tissue, and bone w indows. Reconstructed coronal and sagittal MPR images reviewed. Delayed images for evaluation of the urinary system also acquired. All images stored on PACS. All CT scanners at this facility use dose modulation, iterative reconstruction, and/or weight based d osing when appropriate to reduce radiation dose to as low as reasonably achievable (ALARA). [facility]: Dose Right [facility]: CareDose [facility]: Dose Right [facility]: Teradose 4D [facility]: [employer] CONTRAST TYPE AND DOSE: contrast/concentration: Isovue 350.00 mmol/ml; Total Contrast Delivered: 99. 0 ml; Total Saline Delivered: 56.0 ml<[facility] Contrast>contrast/concentration: Isovue 350.00 mmol/ml; Tot al Contrast Delivered: 99.0 ml; Total Saline Delivered: 56.0 ml RENAL FUNCTION: GFR > 60. RADIATION DOSE: CT Rad equipment meets quality standard of care and radiation dose reduction techniq ues were employed. CTDIvol: 12.0 - 12.1 mGy. DLP: 1439 mGy-cm.<RADIATION DOSE>CT Rad equipment meets quality standard of care and radiation dose reduction techniques were employed. CTDIvol: 12.0 - 12.1 mGy. DLP: 1439 mGy-cm.<[facility] mGy>. LIMITATIONS: None. FINDINGS: LOWER CHEST: No significant findings. LIVER: Normal size. No enhancing masses. No dilated ducts. SPLEEN: Normal size. No focal lesions. PANCREAS: No masses identified. No significant calcifications. No adjacent inflammation or peripancre atic fluid collections. Pancreatic duct not dilated. GALLBLADDER: Multiple small calcified stones. No inflammatory changes to suggest cholecystitis. ADRENAL GLANDS: 2.2 cm left adrenal nodule, slightly larger than the March 2019 exam measuring 2 c m and similar plane of measurement. This nodule increases in Hounsfield units on the delayed scan. RIGHT KIDNEY AND URETER: No cysts identified. No solid masses identified. No calcified stones. No hyd ronephrosis or hydroureter. LEFT KIDNEY AND URETER: Similar small cysts identified. No solid masses identified. No calcified ston es. No hydronephrosis or hydroureter. AORTA AND VESSELS: No aneurysm. No dissection. Renal arteries, SMA, celiac without significant stenos is. RETROPERITONEUM: No bulky retroperitoneal adenopathy. BOWEL AND PERITONEAL CAVITY: No obstruction or inflammatory changes. No free fluid. APPENDIX: Normal. PELVIS: No mass. No free fluid. Unremarkable bladder. ABDOMINAL WALL: No masses. No hernias. BONES: No acute findings. OTHER: No other significant finding. IMPRESSION: 2.2 cm left adrenal nodule, slightly larger than the March 2019 exam measuring 2 cm a nd similar plane of measurement. Similar Cholelithiasis. No acute findings otherwise. COMMENT: Follow-up recommended with dedicated [address] or MRI to further characterize the left adrenal nodule. TECHNICAL DOCUMENTATION: JOB ID: [id number]<Job ID>[id number]-72 Quality ID # [id number]: Final reports with documentation of one or more dose reduction techniques (e.g., Au tomated exposure control, adjustment of the mA and/or kV according to patient size, use of iterative reconstruction technique) 2010 [employer]- All Rights Reserved Reading location - IP/workstation name: [email or web address]
[2020-04-18 18:15] VITALS: BP 126/74
== END 2020-04-18 18:15 | disposition home or self-care (01) ==
LOC: ER 10:37
DX: R10.30 Lower abdominal pain, unspecified (principal); I11.0 Hypertensive heart disease with heart failure; I50.9 Heart failure, unspecified; I25.10 Atherosclerotic heart disease of native coronary artery without angina pectoris; E78.00 Pure hypercholesterolemia, unspecified; E11.9 Type 2 diabetes mellitus without complications; Z88.6 Allergy status to analgesic agent; Z20.828 Contact with and (suspected) exposure to other viral communicable diseases
CPT/HCPCS: 93005; 99285; 36415; 87086; 83690; 85025; 87635; 80053; 81001; 87491; 87591; 74177; 93010; C9803

== ENCOUNTER 2020-04-24 13:05 | Emergency (ER) | payer MEDICAID ==
[2020-04-24] MEDS ORDERED: ACETAMINOPHEN 325 MG TABLET PO ONE (14:40)
--- NOTE | 2020-04-24 14:43 | ER Document Report ---
ED Medical Screen (RME) - General Chief Complaint: Abdominal Pain Stated Complaint: ABDOMINAL PAIN,HEADACHE Time Seen by Provider: 04/24/20 14:34 Primary Care Provider: SHERRI DELGADO MD [Primary Care Provider] - Follow up as needed Mode of Arrival: Ambulatory Information source: Patient Notes: HPI; 55-year-old male known history of gallstones seen here 1220 presents to the emergency room with worsening abdominal pain and persistent headache for the past week. Denies any fevers, no nausea, no vomiting, states been taking ibuprofen without relief. States was not given anyone to follow-up with when he was discharged. Has not reached out to his primary care physician. States his pain has been getting progressively worse all week. PE: Alert and oriented x3. Lungs: Clear to auscultation without rales, rhonchi, wheezes. Heart: Regular rate rhythm without murmurs, rubs, gallops. I have greeted and performed a rapid initial assessment of this patient. A comprehensive ED assessment and evaluation of the patient, analysis of test results and completion of the medical decision making process will be conducted by additional ED providers. I have specifically instructed the patient or family members with the patient to immediately return to any nursing staff should anything change in the patient's condition or with their chief complaint. TRAVEL OUTSIDE OF THE [place] IN LAST 30 DAYS: No - Related Data Allergies/Adverse Reactions: oxycodone [From Percocet] Adverse Reaction (Verified 04/18/20 11:00) Hallucinations Past Medical History - Past Medical History Cardiac Medical History: Reports: Hx Congestive Heart Failure, Hx Coronary Artery Disease, Hx Hypercholesterolemia, Hx Hypertension Pulmonary Medical History: Denies: Hx Asthma, Hx COPD Neurological Medical History: Denies: Hx Seizures Endocrine Medical History: Reports: Hx Diabetes Mellitus Type 2. Denies: Hx Diabetes Mellitus Type 1, Hx Hyperthyroidism, Hx Hypothyroidism Renal/ Medical History: Denies: Hx Peritoneal Dialysis GI Medical History: Denies: Hx Cirrhosis, Hx Crohn's Disease, Hx Hepatitis, Hx Ulcerative Colitis Musculoskeltal Medical History: Denies Hx Arthritis, Denies Hx Gout Skin Medical History: Denies Hx Eczema, Denies Hx Psoriasis Psychiatric Medical History: Denies: Hx Depression Infectious Medical History: Denies: Hx Hepatitis Past Surgical History: Reports: Hx Cardiac Catheterization, Hx Cardiac Surgery - pacemaker, Hx Pacemaker - Immunizations Hx Diphtheria, Pertussis, Tetanus Vaccination: No Physical Exam - Vital signs Vitals: Temp Pulse Resp BP Pulse Ox 98.1 F 76 16 126/69 H 96 04/24/20 14:23 04/24/20 14:23 04/24/20 14:23 04/24/20 14:23 04/24/20 14:23 Course - Vital Signs Vital signs: Temp Pulse Resp BP Pulse Ox 98.1 F 76 16 126/69 H 96 04/24/20 14:23 04/24/20 14:23 04/24/20 14:23 04/24/20 14:23 04/24/20 14:23 Doctor's Discharge - Discharge Referrals: SHERRI DELGADO MD [Primary Care Provider] - Follow up as needed
[2020-04-24 17:30] LABS: ABSOLUTE BASOPHILS # (AUTO) 0.1 10^3/uL (0.0-0.2); ABSOLUTE EOSINOPHILS # (AUTO) 0.2 10^3/uL (0.0-0.6); ABSOLUTE MONOCYTES (AUTO) 0.7 10^3/uL (0.1-1.4); ABSOLUTE NEUT (AUTO) 5.6 10^3/uL (1.7-8.2); BASOPHILS % (AUTO) 0.6 % (0-2); EOSINOPHILS % (AUTO) 2.8 % (0-6); HEMATOCRIT 37.9 % (37.9-51.0); HEMOGLOBIN 12.5 g/dL (13.5-17.0); MEAN CORPUSCULAR HEMOGLOBIN 31.8 pg (27.0-33.4); MEAN CORPUSCULAR HGB CONC 33.1 g/dL (32.0-36.0); MEAN CORPUSCULAR VOLUME 96 fl (80-97); PLATELET COUNT 289 10^3/uL (150-450); RED BLOOD COUNT 3.95 10^6/uL (4.35-5.55); RED CELL DISTRIBUTION WIDTH 13.7 % (11.5-14.0); SEGMENTED NEUTROPHILS % (AUTO) 65.6 % (42-78); TOTAL CELLS COUNTED % (AUTO) 100 %; WHITE BLOOD COUNT 8.5 10^3/uL (4.0-10.5)
[2020-04-24 17:47] LABS: ALKALINE PHOSPHATASE 109 U/L (38-126); AMYLASE 66 U/L (30-110); ANION GAP 6 (5-19); ASPARTATE AMINO TRANSFERASE 41 U/L (17-59); BILIRUBIN,DIRECT 0.1 mg/dL (0.0-0.4); BILIRUBIN,TOTAL 0.6 mg/dL (0.2-1.3); BLOOD UREA NITROGEN 15 mg/dL (7-20); CALCIUM 8.9 mg/dL (8.4-10.2); CARBON DIOXIDE 32 mmol/L (22-30); CHLORIDE 101 mmol/L (98-107); GLUCOSE 216 mg/dL (75-110); POTASSIUM 4.1 mmol/L (3.6-5.0)
--- NOTE | 2020-04-24 18:13 | RADIOLOGY REPORT (SQ) ---
EXAM DESCRIPTION: U/S ABDOMEN LTD W/DOPPLER IMAGES COMPLETED DATE/TIME: 04/24/2020 5:56 pm REASON FOR STUDY: ruq pain COMPARISON: None. TECHNIQUE: Dynamic and static grayscale images acquired of the abdomen and recorded on PACS. Berhane montano selected color Doppler and spectral images recorded. LIMITATIONS: 04/18/2020 CT abdomen and pelvis FINDINGS: PANCREAS: No masses. Visualized pancreatic duct normal caliber. LIVER: No masses. Echotexture normal. LIVER VASCULATURE: Normal directional flow of the main portal vein and hepatic veins. GALLBLADDER: Re- demonstration of gallstones and sludge. No pericholecystic fluid or mural thickenin g. ULTRASOUND-DETECTED SINGLETARY'S SIGN: Negative. INTRAHEPATIC DUCTS AND COMMON DUCT: CBD and intrahepatic ducts normal caliber. No filling defects. INFERIOR VENA CAVA: Normal flow. AORTA: No aneurysm. RIGHT KIDNEY: Normal size. Normal echogenicity. No solid or suspicious masses. No hydronephrosis. No calcifications. PERITONEAL AND RIGHT PLEURAL SPACE: No ascites or effusions. OTHER: No other significant findings. IMPRESSION: Cholelithiasis without evidence of cholecystitis. TECHNICAL DOCUMENTATION: JOB ID: [id number] 2010 [employer]- All Rights Reserved Reading location - IP/workstation name: [email or web address]
[2020-04-24] MEDS ORDERED: HYDROCODONE/ACETAMINOPHEN 5-325 MG (6 TAB/ER DISP) PO PRN (23:48)
[2020-04-24] MEDS ORDERED: ONDANSETRON ODT 4 MG TAB (6 TAB/ER DISP) PO PRN (23:49)
--- NOTE | 2020-04-24 23:58 | ER Document Report ---
ED General - General Chief Complaint: Abdominal Pain Stated Complaint: ABDOMINAL PAIN,HEADACHE Time Seen by Provider: 04/24/20 14:34 Primary Care Provider: SHERRI DELGADO MD [Primary Care Provider] - Follow up as needed Mode of Arrival: Ambulatory TRAVEL OUTSIDE OF THE [place] IN LAST 30 DAYS: No - HPI Context: Chief Complaint: [Right upper quadrant pain] [This is a 55-year-old male with a known history of gallstones who was seen here on 04/18/2020 for a chief complaint of right upper quadrant pain and diagnosed with cholelithiasis. Patient has not been having problems in terms of fevers, nausea, vomiting. Patient was diagnosed with gallstones and discharged with a NSAID for pain. Patient states that he has 2 issues: 1. He was not referred to a surgeon for his gallbladder and to reviewing the side effects of the total lack that he was prescribed it mentioned the potential for cardiac side effects. Patient is requesting referral to a surgeon and a different medication to treat his pain that will not interfere with his heart. ] History obtained from [patient] Symptoms began:[6 days ago] Onset: [Sudden] Timing: [After eating] Quality: [Sharp] Intensity: [5 out of 5] Location: [Right upper quadrant] Radiation: [Denies] [The pain does not migrate to a new location.] Aggravating factors: Eating Relieving factors: [none] [Denies] SOB [Denies] nausea [Denies] vomiting [Denies] sweats [Denies] fever [Denies] cough [Denies] calf or leg swelling or pain - Related Data Allergies/Adverse Reactions: oxycodone [From Percocet] Adverse Reaction (Verified 04/18/20 11:00) Hallucinations Home Medications: Lasix, metoprolol, simvastatin Past Medical History - General Information source: Patient - Social History Smoking Status: Never Smoker Family History: Arthritis, DM, Hypertension Patient has homicidal ideation: No - Past Medical History Cardiac Medical History: Reports: Hx Congestive Heart Failure, Hx Coronary Artery Disease, Hx Hypercholesterolemia, Hx Hypertension Pulmonary Medical History: Denies: Hx Asthma, Hx COPD Neurological Medical History: Denies: Hx Seizures Endocrine Medical History: Reports: Hx Diabetes Mellitus Type 2. Denies: Hx Diabetes Mellitus Type 1, Hx Hyperthyroidism, Hx Hypothyroidism Renal/ Medical History: Denies: Hx Peritoneal Dialysis GI Medical History: Denies: Hx Cirrhosis, Hx Crohn's Disease, Hx Hepatitis, Hx Ulcerative Colitis Musculoskeletal Medical History: Denies Hx Arthritis, Denies Hx Gout Skin Medical History: Denies Hx Eczema, Denies Hx Psoriasis Psychiatric Medical History: Denies: Hx Depression Infectious Medical History: Denies: Hx Hepatitis Past Surgical History: Reports: Hx Cardiac Catheterization, Hx Cardiac Surgery - pacemaker, Hx Pacemaker - Immunizations Hx Diphtheria, Pertussis, Tetanus Vaccination: No Hx Pneumococcal Vaccination: 04/30/09 Review of Systems - Review of Systems Notes: Review of systems as below unless otherwise stated in HPI. CONSTITUTIONAL [No] fever, [No] chills. EYES [No] eye pain. ENT [No] URI symptoms, [No] sore throat, [No] ear pain. CARDIOVASCULAR [No] chest pain, [No] palpitations, [No] edema. RESPIRATORY [No] Cough, [No] SOB, [No] wheezing. GASTROINTESTINAL Positive abdominal pain, [No] nausea, [No] Diarrhea, [No] Vomiting, [No] constipation, [No] melena, [No] rectal bleeding. GENITOURINARY [No] dysuria, [No] urinary frequency, [No] hematuria, [No] urinary urgency MUSCULOSKELETAL [No] Back pain. SKIN [No] Rash. NEUROLOGIC [No] Headache, [No] recent seizures, [No] paralysis,[No] parathesias. ENDOCRINE [No] polyuria. HEMO/LYMPATIC [No] easy brusing PSYCHIATRIC [No] depression. Physical Exam - Vital signs Vitals: Temp Pulse Resp BP Pulse Ox 98.1 F 76 16 126/69 H 96 04/24/20 14:23 04/24/20 14:23 04/24/20 14:23 04/24/20 14:23 04/24/20 14:23 - Notes Notes: CONSTITUTIONAL [Vital signs reviewed, Patient appears comfortable, Alert and oriented X 3, Normal stature.] HEAD [Atraumatic, Normocephalic.] EYES [Eyes are normal to inspection, No discharge from eyes, Extraocular muscles intact, Sclera are normal, Conjunctiva are normal.] ENT [External ears normal to inspection, Nose examination normal, Mouth normal to inspection.] NECK [Normal ROM, No jugular venous distention, No meningeal signs, ] RESPIRATORY CHEST [Chest is nontender, Breath sounds normal, No respiratory distress.] CARDIOVASCULAR [RRR, No murmurs, Normal S1 S2, No rub, No gallop.] ABDOMEN [Abdomen is nontender, no Quintero's sign is present, no pulsatile masses, No other masses, Bowel sounds normal, No distension, No peritoneal signs, No hernias.] BACK [There is no CVA Tenderness, There is no tenderness to palpation, Normal ins pection.] UPPER EXTREMITY [Inspection normal, No cyanosis, No clubbing, No edema, LOWER EXTREMITY [Inspection normal, No cyanosis, No clubbing, No edema, No calf tenderness, NEURO [No focal motor deficits, No focal sensory deficits, Speech normal.] SKIN [Skin is warm, Skin is dry, Skin is normal color.] PSYCHIATRIC [Normal affect. ] Course - Re-evaluation Re-evalutation: 04/25/20 00:00 Patient does not appear to be have any pain at this time. Options for different pain medication discussed with patient. Results of ED MSE discussed with patient. Patient informed that this MD would contact Dr. Harding and discuss outpatient follow-up given the patient has cola lithiasis but not cholecystitis. All questions were answered prior to discharge. Emergency signs and symptoms, reasons to return to the emergency department discussed with patient. - Vital Signs Vital signs: Temp Pulse Resp BP Pulse Ox 98.7 F 87 18 127/78 H 99 04/24/20 22:30 04/24/20 22:30 04/24/20 22:30 04/24/20 22:30 04/24/20 22:30 - Laboratory Results Result Diagrams: 04/24/20 16:54 04/24/20 16:54 Laboratory Results Interpreted: 04/24/20 04/24/20 16:54 16:54 RBC 3.95 L Hgb 12.5 L Carbon Dioxide 32 H Glucose 216 H Critical Laboratory Results Reviewed: No Critical Results Attending or Supervising Physician who Reviewed Labs: JESSY COLON IV - Radiology Results Critical Radiology Results Reviewed: Yes Attending or Supervising Physician who Reviewed Radiology: JESSY COLON IV - Ultrasound interpretation by radiologist states that there is redemonstration of gallstones and sludge. No pericholecystic fluid or mural thickening noted negative ultrasound detected Quintero sign. Intrahepatic ducts and common duct in terms of the common bile duct and intrahepatic ducts normal caliber. No filling defects.. Impression: Cholelithiasis without evidence of cholecystitis - Consults Dr. Harding Time consulted: 23:48 - Dr. Harding agrees with plan to prescribe the patient pain medication and refer the patient to his office for follow-up. Reason for consultation: 04/25/20 00:04 Cholelithiasis Consulted provider: follow-up in office Discharge - Discharge Clinical Impression: Cholelithiasis Qualifiers: Cholelithiasis location: gallbladder Cholecystitis presence: without cholecystitis Biliary obstruction: without biliary obstruction Qualified Code(s): K80.20 - Calculus of gallbladder without cholecystitis without obstruction Condition: Stable Disposition: HOME, SELF-CARE Additional Instructions: Return to the Emergency Department without delay if any worse. HOME CARE INSTRUCTIONS & INFORMATION: Thank you for choosing us for your medical needs. We hope you're satisfied with the care you received. After you leave, you must properly care for your problem and, at the same time, observe its progress. Any condition can change. Some illnesses can change rapidly over hours or days. If your condition worsens, return to the Emergency Department or see your physician promptly. ABOUT YOUR X-RAYS AND EKG'S: If you had an EKG or X-rays taken, they have been read by the Emergency Physician. The X-rays and EKG's will also be read by a Radiologist or Gas Welding Equipment Mechanic within 24 hours. If discrepancies are noted, you will be notified by telephone. Please be certain the ED has a correct telephone number & address where you can be reached. Also, realize that some fractures or abnormalities do not show up on initial X-rays. If your symptoms continue, see your physician. ABOUT YOUR LABORATORY TEST: If you had laboratory tests, the results have been reviewed by the Emergency Physician. Some test results (for example cultures) may not be available for several days. You will be contacted if any test result shows you need additional treatment. Please be certain the ED has a correct telephone number and address where you can be reached. ABOUT YOUR MEDICATIONS: You will receive instructions on how to take your medicine on the prescription label you receive. Additional information may be provided by the Pharmacy. If you have questions afterwards, call the ED for clarification or further instructions. Some prescribed medications may cause drowsiness. Do not perform tasks such as driving a car or operating machinery without consulting your Pharmacist. If you feel you need a refill of pain medication, your condition will need re-evaluation. Please do not call for a refill of any medication. ABOUT YOUR SIGNATURE: Signature of this document acknowledges to followin. Understanding that you received emergency treatment and that you may be released before al medical problems are known or treated. Please be certain the ED has a correct phone number & address where you can be reached. 2. Acknowledgement that you will arrange for follow-up care as recommended. 3. Authorization for the Emergency Physician to provide information to your follow-up Physician in order to maximize your care. AT ANY TIME, IF YOUR SYMPTOMS CHANGE SIGNIFICANTLY OR WORSEN OR YOU DEVELOP NEW SYMPTOMS, RETURN TO THE EMERGENCY DEPARTMENT IMMEDIATELY FOR RE-EVALUATION. OUR GOAL IS TO PROVIDE EXCELLENT MEDICAL CARE! WE HOPE THAT WE HAVE MET YOUR EXPECTATIONS DURING YOUR EMERGENCY DEPARTMENT VISIT AND THAT YOU FEEL YOU HAVE RECEIVED EXCELLENT CARE! Gallbladder Disease Your evaluation shows evidence of gallbladder disease. The gallbladder is a pouch under the liver which stores bile. Stones, infection, or irritation of the gallbladder cause attacks of pain. Certain foods -- fats in particular -- may provoke attacks. The usual treatment for gallbladder disease is surgical removal of the gallbladder -- called a cholecystectomy. You will be referred to a physician qualified to advise you on the best treatment for your problem. Hospitalization is not necessary. Take clear liquids only until you are painfree. After that, you should stay on a low-fat diet, with frequent SMALL meals. Call the doctor or return at once if you develop severe pain, repeated vomiting, fever, or jaundice (a yellow color in the skin and whites of the eyes). Prescriptions: Hydrocodone/Acetaminophen [[place] 5-325 mg Tablet] 1 tab PO Q6HP PRN #20 tablet PRN Reason: pain Referrals: SHERRI DELGADO MD [Primary Care Provider] - Follow up as needed PIERRE HARDING MD [ACTIVE STAFF] - 04/26/20 (Call Dr. Harding's office on 04/26/2020 to schedule a follow-up appointment about your gallbladder.)
[2020-04-25 00:25] VITALS: BP 137/82
== END 2020-04-25 00:40 | disposition home or self-care (01) ==
LOC: ER 13:05
DX: K80.20 Calculus of gallbladder without cholecystitis without obstruction (principal); R10.11 Right upper quadrant pain; R51.9 Headache, unspecified
CPT/HCPCS: 36415; 76705; 80053; 82150; 83690; 85025; 93976; 99284

== ENCOUNTER 2020-05-09 12:30 | Emergency (ER) | payer MEDICAID ==
[2020-05-09 12:41] VITALS: BP 122/75
--- NOTE | 2020-05-09 14:04 | ER Document Report ---
ED General - General Chief Complaint: Rib Pain Stated Complaint: RIGHT RIB PAIN Time Seen by Provider: 05/09/20 13:42 Primary Care Provider: SHRERI DELGADO MD [Primary Care Provider] - Follow up as needed TRAVEL OUTSIDE OF THE [place] IN LAST 30 DAYS: No - HPI Notes: Patient is a 55 y/o male with a hx of DM and CHF who presents with right rib pain that began one week ago. Patient also reports a rash overlying the area. He describes the pain as a sharp, burning pain. He denies fever, vomiting, chest pain and shortness of breath. He has not taken any medication for symptoms. - Related Data Allergies/Adverse Reactions: oxycodone [From Percocet] Adverse Reaction (Verified 05/09/20 14:28) Hallucinations Past Medical History - General Information source: Patient - Social History Smoking Status: Unknown if Ever Smoked Family History: Arthritis, DM, Hypertension - Past Medical History Cardiac Medical History: Reports: Hx Congestive Heart Failure, Hx Coronary Artery Disease, Hx Hypercholesterolemia, Hx Hypertension Pulmonary Medical History: Denies: Hx Asthma, Hx COPD Neurological Medical History: Denies: Hx Seizures Endocrine Medical History: Reports: Hx Diabetes Mellitus Type 2. Denies: Hx Diabetes Mellitus Type 1, Hx Hyperthyroidism, Hx Hypothyroidism Renal/ Medical History: Denies: Hx Peritoneal Dialysis GI Medical History: Denies: Hx Cirrhosis, Hx Crohn's Disease, Hx Hepatitis, Hx Ulcerative Colitis Musculoskeletal Medical History: Denies Hx Arthritis, Denies Hx Gout Skin Medical History: Denies Hx Eczema, Denies Hx Psoriasis Psychiatric Medical History: Denies: Hx Depression Infectious Medical History: Denies: Hx Hepatitis Past Surgical History: Reports: Hx Cardiac Catheterization, Hx Cardiac Surgery - pacemaker, Hx Pacemaker - Immunizations Hx Diphtheria, Pertussis, Tetanus Vaccination: No Hx Pneumococcal Vaccination: 04/30/09 Review of Systems - Review of Systems Constitutional: No symptoms reported EENT: No symptoms reported Cardiovascular: No symptoms reported Respiratory: No symptoms reported Gastrointestinal: No symptoms reported Genitourinary: No symptoms reported Male Genitourinary: No symptoms reported Musculoskeletal: No symptoms reported Skin: See HPI Hematologic/Lymphatic: No symptoms reported Neurological/Psychological: No symptoms reported Physical Exam - Vital signs Vitals: Temp Pulse Resp BP Pulse Ox 98.3 F 76 20 122/75 100 05/09/20 12:39 05/09/20 12:39 05/09/20 12:39 05/09/20 12:39 05/09/20 12:39 - Notes Notes: PHYSICAL EXAMINATION: VITALS: Vitals reviewed and within normal limits. GENERAL: Well-appearing, well-nourished and in no acute distress. HEAD: Atraumatic, normocephalic. EYES: Pupils equal, round, and reactive to light, extraocular movements intact, sclera anicteric, conjunctiva are normal. ENT: Nares patent. Moist mucous membranes. NECK: Normal range of motion, supple without lymphadenopathy. LUNGS: Breath sounds clear to auscultation bilaterally and equal. No wheezes, rales, or rhonchi. HEART: Regular, rate, and rhythm without murmurs. ABDOMEN: Soft, nontender, normoactive bowel sounds. No guarding, no rebound. No masses appreciated. EXTREMITIES: Normal range of motion, no pitting or edema. No cyanosis. NEUROLOGICAL: No focal neurological deficits. Moves all extremities spontaneously and on command. PSYCH: Normal mood, normal affect. SKIN: Vesicular rash to the right chest and inframammary fold that follows a dermatomal pattern. Warm, Dry, normal turgor, no rashes or lesions noted. Course - Re-evaluation Re-evalutation: Patient is a 55 y/o male with a hx of CHF and DM who presents with right rib pain and rash that began one week ago. Vital signs are within normal limits. On exam, vesicular rash to the right chest and inframammary fold that follows a dermatomal pattern. Patient's presentation and clinical exam are consistent with shingles. I have a low clinical suspicion for emergent etiology including cardiac and intra-abdominal pathology. Patient will be prescribed antiviral, steroids, and pain medication. Return precautions and follow-up instructions given. Patient will be discharged home. Patient understands and is in agreement with the plan. 05/09/20 14:16 - Vital Signs Vital signs: Temp Pulse Resp BP Pulse Ox 98.3 F 76 20 122/75 100 05/09/20 12:39 05/09/20 12:39 05/09/20 12:39 05/09/20 12:39 05/09/20 12:39 - Laboratory Results Critical Laboratory Results Reviewed: No Critical Results - Radiology Results Critical Radiology Results Reviewed: No Critical Results Discharge - Discharge Clinical Impression: Herpes zoster Qualifiers: Herpes zoster complications: without complications Qualified Code(s): B02.9 - Zoster without complications Condition: Stable Disposition: HOME, SELF-CARE Additional Instructions: Shingles Your rash and pain is consistent with a diagnosis of shingles. This is a reactivation of the chickenpox virus you had as a child. You are being started on medicines to combat the virus as well as steroids. Please take exactly as directed until the medications are completed. Return to the emergency department immediately if you develop severe headache, weakness, numbness, worsening of the rash, fever, persistent vomiting, or any other symptoms that are worrisome to you. Prescriptions: Ondansetron [Zofran Odt 4 mg Tablet] 1 - 2 tab PO Q4HP PRN #15 tab.rapdis PRN Reason: Prednisone [Deltasone 20 mg Tablet] 20 mg PO BID 5 Days #10 tablet Lidocaine [Lidoderm 5% (700 mg) Transdermal Patch] 1 patch TP DAILY PRN #15 adh..patch PRN Reason: Hydrocodone/Acetaminophen [[place] 5-325 mg Tablet] 1 - 2 tab PO Q6 PRN #15 tablet PRN Reason: Valacyclovir HCl [Valacyclovir] 1,000 mg PO TID 7 Days #21 tablet Referrals: SHERRI DELGADO MD [Primary Care Provider] - Follow up as needed
== END 2020-05-09 14:33 | disposition home or self-care (01) ==
LOC: ER 12:30
DX: B02.9 Zoster without complications (principal); R07.81 Pleurodynia; I25.10 Atherosclerotic heart disease of native coronary artery without angina pectoris; I10 Essential (primary) hypertension; E11.9 Type 2 diabetes mellitus without complications
CPT/HCPCS: 99284